=== PATIENT | female | born 1950 | race Caucasian/White ===

== ENCOUNTER 2019-09-22 06:00 | Outpatient (RCR) | payer MEDICARE, SELFPAY | END 2019-10-22 00:01 | LOC: SST 06:00 | PROVIDERS: Family Provider Family Medicine; Visit Provider Family Medicine | DX: R47.81 Slurred speech (principal) | CPT/HCPCS: 92507 ×4 ==

== ENCOUNTER 2019-10-23 06:00 | Outpatient (RCR) | payer MEDICARE, SELFPAY | END 2019-11-22 23:59 | disposition home or self-care (01) | LOC: SST 06:00 | PROVIDERS: Family Provider Family Medicine; Visit Provider Family Medicine | DX: R47.01 Aphasia (principal) | CPT/HCPCS: 92507 ==

== ENCOUNTER → 2019-10-30 09:52 | Outpatient (BNVA) | payer MEDICARE, SELFPAY | PROVIDERS: Family Provider Family Medicine; PCP Anesthesiology; Visit Provider Nurse Practitioner | DX: G89.29 Other chronic pain (principal); M47.816 Spondylosis without myelopathy or radiculopathy, lumbar region; M54.16 Radiculopathy, lumbar region; M48.061 Spinal stenosis, lumbar region without neurogenic claudication; M25.551 Pain in right hip; F17.210 Nicotine dependence, cigarettes, uncomplicated; Z79.891 Long term (current) use of opiate analgesic | CPT/HCPCS: 99214 ==

== ENCOUNTER 2019-11-23 06:00 | Outpatient (RCR) | payer MEDICARE, SELFPAY | END 2019-12-21 23:59 | disposition home or self-care (01) | LOC: SST 06:00 | PROVIDERS: Family Provider Family Medicine; PCP Anesthesiology; Referring Provider Family Medicine; Visit Provider Family Medicine | DX: R13.0 Aphagia (principal) | CPT/HCPCS: 92607; 92608 ==

== ENCOUNTER 2019-11-25 13:05 | Outpatient (RCR) | payer MEDICARE, SELFPAY | END 2019-12-21 23:59 | disposition home or self-care (01) | LOC: SST 13:05 | PROVIDERS: Family Provider Family Medicine; PCP Anesthesiology; Visit Provider Family Medicine | DX: R47.01 Aphasia (principal) | CPT/HCPCS: 92507; 92607; 92608 ==

== ENCOUNTER 2019-12-22 06:00 | Outpatient (RCR) | payer MEDICARE, SELFPAY | END 2020-01-21 23:59 | disposition home or self-care (01) | LOC: SST 06:00 | PROVIDERS: Family Provider Family Medicine; PCP Anesthesiology; Visit Provider Family Medicine | DX: R47.01 Aphasia (principal) | CPT/HCPCS: 92507 ==

== ENCOUNTER → 2019-12-26 12:33 | Outpatient (BNVA) | payer MEDICARE, SELFPAY | PROVIDERS: Family Provider Family Medicine; PCP Anesthesiology; Visit Provider Anesthesiology | DX: G89.29 Other chronic pain (principal); M47.816 Spondylosis without myelopathy or radiculopathy, lumbar region; M48.061 Spinal stenosis, lumbar region without neurogenic claudication; M54.16 Radiculopathy, lumbar region; M25.551 Pain in right hip; Z79.891 Long term (current) use of opiate analgesic | CPT/HCPCS: 99214 ==

== ENCOUNTER 2020-01-22 06:00 | Outpatient (RCR) | payer MEDICARE, SELFPAY | END 2020-02-20 23:59 | disposition home or self-care (01) | LOC: SST 06:00 | PROVIDERS: Family Provider Family Medicine; PCP Anesthesiology; Visit Provider Family Medicine | DX: R47.01 Aphasia (principal) | CPT/HCPCS: 92507 ==

== ENCOUNTER 2020-02-21 06:00 | Outpatient (RCR) | payer MEDICARE, SELFPAY | END 2020-03-22 23:59 | disposition home or self-care (01) | LOC: SST 06:00 | PROVIDERS: PCP Anesthesiology; Visit Provider Family Medicine | DX: R47.01 Aphasia (principal) | CPT/HCPCS: 92507 ==

== ENCOUNTER 2020-03-13 13:13 | Outpatient (CLI) | payer MEDICARE, SELFPAY ==
--- NOTE | 2020-03-13 13:24 | XRR_ITS ---
PROCEDURE INFORMATION: Exam: XR Lumbosacral Spine, 2 or 3 Views Exam date and time: 03/13/2020 1:37 PM Age: 69 years old Clinical indication: Low back pain TECHNIQUE: Imaging protocol: XR of the lumbosacral spine, 2 or 3 views. COMPARISON: CR Lumbar Spine Flex/Extens [id number] 02/16/2016 2:00 PM FINDINGS: Vertebrae: No acute fracture. Normal alignment. There is anterolisthesis of L4 relative to L5 which is likely degenerative in nature. The disc spaces appear well preserved. Soft tissues: Normal. XR/XR lumbar spine f/e only [id number] IMPRESSION: No acute findings.
--- NOTE | 2020-03-13 13:30 | CT_ITS ---
WS: [id number] CT LUMBAR SPINE TECHNIQUE: Noncontrast CT of the lumbar spine with coronal and sagittal reformatted images. CLINICAL INFORMATION: Low back pain COMPARISON: MRI October 21, 2019 DLP: 993.[address] scans at [facility] use at least one of these dose optimization techniques: automat ed exposure control; mA and/or kV adjustment per patient size (includes targeted exams where dose is matched to clinical indication); or iterative reconstruction. FINDINGS: Mild lumbar curve. No acute compression. Grade 1 anterolisthesis L4 on L5 measuring 6 mm. No acute co mpression fractures. L1-L2: Disc osteophyte complex with endplate ridging. Narrowing of the left subarticular recess. Mild left and no significant right foraminal narrowing. Mild facet arthropathy. L2-L3: Disc osteophyte complex with endplate ridging. Narrowing of the left subarticular recess. Mild left and no significant right foraminal narrowing. Moderate facet arthropathy. L3-L4: Small central disc protrusion with moderate central canal stenosis. Impingement subarticular r ecess bilaterally. Moderate facet arthropathy. Mild right greater than left foraminal narrowing. L4-L5: Grade 1 anterolisthesis L4 on L5. Disc bulging in combination with facet arthropathy and ligam entum flavum hypertrophy results in severe central canal stenosis. This is unchanged since the prior MRI. Moderate to advanced facet arthropathy. Mild right and no significant left foraminal narrowing. L5-S1: Mild annular bulging. Mild central canal stenosis. Moderate facet arthropathy. Foramen are pat ent. Bilateral sacral insufficiency fractures with sclerosis. Recommend correlation for sacral pain. This was present on the prior MRI. CT/CT lumbar spine wo con* [id number] IMPRESSION: 1. Mild lumbar curve. No acute compression. 2. Severe central canal stenosis L4-5 unchanged since the prior MRI. Grade 1 a nterolisthesis L4 on L5 unchanged. 3. Bilateral sacral insufficiency fractures with sclerosis. These are present on the prior MRI. 4. Mild to moderate central canal stenosis L3-4 with a small central disc prot rusion. 5. Advanced facet arthropathy L3-L5. 6. Multilevel mild to moderate bony foraminal narrowing worse at left L2-3, ri ght L3-4, and right L4-5.
== END 2020-03-13 13:14 | disposition home or self-care (01) ==
LOC: RAD 13:19
PROVIDERS: Visit Provider Licensed Practical Nurse
DX: M54.5 Low back pain (principal); M48.061 Spinal stenosis, lumbar region without neurogenic claudication; M47.896 Other spondylosis, lumbar region
CPT/HCPCS: 72120; 72131

== ENCOUNTER 2020-05-05 13:11 | Outpatient (RCR) | payer MEDICARE, SELFPAY | END 2020-05-22 23:59 | disposition home or self-care (01) | LOC: SPT 13:11 | PROVIDERS: PCP Family Medicine; Referring Provider Specialist; Visit Provider Specialist | DX: M54.16 Radiculopathy, lumbar region (principal) | CPT/HCPCS: 97110; 97161 ==

== ENCOUNTER → 2020-05-14 12:49 | Outpatient (BNVA) | payer MEDICARE, SELFPAY | PROVIDERS: PCP Family Medicine; Visit Provider Anesthesiology | DX: M47.816 Spondylosis without myelopathy or radiculopathy, lumbar region (principal); M48.061 Spinal stenosis, lumbar region without neurogenic claudication; M43.16 Spondylolisthesis, lumbar region; M51.17 Intervertebral disc disorders with radiculopathy, lumbosacral region; F17.210 Nicotine dependence, cigarettes, uncomplicated; Z79.891 Long term (current) use of opiate analgesic | CPT/HCPCS: 99214 ==

== ENCOUNTER 2020-05-15 13:54 | Outpatient (CLI) | payer MEDICARE, SELFPAY ==
[2020-05-15 15:00] LABS: Anion Gap 12.3 (5-19); Blood Urea Nitrogen 16 mg/dL (8-23); Calcium 9.2 mg/dL (8.5-10.5); Carbon Dioxide 24 mmol/L (22-29); Chloride 104 mmol/L (98-107); Glucose 82 mg/dL (65-115); Osmolality Calculated 277 mOsm/kg (285-295); Potassium 4.3 mmol/L (3.5-5.1); Sodium 136 mmol/L (136-145)
== END 2020-05-15 13:55 | disposition home or self-care (01) ==
LOC: LAB 14:01
PROVIDERS: PCP Family Medicine; Visit Provider Anesthesiology
DX: Z79.1 Long term (current) use of non-steroidal anti-inflammatories (NSAID) (principal)
CPT/HCPCS: 36415; 80048

== ENCOUNTER → 2020-07-15 12:28 | Outpatient (BNVA) | payer MEDICARE, SELFPAY | PROVIDERS: PCP Family Medicine; Visit Provider Nurse Practitioner | DX: M47.816 Spondylosis without myelopathy or radiculopathy, lumbar region (principal); M43.16 Spondylolisthesis, lumbar region; M51.17 Intervertebral disc disorders with radiculopathy, lumbosacral region; F17.210 Nicotine dependence, cigarettes, uncomplicated; Z79.891 Long term (current) use of opiate analgesic; Z71.6 Tobacco abuse counseling | CPT/HCPCS: 99214 ==

== ENCOUNTER 2020-07-22 06:00 | Outpatient (RCR) | payer MEDICARE, SELFPAY | END 2020-07-22 23:59 | disposition home or self-care (01) | LOC: SST 06:00 | PROVIDERS: PCP Family Medicine; Referring Provider Family Medicine; Visit Provider Family Medicine | DX: R47.01 Aphasia (principal) | CPT/HCPCS: 92507 ==

== ENCOUNTER 2020-07-23 06:00 | Outpatient (RCR) | payer MEDICARE, SELFPAY | END 2020-08-22 23:59 | disposition home or self-care (01) | LOC: SST 06:00 | PROVIDERS: PCP Family Medicine; Referring Provider Family Medicine; Visit Provider Family Medicine | DX: R47.01 Aphasia (principal) | CPT/HCPCS: 92507 ==

== ENCOUNTER → 2020-09-02 14:17 | Outpatient (BNVA) | payer MEDICARE, SELFPAY | PROVIDERS: PCP Family Medicine; Visit Provider Obstetrics & Gynecology | DX: N81.10 Cystocele, unspecified (principal); R10.2 Pelvic and perineal pain; G89.29 Other chronic pain | CPT/HCPCS: 76830 ==

== ENCOUNTER → 2020-09-08 13:34 | Outpatient (BNVA) | payer MEDICARE, SELFPAY | PROVIDERS: PCP Family Medicine; Visit Provider Anesthesiology | DX: M47.816 Spondylosis without myelopathy or radiculopathy, lumbar region (principal); M43.16 Spondylolisthesis, lumbar region; M48.061 Spinal stenosis, lumbar region without neurogenic claudication; M51.17 Intervertebral disc disorders with radiculopathy, lumbosacral region; F17.210 Nicotine dependence, cigarettes, uncomplicated; Z79.1 Long term (current) use of non-steroidal anti-inflammatories (NSAID); Z79.891 Long term (current) use of opiate analgesic | CPT/HCPCS: 36415; 80053; 99213; 99214 ==

== ENCOUNTER 2020-09-08 15:24 | Outpatient (CLI) | payer MEDICARE, SELFPAY ==
[2020-09-08 16:45] LABS: Alanine Aminotransferase 18 U/L (0-33); Alkaline Phosphatase 126 IU/L (35-105); Anion Gap 15.4 (5-19); Aspartate Amino Transferase 17 U/L (0-32); Blood Urea Nitrogen 21 mg/dL (8-23); Calcium 8.9 mg/dL (8.5-10.5); Carbon Dioxide 24 mmol/L (22-29); Chloride 106 mmol/L (98-107); Globulin 2.3 g/dL (1.3-4.6); Glucose 90 mg/dL (65-115); Osmolality Calculated 295 mOsm/kg (285-295); Potassium 4.4 mmol/L (3.5-5.1); Sodium 141 mmol/L (136-145); Total Bilirubin 0.2 mg/dL (0.15-1.2); Total Protein 6.3 g/dL (6.6-8.7)
== END 2020-09-08 15:25 | disposition home or self-care (01) ==
LOC: LAB 15:30
PROVIDERS: PCP Family Medicine; Visit Provider Anesthesiology
DX: Z79.1 Long term (current) use of non-steroidal anti-inflammatories (NSAID) (principal)
CPT/HCPCS: 36415; 80053

== ENCOUNTER → 2020-09-24 13:03 | Outpatient (BNVA) | payer MEDICARE, SELFPAY | PROVIDERS: PCP Family Medicine; Visit Provider Obstetrics & Gynecology | DX: Z20.828 Contact with and (suspected) exposure to other viral communicable diseases (principal) | CPT/HCPCS: 87635 ==

== ENCOUNTER 2020-09-30 09:21 | Observation (INO) | payer MEDICARE, SELFPAY ==
[2020-09-28 10:06] VITALS: BMI 20.1
--- NOTE | 2020-09-28 10:39 | ANES.PREANE2 ---
Pre-Anesthetic Assessment Pre-Anesthetic Assessment: Height/Weight: Height 1.57 m Weight 49.895 kg Preop Diagnosis: Cystocele stage 2 stress urinary incontinence Proposed Procedure: Operation Date: 09/30/20 12:35 Proposed Procedures p Anterior Repair Anterior Colporrhaphy [id number] N81.10(Not Applicable) - Darius Stoll MD s Midurethral single incision Sling(Not Applicable) - Darius Stoll MD Familial anesthetic complications: None Was Beta Adalgisa taken within 24 hours: N/A Last intake: difficulty waking up Social: Social History: Tobacco Exam: Pre-Anes Outpt Exam: alert, oriented x 3, clear to auscultation bilaterally and regular rate & rhythm Airway: Cervical ROM: WNL MP: 2 Dentition: Other (plates) CV/HEM: Comments: s/p ablation - for rapid heart beat Musc/skel: Musc/skel: Lower Back Pain and OA/DJD Neuropsych: Neuropsych: Neuropathy and TIA (2-3) Comments: Has trouble producing speech - ? 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 Long-term use of high-risk medication Low back pain Smoker Spinal stenosis of lumbar region with radiculopathy Spondylolisthesis, lumbar region Surgical History History of cardiac radiofrequency ablation 2012 S/P cholecystectomy 2011 S/P hysterectomy 2004 Family History Sister Dementia Father Myocardial infarct Heart disease Mother Cancer BRAIN TUMOR Brother Hypertension Cancer colon cancer Denies family history of Ovarian cancer Diabetes Clotting disorder Hyperlipidemia Breast cancer Anesthesia complication Bleeding disorder Uterine cancer Thyroid condition Stroke Social History (Updated 09/28/20 @ 08:03 by Lissy Villela RN) Smoking and tobacco status: current every day smoker cigarettes Packs smoked per day: 2 [ Other cigarette details: 1-2 packs per day ] Alcohol intake: never Substance/Drug Use: never Household members: spouse Marital status: History of recent travel: No Data Anesthesia Cardiac Studies: No Data to Display
[2020-09-28 10:45] LABS: Basophils # 0.1 10^3/uL (0.0-0.1); Basophils % 0.7 %; Eosinophils # 0.3 10^3/uL (0.0-0.8); Eosinophils % 3.7 %; Hematocrit 40.3 % (37.0-47.0); Lymphocytes # 1.5 10^3/uL (0.8-4.8); Mean Corpuscular HGB Conc 32.3 g/dL (30.0-36.0); Mean Corpuscular Hemoglobin 31.4 pg (28.0-34.0); Mean Corpuscular Volume 97.3 fL (81-99); Mean Platelet Volume 10.2 fL (7.4-10.4); Monocytes # 0.6 10^3/uL (0.2-0.9); Monocytes % 6.6 %; Neutrophils % 71.8 %; Nucleated Red Blood Cells % 0 %; Platelet Count 247 10^3/cmm (130-400); Red Blood Count 4.14 10^6/uL (4.1-5.3); Red Cell Distribution Width 14.1 % (12.1-15.1); White Blood Count 8.9 10^3/uL (4.0-10.0)
[2020-09-28 11:07] LABS: Alanine Aminotransferase 18 U/L (0-33); Albumin Level 3.9 g/dL (3.5-5.2); Alkaline Phosphatase 119 IU/L (35-105); Anion Gap 13.8 (5-19); Aspartate Amino Transferase 18 U/L (0-32); Blood Urea Nitrogen 21 mg/dL (8-23); Calcium 9.2 mg/dL (8.5-10.5); Carbon Dioxide 26 mmol/L (22-29); Chloride 107 mmol/L (98-107); Globulin 2.3 g/dL (1.3-4.6); Glucose 91 mg/dL (65-115); Osmolality Calculated 297 mOsm/kg (285-295); Potassium 4.8 mmol/L (3.5-5.1); Sodium 142 mmol/L (136-145); Total Bilirubin 0.2 mg/dL (0.15-1.2); Total Protein 6.2 g/dL (6.6-8.7)
[2020-09-28 11:50] LABS: Add Urine Microscopic? YES; Bilirubin Urine Neg (Negative); Blood Urine Neg (Negative); Glucose Urine UA Norm (Normal); Ketones Urine 1+ (Negative); Leukocyte Esterase Urine Trace (Negative); Nitrate Urine Positive (Negative); Protein Urine Neg (Negative); Specific Gravity, Urine 1.025 (1.005-1.030); Urine Appearance Hazy (CLEAR); Urine Color Yellow (Yellow); Urobilinogen Urine Norm (Negative); pH Urine 5 (5-7)
[2020-09-28 11:58] LABS: Add Urine Culture? Yes; Bacteria Urine 4+ /hpf; WBC Urine 80-100 /hpf (0-5)
[2020-09-30] VITALS (19 sets, daily range): BP systolic 102–141; BP diastolic 60–91; PULSE 66–98; RESP 15–20; TEMP 36.3–36.8; O2SAT 95–100
--- NOTE | 2020-09-30 07:20 | W.PM.OPSUD ---
Surgery/Procedure H&P Update DATE OF PROCEDURE: October 04, 2020 DATE H&P PERFORMED: 09/28/20 H&P UPDATE INFORMATION: I have reviewed H&P completed within last 30 days, I have examined patient prior to procedure and No changes to prior documentation PREOP DIAGNOSIS: Cystocele stage 2 stress urinary incontinence PLANNED PROCEDURE: Operation Date: 09/30/20 08:10 Proposed Procedures p Anterior Repair Anterior Colporrhaphy [id number] N81.10(Not Applicable) - Darius Stoll MD s Midurethral single incision Sling(Not Applicable) - Darius Stoll MD
--- NOTE | 2020-09-30 07:23 | ANES.PAUD2 ---
Pre-Anesthetic Update Pre-Anesthetic Assessment: Date of Surgery/Procedure: 09/30/20 Preop Diagnosis: Cystocele stage 2 stress urinary incontinence Proposed Procedure: Operation Date: 09/30/20 08:10 Proposed Procedures p Anterior Repair Anterior Colporrhaphy [id number] N81.10(Not Applicable) - Darius Stoll MD s Midurethral single incision Sling(Not Applicable) - Darius Stoll MD Any changes to Pre-Anesthetic Assessment?: No Last Intake: Intake Patient and states she had a small sip of coffee w/ cream at slightly before 0600. Patient and educated on risk of aspiration if patient actually drank more than just a sip of coffee. They re-affirmed it was only a sip before stopped patient from any further ingestion. Last Liquid Date 09/30/20 Last Liquid Time 06:00 Last Solid Date 09/29/20 Last Solid Time 23:30 Labs Last 48hrs: Laboratory Results - last 48 hr 09/28/20 09/28/20 09/28/20 10:20 10:30 10:30 WBC 8.9 RBC 4.14 Hgb 13.0 Hct 40.3 MCV 97.3 MCH 31.4 MCHC 32.3 RDW 14.1 Plt Count 247 MPV 10.2 Neut % (Auto) 71.8 Lymph % (Auto) 17.0 [place] % (Auto) 6.6 Eos % (Auto) 3.7 Baso % (Auto) 0.7 Neut # (Auto) 6.40 Lymph # (Auto) 1.5 [place] # (Auto) 0.6 Eos # (Auto) 0.3 Baso # (Auto) 0.1 Nucleated RBC % (a uto) 0 Nucleated RBCs # 0.0 Sodium 142 Potassium 4.8 Chloride 107 Carbon Dioxide 26 Anion Gap 13.8 BUN 21 Creatinine 1.1 H GFR Calculation Not Reportable Glucose 91 Calculated Osmolal ity 297 H Calcium 9.2 Total Bilirubin 0.2 AST 18 ALT 18 Alkaline Phosphata se 119 H Total Protein 6.2 L Albumin 3.9 Globulin 2.3 Urine Color Yellow Urine Appearance Hazy A Urine pH 5 Ur Specific Gravit y 1.025 Urine Protein Neg Urine Glucose (UA) Norm Urine Ketones 1+ H Urine Blood Neg Urine Nitrate Positive H Urine Bilirubin Neg Urine Urobilinogen Norm Ur Leukocyte Susan ase Trace H Urine RBC None Urine WBC 80-100 H Ur Squamous Epith Cells None Amorphous Sediment Not Reportable Urine Bacteria 4+ H Blood Type Rho(D) Type Antibody Screen 09/28/20 10:30 WBC RBC Hgb Hct MCV MCH MCHC RDW Plt Count MPV Neut % (Auto) Lymph % (Auto) Limestone % (Auto) Eos % (Auto) Baso % (Auto) Neut # (Auto) Lymph # (Auto) [place] # (Auto) Eos # (Auto) Baso # (Auto) Nucleated RBC % (a uto) Nucleated RBCs # Sodium Potassium Chloride Carbon Dioxide Anion Gap BUN Creatinine GFR Calculation Glucose Calculated Osmolal ity Calcium Total Bilirubin AST ALT Alkaline Phosphata se Total Protein Albumin Globulin Urine Color Urine Appearance Urine pH Ur Specific Gravit y Urine Protein Urine Glucose (UA) Urine Ketones Urine Blood Urine Nitrate Urine Bilirubin Urine Urobilinogen Ur Leukocyte Susan ase Urine RBC Urine WBC Ur Squamous Epith Cells Amorphous Sediment Urine Bacteria Blood Type A Positive Rho(D) Type Positive Antibody Screen Negative Vitals: Temperature 98.2 F 09/30/20 07:15 Temperature Source Temporal Artery S can 09/30/20 07:15 Pulse Rate 80 09/30/20 07:15 Respiratory Rate 16 09/30/20 07:15 Blood Pressure 102/60 09/30/20 07:15 Blood Pressure Vicki n 74 09/30/20 07:15 Pulse Oximetry 100 09/30/20 07:15 Oxygen Delivery Me thod 09/30/20 07:15 Exam: Pre-Anes Outpt Exam: alert, oriented x 3, clear to auscultation bilaterally and regular rate & rhythm Cardiac Studies: No Data to Display
[2020-09-30] MEDS: vancomycin 1,000 MG in sodium chloride 0.9% 250 ML 250 MG IV (07:29)
[2020-09-30] MEDS: sodium chloride 0.9% 1,000 ML 30 ML IV (07:29)
[2020-09-30] MEDS: scopolamine 1.5 Patch 1 PATCH TRANSDERMA (07:29)
[2020-09-30] MEDS: estrogens Conjugated Cream 30 gm 1 APPLIC VAGINAL (08:35)
--- NOTE | 2020-09-30 09:01 | P.OP_ITS ---
Operative Report Date of procedure: September 30, 2020 Pre-op Diagnosis: Cystocele stage 2 stress urinary incontinence Post-op diagnosis: same Post-op Findings: Cystocele stage II, urethral hypermobility Procedure Done: Anterior colporrhaphy augmented with allograft and single incision mid urethral sling Pathology: none sent Surgeon: Darius Stoll MD Anesthesia: General Estimated blood loss (mL): 50 IV fluids (mL): 800 Urine output (mL): 100 Complications: None Condition: stable Disposition: PACU Procedure: After obtaining informed consent, the patient was taken to the operating room and placed in the supine position, given general anesthesia, and prepped and draped in sterile fashion. The abdomen, vulva and vagina were prepped and draped in a sterile manner. A time out procedure was performed. The anterior vaginal mucosa beneath the midurethra was infiltrated with 0.5% Marcaine with epinephrine. A vertical midline incision was made beneath the midurethra, nearly 1.5 cm length. Careful submucosal dissection was performed bilaterally up to the interior portion of the inferior pubic ramus. The insertion of adductor longus tendon on the patient?s pubic ramus was identified as reference land blair. Palpated the notch along the internal edge of ischiopubic ramus where the adductor longus tendon and the inferior pubic ramus meet. The Coloplast Altis single incision sling (SIS) was selected. With thin porcine graft the mesh of the sling was lined anteriorly and posteriorly with the graft. Then the needle of the SIS inserted aiming at the location of this notch. One of the integrated self-fixating tips place onto the needle by sliding it over the end of the needle. The needle/sling assembly was inserted toward the location of identified reference notch making sure that the flat of the handle is perpendicular to the desired path. The needle was tracked along the posterior surface of the ischiopubic ramus until the midline blair on the mesh is approximately at the midline position under the urethra. The needle was removed and the same was repeated on the contralateral side until the appropriate sling tension under the urethra was achieved ensuring that the mesh lays flat. The needle was removed and vaginal incision was closed in a running interlocking fashion with 2-0 Vicryl. Then the vaginal mucosa was then injected in the midline with normal saline. The vaginal mucosa was scored in the midline with the Bovie approximately 1 cm medial to the urethral meatus to 1 cm distal to the vaginal cuff. This vaginal mucosa was then undermined and then incised in the midline with the Metzenbaum scissors. The lateral aspects of the vaginal mucosa were then grasped with the Allis clamps and the vaginal mucosa was then dissected off the underlying fascia with the Metzenbaum scissors. Again, there was noted to be quite a bit of oozing at the incision, which was controlled with cautery. After adequate dissection was performed, bilaterally. The Coloplast allograft was modified at time of application to fit spacea, 3 x 4 cm piece . Coloplast allograft placed in front of cystocele ready to be implanted with the Basement Membrane facing the vagina mucosa. Suture is placed at distal end of graft and placed towards vaginal cuff. Final suture is placed on proximal portion of the graft to complete the placement overlying the bladder. Then Interrupted vertical mattress sutures of 0 Vicryl were used to elevate the cystocele superiorly. The excessive vaginal mucosa was then trimmed with the Metzenbaum scissors and the vaginal mucosa was then reapproximated in the running interlocking fashion with 2-0 Vicryl. Then the Chowdary catheter was removed and cystoscope was inserted. The bladder was filled with sterile water. Complete evaluation of the bladder mucosa was performed noting no lacerations, dimpling, tears, bleeding of the mucosa or musc ular layers. Both ureteral orifices were identified. Prompt excretion of urine from both ureteral orifices was noted. Cystoscope was withdrawn. The Chowdary catheter was replaced. Excellent hemostasis was obtained. A vaginal pack is placed overnight as postoperative support for the vaginal tissues after graft placement and closure of vaginal incisions. Sponge, lap, needle, and instrument counts were correct times three. The patient was taken to the recovery room, awake and in stable condition.
--- NOTE | 2020-09-30 09:05 | SUR.PHASEI ---
0904- ORAL AIRWAY OUT, SIMPLE MASK AT 5LPM SAT 100%
--- NOTE | 2020-09-30 10:00 | PC.NURSE ---
Instructed pt not to get out of bed without help and to push the call light for help, pt the oriented to the call light pt nodded head in understanding.
[2020-09-30] MEDS: TRAMadol 50 mg Tablet PO (12:04)
[2020-09-30] MEDS: aspirin 81 mg Chew Tablet PO (12:04)
--- NOTE | 2020-09-30 13:25 | PC.NURSE ---
[place] someone say Can you help me? When I turned toward the patient's room, the patient was standing at the door holding her catheter. This field underwriter asked patient what she needed help with. Patient replied to hang this up while handing this field underwriter her catheter bag. Patient them ambulated back to her bed and asked for assistance with her blankets. Patient's catheter hung on the side of the bed. Patient ambulated across her room with no visible difficulties.
[2020-09-30] MEDS: dextrose 5%-lactated ringers 1,000 ML 125 ML (14:05)
[2020-09-30] MEDS: ibuprofen 800 mg tablet PO ×2 (14:05→21:21)
--- NOTE | 2020-09-30 14:30 | PC.NURSE ---
Called PACU regarding patient coming to the OB department without any belongings except for her dentures and glasses. Spoke with Eneida, who reported that the patient's took home her belongings.
--- NOTE | 2020-09-30 14:46 | PC.NURSE ---
Patient previously reported her pain a 10, in her lower stomach. When asked what her pain rating is now, she rated it a 9. Patient looks more comfortable than previously, and when asked if her pain was better than before, she answered yes.
[2020-09-30] MEDS: HYDROcodone-acetaminophen 5-325 mg Tablet 2 TAB PO ×2 (15:42→21:21)
--- NOTE | 2020-09-30 18:11 | PC.NURSE ---
Patient gave this nurse her pack of cigarettes and pipe chipper. Locked up in the medication lock box.
--- NOTE | 2020-09-30 18:33 | ANE.PACU2 ---
Inpatient post-anesthesia follow up: Airway intact: Yes Vital signs: Temperature 97.9 F Pulse Rate 84 Respiratory Rate 16 Blood Pressure 130/67 Pulse Oximetry 98 Oxygen Delivery Me thod Room Air Oxygen Flow Rate 5 Fraction of Inspir ed Oxygen Hydration adequate: Yes Nausea and vomiting: No Pain level: 2 Mental status: Baseline
[2020-09-30] MEDS: dextrose 5%-lactated ringers 1,000 ML 125 ML IV (22:11)
[2020-10-01] MEDS: HYDROcodone-acetaminophen 5-325 mg Tablet 2 TAB PO (03:57)
[2020-10-01 04:00] VITALS: BP 111/69; PULSE 62; RESP 18; TEMP 36.4; O2SAT 99
--- NOTE | 2020-10-01 05:10 | PC.NURSE ---
vaginal packing removed at 0510
[2020-10-01 05:26] LABS: Hematocrit 32.1 % (37.0-47.0); Hemoglobin 10.3 g/dL (11.5-15.3); Mean Corpuscular HGB Conc 32.1 g/dL (30.0-36.0); Mean Corpuscular Hemoglobin 31.3 pg (28.0-34.0); Mean Corpuscular Volume 97.6 fL (81-99); Mean Platelet Volume 10.2 fL (7.4-10.4); Platelet Count 195 10^3/cmm (130-400); Red Blood Count 3.29 10^6/uL (4.1-5.3); Red Cell Distribution Width 14.6 % (12.1-15.1); White Blood Count 14.5 10^3/uL (4.0-10.0)
[2020-10-01] MEDS: dextrose 5%-lactated ringers 1,000 ML 125 ML IV (05:43)
--- NOTE | 2020-10-01 08:30 | P.DS_ITS ---
Discharge Providers BOARDING KENNEL OR CATTERY OPERATOR Date of Admission: 09/30/20 09:21 Date of Discharge: 10/01/20 Attending Provider at Admission: Darius Stoll MD Attending Provider at Discharge: Darius Stoll MD Primary Care Provider: Elly Torres MD Diagnoses at Discharge Discharge Diagnosis (1) POP-Q stage 2 cystocele: Status: Acute (2) Urinary, incontinence, stress female: Status: Acute Reason for Visit Reason for Visit: anterior colporrhapy Hospital Course Hospital Course 70-year-old female with cystocele and stress urinary incontinence. Admitted for planned anterior colporrhaphy augmented with allograft and single incision mid urethral sling. The procedures were performed without complications. Overnight observation was uneventful. She is afebrile hemodynamically stable. Ambulating without difficulty. Denied pain. Post voiding residual within normal limits. Physical Exam Narrative: EXAM NARRATIVE: GA: Alert and oriented ?3. HEENT: WNL. Heart: Regular rate and rhythm. Lungs: Clear to auscultation bilaterally. Abdomen: Bowel sounds present, nontender. WINE MAKER: No bleeding. Extremities: No edema, no cyanosis, no calves pain. Urinary Catheter Management^: Chowdary: Cath Placed During This Visit: yes, but has since been removed by the nurse Reason for Continuing Indwelling Catheter: Decision to DC Catheter Urinary Catheter Date of Insertion: 09/30/20 Urinary Catheter Time of Insertion: 08:02 Date Urinary Catheter Removed: 10/01/20 Time Urinary Catheter Discontinued: 05:10 Discharge Data Data Completed and Pending: Labs from last 24 hours 10/01/20 05:03 WBC 14.5 H RBC 3.29 L Hgb 10.3 L Hct 32.1 L MCV 97.6 MCH 31.3 MCHC 32.1 RDW 14.6 Plt Count 195 MPV 10.2 Vitals: Last Vital Signs Temp 97.6 F 10/01/20 04:00 Pulse 62 10/01/20 04:00 Resp 18 10/01/20 04:00 BP 111/69 10/01/20 04:00 Pulse Ox 99 10/01/20 04:00 Discharge Plan Discharge Patient Disposition: Home Condition: Stable Prescriptions: Continued aspirin 81 mg tablet,chewable 81 mg PO DAILY RF: 0 red yeast rice 600 mg capsule 1,200 mg PO DAILY RF: 0 coenzyme [id number] E 100-100 mg-unit capsule 1 cap PO DAILY RF: 0 hydrocodone-acetaminophen 5-325 mg tablet 1 tab PO BID PRN (Reason: pain) 30 Days Qty: 60 RF: 0 tramadol 50 mg tablet 50 mg PO QID PRN (Reason: pain) 30 Days Qty: 120 RF: 1 rosuvastatin 20 mg tablet 20 mg PO DAILY RF: 0 PreserVision AREDS-2 [id number] ca-agqe-rf-mg capsule 2 tab PO DAILY RF: 0 glucosamine-chondroitin [Osteo Bi-Flex] 250-200 mg tablet 1 tab PO DAILY RF: 0 cholecalciferol (vitamin D3) 25 mcg (1,000 unit) tablet 25 mcg PO DAILY RF: 0 meloxicam 7.5 mg tablet 7.5 mg PO DAILY RF: 0 Discharge Orders: Discharge Order (Routine); Ordered 10/01/20 Ordered By: Darius Stoll Referrals: Darius Stoll MD [Physician] - 2 weeks Discharge Diet: As Directed Discharge Activity: Increase activity as tolerated Patient Instructions: Anterior Vaginal Repair (DC) Activity Restrictions/Additional Instructions: 1. Please call [facility] on next working day to make your post-operative appointment in 2 weeks. 2. Please stay home until you come back to the clinic on first post-operative check up. 3. Please follow instructions on your medications CAREFULLY. 4. If you have abdominal incision, do not cover it unless dressing is necessary because of drainage. OK to shower, but avoid bath. Leave steri-strips until they fall off. If they are still on one week after surgery, you may remove them. 5. If you had vaginal surgery, your doctor may instruct you to take SITZ bath. 6. Yellow, blood tinged odorous vaginal discharge is usually normal after hysterectomy or vaginal surgeries. 7. No sexual intercourse, tampons, or douches until you are completely for 6 weeks or released from the post-operative care. 8. Avoid constipation by eating right and maybe using some Metamucil or Milk of Magnesia. 9. All prescription refills are given during the working hours. Please do no wait till it runs out. Call the clinic at [phone] before your medication runs out. The clinic will get in touch with your doctor to prescribe medications if necessary. 10. Please remain within 40 mile radius from our hospital because emergencies do happen now and then during the post-operative period. 11. If you have stairs at home, take one step at a time slowly and minimize the number of trips. It helps to stay in one floor for the next few days. No lifting except what you can lift by one hand until you are released from the post-operative care. 12. Driving is discouraged until you are well healed. It may be 3-4 weeks before you feel strong enough to drive. You should be able to turn and look through the rear window without pain and you should be able to push the brake pedal very hard without pain before you drive. No fast rules, but SAFETY should be your primary concern. DO NOT drive if you are on sedating medications such as narcotics. 13. Call the clinic (during working hours) to make urgent appointment or go to the Emergency room, if any of the following occurs: i. Vaginal bleeding becomes heavy, more than a period. ii. Incision becomes red and sore, or drains pus. iii. Your temperature is over 100.4 or you have chill. iv. IV site becomes red and swollen (a little ``knot?? is usually OK) v. Persistent nausea and vomiting vi. Persistent constipation or diarrhea vii. Rash or allergic reaction to medications. Discharge Attestations BOARDING KENNEL OR CATTERY OPERATOR Time Spent in Discharge Care*: greater than 30 min Coding Level of Care Code Acute Demo Event Specialist for Chg Fwd Diagnoses POP-Q stage 2 cystocele N81.10 Urinary, incontinence, stress female N39.3
[2020-10-01] MEDS: ibuprofen 800 mg tablet PO (08:48)
[2020-10-01] MEDS: docusate sodium 100 mg Capsule PO (08:48)
[2020-10-01 10:00] VITALS: BP 116/74; PULSE 62; RESP 18; TEMP 36.6; O2SAT 98
[2020-10-01 10:47] VITALS: BP 116/74; PULSE 62; RESP 18; TEMP 36.6; O2SAT 98
--- NOTE | 2020-10-02 14:24 | PC.RESP ---
Smoking Cessation information sent to patient.
== END 2020-10-01 10:15 | disposition home or self-care (01) ==
LOC: OBGYN 09:21
PROVIDERS: Admitting Provider Obstetrics & Gynecology; PCP Family Medicine; Visit Provider Obstetrics & Gynecology
PROC: 0JQC0ZZ Repair Pelvic Region Subcutaneous Tissue and Fascia, Open Approach (ICD-10-PCS; CPT 57240; principal; 2020-09-30 08:10)
PROC: (CPT 57288; 2020-09-30 08:10)
PROC: 0TJB8ZZ Inspection of Bladder, Via Natural or Artificial Opening Endoscopic (ICD-10-PCS; CPT 52000; 2020-09-30 08:10)
DX: N81.10 Cystocele, unspecified (principal); N39.3 Stress incontinence (female) (male); N36.41 Hypermobility of urethra; Z79.82 Long term (current) use of aspirin; F17.210 Nicotine dependence, cigarettes, uncomplicated
CPT/HCPCS: 57240; 57267; 57288; 12345; 36415; 51798; 80053; 81001; 85025; 85027; 86850; 86900; 87077; 87086; 87186; 96361; 96365; C1713; C1762; G0378; J3010; J3370; J7030; J7050

== ENCOUNTER → 2020-11-06 13:29 | Outpatient (BNVA) | payer MEDICARE, SELFPAY | PROVIDERS: PCP Family Medicine; Visit Provider Anesthesiology | DX: M47.816 Spondylosis without myelopathy or radiculopathy, lumbar region (principal); M48.061 Spinal stenosis, lumbar region without neurogenic claudication; M51.17 Intervertebral disc disorders with radiculopathy, lumbosacral region; M43.16 Spondylolisthesis, lumbar region; F17.210 Nicotine dependence, cigarettes, uncomplicated; Z79.1 Long term (current) use of non-steroidal anti-inflammatories (NSAID); Z79.899 Other long term (current) drug therapy; Z79.891 Long term (current) use of opiate analgesic | CPT/HCPCS: 99213; 99214 ==

== ENCOUNTER → 2021-01-01 13:24 | Outpatient (BNVA) | payer MEDICARE, SELFPAY | PROVIDERS: PCP Family Medicine; Visit Provider Anesthesiology | DX: M47.816 Spondylosis without myelopathy or radiculopathy, lumbar region (principal); M48.061 Spinal stenosis, lumbar region without neurogenic claudication; M51.17 Intervertebral disc disorders with radiculopathy, lumbosacral region; M43.16 Spondylolisthesis, lumbar region; F17.210 Nicotine dependence, cigarettes, uncomplicated; Z79.1 Long term (current) use of non-steroidal anti-inflammatories (NSAID); Z79.891 Long term (current) use of opiate analgesic | CPT/HCPCS: 99213 ==

== ENCOUNTER → 2021-03-05 12:53 | Outpatient (BNVA) | payer MEDICARE, SELFPAY | PROVIDERS: PCP Family Medicine; Visit Provider Anesthesiology | DX: M47.816 Spondylosis without myelopathy or radiculopathy, lumbar region (principal); M48.061 Spinal stenosis, lumbar region without neurogenic claudication; M51.17 Intervertebral disc disorders with radiculopathy, lumbosacral region; M43.16 Spondylolisthesis, lumbar region; F17.210 Nicotine dependence, cigarettes, uncomplicated; Z79.891 Long term (current) use of opiate analgesic; Z79.899 Other long term (current) drug therapy | CPT/HCPCS: 99213 ==

== ENCOUNTER 2021-04-19 14:58 | Outpatient (CLI) | payer MEDICARE, SELFPAY ==
--- NOTE | 2021-04-19 15:05 | CT_ITS ---
WS: [id number] CT HEAD NONCONTRAST HISTORY: R47.9 - Unspecified speech disturbances TECHNIQUE: Contiguous axial imaging performed through the brain in 2.5 mm imaging. Bone and soft tiss ue windows. All CT scans at [facility] use at least one of these dose optimization techniq ues: automated exposure control; mA and/or kV adjustment per patient size (includes targeted exams wh ere dose is matched to clinical indication); or iterative reconstruction. DLP: 992.04 mGycm COMPARISON: 03/30/2018 No acute intracranial hemorrhage, midline shift or mass effect. Mild atrophy and very mild chronic microvascular ischemic type changes. No large territory infarct. Ventricles: Normal size with no hydrocephalus. Paranasal sinuses: As visualized are clear. Mastoid air cells: Well pneumatized. Calvarium and scalp: Skull is intact with no soft tissue edema or swelling. CT/CT head wo con* [id number] IMPRESSION: 1. Mild atrophy and minimal chronic microvascular ischemic type changes. 2. No ventriculomegaly.
== END 2021-04-19 14:59 | disposition home or self-care (01) ==
PROVIDERS: PCP Nurse Practitioner Family; Visit Provider Nurse Practitioner Family
DX: R47.9 Unspecified speech disturbances (principal); G31.9 Degenerative disease of nervous system, unspecified; I67.82 Cerebral ischemia; R41.3 Other amnesia; E55.9 Vitamin D deficiency, unspecified; R53.83 Other fatigue
CPT/HCPCS: 70450; 80053; 80061; 82306; 82607; 84439; 84443; 84481; 85025

== ENCOUNTER → 2021-04-29 10:29 | Outpatient (BNVA) | payer MEDICARE, SELFPAY | PROVIDERS: PCP Nurse Practitioner Family; Visit Provider Anesthesiology | DX: M47.816 Spondylosis without myelopathy or radiculopathy, lumbar region (principal); M48.061 Spinal stenosis, lumbar region without neurogenic claudication; M51.17 Intervertebral disc disorders with radiculopathy, lumbosacral region; M43.16 Spondylolisthesis, lumbar region; Z79.891 Long term (current) use of opiate analgesic | CPT/HCPCS: 99213 ==

== ENCOUNTER → 2021-07-14 10:39 | Outpatient (BNVA) | payer MEDICARE, SELFPAY | PROVIDERS: PCP Nurse Practitioner Family; Visit Provider Nurse Practitioner | DX: G89.29 Other chronic pain (principal); M47.816 Spondylosis without myelopathy or radiculopathy, lumbar region; M43.16 Spondylolisthesis, lumbar region; M51.17 Intervertebral disc disorders with radiculopathy, lumbosacral region; M48.061 Spinal stenosis, lumbar region without neurogenic claudication; M25.551 Pain in right hip; F17.210 Nicotine dependence, cigarettes, uncomplicated; Z79.1 Long term (current) use of non-steroidal anti-inflammatories (NSAID); Z79.891 Long term (current) use of opiate analgesic; Z71.6 Tobacco abuse counseling | CPT/HCPCS: 99214 ==

== ENCOUNTER → 2021-08-04 14:46 | Outpatient (BNVA) | payer MEDICARE, SELFPAY | PROVIDERS: PCP Nurse Practitioner Family; Visit Provider Specialist | DX: G31.01 Pick's disease (principal); F02.80 Dementia in other diseases classified elsewhere, unspecified severity, without behavioral disturbance, psychotic disturbance, mood disturbance, and anxiety; R25.9 Unspecified abnormal involuntary movements | CPT/HCPCS: 99205 ==

== ENCOUNTER → 2021-09-23 10:52 | Outpatient (BNVA) | payer MEDICARE, SELFPAY | PROVIDERS: PCP Nurse Practitioner Family; Visit Provider Anesthesiology | DX: G89.29 Other chronic pain (principal); M48.061 Spinal stenosis, lumbar region without neurogenic claudication; M43.16 Spondylolisthesis, lumbar region; M47.816 Spondylosis without myelopathy or radiculopathy, lumbar region; M51.17 Intervertebral disc disorders with radiculopathy, lumbosacral region; M25.551 Pain in right hip; F17.200 Nicotine dependence, unspecified, uncomplicated; Z79.891 Long term (current) use of opiate analgesic; Z79.899 Other long term (current) drug therapy; F17.290 Nicotine dependence, other tobacco product, uncomplicated; Z71.6 Tobacco abuse counseling | CPT/HCPCS: 99214 ==

== ENCOUNTER → 2021-10-01 09:29 | Outpatient (BNVA) | payer MEDICARE, SELFPAY | PROVIDERS: PCP Nurse Practitioner Family; Visit Provider Nurse Practitioner Family | DX: R53.83 Other fatigue (principal); Z13.220 Encounter for screening for lipoid disorders; Z13.9 Encounter for screening, unspecified; Z01.89 Encounter for other specified special examinations | CPT/HCPCS: 80053; 80061; 84443 ==

== ENCOUNTER 2021-10-08 14:10 | Inpatient (IN) | payer MEDICARE, SELFPAY ==
--- NOTE | 2021-10-08 14:25 | ECG_ITS ---
[facility] Test Date: 2021-10-08 Pat Name: Jannet Ashford Department: Room: Gender: Female Underwriting Assistant: : 1950 Requested By: Alphonso Murphy Order Number: [id number] Evangelist MD: Moriah Watts M.D. Measurements Intervals [place] Rate: 86 P: 46 OR: 126 QRS: 61 QRSD: 92 T: 40 QT: 364 QTc: 436 Interpretive Statements SINUS RHYTHM Compared to ECG 03/30/2018 17:38:59 No significant changes Electronically Signed On 10-09-2021 7:32:35 PHYS ASST by Moriah Watts M.D. [email or web address]
--- NOTE | 2021-10-08 14:25 | XR_ITS ---
WS: [id number] XR femur RT min 2V* [id number] REASON FOR EXAM: pain FINDINGS: Subcapital fracture of the right hip. Remainder of the femur is unremarkable. Moderate changes of osteoarthritis in the right knee joint. XR/XR femur RT min 2V* [id number] IMPRESSION: Subcapital right hip fracture.
--- NOTE | 2021-10-08 14:25 | XR_ITS ---
WS: [id number] XR chest 1V portable [id number] REASON FOR EXAM: dyspnea/cough FINDINGS: Moderate tortuosity and ectasia of the thoracic aorta. Calcified granulomatous disease in both hemithoraces. No active pulmonary parenchymal or pleural disease. Moderate degenerative change in the mid and lower thoracic spine. XR/XR chest 1V portable [id number] IMPRESSION: No acute chest abnormality.
[2021-10-08 14:26] VITALS: BP 104/68; PULSE 84; RESP 16; TEMP 36.8; O2SAT 96
[2021-10-08 14:30] VITALS: BP 110/61; PULSE 88; RESP 17; O2SAT 96
--- NOTE | 2021-10-08 14:54 | ED_ITS ---
HPI - Extremity Problem General: Chief complaint: Extremity Injury, Lower Stated complaint: BROKEN R FEMUR Time Seen by Provider: 10/08/21 14:15 History of Present Illness: HPI Narrative: 71-year-old female presents to the emergency room from [facility]. She has been limping since yesterday. She has a history of dementia. reports that she fell 2 days ago and was limping got progressively worse than this morning evidently fell out of bed. Her bed is set lower because her dimension she follows up frequently and is also carpeted around the bed. She moves her right leg spontaneously but she at times will complain of pain when her palpates the leg. Nursing staff relates that she has been ambulating on the leg. reports that there was an x-ray done at the [facility] today. 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 Long-term use of high-risk medication Low back pain Smoker has now changed to e-cig Spinal stenosis of lumbar region with radiculopathy Spondylolisthesis, lumbar region Surgical History History of cardiac radiofrequency ablation 2011 S/P cholecystectomy 2011 S/P hysterectomy 2003 Family History Sister Dementia Father Myocardial infarct Heart disease Mother Cancer BRAIN TUMOR Brother Hypertension Cancer colon cancer Denies family history of Ovarian cancer Diabetes Clotting disorder Hyperlipidemia Breast cancer Anesthesia complication Bleeding disorder Uterine cancer Thyroid condition Stroke Social History Smoking and tobacco status: current every day smoker e-cigarettes E-Cigarette Details: e-cigarette, vaporizer device and with nicotine Alcohol intake: never History of recent travel: No Physical Exam Const: GENERAL APPEARANCE: cooperative and comfortable HENMT: COMMON NORMALS: normocephalic, atraumatic and hearing grossly normal bilaterally HEAD & SCALP: normocephalic and atraumatic Neck/C-Spine: COMMON NORMALS: no JVD Resp: COMMON NORMALS: normal respiratory effort, No retractions, No use of accessory muscles and clear to auscultation bilaterally AUSCULTATION: clear to auscultation bilaterally Cardio: COMMON NORMALS: no JVD, regular rate, regular rhythm and No murmurs present (Cardio) RATE: regular rate RHYTHM: regular rhythm GI: COMMON NORMALS: Soft to palpation and No hepatosplenomegaly present AUSCULTATION: Yes normoactive bowel sounds PALPATION: Yes Soft to palpation, No Tenderness to palpation present (GI), No Guarding due to palpation present (GI) and Yes No hepatosplenomegaly present Extremity: COMMON NORMALS: capillary refill normal, no clubbing, cyanosis or edema, no calf tenderness and no pedal edema OTHER: Shortening and external rotation of the right hand leg consistent with fracture. Interestingly patient will flex at the hip spontaneously with minimal to no pain her palpated the right hip for me during exam of his own volition and cause significant discomfort. Neurovascularly otherwise appears to be intact distally. Skin: COMMON NORMALS: no rashes or lesions noted GENERAL SKIN EXAM: no rashes or lesions noted Course Vital Signs: Vital signs: Vital Signs Temperature 97.5 F L 10/11/21 16:51 Pulse Rate 84 10/11/21 16:51 Respiratory Rate 16 10/11/21 16:51 Blood Pressure 122/71 10/11/21 16:51 Pulse Oximetry 99 10/11/21 16:51 MDM - Extremity (Nontraumatic) MDM Narrative: Medical decision making narrative: Left subcapital hip fracture discussed Dr. Kinney. Will admit to the hospitalist Dr. Kinney to consult orders written.. Lab Data: Labs: Lab Results 10/08/21 10/08/21 10/08/21 15:15 15:15 15:15 WBC 9.7 10^3/uL 10^3/ uL (4.0-10.0) RBC 3.44 10^6/uL L 10 ^6/uL (4.1-5.3) Hgb 11.0 g/dL L g/dL (11.5-15.3) Hct 33.4 % L % (37.0-47.0) MCV 97.1 fl fl (81-99) MCH 32.0 pg pg (28.0-34.0) MCHC 32.9 g/dL g/dL (30.0-36.0) RDW 15.1 % % (12.1-15.1) Plt Count 224 10^3/cmm 10^3 /cmm (130-400) MPV 10.1 fL fL (7.4-10.4) Neut % (Auto) 63.3 % % Lymph % (Auto) 17.6 % % [place] % (Auto) 11.2 % % Eos % (Auto) 7.0 % % Baso % (Auto) 0.6 % % Neut # (Auto) 6.16 10^3/uL 10^3 /uL (1.8-7.7) Lymph # (Auto) 1.7 10^3/uL 10^3/ uL (0.8-4.8) [place] # (Auto) 1.1 10^3/uL H 10^ 3/uL (0.2-0.9) Eos # (Auto) 0.7 10^3/uL 10^3/ uL (0.0-0.8) Baso # (Auto) 0.1 10^3/uL 10^3/ uL (0.0-0.1) Nucleated RBC % (a uto) 0 % % Nucleated RBCs # 0.0 /100WBC /100W BC Sodium 141 mmol/L mmol/L (136-145) Potassium 4.2 mmol/L mmol/L (3.5-5.1) Chloride 106 mmol/L mmol/L (98-107) Carbon Dioxide 19 mmol/L L mmol/ L (22-29) Anion Gap 20.2 H (5-19) BUN 35 mg/dL H mg/dL (8-23) Creatinine 1.1 mg/dL H mg/dL (0.5-0.9) GFR Calculation Not Reportable Glucose 107 mg/dL mg/dL (65-115) Calculated Osmolal ity 300 mOsm/kg H mOs m/kg (285-295) Calcium 8.3 mg/dL L mg/dL (8.5-10.5) Total Bilirubin 0.3 mg/dL mg/dL (0.15-1.2) AST 25 U/L U/L (0-32) ALT 22 U/L U/L (0-33) Alkaline Phosphata se 55 IU/L IU/L (35-105) Creatine Kinase Total Protein 5.5 g/dL L g/dL (6.6-8.7) Albumin 3.9 g/dL g/dL (3.5-5.2) Globulin 1.6 g/dL g/dL (1.3-4.6) [place] < 0.1 mmol/L L mm ol/L (0.6-1.2) 10/08/21 15:15 WBC RBC Hgb Hct MCV MCH MCHC RDW Plt Count MPV Neut % (Auto) Lymph % (Auto) [place] % (Auto) Eos % (Auto) Baso % (Auto) Neut # (Auto) Lymph # (Auto) [place] # (Auto) Eos # (Auto) Baso # (Auto) Nucleated RBC % (a uto) Nucleated RBCs # Sodium Potassium Chloride Carbon Dioxide Anion Gap BUN Creatinine GFR Calculation Glucose Calculated Osmolal ity Calcium Total Bilirubin AST ALT Alkaline Phosphata se Creatine Kinase 215 U/L H U/L (26-192) Total Protein Albumin Globulin [place] Discharge Plan Discharge Patient Disposition: Admitted As Inpatient Admit Provider: Fransico Ruiz Clinical Impression: Subcapital fracture of right hip, Dementia Condition: Stable Discharge Diet: Regular Discharge Activity: Limit activity as instructed Coding Level of Care Code 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
[2021-10-08 15:21] LABS: Basophils # 0.1 10^3/uL (0.0-0.1); Basophils % 0.6 %; Eosinophils # 0.7 10^3/uL (0.0-0.8); Hematocrit 33.4 % (37.0-47.0); Lymphocytes # 1.7 10^3/uL (0.8-4.8); Lymphocytes % 17.6 %; Mean Corpuscular HGB Conc 32.9 g/dL (30.0-36.0); Mean Corpuscular Volume 97.1 fl (81-99); Mean Platelet Volume 10.1 fL (7.4-10.4); Monocytes # 1.1 10^3/uL (0.2-0.9); Monocytes % 11.2 %; Neutrophils # 6.16 10^3/uL (1.8-7.7); Neutrophils % 63.3 %; Nucleated Red Blood Cells % 0 %; Platelet Count 224 10^3/cmm (130-400); Red Blood Count 3.44 10^6/uL (4.1-5.3); Red Cell Distribution Width 15.1 % (12.1-15.1); White Blood Count 9.7 10^3/uL (4.0-10.0)
[2021-10-08 15:53] LABS: Alanine Aminotransferase 22 U/L (0-33); Albumin Level 3.9 g/dL (3.5-5.2); Alkaline Phosphatase 55 IU/L (35-105); Blood Urea Nitrogen 35 mg/dL (8-23); Calcium 8.3 mg/dL (8.5-10.5); Carbon Dioxide 19 mmol/L (22-29); Chloride 106 mmol/L (98-107); Globulin 1.6 g/dL (1.3-4.6); Glucose 107 mg/dL (65-115); Osmolality Calculated 300 mOsm/kg (285-295); Sodium 141 mmol/L (136-145); Total Bilirubin 0.3 mg/dL (0.15-1.2); Total Protein 5.5 g/dL (6.6-8.7)
[2021-10-08 15:58] LABS: Anion Gap 20.2 (5-19); Aspartate Amino Transferase 25 U/L (0-32); Lithium < 0.1 mmol/L (0.6-1.2); Potassium 4.2 mmol/L (3.5-5.1)
--- NOTE | 2021-10-08 15:59 | P.HP_ITS ---
Providers/Chief Complaint Primary Care Provider: KAILYN Calzada Chief Complaint: BROKEN R FEMUR History of Present Illness Jannet Ashford is a 71 year old female dementia, PSP syndrome, primary progressive aphasia spinal stenosis, history of atrial fibrillation status post ablation not on anticoagulation, who presents to [facility] due to difficulty ambulating, right hip pain. Patient's tells me that she has been having difficulty ambulating, has been complaining of right hip pain, possible thinks that she might have had a fall 2012 15, but is not sure, as she gets up in the middle night frequently. She presented to her primary care physician's office, x-ray displayed a fracture. She was sent to [facility] for evaluation, and [facility] she was found to have subcapital right hip fracture, Dr. Kinney was consulted, hospitalist team was called for admission. Currently patient is alert to person, not to place, not to time, she follows commands, but frequently repeats my questions, he cannot get an answer from her. Most of the history was obtained by at bedside. He denies a history of UTIs. No history of chest pain, no cardiovascular history. No history of CAD, no history of DVT or PEs. No history of smoking. No history of lung disease. Denies a history of prior falls. Review of Systems General: Reports: ROS unobtainable due to medical condition Medications/Allergies Home Medications Medication Instructions Recorded Confirmed Last Taken Type aspirin 81 mg chewable tablet 81 mg PO DAILY 10/30/19 10/08/21 10/08/21 History cholecalciferol (vitamin D3) 25 25 mcg PO DAILY 01/16/20 10/08/21 10/08/21 History mcg (1,000 unit) tablet glucosamine-chondroitin 250 mg-200 1 tab PO DAILY tab 08/25/20 10/08/21 10/08/21 History mg tablet red yeast rice 600 mg capsule 1,200 mg PO DAILY cap 08/25/20 10/08/21 10/08/21 History rosuvastatin 20 mg tablet 20 mg PO DAILY 08/25/20 10/08/21 10/08/21 History vit C 250 mg-vit E 90 mg-zinc 40 2 tab PO BID cap 08/25/20 10/08/21 10/08/21 History mg-copper 1 di-nxafch-bfymdb capsule coenzyme F03-jztelsy E 100 mg-100 1 cap PO DAILY cap 09/28/20 10/08/21 10/08/21 History unit capsule lithium carbonate 150 mg capsule 150 mg PO DAILY cap 07/14/21 10/08/21 10/08/21 History hydrocodone 5 mg-acetaminophen 325 1 tab PO TID PRN 30 Days #90 tab 09/23/21 10/08/21 Unknown Rx mg tablet hydrocodone 5 mg-acetaminophen 325 1 tab PO TID PRN 30 Days #90 tab 09/23/21 10/08/21 10/08/21 Rx mg tablet meloxicam 7.5 mg tablet 7.5 mg PO DAILY 30 Days #30 tab 09/27/21 10/08/21 10/08/21 Rx galantamine 24 mg 24 hr 24 mg PO QAM #30 cap 09/29/21 10/08/21 10/08/21 Rx capsule,extended release Allergies Allergy/AdvReac Type Severity Reaction Status Date / Time Penicillins Allergy Severe ALGY-Anaphy Verified 10/08/21 14:30 laxis gabapentin AdvReac SPEECH Verified 10/08/21 14:30 DIFFICULTY Sulfa (Sulfonamide AdvReac WAS TOLD Verified 10/08/21 14:30 Antibiotics) BY HER MOTHER THAT SHE IS ALLERGIC PFSH Acute PFSH: Medical History Aftercare following surgery of the genitourinary system Chronic right hip pain Encounter for long-term (current) use of NSAIDs Encounter for long-term opiate analgesic use Facet syndrome, 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 Long-term use of high-risk medication Low back pain Smoker has now changed to e-cig Spinal stenosis of lumbar region with radiculopathy Spondylolisthesis, lumbar region Surgical History History of cardiac radiofrequency ablation 2011 S/P cholecystectomy 2010 S/P hysterectomy 2003 Family History Sister Dementia Father Myocardial infarct Heart disease Mother Cancer BRAIN TUMOR Brother Hypertension Cancer colon cancer Denies family history of Ovarian cancer Diabetes Clotting disorder Hyperlipidemia Breast cancer Anesthesia complication Bleeding disorder Uterine cancer Thyroid condition Stroke Social History Smoking and tobacco status: current every day smoker e-cigarettes E-Cigarette Details: e-cigarette, vaporizer device and with nicotine Alcohol intake: never History of recent travel: No Vitals/I&O/Wt Last Vital Signs Temp 98.3 F 10/08/21 14:26 Pulse 88 10/08/21 14:30 Resp 17 10/08/21 14:30 BP 110/61 10/08/21 14:30 Pulse Ox 96 10/08/21 14:30 Weight last 48 hrs Weight 46.266 kg Physical Exam Const: COMMON NORMALS: no acute distress GENERAL APPEARANCE: cooperative and comfortable HENMT: COMMON NORMALS: normocephalic HEAD & SCALP: normocephalic Eye: COMMON NORMALS: Equal, round and reactive pupils present and EOMs intact bilaterally GENERAL EYE: appearance normal, both eyes and all related structures PUPIL: Yes Equal, round and reactive pupils present Neck/C-Spine: COMMON NORMALS: full ROM and no lymphadenopathy THYROID: Thyroid normal Lymph: LYMPHATIC: no lymphadenopathy noted Resp: COMMON NORMALS: normal respiratory effort, No retractions, No use of accessory muscles and clear to auscultation bilaterally AUSCULTATION: clear to auscultation bilaterally Cardio: COMMON NORMALS: regular rate, regular rhythm, S1 normal heart sound present, S2 normal heart sound present, No gallops present (Cardio) and No clicks present (Cardio) RATE: regular rate RHYTHM: regular rhythm HEART SOUNDS: S1 normal heart sound present, S2 normal heart sound present and Murmur heart sound present GI: COMMON NORMALS: Normal to inspection, nondistended, normoactive bowel sounds present, Soft to palpation and non-tender Extremity: COMMON NORMALS: no pedal edema OTHER: Right lower extremity, externally rotated, slightly shortened Neuro: COMMON NORMALS: moves all extremities and no focal motor deficits OTHER: Difficult to follow neurologic testing, does have spontaneous movement of upper and lower extremities, is able to squeeze my fingers, wiggle her toes Data : 10/08/21 15:15 10/08/21 15:15 A&P Assessment and plan (1) Closed right hip fracture: -Pain control morphine -Zofran for nausea -Monitor mentation -N.p.o. midnight, -Dr. 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
[2021-10-08 16:05] LABS: Creatine Phosphokinase 215 U/L (26-192)
[2021-10-08 16:53] LABS: Troponin(5th) Baseline 11 ng/L (0-10)
[2021-10-08] MEDS: fentaNYL 50 mcg/mL INJ 2mL 25 MCG IVP (17:35)
--- NOTE | 2021-10-08 17:56 | ECG_ITS ---
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 [id number]
[2021-10-08 18:06] LABS: Thyroid Stimulating Hormone 0.69 uIU/mL (0.27-4.20)
[2021-10-08 18:34] LABS: Troponin 5 2HR 13.56 ng/L (0-10); Troponin 5 2HR Delta 2.56 ABS# (0-10)
[2021-10-08] MEDS: heparin 5,000 unit/mL INJ 1 mL 5000 UNIT SUBCUT (19:03)
[2021-10-08] MEDS: famotidine 20 mg Tablet PO (19:04)
[2021-10-08] MEDS: docusate sodium 100 mg Capsule PO (19:04)
[2021-10-08] MEDS: D5-NS 0.45% + KCL 20 mEq 20 MEQ/1,000 ML BAG 100 MEQ IV (19:05)
[2021-10-08 19:14] VITALS: BP 116/66; PULSE 83; RESP 18; O2SAT 94
--- NOTE | 2021-10-08 19:15 | PC.NURSE ---
Pt in a hospital bed, Unable to give a urine sample
[2021-10-08 20:00] VITALS: BP 114/63; BP 135/77; PULSE 80; PULSE 88; RESP 18; TEMP 36.9; TEMP 37.3; O2SAT 95
[2021-10-08 20:29] VITALS: BP 114/63; PULSE 80; RESP 18; TEMP 36.9; O2SAT 95
[2021-10-08 20:59] VITALS: BMI 19.9
[2021-10-08 21:50] VITALS: RESP 18
[2021-10-08] MEDS: morphine 4 mg/mL SDV 1 mL 2 MG IVP (21:50)
--- NOTE | 2021-10-08 21:56 | ECG_ITS ---
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 [id number]
[2021-10-08 23:35] LABS: Troponin 5 6HR 12.62 ng/L (0-10); Troponin 5 6HR Delta 1.62 ng/L (0-12)
[2021-10-09] VITALS (18 sets, daily range): BP systolic 120–154; BP diastolic 72–87; PULSE 65–103; RESP 15–22; TEMP 36.7–37.8; O2SAT 94–100
[2021-10-09] MEDS: D5-NS 0.45% + KCL 20 mEq 20 MEQ/1,000 ML BAG 100 MEQ IV (04:47)
[2021-10-09] MEDS: heparin 5,000 unit/mL INJ 1 mL 5000 UNIT SUBCUT (05:06)
[2021-10-09 05:40] LABS: Basophils % 0.4 %; Eosinophils # 0.9 10^3/uL (0.0-0.8); Eosinophils % 9.3 %; Hematocrit 33.5 % (37.0-47.0); Hemoglobin 10.7 g/dL (11.5-15.3); Lymphocytes # 1.9 10^3/uL (0.8-4.8); Mean Corpuscular HGB Conc 31.9 g/dL (30.0-36.0); Mean Corpuscular Hemoglobin 31.5 pg (28.0-34.0); Mean Corpuscular Volume 98.5 fl (81-99); Monocytes # 0.9 10^3/uL (0.2-0.9); Monocytes % 9.6 %; Neutrophils # 5.73 10^3/uL (1.8-7.7); Neutrophils % 60.4 %; Nucleated Red Blood Cells % 0 %; Platelet Count 210 10^3/cmm (130-400); White Blood Count 9.5 10^3/uL (4.0-10.0)
[2021-10-09 06:01] LABS: Albumin Level 3.2 g/dL (3.5-5.2); Alkaline Phosphatase 45 IU/L (35-105); Blood Urea Nitrogen 21 mg/dL (8-23); Calcium 7.7 mg/dL (8.5-10.5); Carbon Dioxide 18 mmol/L (22-29); Chloride 107 mmol/L (98-107); Creatinine Clr Calc Pharmacy 51.3025; Globulin 2.1 g/dL (1.3-4.6); Glucose 106 mg/dL (65-115); Osmolality Calculated 285 mOsm/kg (285-295); Sodium 136 mmol/L (136-145); Total Bilirubin 0.3 mg/dL (0.15-1.2); Total Protein 5.3 g/dL (6.6-8.7)
[2021-10-09 06:06] LABS: Magnesium 1.9 mg/dL (1.7-2.3); Phosphorus 2.5 mg/dL (2.5-4.5)
[2021-10-09 06:19] LABS: Alanine Aminotransferase 19 U/L (0-33); Anion Gap 15.7 (5-19); Aspartate Amino Transferase 25 U/L (0-32); Potassium 4.7 mmol/L (3.5-5.1)
[2021-10-09] MEDS: morphine 4 mg/mL SDV 1 mL 2 MG IVP (06:34)
--- NOTE | 2021-10-09 07:32 | P.CONIM_ITS ---
Documented by User: GAYE Shaw 10/09/21 07:48 Providers/Reason For Consult Consulting Physician/Specialty*: Orthopedics Reason for Consult*: Right hip pain Attending Physician: Fransico Ruiz MD Primary Care Provider: KAILYN Calzada History of Present Illness History of Present Illness Jannet Ashford is a 71 year old female who was complained of right hip pain based on her family's health history. She suffers from dementia no family is present today most of the information is gleaned from the chart. Concern of a fall few days ago based on the 's response. He also indicates that she is up frequently in the middle of the night. She presented to [facility] with complaints of right hip pain. X-rays of the right femur confirmed a right hip fracture. On exam she has a positive logroll. Pain seems to be worse on the right and localized to the right hip region. An extensive review of the patient's past medical history, surgical history, allergies, medications, family history, social history, and review of systems was completed Review of Systems General: Reports: ROS unobtainable due to medical condition and ROS unobtainable due to mental status Eyes: Denies: photophobia Meds/Allergies Home Medications and Allergies Home Medications Medication Instructions Recorded Confirmed Last Taken Type aspirin 81 mg chewable tablet 81 mg PO DAILY 10/30/19 10/08/21 10/08/21 History cholecalciferol (vitamin D3) 25 25 mcg PO DAILY 01/16/20 10/08/21 10/08/21 History mcg (1,000 unit) tablet glucosamine-chondroitin 250 mg-200 1 tab PO DAILY tab 08/25/20 10/08/21 10/08/21 History mg tablet red yeast rice 600 mg capsule 1,200 mg PO DAILY cap 08/25/20 10/08/21 10/08/21 History rosuvastatin 20 mg tablet 20 mg PO DAILY 08/25/20 10/08/21 10/08/21 History vit C 250 mg-vit E 90 mg-zinc 40 2 tab PO BID cap 08/25/20 10/08/21 10/08/21 History mg-copper 1 wl-dohzwm-gcqehl capsule coenzyme G35-aevkfcr E 100 mg-100 1 cap PO DAILY cap 09/28/20 10/08/21 10/08/21 History unit capsule lithium carbonate 150 mg capsule 150 mg PO DAILY cap 07/14/21 10/08/21 10/08/21 History hydrocodone 5 mg-acetaminophen 325 1 tab PO TID PRN 30 Days #90 tab 09/23/21 10/08/21 Unknown Rx mg tablet hydrocodone 5 mg-acetaminophen 325 1 tab PO TID PRN 30 Days #90 tab 09/23/21 10/08/21 10/08/21 Rx mg tablet meloxicam 7.5 mg tablet 7.5 mg PO DAILY 30 Days #30 tab 09/27/21 10/08/21 10/08/21 Rx galantamine 24 mg 24 hr 24 mg PO QAM #30 cap 09/29/21 10/08/21 10/08/21 Rx capsule,extended release Allergies Allergy/AdvReac Type Severity Reaction Status Date / Time Penicillins Allergy Severe ALGY-Anaphy Verified 10/08/21 14:30 laxis gabapentin AdvReac SPEECH Verified 10/08/21 14:30 DIFFICULTY Sulfa (Sulfonamide AdvReac WAS TOLD Verified 10/08/21 14:30 Antibiotics) BY HER MOTHER THAT SHE IS ALLERGIC Current Medications Current Medications Generic Name Dose Route Start Last Admin Trade Name Freq PRN Reason Stop Dose Admin Docusate Sodium 100 mg 10/08/21 18:00 10/08/21 19:04 Docusate Sodium 100 Mg Capsule PO 100 mg BID MILADYS Administration Famotidine 20 mg 10/08/21 18:00 10/08/21 19:04 Famotidine 20 Mg Tablet PO 20 mg BID MILADYS Administration Heparin Sodium (Porcine) 5,000 unit 10/08/21 18:00 10/09/21 05:06 Heparin 5,000 Unit/Ml Inj 1 Ml SUBCUT 5,000 unit Q12H MILADYS Administration Potassium Chloride/Dextrose/Sod Cl 20 meq in 1,000 mls @ 100 mls/hr 10/08/21 17:08 10/09/21 04:47 D5-Ns 0.45% + Kcl 20 Meq IV 100 mls/hr .Q10H MILADYS Administration Morphine Sulfate 2 mg 10/08/21 17:08 10/09/21 06:34 Morphine 4 Mg/Ml Sdv 1 Ml IVP 2 mg Q4H PRN Administration SEVERE PAIN Non-Formulary Medication 24 mg 10/09/21 06:00 10/09/21 05:06 Galantamine PO Not Given QAM MILADYS Non-Formulary Medication 2 tab 10/08/21 18:00 10/08/21 21:12 Vit C,O-Wa-Aonkr-Lutein-Zeaxan [Preservision Areds-2] PO Not Given BID MILADYS PFSH Acute 2 PFSH: Medical History Aftercare following surgery of the genitourinary system Chronic right hip pain Encounter for long-term (current) use of NSAIDs Encounter for long-term opiate analgesic use Facet syndrome, 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 Long-term use of high-risk medication Low back pain Smoker has now changed to e-cig Spinal stenosis of lumbar region with radiculopathy Spondylolisthesis, lumbar region Surgical History History of cardiac radiofrequency ablation 2011 S/P cholecystectomy 2010 S/P hysterectomy 2003 Family History Sister Dementia Father Myocardial infarct Heart disease Mother Cancer BRAIN TUMOR Brother Hypertension Cancer colon cancer Denies family history of Ovarian cancer Diabetes Clotting disorder Hyperlipidemia Breast cancer Anesthesia complication Bleeding disorder Uterine cancer Thyroid condition Stroke Social History Smoking and tobacco status: current every day smoker e-cigarettes E-Cigarette Details: e-cigarette, vaporizer device and with nicotine Alcohol intake: never History of recent travel: No Dietary Habits: Current diet type/program: regular Caffeine: Yes Caffeine intake frequency: coffee Exercise: What type of physical activity do you participate in?: none Home Safety: Firearms in home: Yes Firearms unloaded and locked?: No NHANES Social Connection/Isolation: Are you now , , , , never or living with a partner?: In a typical week, how many times do you talk on the telephone with family, friends, or neighbors?: Twice per Week How often do you get together with friends or relatives?: Never Social isolation score (0-1 are the most socially isolated patients): 1 Vitals/I&O/Wt Last Vital Signs Temp 98.8 F 10/09/21 04:00 Pulse 72 10/09/21 04:00 Resp 18 10/09/21 04:00 BP 138/72 10/09/21 04:00 Pulse Ox 94 10/09/21 04:00 10/08/21 10/09/21 10/09/21 22:59 06:59 14:59 Intake Total 970 / 970 Balance 970 / 970 Weight last 48 hrs Weight 112 lb 11.2 oz Weight 102 lb Physical Exam Narrative: EXAM NARRATIVE: Patient is alert. Confused due to dementia. Nurses present during the exam. She has palpable pain over the right hip although she is moving the extremity. Dorsalis pedis posterior tib pulses are 1+ bilaterally. She has positive logroll on the right compared to the left. Her skin is clear warm feet are normal good cap refill calves are supple no medial thigh tenderness. She has no apparent pain in her lumbar thoracic or cervical spine. She appears to move both upper extremities without any problems. There is no apparent palpable pain over the shoulders elbows or wrist. Hands are warm good cap refill. HENMT: COMMON NORMALS: normocephalic and atraumatic HEAD & SCALP: normocephalic and atraumatic Resp: COMMON NORMALS: normal respiratory effort Cardio: COMMON NORMALS: regular rate and regular rhythm RATE: regular rate RHYTHM: regular rhythm GI: COMMON NORMALS: Soft to palpation PALPATION: Yes Soft to palpation : COMMON NORMALS: Yes no CVA tenderness BLADDER/KIDNEY EXAM: Yes no CVA tenderness Back/Pelvis: COMMON NORMALS: no CVA tenderness Psych: COMMON NORMALS: mental status grossly normal A&P Assessment and plan (1) Closed right hip fracture: Status: Acute (2) Displaced fracture of right femoral neck: Will await medical clearance proceed with a right hip hemiarthroplasty. Keep her n.p.o. Clindamycin for surgical prophylaxis. Dr. Kinney to contacted the and consented to proceed with fixation of her right hip. 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 Detailed Diagnoses Closed right hip fracture S72.001A Displaced fracture of right femoral neck S72.001A Dementia F03.90 Documented by User: Lorenzo Kinney DO 10/09/21 08:08 Review of Systems General: Reports: ROS unobtainable due to medical condition and ROS unobta inable due to mental status Eyes: Denies: photophobia Meds/Allergies Home Medications and Allergies Home Medications Medication Instructions Recorded Confirmed Last Taken Type aspirin 81 mg chewable tablet 81 mg PO DAILY 10/30/19 10/08/21 10/08/21 History cholecalciferol (vitamin D3) 25 25 mcg PO DAILY 01/16/20 10/08/21 10/08/21 History mcg (1,000 unit) tablet glucosamine-chondroitin 250 mg-200 1 tab PO DAILY tab 08/25/20 10/08/21 History mg tablet red yeast rice 600 mg capsule 1,200 mg PO DAILY cap 08/25/20 10/08/21 10/08/21 History rosuvastatin 20 mg tablet 20 mg PO DAILY 08/25/20 10/08/21 10/08/21 History vit C 250 mg-vit E 90 mg-zinc 40 2 tab PO BID cap 08/25/20 10/08/21 10/08/21 History mg-copper 1 qb-kxjcjo-twktqt capsule coenzyme I02-laxacvj E 100 mg-100 1 cap PO DAILY cap 09/28/20 10/08/21 10/08/21 History unit capsule lithium carbonate 150 mg capsule 150 mg PO DAILY cap 07/14/21 10/08/21 10/08/21 History hydrocodone 5 mg-acetaminophen 325 1 tab PO TID PRN 30 Days #90 tab 09/23/21 10/08/21 Unknown Rx mg tablet hydrocodone 5 mg-acetaminophen 325 1 tab PO TID PRN 30 Days #90 tab 09/23/21 10/08/21 10/08/21 Rx mg tablet meloxicam 7.5 mg tablet 7.5 mg PO DAILY 30 Days #30 tab 09/27/21 10/08/21 10/08/21 Rx galantamine 24 mg 24 hr 24 mg PO QAM #30 cap 09/29/21 10/08/21 10/08/21 Rx capsule,extended release Allergies Allergy/AdvReac Type Severity Reaction Status Date / Time Penicillins Allergy Severe ALGY-Anaphy Verified 10/08/21 14:30 laxis gabapentin AdvReac SPEECH Verified 10/08/21 14:30 DIFFICULTY Sulfa (Sulfonamide AdvReac WAS TOLD Verified 10/08/21 14:30 Antibiotics) BY HER MOTHER THAT SHE IS ALLERGIC PFSH Acute 2 PFSH: Medical History Aftercare following surgery of the genitourinary system Chronic right hip pain Encounter for long-term (current) use of NSAIDs Encounter for long-term opiate analgesic use Facet syndrome, 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 Long-term use of high-risk medication Low back pain Smoker has now changed to e-cig Spinal stenosis of lumbar region with radiculopathy Spondylolisthesis, lumbar region Surgical History History of cardiac radiofrequency ablation 2011 S/P cholecystectomy 2011 S/P hysterectomy 2004 Family History Sister Dementia Father Myocardial infarct Heart disease Mother Cancer BRAIN TUMOR Brother Hypertension Cancer colon cancer Denies family history of Ovarian cancer Diabetes Clotting disorder Hyperlipidemia Breast cancer Anesthesia complication Bleeding disorder Uterine cancer Thyroid condition Stroke Social History Smoking and tobacco status: current every day smoker e-cigarettes E-Cigarette Details: e-cigarette, vaporizer device and with nicotine Alcohol intake: never History of recent travel: No Dietary Habits: Current diet type/program: regular Caffeine: Yes Caffeine intake frequency: coffee Exercise: What type of physical activity do you participate in?: none Home Safety: Firearms in home: Yes Firearms unloaded and locked?: No NHANES Social Connection/Isolation: Are you now , , , , never or living with a partner?: In a typical week, how many times do you talk on the telephone with family, friends, or neighbors?: Twice per Week How often do you get together with friends or relatives?: Never Social isolation score (0-1 are the most socially isolated patients): 1 A&P Assessment and plan (1) Displaced fracture of right femoral neck: pt seen and evaluated agree with above plan to do Right hip hemiarthroplasty Status: Acute Consult Attestations Medical Necessity Statement: per primary team Coding Level of Care Code 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
[2021-10-09] MEDS: sodium chloride 0.9% 1,000 ML 30 ML (07:40)
--- NOTE | 2021-10-09 08:12 | PC.OT ---
FOLLOWING MEDICAL HISTORY AND CHART REVIEW, IT IS UNDERSTOOD PATIENT MAY HAVE SURGERY FOR HIP FX SOON. HOLD OT EVALUATION UNTIL POST SURGERY.
--- NOTE | 2021-10-09 08:15 | P.ANESASSM_ITS ---
Pre-Anesthetic Assessment Pre-Anesthetic Assessment: Height/Weight: Height 1.6 m Weight 51.12 kg Temp Pulse Resp BP Pulse Ox 99.6 F 75 18 139/79 96 10/09/21 07:47 10/09/21 07:47 10/09/21 07:47 10/09/21 07:47 10/09/21 07:47 Preop Diagnosis: Cystocele stage 2 stress urinary incontinence Proposed Procedure: Operation Date: 10/09/21 08:00 Proposed Procedures p Hemiarthroplasty Hip(Right) - Lorenzo Kinney, DO Was Beta Adalgisa taken within 24 hours: N/A Was Clonidine taken within 24 hours: N/A Social: Social History: Tobacco and No alcohol Exam: Pre-Anes Outpt Exam: alert, oriented x 3 and regular rate & rhythm Airway: Submandibular: WNL Cervical ROM: WNL MP: 2 Additional comments: Missing several Pulmonary: Pulmonary: COPD CV/HEM: CV/HEM: Afib Metabolic: Metabolic: Hyperlipidemia Musc/skel: Musc/skel: Lower Back Pain Neuropsych: Neuropsych: Dementia Comments: Aphasia Anesthetic Plan: ASA status: 3 Anesthesia: General Risk of > 500 ml blood loss (7ml/kg in children): No Meds/Allergies Current Medications: Current Medications Generic Name Dose Route Start Last Admin Trade Name Freq PRN Reason Stop Dose Admin Docusate Sodium 100 mg 10/08/21 18:00 10/08/21 19:04 Docusate Sodium 100 Mg Capsule PO 100 mg BID MILADYS Administration Famotidine 20 mg 10/08/21 18:00 10/08/21 19:04 Famotidine 20 Mg Tablet PO 20 mg BID MILADYS Administration Heparin Sodium (Po rcine) 5,000 unit 10/08/21 18:00 10/09/21 05:06 Heparin 5,000 Un it/Ml Inj 1 Ml SUBCUT 5,000 unit Q12H MILADYS Administration Potassium Chloride /Dextrose/Sod Cl 20 meq in 1,000 m ls @ 100 mls/hr 10/08/21 17:08 10/09/21 04:47 D5-Ns 0.45% + Migue l 20 Meq IV 100 mls/hr .Q10H MILADYS Administration Morphine Sulfate 2 mg 10/08/21 17:08 10/09/21 06:34 Morphine 4 Mg/Ml Sdv 1 Ml IVP 2 mg Q4H PRN Administration SEVERE PAIN Non-Formulary Medi cation 24 mg 10/09/21 06:00 10/09/21 05:06 Galantamine PO Not Given QAM MILADYS Non-Formulary Medi cation 2 tab 10/08/21 18:00 10/08/21 21:12 Vit C,E-Zn-Coppr -Lutein-Zeaxan [Pr eservision Areds-2 ] PO Not Given BID MILADYS PFSH Anesthesia PFSH: Medical History Aftercare following surgery of the genitourinary system Chronic right hip pain Encounter for long-term (current) use of NSAIDs Encounter for long-term opiate analgesic use Facet syndrome, 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 Long-term use of high-risk medication Low back pain Smoker has now changed to e-cig Spinal stenosis of lumbar region with radiculopathy Spondylolisthesis, lumbar region Surgical History History of cardiac radiofrequency ablation 2011 S/P cholecystectomy 2010 S/P hysterectomy 2004 Family History Sister Dementia Father Myocardial infarct Heart disease Mother Cancer BRAIN TUMOR Brother Hypertension Cancer colon cancer Denies family history of Ovarian cancer Diabetes Clotting disorder Hyperlipidemia Breast cancer Anesthesia complication Bleeding disorder Uterine cancer Thyroid condition Stroke Social History Smoking and tobacco status: current every day smoker e-cigarettes E-Cigarette Details: e-cigarette, vaporizer device and with nicotine Alcohol intake: never History of recent travel: No Data Anesthesia CBC & Chem 7: 10/09/21 05:20 10/09/21 05:20 Other Labs: Laboratory Results - last 48 hr 10/08/21 10/08/21 10/08/21 15:15 15:15 15:15 WBC 9.7 RBC 3.44 L Hgb 11.0 L Hct 33.4 L MCV 97.1 MCH 32.0 MCHC 32.9 RDW 15.1 Plt Count 224 MPV 10.1 Neut % (Auto) 63.3 Lymph % (Auto) 17.6 [place] % (Auto) 11.2 Eos % (Auto) 7.0 Baso % (Auto) 0.6 Neut # (Auto) 6.16 Lymph # (Auto) 1.7 [place] # (Auto) 1.1 H Eos # (Auto) 0.7 Baso # (Auto) 0.1 Nucleated RBC % (auto) 0 Nucleated RBCs # 0.0 Sodium 141 Potassium 4.2 Chloride 106 Carbon Dioxide 19 L Anion Gap 20.2 H BUN 35 H Creatinine 1.1 H GFR Calculation Not Reportable Glucose 107 Calculated Osmolality 300 H Calcium 8.3 L Phosphorus Magnesium Total Bilirubin 0.3 AST 25 ALT 22 Alkaline Phosphatase 55 Creatine Kinase Troponin T Baseline Troponin T 120 Minute Delta Troponin T Troponin T Hi Sens 6Hr Troponin T Hi Sens 6Hr Delta Total Protein 5.5 L Albumin 3.9 Globulin 1.6 TSH [place] < 0.1 L 10/08/21 10/08/21 10/08/21 15:15 16:18 16:18 WBC RBC Hgb Hct MCV MCH MCHC RDW Plt Count MPV Neut % (Auto) Lymph % (Auto) [place] % (Auto) Eos % (Auto) Baso % (Auto) Neut # (Auto) Lymph # (Auto) [place] # (Auto) Eos # (Auto) Baso # (Auto) Nucleated RBC % (auto) Nucleated RBCs # Sodium Potassium Chloride Carbon Dioxide Anion Gap BUN Creatinine GFR Calculation Glucose Calculated Osmolality Calcium Phosphorus Magnesium Total Bilirubin AST ALT Alkaline Phosphatase Creatine Kinase 215 H Troponin T Baseline 11 H Troponin T 120 Minute Delta Troponin T Troponin T Hi Sens 6Hr Troponin T Hi Sens 6Hr Delta Total Protein Albumin Globulin TSH 0.69 [place] 10/08/21 10/08/21 10/09/21 18:03 22:38 05:20 WBC 9.5 RBC 3.40 L Hgb 10.7 L Hct 33.5 L MCV 98.5 MCH 31.5 MCHC 31.9 RDW 15.0 Plt Count 210 MPV 11.0 H Neut % (Auto) 60.4 Lymph % (Auto) 20.0 [place] % (Auto) 9.6 Eos % (Auto) 9.3 Baso % (Auto) 0.4 Neut # (Auto) 5.73 Lymph # (Auto) 1.9 [place] # (Auto) 0.9 Eos # (Auto) 0.9 H Baso # (Auto) 0.0 Nucleated RBC % (auto) 0 Nucleated RBCs # 0.0 Sodium Potassium Chloride Carbon Dioxide Anion Gap BUN Creatinine GFR Calculation Glucose Calculated Osmolality Calcium Phosphorus Magnesium Total Bilirubin AST ALT Alkaline Phosphatase Creatine Kinase Troponin T Baseline Troponin T 120 Minute 13.56 H Delta Troponin T 2.56 Troponin T Hi Sens 6Hr 12.62 H Troponin T Hi Sens 6Hr Delta 1.62 Total Protein Albumin Globulin TSH [place] 10/09/21 10/09/21 05:20 05:20 WBC RBC Hgb Hct MCV MCH MCHC RDW Plt Count MPV Neut % (Auto) Lymph % (Auto) [place] % (Auto) Eos % (Auto) Baso % (Auto) Neut # (Auto) Lymph # (Auto) [place] # (Auto) Eos # (Auto) Baso # (Auto) Nucleated RBC % (auto) Nucleated RBCs # Sodium 136 Potassium 4.7 Chloride 107 Carbon Dioxide 18 L Anion Gap 15.7 BUN 21 Creatinine 0.8 GFR Calculation Not Reportable Glucose 106 Calculated Osmolality 285 Calcium 7.7 L Phosphorus 2.5 Magnesium 1.9 Total Bilirubin 0.3 AST 25 ALT 19 Alkaline Phosphatase 45 Creatine Kinase Troponin T Baseline Troponin T 120 Minute Delta Troponin T Troponin T Hi Sens 6Hr Troponin T Hi Sens 6Hr Delta Total Protein 5.3 L Albumin 3.2 L Globulin 2.1 TSH [place] Cardiac Studies: No Data to Display
--- NOTE | 2021-10-09 08:38 | XRR_ITS ---
PROCEDURE INFORMATION: Exam: XR Right Hip Exam date and time: 10/09/2021 8:38 AM Age: 71 years old Clinical indication: Device placement; Prior surgery; Surgery date: Post-operative (0-2 days); Surgery type: RT hip post op TECHNIQUE: Imaging protocol: XR Right hip. Views: 1 view hip with pelvis when performed. COMPARISON: CR XR lumbar spine f/e only [id number] 03/13/2020 1:30 PM FINDINGS: Bones/joints: Patient has undergone recent insertion of a total right hip prosthesis. Some gas is present in the soft tissues from the recent surgery. No fracture seen. Soft tissues: See Bones/joints finding. XR/XR hip RT 1V wo/w pel [id number] IMPRESSION: Satisfactory appearance of the total right hip prosthesis.
--- NOTE | 2021-10-09 08:45 | PM.OP ---
Operative Report Date of procedure: October 09, 2021 Pre-op Diagnosis: right femoral neck fracture Post-op diagnosis: same Procedure Done: Right hip hemiarthroplasty Surgeon: Lorenzo Kinney Visual Display Associate: Alberto Sanders Visual Display Associate: The surgical garment assembly supervisor, JAGRUTI Shaw was needed for his expertise in helping reduce the hip and retract. He was important and necessary throughout the procedure to complete in a safe and timely manner. He assisted with patient positioning prepping and draping tissue retraction suctioning of the operative field protection of the dural sac and tissue closure Anesthesia: General Estimated blood loss (mL): 25 Condition: stable Disposition: PACU Procedure: Patient was brought to the operative suite after undergoing anesthesia was placed into the lateral decubitus position with the right side up. All areas impingement well-padded. Patient was prepped and draped in normal sterile fashion. Skin incision made over the right hip. The IT band was split in a modified Corona approach was used. The abductors and capsule were taken down anteriorly femoral neck was identified and cut approximately a fingerbreadth above the lesser trochanter. The femoral head was removed and measured to be 45 mm. The leg was then brought down into the sterile bag and preparation of the femoral canal was begun. This was done by using the ordering box operator. Followed by the canal finder. Followed by the lateralizer. And then broaches were used up to 6. These were Zane broaches and a Zane stem was used. A #6 stem was inserted felt to be stable. Negative for neck length and a 45 mm head were used. The hip was then reduced and felt to be stable in all ranges of motion. The wounds were irrigated and the capsule and abductors were attached with FiberWire back to the femur the IT band was closed with 0 Vicryl and the skin was closed in layered fashion with Vicryl and merced. Sterile dressings were applied and patient was transferred to the PACU in stable condition.
--- NOTE | 2021-10-09 09:04 | ANE.PACU2 ---
Inpatient post-anesthesia follow up: Airway intact: Yes Vital signs: Temperature 99.6 F Pulse Rate 75 Respiratory Rate 18 Blood Pressure 139/79 Pulse Oximetry 96 Oxygen Delivery Me thod Room Air Oxygen Flow Rate Fraction of Inspir ed Oxygen Hydration adequate: Yes Nausea and vomiting: No Pain level: 2 Additional Comments: Sedated
[2021-10-09] MEDS: lithium carbonate 150 mg Capsule PO (10:32)
[2021-10-09] MEDS: atorvastatin 40 mg Tablet 80 MG PO (10:34)
[2021-10-09] MEDS: docusate sodium 100 mg Capsule PO ×2 (10:34→17:33)
[2021-10-09] MEDS: cholecalciferol (vitamin D3) 1,000 unit Tablet 1000 UNIT PO (10:34)
[2021-10-09] MEDS: famotidine 20 mg Tablet PO ×2 (10:34→17:33)
[2021-10-09] MEDS: aspirin 81 mg Chew Tablet PO (10:34)
--- NOTE | 2021-10-09 14:11 | P.PN_ITS ---
Subjective Subjective: Interval history: Patient was seen postoperatively, she is alert to person, not to place, not to time, she follows commands, is at bedside, is adamant that she will walk out of the hospital, he thinks that maybe she will need for home health care, for now declines usp, is on room air, normotensive, afebrile Vitals/I&O/Wt Last Vital Signs Temp 99.4 F 10/09/21 09:30 Pulse 77 10/09/21 09:30 Resp 18 10/09/21 09:30 BP 147/78 10/09/21 09:30 Pulse Ox 94 10/09/21 09:30 10/08/21 10/09/21 10/09/21 22:59 06:59 14:59 Intake Total 970 / 970 2740 / 2740 Output Total 420 / 420 Balance 970 / 970 2320 / 2320 Weight last 48 hrs Weight 51.12 kg Weight 46.266 kg Physical Exam Const: COMMON NORMALS: no acute distress ORIENTATION/CONSCIOUSNESS: Yes awake and Yes oriented to person; not oriented to place and not oriented to time Resp: COMMON NORMALS: normal respiratory effort, No retractions, No use of accessory muscles and clear to auscultation bilaterally AUSCULTATION: clear to auscultation bilaterally Cardio: COMMON NORMALS: regular rate, regular rhythm, S1 normal heart sound present and S2 normal heart sound present RATE: regular rate RHYTHM: regular rhythm HEART SOUNDS: S1 normal heart sound present and S2 normal heart sound present GI: COMMON NORMALS: Normal to inspection, nondistended, normoactive bowel sounds present, Soft to palpation and non-tender PALPATION: Yes Soft to palpation Extremity: COMMON NORMALS: no pedal edema Neuro: SENSORIUM/ORIENTATION: Yes oriented to person, No oriented to place and No oriented to time Urinary Catheter Management^: Chowdary: Cath Placed During This Visit: yes Urinary Catheter Date of Insertion: 10/09/21 Urinary Catheter Time of Insertion: 07:59 Data : 10/09/21 05:20 10/09/21 05:20 A&P Assessment and plan (1) Closed right hip fracture: -Status post right hip hemiarthroplasty -Pain control morphine -Zofran for nausea -Monitor mentation -Transition diet as tolerated -Chowdary catheter in place -Dr. Kinney on consult -Pepcid for GI prophylaxis -Lovenox for DVT prophylaxis -UA pending Elevated troponin, 6-hour 12.62, down to 1.62, no complaints of chest pain, continue to monitor Status: Acute (2) Primary progressive nonfluent aphasia: Status: Acute (3) Dementia: Status: Acute (4) Parkinsonian features: Status: Acute Attestations Medical Necessity Statement*: Patient requires hospitalization for hip fracture Coding Level of Care Code Acute Retail [facility] Diagn[facility] Closed right hip fracture S72.001A Primary progressive nonfluent aphasia G31.01; F02.80 Dementia F03.90 Parkinsonian features R25.9
--- NOTE | 2021-10-09 17:08 | USCV_ITS ---
Megan Ashfordluis Age: 71 Gender: F : 1950 Exam Date: 10/09/2021 12:35 Ordering Phys: Fransico Ruiz MD Technologist: MAHNAZ [place] [facility] [place]: Murmur BP: 138 / 72 HR: 80 Rhythm: Sinus Technical Quality: Fair MEASUREMENTS (Male / Female) Normal Values 2D ECHO LV Diastolic Diameter PLAX 2.6 cm 4.2 - 5.9 / 3.9 - 5.3 cm LV Systolic Diameter PLAX 1.6 cm IVS Diastolic Thickness 1.7 cm 0.6 - 1.0 / 0.6 - 0.9 cm IVS Systolic Thickness 2.1 cm LVPW Diastolic Thickness 0.7 cm 0.6 - 1.0 / 0.6 - 0.9 cm LVPW Systolic Thickness 0.9 cm RV Chamber Size 3.4 cm LVOT Diameter 2.1 cm LV Ejection Fraction 2D Teich 70.2 % LV Ejection Fraction MOD 2C 60.2 % LV Ejection Fraction 2C AL 61.7 % LA Diameter 2.8 cm LA Width 2.0 cm LA Height 4.0 cm RA Width 2.1 cm RA Height 3.8 cm Aorta at Sinotubular Diameter 2.8 cm M-MODE Aortic Annulus Diameter 3.3 cm LA Ao Ratio MM 1.0 MV E Point Septal Separation 0.5 cm DOPPLER AV Peak Velocity 140.0 cm/s LVOT Peak Velocity 116.0 cm/s AV Area Cont Eq vti 3.2 cm squared AV Area Cont Eq pk 2.8 cm squared MV Area PHT 2.8 cm squared Mitral E to A Ratio 0.6 MV E' Velocity 43.5 cm/s Mitral E to MV E' Ratio 7.4 Mitral E to LV E' Lateral Ratio 6.1 Mitral E to LV E' Septal Ratio 9.6 TR Peak Velocity 264.3 cm/s TR Peak Gradient 27.9 mmHg TV Peak E Velocity 46.0 cm/s Right Atrial Pressure 3.0 mmHg Pulmonary Artery Systolic Pressu 30.9 mmHg FINDINGS Left Ventricle Normal left ventricular cavity size. Normal left ventricular systolic function. No regional wall motion abnormalities. Left ventricular ejection fraction is estimated at 60 %. Grade I/IV diastolic dysfunction (abnormal relaxation filling pattern), normal to mildly elevated filling pressures. Right Ventricle The right ventricle is normal in size and function. Right Atrium The right atrium is normal in size. Left Atrium The left atrium is normal in size. Mitral Valve Structurally normal mitral valve without significant stenosis or prolapse. There is no mitral regurgitation. Aortic Valve Structurally normal aortic valve without significant sclerosis or stenosis. There is no aortic regurgitation. Tricuspid Valve Structurally normal tricuspid valve without significant stenosis or regurgitation. Pulmonary artery systolic pressure is normal. Pulmonic Valve Structurally normal pulmonic valve without significant stenosis. There is no pulmonic regurgitation. Pericardium Normal pericardium without effusion. Aorta Normal ascending aorta dimension. CONCLUSIONS 1-Normal left ventricular cavity size. Normal left ventricular systolic function. No regional wall motion abnormalities. Left ventricular ejection fraction is estimated at 60 %. Grade I/IV diastolic dysfunction (abnormal relaxation filling pattern), normal to mildly elevated filling pressures. 2-There is no pericardial effusion. 3-No significant valve abnormalities. 4-Pulmonary artery systolic pressure is within normal limits. 5-Right atrial pressure is around 5 mm of mercury. 6-No significant change since the prior echocardiogram study of 02/03/2014. Diane Goodman MD (Electronically Signed) Final Date: 09 October 2021 15:40 S
[2021-10-09 18:22] LABS: Add Urine Culture? Yes; Add Urine Microscopic? YES; Bacteria Urine 3+ /hpf; Bilirubin Urine Neg (Negative); Blood Urine 3+ (Negative); Glucose Urine UA Norm (Normal); Ketones Urine Negative (Negative); Leukocyte Esterase Urine 2+ (Negative); Nitrate Urine Negative (Negative); Protein Urine Neg (Negative); RBC Urine 15-25 /hpf (0-2); Squamous Epithelial Cell Urine 0-4 /hpf (0-5); Urine Appearance Clear (CLEAR); Urine Color Yellow (Yellow); Urobilinogen Urine Norm (Negative); WBC Urine 40-55 /hpf (0-5); pH Urine 5 (5-7)
[2021-10-09] MEDS: enoxaparin 40 mg/0.4 mL Syringe SUBCUT (21:06)
[2021-10-09] MEDS: acetaminophen 325 mg Tablet 650 MG PO (21:06)
[2021-10-10] VITALS (7 sets, daily range): BP systolic 96–133; BP diastolic 56–76; PULSE 89–99; RESP 16–23; TEMP 36.5–37.4; O2SAT 91–97
[2021-10-10] MEDS: morphine 4 mg/mL SDV 1 mL 2 MG IVP ×2 (00:20→21:36)
[2021-10-10 03:05] LABS: Basophils % 0.3 %; Eosinophils % 0.2 %; Hematocrit 30.7 % (37.0-47.0); Hemoglobin 10.1 g/dL (11.5-15.3); Mean Corpuscular HGB Conc 32.9 g/dL (30.0-36.0); Mean Corpuscular Hemoglobin 31.7 pg (28.0-34.0); Mean Corpuscular Volume 96.2 fl (81-99); Mean Platelet Volume 10.8 fL (7.4-10.4); Monocytes # 1.5 10^3/uL (0.2-0.9); Monocytes % 11.5 %; Neutrophils # 10.16 10^3/uL (1.8-7.7); Neutrophils % 79.7 %; Nucleated Red Blood Cells % 0 %; Platelet Count 208 10^3/cmm (130-400); Red Blood Count 3.19 10^6/uL (4.1-5.3); Red Cell Distribution Width 14.6 % (12.1-15.1); White Blood Count 12.7 10^3/uL (4.0-10.0)
--- NOTE | 2021-10-10 03:16 | PC.NURSE ---
patient been restless, climbing out of bed, alarm in place, tylenol given at 2106, patient rested for a while, patient's responses to questions by repeating questions, patient then continue to attempt to get out of bed, pulled SCD of, pulled stat lock off, removed dressing to right hip, morphine given at 0020, fluids given each time. patient rested until 0205, patient again attempted to get out of bed and succeeded, assisted back to bed, patient cooperative with verbal instructions. alarm remains activated.
[2021-10-10 03:34] LABS: Magnesium 1.9 mg/dL (1.7-2.3)
[2021-10-10 03:36] LABS: Anion Gap 15.6 (5-19); Blood Urea Nitrogen 18 mg/dL (8-23); Calcium 7.8 mg/dL (8.5-10.5); Carbon Dioxide 21 mmol/L (22-29); Chloride 106 mmol/L (98-107); Glucose 130 mg/dL (65-115); Osmolality Calculated 290 mOsm/kg (285-295); Potassium 4.6 mmol/L (3.5-5.1); Sodium 138 mmol/L (136-145)
[2021-10-10] MEDS: famotidine 20 mg Tablet PO ×2 (09:18→17:46)
[2021-10-10] MEDS: docusate sodium 100 mg Capsule PO ×2 (09:18→17:46)
[2021-10-10] MEDS: aspirin 81 mg Chew Tablet PO (09:18)
[2021-10-10] MEDS: cholecalciferol (vitamin D3) 1,000 unit Tablet 1000 UNIT PO (09:18)
[2021-10-10] MEDS: atorvastatin 40 mg Tablet 80 MG PO (09:18)
[2021-10-10] MEDS: lithium carbonate 150 mg Capsule PO (09:26)
--- NOTE | 2021-10-10 10:01 | P.PN_ITS ---
Subjective Subjective: Interval history: POD 1 Pt sitting a Bedside having AM meal with Physical Therapist present. No c/o and Appears comfortable Vitals/I&O/Wt Last Vital Signs Temp 98.9 F 10/10/21 00:00 Pulse 93 10/10/21 00:00 Resp 18 10/10/21 00:20 BP 130/74 10/10/21 00:00 Pulse Ox 96 10/10/21 00:00 10/09/21 10/10/21 10/10/21 22:59 06:59 14:59 Intake Total 360 / 3340 340 / 3680 Output Total 1700 / 2120 400 / 2520 Balance -1340 / 1220 -60 / 1160 Weight last 48 hrs Weight 112 lb 11.2 oz Weight 102 lb Physical Exam Narrative: EXAM NARRATIVE: Incision with slight bloody drainage. Wiggles digits with good sensation to light touch, NVI calves supple Urinary Catheter Management^: Chowdary: Cath Placed During This Visit: yes Reason for Continuing Indwelling Catheter: Acute Urinary Retention or Obstruction Urinary Catheter Date of Insertion: 10/09/21 Urinary Catheter Time of Insertion: 07:59 Data : 10/10/21 01:45 10/10/21 01:45 A&P Assessment and plan (1) S/P hip hemiarthroplasty: Director Patient Accounting consult for placement. SMI for Pulmonary Toilet. Continue Physical Therapy with [facility]. Status: Acute Attestations Medical Necessity Statement*: defer to medical team Coding Level of Care Code Acute Impact Retail Service Merchandiser for Chg Fwd Diagnoses S/P hip hemiarthroplasty Z96.649
[2021-10-10] MEDS: ciprofloxacin 500 mg Tablet 250 MG PO ×2 (11:33→21:42)
--- NOTE | 2021-10-10 14:59 | PM.PN ---
Subjective Subjective: Interval history: Patient was seen this morning, alert to person, not place, not time, she repeats with her medicine to her, this is her baseline, has no complaints of pain Vitals/I&O/Wt Last Vital Signs Temp 98.9 F 10/10/21 00:00 Pulse 93 10/10/21 00:00 Resp 18 10/10/21 00:20 BP 130/74 10/10/21 00:00 Pulse Ox 96 10/10/21 00:00 10/09/21 10/10/21 10/10/21 22:59 06:59 14:59 Intake Total 360 / 3340 340 / 3680 Output Total 1700 / 2120 400 / 2520 Balance -1340 / 1220 -60 / 1160 Weight last 48 hrs Weight 51.12 kg Physical Exam Const: COMMON NORMALS: no acute distress ORIENTATION/CONSCIOUSNESS: Yes awake and Yes oriented to person; not oriented to place and not oriented to time Resp: COMMON NORMALS: normal respiratory effort, No retractions, No use of accessory muscles and clear to auscultation bilaterally AUSCULTATION: clear to auscultation bilaterally Cardio: COMMON NORMALS: regular rate, regular rhythm, S1 normal heart sound present and S2 normal heart sound present RATE: regular rate RHYTHM: regular rhythm HEART SOUNDS: S1 normal heart sound present and S2 normal heart sound present GI: COMMON NORMALS: Normal to inspection, nondistended, normoactive bowel sounds present, Soft to palpation and non-tender PALPATION: Yes Soft to palpation Extremity: COMMON NORMALS: no pedal edema Neuro: SENSORIUM/ORIENTATION: Yes oriented to person, No oriented to place and No oriented to time Psych: COMMON NORMALS: mental status grossly normal Urinary Catheter Management^: Chowdary: Cath Placed During This Visit: yes Reason for Continuing Indwelling Catheter: Acute Urinary Retention or Obstruction Urinary Catheter Date of Insertion: 10/09/21 Urinary Catheter Time of Insertion: 07:59 Data : 10/10/21 01:45 10/10/21 01:45 Micro: Microbiology 10/08/21 01:44 Urine Culture - Preliminary Urine,Voided A&P Assessment and plan (1) Closed right hip fracture: -Status post right hip hemiarthroplasty -Pain control morphine -Zofran for nausea -Monitor mentation -Transition diet as tolerated -Chowdary catheter removed -Dr. Kinney on consult -Pepcid for GI prophylaxis -Lovenox for DVT prophylaxis -UA with possible evidence of UTI continue Rocephin,, urine culture -Awaiting possible assisted placement Elevated troponin, 6-hour 12.62, down to 1.62, no complaints of chest pain, continue to monitor Status: Acute (2) Primary progressive nonfluent aphasia: Status: Acute (3) Dementia: Status: Acute (4) Parkinsonian features: Status: Acute Attestations Medical Necessity Statement*: Patient requires hospitalization for right hip fracture, status post surgical mention Coding Level of Care Code Acute Drink Mixer for [facility] Fwd Diagnoses Closed right hip fracture S72.001A Primary progressive nonfluent aphasia G31.01; F02.80 Dementia F03.90 Parkinsonian features R25.9
[2021-10-10] MEDS: TRAMadol 50 mg Tablet PO (15:47)
[2021-10-10] MEDS: acetaminophen 325 mg Tablet 650 MG PO (20:21)
[2021-10-10] MEDS: enoxaparin 40 mg/0.4 mL Syringe SUBCUT (20:22)
[2021-10-11] VITALS: BP 96/61; PULSE 94; RESP 16; TEMP 36.6; O2SAT 99
[2021-10-11 03:15] LABS: Basophils # 0.1 10^3/uL (0.0-0.1); Basophils % 0.4 %; Eosinophils # 0.5 10^3/uL (0.0-0.8); Eosinophils % 4.4 %; Hematocrit 27.7 % (37.0-47.0); Hemoglobin 9.1 g/dL (11.5-15.3); Lymphocytes # 2.2 10^3/uL (0.8-4.8); Lymphocytes % 17.4 %; Mean Corpuscular HGB Conc 32.9 g/dL (30.0-36.0); Mean Corpuscular Hemoglobin 31.4 pg (28.0-34.0); Mean Corpuscular Volume 95.5 fl (81-99); Mean Platelet Volume 10.6 fL (7.4-10.4); Monocytes # 1.4 10^3/uL (0.2-0.9); Monocytes % 11.3 %; Nucleated Red Blood Cells % 0 %; Platelet Count 211 10^3/cmm (130-400); Red Cell Distribution Width 14.6 % (12.1-15.1); White Blood Count 12.4 10^3/uL (4.0-10.0)
[2021-10-11 03:36] LABS: Magnesium 1.9 mg/dL (1.7-2.3); Phosphorus 3.2 mg/dL (2.5-4.5)
[2021-10-11 03:37] LABS: Anion Gap 16.4 (5-19); Blood Urea Nitrogen 29 mg/dL (8-23); Calcium 7.2 mg/dL (8.5-10.5); Carbon Dioxide 19 mmol/L (22-29); Chloride 105 mmol/L (98-107); Glucose 94 mg/dL (65-115); Osmolality Calculated 288 mOsm/kg (285-295); Potassium 4.4 mmol/L (3.5-5.1); Sodium 136 mmol/L (136-145)
[2021-10-11 08:00] VITALS: BP 110/65; PULSE 92; RESP 16; TEMP 36.9; O2SAT 96
[2021-10-11] MEDS: atorvastatin 40 mg Tablet 80 MG PO (08:37)
[2021-10-11] MEDS: aspirin 81 mg Chew Tablet PO (08:37)
[2021-10-11] MEDS: famotidine 20 mg Tablet PO (08:38)
[2021-10-11] MEDS: docusate sodium 100 mg Capsule PO (08:38)
[2021-10-11] MEDS: cholecalciferol (vitamin D3) 1,000 unit Tablet 1000 UNIT PO (08:38)
[2021-10-11] MEDS: ciprofloxacin 500 mg Tablet 250 MG PO (09:17)
[2021-10-11] MEDS: lithium carbonate 150 mg Capsule PO (09:17)
--- NOTE | 2021-10-11 10:34 | P.PN_ITS ---
Subjective Subjective: Interval history: POD 2 Pt resting comfortably. Vitals/I&O/Wt Last Vital Signs Temp 98.4 F 10/11/21 08:00 Pulse 92 10/11/21 08:00 Resp 16 10/11/21 08:00 BP 110/65 10/11/21 08:00 Pulse Ox 96 10/11/21 08:00 10/10/21 10/11/21 10/11/21 22:59 06:59 14:59 Intake Total 480 / 480 480 / 960 360 / 360 Output Total 450 / 450 560 / 1010 700 / 700 Balance 30 / 30 -80 / -50 -340 / -340 Physical Exam Narrative: EXAM NARRATIVE: Alert, Cooperative, wiggles all digits, feet warm with good cap refill, DP/PT 1 + Ca;ves supple Urinary Catheter Management^: Chowdary: Cath Placed During This Visit: yes Reason for Continuing Indwelling Catheter: Required Immobilization for Trauma or Surgery or Anesthesia Urinary Catheter Date of Insertion: 10/09/21 Urinary Catheter Time of Insertion: 07:59 Data : 10/11/21 02:10 10/11/21 02:10 Micro: Microbiology 10/09/21 18:08 Urine Culture - Final Urine Catheterized 10/08/21 01:44 Urine Culture - Final Urine,Voided A&P Assessment and plan (1) S/P hip hemiarthroplasty: [facility]LE, Ok from Ortho standpoint to DC when medically stable. RTC in 2wks for wound check Status: Acute Attestations Medical Necessity Statement*: defer to medical team Coding Level of Care Code Acute Speedometer Mechanic for Chg Fwd Diagnoses S/P hip hemiarthroplasty Z96.649
--- NOTE | 2021-10-11 10:49 | P.DS_ITS ---
Discharge Providers Date of Admission: 10/08/21 15:32 Date of Discharge: October 11, 2021 Attending Provider at Admission: Fransico Ruiz MD Attending Provider at Discharge: Steve Hansen MD Primary Care Provider: KAILYN Calzada Diagnoses at Discharge Discharge Diagnosis (1) S/P hip hemiarthroplasty: Status: Acute Reason for Visit Reason for Visit: BROKEN R FEMUR Hospital Course Hospital Course 71 year old female dementia, PSP syndrome, primary progressive aphasia spinal stenosis, history of atrial fibrillation status post ablation not on anticoagulation, who presents to [facility] due to difficulty ambulating, right hip pain.She presented to her primary care physician's office, x-ray displayed a fracture.She was admitted for the management of subcapital right hip fracture,Status post right hip hemiarthroplasty. SHe was also managed for possible UTI she was kept on Abxs, urine culture on discharge showed no growth. Patient responded well to above medical and surgical management and was discharged in stable condition to home. Physical Exam Const: COMMON NORMALS: patient oriented x3 HENMT: COMMON NORMALS: normocephalic and atraumatic HEAD & SCALP: normocephalic and atraumatic Resp: COMMON NORMALS: clear to auscultation bilaterally AUSCULTATION: clear to auscultation bilaterally Cardio: COMMON NORMALS: regular rate, regular rhythm, S1 normal heart sound present, S2 normal heart sound present, No gallops present (Cardio), No murmurs present (Cardio), No rub (Cardio) and Peripheral pulses 2+ throughout RATE: regular rate RHYTHM: regular rhythm HEART SOUNDS: S1 normal heart sound present and S2 normal heart sound present PERIPHERAL PULSES: Peripheral pulses 2+ throughout GI: COMMON NORMALS: Normal to inspection, nondistended, normoactive bowel sounds present, Soft to palpation, non-tender, No hepatosplenomegaly present and no masses AUSCULTATION: Yes normoactive bowel sounds PALPATION: Yes Soft to palpation and Yes No hepatosplenomegaly present RECTAL EXAM: deferred Extremity: COMMON NORMALS: no clubbing, cyanosis or edema and no pedal edema Neuro: COMMON NORMALS: patient oriented x3 Urinary Catheter Management^: Chowdary: Cath Placed During This Visit: yes Reason for Continuing Indwelling Catheter: Required Immobilization for Trauma or Surgery or Anesthesia Urinary Catheter Date of Insertion: 10/09/21 Urinary Catheter Time of Insertion: 07:59 Discharge Data Data Completed and Pending: Completed Studies During Hospitalization Category Date Time Status XR chest 1V joanne ble [id number] Stat Exams 10/08/21 14:25 Completed XR femur RT min 2 V* [id number] Stat Exams 10/08/21 14:25 Completed XR hip RT 1V wo/w pel [id number] Routine Exams 10/09/21 08:38 Completed CV. echo complete * [id number] Routine Ultrasound 10/09/21 17:08 Completed Pending at discharge Category Date Time Status Basic Metabolic P keely AM LABS Lab 10/12/21 04:00 Ordered Complete Blood Co unt w/Auto AM LABS Lab 10/12/21 04:00 Ordered Labs from last 24 hours 10/11/21 10/11/21 10/11/21 02:10 02:10 02:10 WBC 12.4 H RBC 2.90 L Hgb 9.1 L Hct 27.7 L MCV 95.5 MCH 31.4 MCHC 32.9 RDW 14.6 Plt Count 211 MPV 10.6 H Neut % (Auto) 66.0 Lymph % (Auto) 17.4 [place] % (Auto) 11.3 Eos % (Auto) 4.4 Baso % (Auto) 0.4 Neut # (Auto) 8.20 H Lymph # (Auto) 2.2 [place] # (Auto) 1.4 H Eos # (Auto) 0.5 Baso # (Auto) 0.1 Nucleated RBC % (a uto) 0 Nucleated RBCs # 0.0 Sodium 136 Potassium 4.4 Chloride 105 Carbon Dioxide 19 L Anion Gap 16.4 BUN 29 H Creatinine 1.2 H GFR Calculation Not Reportable Glucose 94 Calculated Osmolal ity 288 Calcium 7.2 L Phosphorus 3.2 Magnesium 1.9 Vitals: Last Vital Signs Temp 98.4 F 10/11/21 08:00 Pulse 92 10/11/21 08:00 Resp 16 10/11/21 08:00 BP 110/65 10/11/21 08:00 Pulse Ox 96 10/11/21 08:00 Discharge Plan Discharge Patient Disposition: Home Condition: Stable Prescriptions: Continued aspirin 81 mg tablet,chewable 81 mg PO DAILY RF: 0 red yeast rice 600 mg capsule 1,200 mg PO DAILY RF: 0 coenzyme B70-rjsdera E 100-100 mg-unit capsule 1 cap PO DAILY RF: 0 rosuvastatin 20 mg tablet 20 mg PO DAILY RF: 0 PreserVision AREDS-2 [id number] sk-qycc-nq-mg capsule 2 tab PO BID RF: 0 glucosamine-chondroitin [Osteo Bi-Flex] 250-200 mg tablet 1 tab PO DAILY RF: 0 lithium carbonate 150 mg capsule 150 mg PO DAILY RF: 0 hydrocodone-acetaminophen 5-325 mg tablet 1 tab PO TID PRN (Reason: pain) 30 Days Qty: 90 RF: 0 hydrocodone-acetaminophen 5-325 mg tablet 1 tab PO TID PRN (Reason: pain) 30 Days Qty: 90 RF: 0 meloxicam 7.5 mg tablet 7.5 mg PO DAILY 30 Days Qty: 30 RF: 1 cholecalciferol (vitamin D3) 25 mcg (1,000 unit) tablet 25 mcg PO DAILY RF: 0 galantamine 24 mg capsule,ext rel. pellets 24 hr 24 mg PO QAM Qty: 30 RF: 2 Discharge Orders: Discharge Order (Routine); Ordered 10/11/21 Ordered By: Steve Hansen Other Ambulatory Orders: DME: [employer] (Order) Location: None Selected Ordered By: Fransico Ruiz Referrals: Lorenzo Kinney DO [Physician] - 2 weeks (Follow up appointment scheduled for October 28 at 2:45pm) Discharge Diet: Regular Discharge Activity: Limit activity as instructed Patient Instructions: Surgical Site Infections (ED), Joint Replacement Surgery (DC), Total Hip Replacement (DC), Opioid Safety Activity Restrictions/Additional Instructions: You are being discharged from the hospital today during which time you have been under the care of Dr Kinney. You had a right femoral neck fracture. You were adeel ated for this injury with right hip hemiarthroplasty. You may resume you normal diet (including any special diets as directed by your primary doctor) as well as your home medications. You should follow up with you primary doctor if you have any questions regarding medication you took prior to your stay in the hospital. You may take your pain medication as prescribed. After the first few days, take your pain medication as needed. Do not drive or drink alcohol while taking your pain medication. Your injury may increase your risk of developing a blood clot,or DVT, in your arm or leg. This could potentially dislodge and travel to your lungs and become a life threatening condition called apulmonary embolus,or PE. You have been prescribed Lovenox or continue your aspirin to be taken to prevent this. Frequent movement of the legs will also help prevent this from occurring. If you develop any new or worsening cough, chestpain, bloody sputum or shortness of breath, call 911 or go to the EmergencyRoom. Always keep your surgical incision/dressing clean and dry. If you experience increasing pain at your incision site, redness, swelling, increasing discharge, foul odors, or fevers (greater than 100.4), night sweats or chills you should call the office at the above number. If you feel this is an emergency you should be evaluated in the Emergency Department of a nearby hospital. Orthopedic Patient Instructions Summary: Weight Bearing: As tolerated Activity: As tolerated hip precautions. Diet: Regular. Wound Care: Keep dressing clean and dry. Anticoagulation: Lovenox or continue your aspirin Pain Medication: Take only as needed. Ice, rest and elevation will be of great benefit. Please plan to follow-up [facility] Dr Kinney in 2 weeks. You will need to call the clinic [phone] to schedule this visit. Thank you far allowing me to participate in your care. Do not hesitate to call the office with any questions or concerns. Discharge Attestations Time Spent in Discharge Care*: less than 30 min Specific Discharge Activities: educating patient, educating and/or supporting family/caregiver, discussing with pcp/other providers, discussing with therapeutic case manager/social workers/dc planners, documenting/other paperwork and evaluating patient/reviewing data Status at Discharge: Cognitive status at discharge: cognitively intact , Behavioral status at discharge: cooperative , Functional status at discharge: other assisted ambulation Overall status at discharge: patient is progressing back to baseline Quality Metrics Clinical Quality Measures During this hospital stay, did patient experience: None Coding Level of Care Code Acute Chg FW DC note Diagnoses S/P hip hemiarthroplasty Z96.649
[2021-10-11 12:00] VITALS: BP 94/63; PULSE 93; RESP 14; TEMP 36.8; O2SAT 97
--- NOTE | 2021-10-11 14:29 | PC.NURSE ---
rcvd order to remove nevarez catheter from Dr Hansen
--- NOTE | 2021-10-11 15:20 | PC.OT ---
OT TREATMENT HELD DUE TO SCHEDULED PATIENT DISCHARGE
[2021-10-11 15:55] VITALS: BP 122/71; PULSE 84; RESP 16; TEMP 36.4; O2SAT 99
--- NOTE | 2021-10-11 16:49 | PC.NURSE ---
discharge instructions given to patient and patient verbalized understanding of instructions. patient taken to private vehicle via wheelchair by telegraphic typewriter operator chief.
[2021-10-11 16:51] VITALS: BP 122/71; PULSE 84; RESP 16; TEMP 36.4; O2SAT 99
== END 2021-10-11 16:52 | disposition home health service (06) | DRG 522 ==
LOC: ER 14:15 → MEDSURG 19:17
PROVIDERS: Orthopaedic Surgery; Admitting Provider Family Medicine; Emergency Provider Family Medicine; PCP Nurse Practitioner Family; Visit Provider Internal Medicine
PROC: 0SRR0JZ Replacement of Right Hip Joint, Femoral Surface with Synthetic Substitute, Open Approach (ICD-10-PCS; CPT 27125; principal; 2021-10-09 08:00)
DX: S72.011A Unspecified intracapsular fracture of right femur, initial encounter for closed fracture (principal); N39.0 Urinary tract infection, site not specified; W06.XXXA Fall from bed, initial encounter; G20 Parkinson's disease; F02.80 Dementia in other diseases classified elsewhere, unspecified severity, without behavioral disturbance, psychotic disturbance, mood disturbance, and anxiety; G31.01 Pick's disease; Z79.891 Long term (current) use of opiate analgesic; M47.896 Other spondylosis, lumbar region; M54.17 Radiculopathy, lumbosacral region; F17.290 Nicotine dependence, other tobacco product, uncomplicated; M43.16 Spondylolisthesis, lumbar region; M54.16 Radiculopathy, lumbar region; R01.1 Cardiac murmur, unspecified; Z79.82 Long term (current) use of aspirin
CPT/HCPCS: 36415; 51702; 71045; 73501; 73552; 80048; 80053; 80178; 81001; 82550; 83735; 84100; 84443; 84484; 85025; 87086; 93005; 93306; 96372; 96374; 97110; 97116; 97162; 97166; 97530; 97535; 99285; C1776; J1644; J1650; J2270; J2405; J2704; J3010; J7030

== ENCOUNTER → 2021-10-25 15:09 | Outpatient (BNVA) | payer MEDICARE, SELFPAY | PROVIDERS: PCP Nurse Practitioner Family; Visit Provider Specialist | DX: F03.90 Unspecified dementia, unspecified severity, without behavioral disturbance, psychotic disturbance, mood disturbance, and anxiety (principal); G23.1 Progressive supranuclear ophthalmoplegia [Steele-Richardson-Olszewski] | CPT/HCPCS: 99214; 99215 ==

== ENCOUNTER 2021-10-25 16:54 | Outpatient (CLI) | payer MEDICARE, SELFPAY ==
--- NOTE | 2021-10-25 17:11 | XRR_ITS ---
PROCEDURE INFORMATION: Exam: XR Bilateral Hips Exam date and time: 10/25/2021 5:11 PM Age: 71 years old Clinical indication: Condition or disease; Other: Fracture; Prior surgery; Surgery date: <1 month; Surgery type: RT. Hip FX surgery 2 weeks ago; Additional info: S72.011a - unspecified intracapsular fracture of right fe. . . , Changed order to match bilat 2 v hip as there are 4 views total and pelvis TECHNIQUE: Imaging protocol: XR bilateral hips. Views: 2 views of hips with pelvis when performed. Total images: 5 COMPARISON: CR XR hip RT 1V wo/w pel [id number] 10/09/2021 10:34 AM FINDINGS: Tubes, catheters and devices: The prosthesis appears near anatomic in positioning. No parallel lucencies adjacent to the prosthesis are seen to suggest loosening. No acute fractures, subluxation, nor dislocation. Bones/joints: Right hip arthroplasty is present. Diffuse osteopenia noted. No acute fracture nor subluxation. No osseous erosion nor periosteal reaction. Soft tissues: Skin merced subcutaneous emphysema are present from recent surgery. XR/XR hip BI m 5V wo/w pel* [id number] IMPRESSION: 1. Status post recent right hip arthroplasty without complication. 2. No acute osseous pathology.
== END 2021-10-25 16:55 | disposition home or self-care (01) ==
LOC: RAD 16:57
PROVIDERS: PCP Nurse Practitioner Family; Visit Provider Specialist
DX: S72.011A Unspecified intracapsular fracture of right femur, initial encounter for closed fracture (principal); X58.XXXA Exposure to other specified factors, initial encounter; Z96.641 Presence of right artificial hip joint
CPT/HCPCS: 73522; 73523

== ENCOUNTER → 2021-10-28 11:43 | Outpatient (BNVA) | payer MEDICARE, SELFPAY ==
--- NOTE | 2021-10-28 13:01 | PM.HP ---
Providers/Chief Complaint Admitting Physician: Dr Kinney Primary Care Provider: KAILYN Calzada Chief Complaint: AMB.POSOP History of Present Illness Jannet Ashford is a 71 year old female is 2-1/2 weeks out from a right hip hemiarthroplasty. She presented to the office outpatient today for postoperative follow-up and was found to have fluctuance in her right hip incision with drainage. is present and reports her becoming progressively more confused since earlier this week. Difficulty walking. He reports incontinence of urine patient reports pain with urination. Review of Systems General: Reports: 10 or more systems reviewed and unremarkable except in HPI and below : Reports: difficulty voiding, urinary urgency and urinary incontinence Medications/Allergies Home Medications Medication Instructions Recorded Confirmed Last Taken Type aspirin 81 mg chewable tablet 81 mg PO DAILY 10/30/19 10/28/21 10/08/21 History cholecalciferol (vitamin D3) 25 25 mcg PO DAILY 01/16/20 10/28/21 10/08/21 History mcg (1,000 unit) tablet glucosamine-chondroitin 250 mg-200 1 tab PO DAILY tab 08/25/20 10/28/21 10/08/21 History mg tablet red yeast rice 600 mg capsule 1,200 mg PO DAILY cap 08/25/20 10/28/21 10/08/21 History rosuvastatin 20 mg tablet 20 mg PO DAILY 08/25/20 10/28/21 10/08/21 History vit C 250 mg-vit E 90 mg-zinc 40 2 tab PO BID cap 08/25/20 10/28/21 10/08/21 History mg-copper 1 ex-doqmiu-ekhsat capsule coenzyme Z00-yyhrkqj E 100 mg-100 1 cap PO DAILY cap 09/28/20 10/28/21 10/08/21 History unit capsule lithium carbonate 150 mg capsule 150 mg PO DAILY cap 07/14/21 10/28/21 10/08/21 History hydrocodone 5 mg-acetaminophen 325 1 tab PO TID PRN 30 Days #90 tab 09/23/21 10/28/21 Unknown Rx mg tablet hydrocodone 5 mg-acetaminophen 325 1 tab PO TID PRN 30 Days #90 tab 09/23/21 10/28/21 10/08/21 Rx mg tablet meloxicam 7.5 mg tablet 7.5 mg PO DAILY 30 Days #30 tab 09/27/21 10/28/21 10/08/21 Rx galantamine 24 mg 24 hr 24 mg PO QAM #30 cap 10/25/21 10/28/21 Unknown Rx capsule,extended release Allergies Allergy/AdvReac Type Severity Reaction Status Date / Time Penicillins Allergy Severe ALGY-Anaphy Verified 10/28/21 11:47 laxis gabapentin AdvReac SPEECH Verified 10/28/21 11:47 DIFFICULTY Sulfa (Sulfonamide AdvReac WAS TOLD Verified 10/28/21 11:47 Antibiotics) BY HER MOTHER THAT SHE IS ALLERGIC PFSH Acute PFSH: Medical History Aftercare following surgery of the genitourinary system Chronic right hip pain Closed right hip fracture Dementia Displaced fracture of right femoral neck Encounter for long-term (current) use of NSAIDs Encounter for long-term opiate analgesic use Facet syndrome, 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 Long-term use of high-risk medication Low back pain Parkinsonian features Primary progressive nonfluent aphasia Smoker has now changed to e-cig Spinal stenosis of lumbar region with radiculopathy Spondylolisthesis, lumbar region Surgical History History of cardiac radiofrequency ablation 2011 S/P cholecystectomy 2010 S/P hip hemiarthroplasty S/P hysterectomy 2004 Family History Sister Dementia Father Myocardial infarct Heart disease Mother Cancer BRAIN TUMOR Brother Hypertension Cancer colon cancer Denies family history of Ovarian cancer Diabetes Clotting disorder Hyperlipidemia Breast cancer Anesthesia complication Bleeding disorder Uterine cancer Thyroid condition Stroke Social History Alcohol intake: never History of recent travel: No Physical Exam Narrative: EXAM NARRATIVE: Right hip incision is red with fluctuance and has been draining. She is moving all digits she is ambulating with a walker. She is confused and difficulty understanding. Her extremities are warm to the touch with good cap refill all digits. HENMT: COMMON NORMALS: normocephalic Resp: COMMON NORMALS: normal respiratory effort Cardio: COMMON NORMALS: regular rate and regular rhythm Psych: COMMON NORMALS: cooperative A&P Assessment and plan (1) Wound infection after surgery: We will consult hospitalist for medical management and presurgical clearance. Proceed with irrigation debridement right hip incision on 10/29/2021. We will keep her n.p.o. after midnight. Status: Acute (2) Status post hip hemiarthroplasty: Status: Acute Attestations Medical Necessity Statement*: surgery tomorrow Coding Level of Care Code Acute Divisional Human Resources Director for [facility] Diagnoses Wound infection after surgery T81.49XA Status post hip hemiarthroplasty Z96.649
--- NOTE | 2021-10-28 13:27 | PM.CONSULT ---
Providers/Reason For Consult Consulting Physician/Specialty*: Dr. Regine Cole/Internal Medicine Reason for Consult*: Medical management, pre-opclearance Requesting Physician: Dr. Lorenzo Kinney Attending Physician: Alberto Sanders PA-C Primary Care Provider: KAILYN Calzada History of Present Illness History of Present Illness Jannet Ashford is a 71 year old female with past medical history of dementia, chronic right hip pain, smoking, spinal stenosis, atrial fibrillation status post ablation not on anticoagulation presented to the hospital today after being sent from orthopedic surgeons office. She was seen in the clinic today for evaluation of her right hip hemiarthroplasty that was done on 10/09/2021. She is 2.5 weeks postop. Has been stated that she was doing well following surgery but then started having trouble getting out of chairs and walking with assistance even with her walker. Mental status has changed as well. She admits to having dysuria and incontinence. states that she has been wetting the bed. Denies any fevers at home. She was alert but confused with difficulty with speech. Hip incision with merced appeared erythematous and there was also serous drainage with signs of infection present. There was decreased motor strength throughout both lower extremities. She was recommended for admission to the hospital for irrigation debridement procedure and sent to the hospital. Plan is to proceed with irrigation debridement right hip incision on 11/02/2021. She will Be kept n.p.o. at midnight. Hospitalist was consulted to assist with medical management and for preop clearance. ED course: Blood pressure on arrival 107/72, respiratory rate 20, pulse rate 94, temperature 100 Fahrenheit, pulse ox 97%. Right hip x-ray was done which showed right hip arthroplasty. Review of Systems General: Reports: ROS unobtainable due to mental status Meds/Allergies Home Medications and Allergies Home Medications Medication Instructions Recorded Confirmed Last Taken Type aspirin 81 mg chewable tablet 81 mg PO DAILY 10/30/19 10/28/21 10/27/21 History cholecalciferol (vitamin D3) 25 25 mcg PO DAILY 01/16/20 10/28/21 10/27/21 History mcg (1,000 unit) tablet glucosamine-chondroitin 250 mg-200 1 tab PO DAILY tab 08/25/20 10/28/21 10/27/21 History mg tablet red yeast rice 600 mg capsule 1,200 mg PO DAILY cap 08/25/20 10/28/21 10/27/21 History rosuvastatin 20 mg tablet 20 mg PO DAILY 08/25/20 10/28/21 10/27/21 History vit C 250 mg-vit E 90 mg-zinc 40 2 tab PO BID cap 08/25/20 10/28/21 10/27/21 History mg-copper 1 te-thaslh-haxpuj capsule coenzyme [id number] E 100 mg-100 1 cap PO DAILY cap 09/28/20 10/28/21 10/27/21 History unit capsule lithium carbonate 150 mg capsule 150 mg PO DAILY cap 07/14/21 10/28/21 10/27/21 History hydrocodone 5 mg-acetaminophen 325 1 tab PO TID PRN 30 Days #90 tab 09/23/21 10/28/21 Unknown Rx mg tablet hydrocodone 5 mg-acetaminophen 325 1 tab PO TID PRN 30 Days #90 tab 09/23/21 10/28/21 10/08/21 Rx mg tablet meloxicam 7.5 mg tablet 7.5 mg PO DAILY 30 Days #30 tab 09/27/21 10/28/21 10/28/21 Rx galantamine 24 mg 24 hr 24 mg PO QAM #30 cap 10/25/21 10/28/21 10/28/21 Rx capsule,extended release Allergies Allergy/AdvReac Type Severity Reaction Status Date / Time Penicillins Allergy Severe ALGY-Anaphy Verified 10/28/21 11:47 laxis gabapentin AdvReac SPEECH Verified 10/28/21 11:47 DIFFICULTY Sulfa (Sulfonamide AdvReac WAS TOLD Verified 10/28/21 11:47 Antibiotics) BY HER MOTHER THAT SHE IS ALLERGIC PFSH Acute PFSH: Medical History Aftercare following surgery of the genitourinary system Chronic right hip pain Closed right hip fracture Dementia Displaced fracture of right femoral neck Encounter for long-term (current) use of NSAIDs Encounter for long-term opiate analgesic use Facet syndrome, 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 Long-term use of high-risk medication Low back pain Parkinsonian features Primary progressive nonfluent aphasia Smoker has now changed to e-cig Spinal stenosis of lumbar region with radiculopathy Spondylolisthesis, lumbar region Surgical History History of cardiac radiofrequency ablation 2011 S/P cholecystectomy 2010 S/P hip hemiarthroplasty S/P hysterectomy 2003 Family History Sister Dementia Father Myocardial infarct Heart disease Mother Cancer BRAIN TUMOR Brother Hypertension Cancer colon cancer Denies family history of Ovarian cancer Diabetes Clotting disorder Hyperlipidemia Breast cancer Anesthesia complication Bleeding disorder Uterine cancer Thyroid condition Stroke Social History Alcohol intake: never History of recent travel: No Physical Exam Narrative: EXAM NARRATIVE: General: No acute distress HEENT: Normocephalic, atraumatic, EOMI, Cardio: Regular rate rhythm, normal S1-S2, no murmurs Respiratory: Good bilateral air entry, no wheezes no rhonchi appreciated GI: Abdomen soft, nontender, nondistended, bowel sounds + Extremities: no edema, no cyanosis. Limited ROM of the right hip, Right hip incision site has mild erythema present, no fluctuance present. A&P Assessment and plan (1) Status post hip hemiarthroplasty: Status: Acute (2) Dementia: Status: Acute (3) Chronic right hip pain: Status: Chronic (4) Wound infection after surgery: Status: Acute Additional A&P Information #Chronic right hip pain status post right hip hemiarthroplasty with wound infection 2.5 weeks postop #Septic arthritis right hip? #History of atrial fibrillation status post ablation, not on anticoagulation #Dementia ? We will start patient on Vanco and cefepime for infection. Hx of anaphylaxis with penicillin. - Check blood cultures. Wound cultures to obtained intraoperatively. - Check CBC, BMP, MAG, CRP, Lactic Acid today ? CT scan right hip to be done today ? Keep patient n.p.o. overnight for incision debridement in a.m. with orthopedic surgery team ? We will check chest x-ray and EKG as preop evaluation. - Most recent echo done October 09, 2021 shows LVEF 60%, grade 1 diastolic dysfunction. No change compared to prior echo from 2013. -We will place patient on telemetry - Cardiac risk index: Class 2 Risk, 6.0% risk of 30 day , NH or cardiac arrest. ? Zofran for nausea ? Place Chowdary catheter ? 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
[2021-10-29 02:26] LABS: Basophils % 0.4 %; Eosinophils % 0.4 %; Hematocrit 27.7 % (37.0-47.0); Hemoglobin 8.5 g/dL (11.5-15.3); Lymphocytes # 0.5 10^3/uL (0.8-4.8); Lymphocytes % 9.5 %; Mean Corpuscular HGB Conc 30.7 g/dL (30.0-36.0); Mean Corpuscular Volume 101.1 fl (81-99); Mean Platelet Volume 10.2 fL (7.4-10.4); Monocytes # 0.5 10^3/uL (0.2-0.9); Monocytes % 8.8 %; Neutrophils # 4.48 10^3/uL (1.8-7.7); Neutrophils % 80.4 %; Nucleated Red Blood Cells % 0 %; Platelet Count 208 10^3/cmm (130-400); Red Blood Count 2.74 10^6/uL (4.1-5.3); White Blood Count 5.6 10^3/uL (4.0-10.0)
[2021-10-29 02:29] LABS: INR 1.19 (0.8-1.2)
[2021-10-29 02:38] LABS: Anion Gap 16.7 (5-19); Blood Urea Nitrogen 37 mg/dL (8-23); Calcium 6.7 mg/dL (8.5-10.5); Carbon Dioxide 19 mmol/L (22-29); Chloride 109 mmol/L (98-107); Glucose 104 mg/dL (65-115); Magnesium 2.1 mg/dL (1.7-2.3); Osmolality Calculated 301 mOsm/kg (285-295); Potassium 3.7 mmol/L (3.5-5.1); Sodium 141 mmol/L (136-145)
[2021-10-29 03:10] LABS: Slide Review Slide Review Perform
== END ==
PROVIDERS: Internal Medicine; PCP Nurse Practitioner Family; Visit Provider Physician Assistant
DX: S72.011A Unspecified intracapsular fracture of right femur, initial encounter for closed fracture (principal); Z96.649 Presence of unspecified artificial hip joint
CPT/HCPCS: 73502

== ENCOUNTER 2021-10-28 12:46 | Inpatient (IN) | payer MEDICARE, SELFPAY ==
[2021-10-28 12:54] VITALS: BP 107/72; PULSE 94; RESP 20; TEMP 37.8; O2SAT 97; BMI 18.4
--- NOTE | 2021-10-28 13:06 | PC.NURSE ---
Spoke to Dr Cole on the phone. She wanted to advise that she would be consulting hospitalist with Dr. Kinney admitting.
--- NOTE | 2021-10-28 14:47 | ED_ITS ---
HPI - General Adult General: Chief complaint: General Medical Stated complaint: Poss Infection Time Seen by Provider: 10/28/21 14:38 History of Present Illness: HPI narrative: 71-year-old female with a history of recent hip replacement 3 weeks ago presenting to emergency room with complaints of pain with range of hip and postsurgical site erythema x 4 days. Patient is a direct admit by Dr. Kinney. Onset:4 days ago Duration:4 days Location:home Severity:moderate Associated symptoms: Deny chest pain, dyspnea, nausea, rash, palpitations or vomiting Review of Systems Const: Denies: fever(s) or chills Eyes: Denies: change in vision ENMT: Denies: mouth pain Card: Denies: chest pain or palpitations Resp: Denies: dyspnea or non-productive cough GI: Denies: abdominal pain, nausea, vomiting or diarrhea : Denies: dysuria Musc: Reports: extremity pain and other (R hip pain with ROM, redness at the incision site) Skin/Breast: Denies: rash or new lesions Neuro: Denies: weakness in extremities Psych: Reports: other (Normal mood) Hemal/Lymph: Denies: easy bruising PFSH ED PFSH: Medical History Aftercare following surgery of the genitourinary system Chronic right hip pain Closed right hip fracture Dementia Displaced fracture of right femoral neck Encounter for long-term (current) use of NSAIDs Encounter for long-term opiate analgesic use Facet syndrome, 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 Long-term use of high-risk medication Low back pain Parkinsonian features Primary progressive nonfluent aphasia Smoker has now changed to e-cig Spinal stenosis of lumbar region with radiculopathy Spondylolisthesis, lumbar region Surgical History History of cardiac radiofrequency ablation 2012 S/P cholecystectomy 2010 S/P hip hemiarthroplasty S/P hysterectomy 2004 Family History Sister Dementia Father Myocardial infarct Heart disease Mother Cancer BRAIN TUMOR Brother Hypertension Cancer colon cancer Denies family history of Ovarian cancer Diabetes Clotting disorder Hyperlipidemia Breast cancer Anesthesia complication Bleeding disorder Uterine cancer Thyroid condition Stroke Social History Alcohol intake: never History of recent travel: No Physical Exam Const: COMMON NORMALS: alert HENMT: COMMON NORMALS: atraumatic HEAD & SCALP: atraumatic MOUTH: moist mucous membranes not abnormal Eye: COMMON NORMALS: EOMs intact bilaterally and conjunctivae normal CONJUN CTIVA: Yes conjunctivae normal Neck/C-Spine: COMMON NORMALS: full ROM and supple Resp: COMMON NORMALS: normal respiratory effort and clear to auscultation bilaterally AUSCULTATION: clear to auscultation bilaterally Cardio: COMMON NORMALS: regular rate RATE: regular rate GI: COMMON NORMALS: Soft to palpation and non-tender PALPATION: Yes Soft to palpation Extremity: COMMON NORMALS: full ROM NARRATIVE EXTREMITY EXAM: Limited ROM of the R hip, +R incision site dry/clean with mild erythema. No drainage from the incision wound, no fluctuance or wound dehiscence Neuro: SENSORIUM/ORIENTATION: Yes alert MOTOR EXAM: No Abnormal motor strength present and Other motor observations present (no focal motor deficits) Psych: COMMON NORMALS: speech normal SPEECH: Yes normal speech MOOD & AFFECT: Yes euthymic mood Course Vital Signs: Vital signs: Vital Signs Temperature 100.0 F H 10/28/21 12:54 Pulse Rate 94 10/28/21 12:54 Respiratory Rate 20 H 10/28/21 12:54 Blood Pressure 107/72 10/28/21 12:54 Pulse Oximetry 97 10/28/21 12:54 MDM - General Adult MDM Narrative: Medical decision making narrative: 71F w/ hx of recent R hip surgery will be admitted for possible hip infection. Disposition: Admission to Dr Kinney Discharge Plan Discharge Prescriptions: No Action aspirin 81 mg tablet,chewable 81 mg PO DAILY RF: 0 red yeast rice 600 mg capsule 1,200 mg PO DAILY RF: 0 coenzyme [id number] E 100-100 mg-unit capsule 1 cap PO DAILY RF: 0 rosuvastatin 20 mg tablet 20 mg PO DAILY RF: 0 PreserVision AREDS-2 [id number] qx-leyb-na-mg capsule 2 tab PO BID RF: 0 glucosamine-chondroitin [Osteo Bi-Flex] 250-200 mg tablet 1 tab PO DAILY RF: 0 lithium carbonate 150 mg capsule 150 mg PO DAILY RF: 0 hydrocodone-acetaminophen 5-325 mg tablet 1 tab PO TID PRN (Reason: pain) 30 Days Qty: 90 RF: 0 hydrocodone-acetaminophen 5-325 mg tablet 1 tab PO TID PRN (Reason: pain) 30 Days Qty: 90 RF: 0 galantamine 24 mg capsule,ext rel. pellets 24 hr 24 mg PO QAM Qty: 30 RF: 5 meloxicam 7.5 mg tablet 7.5 mg PO DAILY 30 Days Qty: 30 RF: 1 cholecalciferol (vitamin D3) 25 mcg (1,000 unit) tablet 25 mcg PO DAILY RF: 0 Coding Level of Care Code ED Certified Composites Technician for Chg Fwd Exam Comprehensive
[2021-10-28] MEDS: cefepime 2,000 MG in sodium chloride 0.9% (plus) 50 ML 100 MG IV (15:31)
[2021-10-28] MEDS: sodium chloride 0.9% 1,000 ML 75 ML IV ×2 (15:31→17:24)
[2021-10-28 15:37] VITALS: BP 128/64; PULSE 99; RESP 22; TEMP 38.2; O2SAT 96
[2021-10-28 15:55] LABS: Add Urine Microscopic? YES; Bilirubin Urine Neg (Negative); Blood Urine 2+ (Negative); Glucose Urine UA Norm (Normal); Ketones Urine Negative (Negative); Leukocyte Esterase Urine Negative (Negative); Nitrate Urine Negative (Negative); Protein Urine 1+ (Negative); Urine Appearance Clear (CLEAR); Urine Color Yellow (Yellow); Urobilinogen Urine Norm (Negative); pH Urine 5 (5-7)
[2021-10-28 15:56] LABS: Add Urine Culture? No; WBC Urine 0-4 /hpf (0-5)
[2021-10-28 16:02] LABS: Erythrocyte Sedimentation Rate 57 mm/hr (0-15)
[2021-10-28 16:14] LABS: Hematocrit 35.3 % (37.0-47.0); Hemoglobin 11.5 g/dL (11.5-15.3); Mean Corpuscular HGB Conc 32.6 g/dL (30.0-36.0); Mean Corpuscular Volume 95.1 fl (81-99); Mean Platelet Volume 10.1 fL (7.4-10.4); Platelet Count 307 10^3/cmm (130-400); Red Blood Count 3.71 10^6/uL (4.1-5.3); Red Cell Distribution Width 16.4 % (12.1-15.1); White Blood Count 7.9 10^3/uL (4.0-10.0)
[2021-10-28 16:19] LABS: Lactate (Lactic Acid level) 1.9 mmol/L (0.5-2.2)
[2021-10-28 16:20] LABS: Alanine Aminotransferase 33 U/L (0-33); Albumin Level 3.8 g/dL (3.5-5.2); Alkaline Phosphatase 128 IU/L (35-105); Aspartate Amino Transferase 42 U/L (0-32); Blood Urea Nitrogen 38 mg/dL (8-23); Calcium 9.1 mg/dL (8.5-10.5); Carbon Dioxide 19 mmol/L (22-29); Chloride 102 mmol/L (98-107); Globulin 3.7 g/dL (1.3-4.6); Glucose 118 mg/dL (65-115); Osmolality Calculated 298 mOsm/kg (285-295); Sodium 139 mmol/L (136-145); Total Bilirubin 0.4 mg/dL (0.15-1.2); Total Protein 7.5 g/dL (6.6-8.7)
[2021-10-28 16:21] LABS: Anion Gap 22.5 (5-19); Potassium 4.5 mmol/L (3.5-5.1)
--- NOTE | 2021-10-28 16:21 | ECG_ITS ---
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 Measurements Intervals [place] Rate: 95 P: 63 WV: 120 QRS: 80 QRSD: 89 T: 76 QT: 329 QTc: 415 Interpretive Statements SINUS RHYTHM Compared to ECG 10/08/2021 19:14:58 No significant changes Electronically Signed On 10-29-2021 17:55:11 MASH GRINDER by Valerio Molina M.D. [id number]
--- NOTE | 2021-10-28 16:21 | XR_ITS ---
WS: [id number] Portable AP upright chest, 10/28/2021 Clinical Data: pre-op eval Comparison: Portable chest, 10/08/2021. Findings: No nodules, masses or effusions are seen. The heart is normal. The pulmonary vascularity is not increased. No pneumonia or pneumothorax is seen. The aortic arch and descending thoracic aorta a re tortuous. Monitor leads are on the chest wall. There are clips in the right upper quadrant from a cholecystectomy. XR/XR chest 1V portable [id number] Impression: Negative chest.
--- NOTE | 2021-10-28 16:21 | CTR_ITS ---
PROCEDURE INFORMATION: Exam: CT Right Lower Extremity Without Contrast, Hip Exam date and time: 10/28/2021 4:21 PM Age: 71 years old Clinical indication: Other: Infection at RT hip surgical site; Prior surgery; Surgery date: <1 month; Additional info: Surgical wound infection, septic arthritis? TECHNIQUE: Imaging protocol: CT of the Right lower extremity without contrast was performed. Exam focused on the hip. Radiation optimization: All CT scans at this facility use at least one of these dose optimization techniques: automated exposure control; mA and/or kV adjustment per patient size (includes targeted exams where dose is matched to clinical indication); or iterative reconstruction. COMPARISON: CR XR hip RT 2-3V wo/w pel* [id number] 10/28/2021 11:52 AM RADIATION DOSE METRICS: Total DLP (mGy-cm): 1256.95 FINDINGS: Bones/joints: Postoperative changes of a right marybeth hip arthroplasty are noted in have a satisfactory appearance without evidence of hardware loosening, bony fracture or bony destruction of osteomyelitis. There are scattered air bubbles in the anterior hip joint adjacent to the neck of the femoral stem and anterior head of the femoral component best seen on series 2, image 29 and this image does appear to demonstrate some distension of the right hip joint/right hip joint effusion. There is also a probable tract dissecting medially ending adjacent to the greater trochanter and anterior femoral neck concerning for fluid dissecting medially as seen on series 2, image 30. Soft tissues: Superficial skin merced are present. There is gas in the subcutaneous fat, muscles and soft tissues lateral to the right hip which is abnormal especially since the surgery was about 3 weeks ago. There is a mildly peripherally enhancing fluid collection deep to the skin merced in the subcutaneous fat lateral to the hip measuring 4.5 cm anterior to posterior, 3.6 cm medial to lateral and 9.6 cm superior to inferior. Air bubbles are identified within this fluid collection. There is abundant edema of the subcutaneous fat adjacent to the right hip especially the gluteal muscles but no additional intramuscular fluid collection is identified. Intraperitoneal space: There is no free fluid in the abdomen or pelvis there is adenopathy in the right groin. Urinary bladder: A balloon bladder catheter is present. CT/CT hip RT wo con* [id number] IMPRESSION: 1. Postoperative right hip hemiarthroplasty about 1 month ago with large fluid collection in the subcutaneous fat deep to the superficial skin merced containing air bubbles and a tract dissecting medially into the anterior hip joint concerning for infection with abscess and communication with the hip joint. There does appear to be a small amount of gas in the hip joint with adjacent right hip joint effusion. 2. No bony destruction or osteomyelitis. No acute fracture.
[2021-10-28 16:33] LABS: C Reactive Protein 405.1 mg/L (0.0-4.9)
[2021-10-28 16:51] LABS: INR 1.11 (0.8-1.2)
[2021-10-28 16:52] LABS: Fibrinogen 885 mg/dL (174-498); Partial Thromboplastin Time 30.7 SECONDS (23.9-36.7)
[2021-10-28 16:54] LABS: Band Neutrophils Absolute 0.5 10^3/cmm (0.0-1.2); Eosinophils 0 %; Lymphocytes 1 %; Lymphocytes Absolute 0.2 10^3/cmm (1.2-3.4); Monocytes Absolute 0.3 10^3/cmm (0.1-0.6); Segmented Neutrophils 88 %; Total Cells Counted 100 (0-100)
[2021-10-28 16:55] LABS: Absolute Neutrophil 7.4 10^3/cmm (1.4-6.5); Platelet Estimate Normal (Normal)
[2021-10-28] MEDS: vancomycin 750 MG in sodium chloride 0.9% 250 ML 250 MG IV (17:24)
[2021-10-28] MEDS: pantoprazole 40 mg SDV IVP (17:24)
[2021-10-28] MEDS: heparin 5,000 unit/mL INJ 1 mL 5000 UNIT SUBCUT (17:25)
[2021-10-28] MEDS: acetaminophen 500 mg Tablet PO (17:27)
--- NOTE | 2021-10-28 17:30 | CTR_ITS ---
PROCEDURE INFORMATION: Exam: CT Head Without Contrast Exam date and time: 10/28/2021 5:30 PM Age: 71 years old Clinical indication: Altered mental status/memory loss; Additional info: AMS, dementia at baseline TECHNIQUE: Imaging protocol: Computed tomography of the head without contrast. Radiation optimization: All CT scans at this facility use at least one of these dose optimization techniques: automated exposure control; mA and/or kV adjustment per patient size (includes targeted exams where dose is matched to clinical indication); or iterative reconstruction. COMPARISON: CT head wo con* [id number] 04/19/2021 3:14 PM RADIATION DOSE METRICS: Total DLP (mGy-cm): 824.04 FINDINGS: Brain: There is volume loss and periventricular low density compatible with chronic small vessel disease changes. There is no acute hemorrhage, edema or mass effect. There are small bifrontal benign hygromas. Cerebral ventricles: No interval change. Mild ex vacuo type changes are stable. Paranasal sinuses: Visualized sinuses are unremarkable. No fluid levels. Mastoid air cells: Visualized mastoid air cells are well aerated. Bones/joints: Unremarkable. No acute fracture. Soft tissues: Unremarkable. CT/CT head wo con* [id number] IMPRESSION: No acute intracranial abnormality.
[2021-10-28 17:31] LABS: Platelet Count 307 10^3/cmm (130-400)
--- NOTE | 2021-10-28 17:33 | P.CONIM_ITS ---
Providers/Reason For Consult Consulting Physician/Specialty*: Dr. Regine Cole/Internal Medicine Reason for Consult*: Medical mgmt, pre-op clearance Requesting Physician: Dr. Gregoria Ventura Attending Physician: Alberto Sanders PA-C Primary Care Provider: KAILYN Calzada History of Present Illness History of Present Illness Jannet Ashford is a 71 year old female Jannet Ashford is a 71 year old female with past medical history of dementia, chronic right hip pain, smoking, spinal stenosis, atrial fibrillation status post ablation not on anticoagulation presented to the hospital today after being sent from orthopedic surgeons jacob irving. She was seen in the clinic today for evaluation of her right hip hemiarthroplasty that was done on 10/09/2021. She is 2.5 weeks postop. Has been stated that she was doing well following surgery but then started having trouble getting out of chairs and walking with assistance even with her walker. Mental status has changed as well. She admits to having dysuria and incontinence. states that she has been wetting the bed. Denies any fevers at home. She was alert but confused with difficulty with speech. Hip incision with merced appeared erythematous and there was also serous drainage with signs of infection present. There was decreased motor strength throughout both lower extremities. She was recommended for admission to the hospital for irrigation debridement procedure and sent to the hospital. Plan is to proceed with irrigation debridement right hip incision on 11/02/2021. She will Be kept n.p.o. at midnight. Hospitalist was consulted to assist with medical management and for preop clearance. was called on the phone to obtain history. He states patient is aphasic at baseline and she repeats phrases. He says she is supposed to get an MRI to rule out stroke by Dr. Bolanos and has two TIA's in the past. He states she does not have any trouble swallowing and has a good appetite and on a good regular diet. ED course: Blood pressure on arrival 107/72, respiratory rate 20, pulse rate 94, temperature 100 Fahrenheit, pulse ox 97%. Right hip x-ray was done which showed right hip arthroplasty. Review of Systems General: Reports: ROS unobtainable due to mental status Meds/Allergies Home Medications and Allergies Home Medications Medication Instructions Recorded Confirmed Last Taken Type aspirin 81 mg chewable tablet 81 mg PO DAILY 10/30/19 10/28/21 10/27/21 History cholecalciferol (vitamin D3) 25 25 mcg PO DAILY 01/16/20 10/28/21 10/27/21 History mcg (1,000 unit) tablet glucosamine-chondroitin 250 mg-200 1 tab PO DAILY tab 08/25/20 10/28/21 10/27/21 History mg tablet red yeast rice 600 mg capsule 1,200 mg PO DAILY cap 08/25/20 10/28/21 10/27/21 History rosuvastatin 20 mg tablet 20 mg PO DAILY 08/25/20 10/28/21 10/27/21 History vit C 250 mg-vit E 90 mg-zinc 40 2 tab PO BID cap 08/25/20 10/28/21 10/27/21 History mg-copper 1 [id number]-tzstyk-ggeqwr capsule coenzyme [id number] E 100 mg-100 1 cap PO DAILY cap 09/28/20 10/28/21 10/27/21 History unit capsule lithium carbonate 150 mg capsule 150 mg PO DAILY cap 07/14/21 10/28/21 10/27/21 History hydrocodone 5 mg-acetaminophen 325 1 tab PO TID PRN 30 Days #90 tab 09/23/21 10/28/21 Unknown Rx mg tablet hydrocodone 5 mg-acetaminophen 325 1 tab PO TID PRN 30 Days #90 tab 09/23/21 10/28/21 10/08/21 Rx mg tablet meloxicam 7.5 mg tablet 7.5 mg PO DAILY 30 Days #30 tab 09/27/21 10/28/21 10/28/21 Rx galantamine 24 mg 24 hr 24 mg PO QAM #30 cap 10/25/21 10/28/21 10/28/21 Rx capsule,extended release Allergies Allergy/AdvReac Type Severity Reaction Status Date / Time Penicillins Allergy Severe ALGY-Anaphy Verified 10/28/21 11:47 laxis gabapentin AdvReac SPEECH Verified 10/28/21 11:47 DIFFICULTY Sulfa (Sulfonamide AdvReac WAS TOLD Verified 10/28/21 11:47 Antibiotics) BY HER MOTHER THAT SHE IS ALLERGIC Current Medications Current Medications Generic Name Dose Route Start Last Admin Trade Name Freq PRN Reason Stop Dose Admin Acetaminophen 500 mg 10/28/21 14:41 10/28/21 17:27 Acetaminophen 500 Mg Tablet PO 500 mg Q4H PRN Administration fever Heparin Sodium (Porcine) 5,000 unit 10/28/21 16:45 10/28/21 17:25 Heparin 5,000 Unit/Ml Inj 1 Ml SUBCUT 5,000 unit Q12H MILADYS Administration Cefepime HCl 2,000 mg/ Sodium 50 mls @ 100 mls/hr 10/28/21 14:45 10/28/21 16:49 Chloride IV Infused Q12H MILADYS Infusion Protocol Vancomycin HCl 750 mg/ Sodium 250 mls @ 250 mls/hr 10/28/21 16:30 10/28/21 17:24 Chloride IV 250 mls/hr Q24H MILADYS Administration Sodium Chloride 1,000 mls @ 75 mls/hr 10/28/21 16:45 10/28/21 17:24 Sodium Chloride 0.9% IV 75 mls/hr .[id number] MILADYS Administration Pantoprazole Sodium 40 mg 10/28/21 16:45 10/28/21 17:24 Pantoprazole 40 Mg Sdv IVP 40 mg Q24H MILADYS Administration PFSH Acute PFSH: Medical History Aftercare following surgery of the genitourinary system Chronic right hip pain Closed right hip fracture Dementia Displaced fracture of right femoral neck Encounter for long-term (current) use of NSAIDs Encounter for long-term opiate analgesic use Facet syndrome, 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 Long-term use of high-risk medication Low back pain Parkinsonian features Primary progressive nonfluent aphasia Smoker has now changed to e-cig Spinal stenosis of lumbar region with radiculopathy Spondylolisthesis, lumbar region Surgical History History of cardiac radiofrequency ablation 2011 S/P cholecystectomy 2010 S/P hip hemiarthroplasty S/P hysterectomy 2003 Family History Sister Dementia Father Myocardial infarct Heart disease Mother Cancer BRAIN TUMOR Brother Hypertension Cancer colon cancer Denies family history of Ovarian cancer Diabetes Clotting disorder Hyperlipidemia Breast cancer Anesthesia complication Bleeding disorder Uterine cancer Thyroid condition Stroke Social History Alcohol intake: never History of recent travel: No Vitals/I&O/Wt Last Vital Signs Temp 100.7 F H 10/28/21 15:37 Pulse 99 10/28/21 15:37 Resp 22 H 10/28/21 15:37 BP 128/64 10/28/21 15:37 Pulse Ox 96 10/28/21 15:37 10/28/21 10/28/21 10/28/21 06:59 14:59 22:59 Intake Total 1050 / 1050 Balance 1050 / 1050 Weight last 48 hrs Weight 50.349 kg Physical Exam Narrative: EXAM NARRATIVE: General: No acute distress, Does repeat phrases and follows some commands HEENT: Normocephalic, atraumatic, EOMI, PERRLA Cardio: Regular rate rhythm, normal S1-S2, no murmurs Respiratory: Good bilateral air entry, no wheezes no rhonchi appreciated GI: Abdomen soft, nontender, nondistended, bowel sounds + Extremities: no edema, no cyanosis. Limited ROM of the right hip, Right hip incision site has mild erythema present, no fluctuance present. Neuro: Unable to fully assess all CN as pt follows commands intermittently. She follows your head but not your finger. She tends to repeat phrases that you speak. Was able to squeeze my fingers B/L but unable to lift LE. Can wiggle toes. Limited neuro exam. Urinary Catheter Management^: Chowdary: Cath Placed During This Visit: yes Urinary Catheter Date of Insertion: 10/28/21 Urinary Catheter Time of Insertion: 15:40 Data Micro: Micro: Microbiology 10/28/21 15:32 Blood Culture - Pr eliminary Blood SPE[facility] 10/28/21 15:35 Blood Culture - Pr eliminary Blood SPECIMEN [facility] A&P Assessment and plan (1) Wound infection after surgery: Status: Acute (2) Status post hip hemiarthroplasty: Status: Acute (3) Memory loss: Status: Acute (4) Dementia: Status: Acute (5) Aphasia: Status: Acute (6) TIA (transient ischemic attack): Status: Acute Additional A&P Information #Chronic right hip pain status post right hip hemiarthroplasty with wound infection 2.5 weeks postop #History of atrial fibrillation status post ablation, not on anticoagulation #Hx of dementia and aphasia and TIA ? We will start patient on Vanco and cefepime for infection. Hx of anaphylaxis with penicillin. - Check blood cultures. Wound cultures to obtained intraoperatively. - Check CBC, BMP, MAG, CRP, Lactic Acid today ? CT scan right hip to be done today ? Keep patient n.p.o. overnight for incision debridement in a.m. with orthopedic surgery team ? We will check chest x-ray and EKG as preop evaluation. - Most recent echo done October 09, 2021 shows LVEF 60%, grade 1 diastolic dysfunction. No change compared to prior echo from 2013. -We will place patient on telemetry - Will check HEAD CT and MRI BRAIN. - Cardiac risk index: Class 2 Risk, 6.0% risk of 30 day , IA or cardiac arrest. ? Zofran for nausea ? Place Chowdary catheter ? DVT prophylaxis Lovenox - Protonix for GI prophylaxis Regular diet. Consult Attestations Medical Necessity Statement: > 48 hour stay for infection control and IV antibiotics. Primary team to make final decision. 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
[2021-10-28 21:31] VITALS: BMI 18.4
[2021-10-28 21:50] VITALS: BP 95/56; PULSE 94; RESP 22; TEMP 37.4; O2SAT 100
[2021-10-28] MEDS: metroNIDAZOLE IV 500 MG/100 ML PREMIX 100 MG IV (21:55)
[2021-10-28] MEDS: acetaminophen 325 mg Tablet 650 MG PO (22:02)
[2021-10-29] VITALS (19 sets, daily range): BP systolic 74–109; BP diastolic 38–67; PULSE 0–93; RESP 15–25; TEMP 36.4–38.7; O2SAT 96–100
[2021-10-29] MEDS: sodium chloride 0.9% 500 ML 999 ML IV ×2 (00:23→01:10)
--- NOTE | 2021-10-29 01:13 | PC.NURSE ---
Patient BP 74/48 manually, HR 83, 02 97% on RA. This nurse contacted Hospitalist early childhood education worker. Dr Duarte ordered 500mL bolus and to call with updated vitals.
--- NOTE | 2021-10-29 01:14 | PC.NURSE ---
Patient BP at 0100 82/46 manually, HR 88, 96% on RA. Called updated vitals to Dr Duarte. Orders are to give another 500mL bolus and call back with updated vitals.
[2021-10-29] MEDS: cefepime 2,000 MG in sodium chloride 0.9% (plus) 50 ML 100 MG IV ×2 (01:55→14:12)
[2021-10-29 02:40] LABS: Alanine Aminotransferase 24 U/L (0-33); Albumin Level 2.7 g/dL (3.5-5.2); Alkaline Phosphatase 81 IU/L (35-105); Anion Gap 16.8 (5-19); Aspartate Amino Transferase 34 U/L (0-32); Blood Urea Nitrogen 36 mg/dL (8-23); Carbon Dioxide 20 mmol/L (22-29); Chloride 110 mmol/L (98-107); Globulin 2.3 g/dL (1.3-4.6); Glucose 104 mg/dL (65-115); Osmolality Calculated 305 mOsm/kg (285-295); Potassium 3.8 mmol/L (3.5-5.1); Sodium 143 mmol/L (136-145); Total Bilirubin 0.3 mg/dL (0.15-1.2)
[2021-10-29] MEDS: sodium chloride 0.9% 1,000 ML 100 ML IV ×2 (02:50→21:19)
[2021-10-29] MEDS: sodium chloride 0.9% 500 ML IV (02:51)
[2021-10-29] MEDS: heparin 5,000 unit/mL INJ 1 mL 5000 UNIT SUBCUT ×2 (04:38→17:18)
[2021-10-29] MEDS: metroNIDAZOLE IV 500 MG/100 ML PREMIX 100 MG IV ×2 (04:39→13:02)
--- NOTE | 2021-10-29 06:40 | W.PM.OPSUD ---
Surgery/Procedure H&P Update DATE OF PROCEDURE: October 29, 2021 DATE H&P PERFORMED: 10/28/20 H&P UPDATE INFORMATION: I have reviewed H&P completed within last 30 days, I have examined patient prior to procedure and No changes to prior documentation PREOP DIAGNOSIS: Right Hip Wound Infection PLANNED PROCEDURE: Operation Date: 10/29/21 07:00 Proposed Procedures p Incision and Drainage(Not Applicable) - Lorenzo Kinney DO
[2021-10-29] MEDS: sodium chloride 0.9% 1,000 ML 30 ML IV (06:52)
[2021-10-29] MEDS: acetaminophen 1,000 MG/100 ML PIGGYBACK 400 MG IV (06:53)
--- NOTE | 2021-10-29 06:57 | P.ANESASSM_ITS ---
Pre-Anesthetic Assessment Pre-Anesthetic Assessment: Height/Weight: Height 1.65 m Weight 50.349 kg Temp Pulse Resp BP Pulse Ox 101.7 F H 83 17 106/63 97 10/29/21 06:23 10/29/21 06:23 10/29/21 06:23 10/29/21 06:23 10/29/21 06:23 Preop Diagnosis: Right Hip Wound Infection Proposed Procedure: Operation Date: 10/29/21 07:00 Proposed Procedures p Incision and Drainage(Not Applicable) - Lorenzo Kinney, DO Was Beta Adalgisa taken within 24 hours: N/A Was Clonidine taken within 24 hours: N/A Social: Social History: No alcohol and No tobacco (h/o smoking) Exam: Pre-Anes Outpt Exam: alert, oriented x 3, clear to auscultation bilaterally and regular rate & rhythm Airway: Submandibular: WNL Cervical ROM: WNL MP: 2 Dentition: Chipped Musc/skel: Musc/skel: OA/DJD Neuropsych: Neuropsych: Dementia and TIA Comments: Aphasia Anesthetic Plan: ASA status: 3 Anesthesia: General Risk of > 500 ml blood loss (7ml/kg in children): No Meds/Allergies Current Medications: Current Medications Generic Name Dose Route Start Last Admin Trade Name Freq PRN Reason Stop Dose Admin Acetaminophen 500 mg 10/28/21 14:41 10/28/21 17:27 Acetaminophen 50 0 Mg Tablet PO 500 mg Q4H PRN Administration fever Acetaminophen 650 mg 10/28/21 16:35 10/28/21 22:02 Acetaminophen 32 5 Mg Tablet PO 650 mg Q6H PRN Administration Mild/Mod Pain Or Temp >/= 101 Heparin Sodium (Po rcine) 5,000 unit 10/28/21 16:45 10/29/21 04:38 Heparin 5,000 Un it/Ml Inj 1 Ml SUBCUT 5,000 unit Q12H MILADYS Administration Cefepime HCl 2,000 mg/ Sodium 50 mls @ 100 mls/ hr 10/28/21 14:45 10/29/21 02:45 Chloride IV Infused Q12H MILADYS Infusion Protocol Vancomycin HCl 750 mg/ Sodium 250 mls @ 250 mls /hr 10/28/21 16:30 10/28/21 19:01 Chloride IV Infused Q24H MILADYS Infusion Metronidazole 500 mg in 100 mls @ 100 mls/hr 10/28/21 21:31 10/29/21 05:55 Flagyl Iv IV Infused Q8H MILADYS Infusion Protocol Sodium Chloride 1,000 mls @ 100 m ls/hr 10/29/21 02:00 10/29/21 02:50 Sodium Chloride 0.9% IV 100 mls/hr .Q10H MILADYS Administration Sodium Chloride 1,000 mls @ 30 ml s/hr 10/29/21 06:30 10/29/21 06:52 Sodium Chloride 0.9% IV 10/30/21 06:29 30 mls/hr .Q24H MILADYS Administration Pantoprazole Sodiu m 40 mg 10/28/21 16:45 10/28/21 17:24 Pantoprazole 40 Mg Sdv IVP 40 mg Q24H MILADYS Administration PFSH Anesthesia PFSH: Medical History Aftercare following surgery of the genitourinary system Chronic right hip pain Closed right hip fracture Dementia Displaced fracture of right femoral neck Encounter for long-term (current) use of NSAIDs Encounter for long-term opiate analgesic use Facet syndrome, 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 Long-term use of high-risk medication Low back pain Parkinsonian features Primary progressive nonfluent aphasia Smoker has now changed to e-cig Spinal stenosis of lumbar region with radiculopathy Spondylolisthesis, lumbar region Surgical History History of cardiac radiofrequency ablation 2011 S/P cholecystectomy 2010 S/P hip hemiarthroplasty S/P hysterectomy 2003 Family History Sister Dementia Father Myocardial infarct Heart disease Mother Cancer BRAIN TUMOR Brother Hypertension Cancer colon cancer Denies family history of Ovarian cancer Diabetes Clotting disorder Hyperlipidemia Breast cancer Anesthesia complication Bleeding disorder Uterine cancer Thyroid condition Stroke Social History Alcohol intake: never History of recent travel: No Data Anesthesia CBC & Chem 7: 10/28/21 15:35 10/29/21 02:00 Other Labs: Laboratory Results - last 48 hr 10/28/21 10/28/21 10/28/21 15:31 15:35 15:35 WBC 7.9 RBC 3.71 L Hgb 11.5 Hct 35.3 L MCV 95.1 MCH 31.0 MCHC 32.6 RDW 16.4 H Plt Count 307 307 MPV 10.1 Lymph % (Auto) Not Reportable Cowley % (Auto) Not Reportable Lymph # (Auto) Not Reportable Cowley # (Auto) Not Reportable Total Counted 100 Atypical Lymphs % 1.0 Absolute Neutrophils 7.4 H Segmented Neutrophils 88 Abs Segm Neuts (Man) 7.0 Band Neutrophils 6.0 Abs Band Neuts (Man) 0.5 Absolute Lymphocytes 0.2 L Lymphocytes (Manual) 1 Monocytes (Manual) 4.0 Absolute Monocytes 0.3 Eosinophils (Manual) 0 Absolute Eosinophils 0.0 Basophils (Manual) 0.0 Absolute Basophils 0.0 Platelet Estimate Normal ESR PT 14.60 INR 1.11 APTT 30.7 Fibrinogen 885 H Sodium Potassium Chloride Carbon Dioxide Anion Gap BUN Creatinine GFR Calculation Glucose Calculated Osmolality Lactate Calcium Total Bilirubin AST ALT Alkaline Phosphatase C-Reactive Protein Total Protein Albumin Globulin Urine Color Yellow Urine Appearance Clear Urine pH 5 Ur Specific [place] 1.020 Urine Protein 1+ H Urine Glucose (UA) Norm Urine Ketones Negative Urine Blood 2+ H Urine Nitrate Negative Urine Bilirubin Neg Urine Urobilinogen Norm Ur Leukocyte Esterase Negative Urine RBC None Urine WBC 0-4 H Ur Squamous Epith Cells 5-10 H Amorphous Sediment Not Reportable Urine Bacteria None 10/28/21 10/28/21 10/28/21 15:35 15:35 15:35 WBC RBC Hgb Hct MCV MCH MCHC RDW Plt Count MPV Lymph % (Auto) Cowley % (Auto) Lymph # (Auto) Cowley # (Auto) Total Counted Atypical Lymphs % Absolute Neutrophils Segmented Neutrophils Abs Segm Neuts (Man) Band Neutrophils Abs Band Neuts (Man) Absolute Lymphocytes Lymphocytes (Manual) Monocytes (Manual) Absolute Monocytes Eosinophils (Manual) Absolute Eosinophils Basophils (Manual) Absolute Basophils Platelet Estimate ESR 57 H PT INR APTT Cancelled Fibrinogen Sodium 139 Potassium 4.5 Chloride 102 Carbon Dioxide 19 L Anion Gap 22.5 H BUN 38 H Creatinine 1.0 H GFR Calculation Not Reportable Glucose 118 H Calculated Osmolality 298 H Lactate Calcium 9.1 Total Bilirubin 0.4 AST 42 H ALT 33 Alkaline Phosphatase 128 H C-Reactive Protein 405.1 H Total Protein 7.5 Albumin 3.8 Globulin 3.7 Urine Color Urine Appearance Urine pH Ur Specific [place] Urine Protein Urine Glucose (UA) Urine Ketones Urine Blood Urine Nitrate Urine Bilirubin Urine Urobilinogen Ur Leukocyte Esterase Urine RBC Urine WBC Ur Squamous Epith Cells Amorphous Sediment Urine Bacteria 10/28/21 10/29/21 15:35 02:00 WBC RBC Hgb Hct MCV MCH MCHC RDW Plt Count MPV Lymph % (Auto) Cowley % (Auto) Lymph # (Auto) Cowley # (Auto) Total Counted Atypical Lymphs % Absolute Neutrophils Segmented Neutrophils Abs Segm Neuts (Man) Band Neutrophils Abs Band Neuts (Man) Absolute Lymphocytes Lymphocytes (Manual) Monocytes (Manual) Absolute Monocytes Eosinophils (Manual) Absolute Eosinophils Basophils (Manual) Absolute Basophils Platelet Estimate ESR PT INR APTT Fibrinogen Sodium 143 Potassium 3.8 Chloride 110 H Carbon Dioxide 20 L Anion Gap 16.8 BUN 36 H Creatinine 1.2 H GFR Calculation Not Reportable Glucose 104 Calculated Osmolality 305 H Lactate 1.9 Calcium 7.0 L Total Bilirubin 0.3 AST 34 H ALT 24 Alkaline Phosphatase 81 C-Reactive Protein Total Protein 5.0 L D Albumin 2.7 L Globulin 2.3 Urine Color Urine Appearance Urine pH Ur Specific [place] Urine Protein Urine Glucose (UA) Urine Ketones Urine Blood Urine Nitrate Urine Bilirubin Urine Urobilinogen Ur Leukocyte Esterase Urine RBC Urine WBC Ur Squamous Epith Cells Amorphous Sediment Urine Bacteria Micro: Microbiology 10/28/21 15:32 Blood Culture - Preliminary Blood SPECIMEN COLLECTED 10/28/21 15:35 Blood Culture - Preliminary Blood SPECIMEN COLLECTED Cardiac Studies: Echocardiogram 10/09/21
[2021-10-29] MEDS: clindamycin 900 MG/50 ML PREMIX 100 MG IV ×3 (06:58→22:14)
[2021-10-29] MEDS: vancomycin 1,000 MG SDV 1000 MG XX ×2 (07:35)
--- NOTE | 2021-10-29 08:13 | PC.NURSE ---
pt arrived at pacu lma in place, nevarez catheter, and hemovac in place silverloin 4x4 and tegaderm intact clean and dry for dressing, pt arroused to voice lma was removed pt airway is patent and clear no pain present report to be given and pt will be going to back to the floor
--- NOTE | 2021-10-29 09:42 | ANE.PACU2 ---
Inpatient post-anesthesia follow up: Airway intact: Yes Vital signs: Temperature 98.8 F Pulse Rate 77 Respiratory Rate 16 Blood Pressure 89/49 Pulse Oximetry 98 Oxygen Delivery Me thod Room Air Oxygen Flow Rate 7 Fraction of Inspir ed Oxygen Hydration adequate: Yes Nausea and vomiting: No Pain level: 2 Mental status: Baseline
--- NOTE | 2021-10-29 10:00 | MR_ITS ---
WS: [id number] MRI BRAIN WITHOUT CONTRAST HISTORY: Rule out stroke COMPARISON: 05/06/2019 TECHNIQUE: Diffusion imaging, multiplanar T1, T2 and FLAIR imaging obtained. Acute diffusion-weighted abnormalities are present in the RIGHT posterior lateral occipital lobe and additional small lacunar infarct which is acute in the LEFT temporal lobe adjacent to the insular rib bon. No hemorrhagic changes. There is additional moderate atrophy and mild chronic microvascular ischemic changes. Mild small vess el ischemic disease in the magdaleno. Ventricles and extra-axial spaces are normal. No inferior displacement of cerebellar tonsils. Dural venous sinuses and tolowa dee-ni' of [place] demonstrate no abnormality on this unenhanced studies. Paranasal sinuses: Clear. Mastoid air cells: Normal. Calvarium and scalp: Intact. MR/MR head wo con* [id number] IMPRESSION: 1. Acute infarct RIGHT posterior lateral occipital lobe with an additional acu te lacunar infarct in the LEFT temporal lobe. Consider embolic source of these infarcts. 2. Moderate atrophy with chronic ischemic changes.
--- NOTE | 2021-10-29 10:00 | ECG_ITS ---
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 Measurements Intervals [place] Rate: 73 P: 59 MN: 123 QRS: 62 QRSD: 91 T: 45 QT: 362 QTc: 400 Interpretive Statements SINUS RHYTHM WITH OCCASIONAL SUPRAVENTRICULAR PREMATURE COMPLEXES Compared to ECG 10/28/2021 21:38:50 No significant changes Electronically Signed On 10-29-2021 17:58:26 LAND CHECKER by Valerio Molina M.D. [email or web address] medical [email or web address] health st. anne [id number]
--- NOTE | 2021-10-29 10:32 | PC.NURSE ---
Dr. Cole notified of 3/3 positive blood cultures. No additional orders received at this time.
--- NOTE | 2021-10-29 10:38 | PC.OT ---
OT EVALUATION ORDERS RECEIVED. HOLD TODAY DUE TO I&D SCHEDULED FOR 0700 THIS MORNING. OT EVALUATION TO BE ATTEMPTED TOMORROW
--- NOTE | 2021-10-29 11:30 | PM.OP ---
Operative Report Date of procedure: October 29, 2021 Pre-op Diagnosis: Right Hip Wound Infection Post-op diagnosis: same Procedure Done: I+D of right hip wound Anesthesia: General Estimated blood loss (mL): 25 Condition: stable Disposition: PACU Procedure: Patient was brought to operative suite after undergoing anesthesia was placed in the lateral decubitus position with the right hip up. Previous incision was opened. The merced were removed. The wound had dehisced through the fascia the IT band. Once his open necrotic tissue was debrided with sharp dissection with a knife to bleeding tissue. And the wound was irrigated with 3 L of saline. I elected at this point to leave the implant in despite the infection because patient is not healthy and would likely not tolerate multiple debridements and cement spacer and then implant exchange. At this point the wound was irrigated out and then pink powder was placed a deep drain was placed and the wound was closed in a layered fashion with Stratus fix suture and skin was closed with nylon suture. Sterile dressings were applied patient was transferred to the PACU in stable addition.
[2021-10-29 12:30] LABS: Glucose Point of Care 91 mg/dL (70-110)
--- NOTE | 2021-10-29 13:22 | P.PN_ITS ---
Subjective Subjective: Interval history: Seen this morning. She will be going for MRI today. She went for right hip washout with Dr. Kinney. Hardware was not removed but irrigation was done quite extensively and cultures were obtained. Blood cultures are also positive for gram-positive cocci. She is currently on vancomycin and cefepime. Echo has been ordered to rule out endocarditis. Bria ent is unable to provide me with any history. She does have echolalia. Vitals/I&O/Wt Last Vital Signs Temp 97.6 F 10/29/21 12:22 Pulse 81 10/29/21 12:22 Resp 16 10/29/21 12:22 BP 101/63 10/29/21 12:22 Pulse Ox 100 10/29/21 12:22 10/28/21 10/29/21 10/29/21 22:59 06:59 14:59 Intake Total 1300 / 1300 2496.25 / 3796.25 800 / 800 Output Total 800 / 800 125 / 125 Balance 500 / 500 2496.25 / 2996.25 675 / 675 Weight last 48 hrs Weight 50.349 kg Weight 50.349 kg Physical Exam Narrative: EXAM NARRATIVE: General: No acute distress, Does repeat phrases and follows some commands HEENT: Normocephalic, atraumatic, EOMI, PERRLA. Cannot track with her eyes. Cardio: Regular rate rhythm, normal S1-S2, no murmurs Respiratory: Good bilateral air entry, no wheezes no rhonchi appreciated GI: Abdomen soft, nontender, nondistended, bowel sounds + Extremities: no edema, no cyanosis. Limited ROM of the right hip, Right hip incision site has drain in place. Neuro: Unable to fully assess all CN as pt follows commands intermittently. She follows your head but not your finger. She tends to repeat phrases that you speak. Was able to squeeze my fingers B/L but unable to lift LE. Can wiggle toes. Limited neuro exam. Urinary Catheter Management^: Nevarez: Cath Placed During This Visit: yes Reason for Continuing Indwelling Catheter: Required Immobilization for Trauma or Surgery or Anesthesia Urinary Catheter Date of Insertion: 10/28/21 Urinary Catheter Time of Insertion: 15:40 Data : 10/28/21 15:35 10/29/21 02:00 Micro: Microbiology 10/29/21 07:29 Gram Stain - Final Hip - #1 10/28/21 15:35 Blood Culture - Preliminary Blood Gram positive cocci 10/28/21 15:32 Blood Culture - Preliminary Blood Gram positive cocci A&P Assessment and plan (1) Wound infection after surgery: Status: Acute (2) Status post hip hemiarthroplasty: Status: Acute (3) Memory loss: Status: Acute (4) Dementia: Status: Acute (5) Aphasia: Status: Acute (6) TIA (transient ischemic attack): Status: Acute Additional A&P Information #Chronic right hip pain status post right hip hemiarthroplasty with wound infection 2.5 weeks postop #History of atrial fibrillation status post ablation, not on anticoagulation #Hx of dementia and aphasia and TIA ? We will start patient on Vanco and cefepime for infection. Hx of anaphylaxis with penicillin. -Blood cultures positive for gram-positive cocci. Wound cultures obtained intraoperatively. ? CT hip shows deep infection possibly all the way to hip joint with gas and air bubbles present. - Most recent echo done October 09, 2021 shows LVEF 60%, grade 1 diastolic dysfunction. No change compared to prior echo from 2013. -Head CT negative. MRI brain to be done today and is pending. - Will consult ID for further management with antibiotics. - Place on telemetry to rule out occult atrial fibrillation ?Zofran for nausea ?Continue nevarez catheter ?DVT prophylaxis Lovenox -Protonix for GI prophylaxis -Regular diet. Full Code Attestations Medical Necessity Statement*: > 5 day hospital stay for bacteremia, workup, management of wound infection Coding Level of Care Code Acute Capacity Management Specialist for [facility] Fwd Diagnoses Wound infection after surgery T81.49XA Status post hip hemiarthroplasty Z96.649 Memory loss R41.3 Dementia F03.90 Aphasia R47.01 TIA (transient ischemic attack) G45.9
--- NOTE | 2021-10-29 14:00 | PC.CHAP ---
Pastoral Care Encounter/Spiritual Assessment Type of Contact [] Declined faculty dean visit [] Patient/Family/Request visit [] Outpatient visit [] Follow-up visit [] Physician referral [] Code/Alert [xx] Routine visit [] Staff referral [] Actively dying [] Patient sleeping [] Family support [] [] Out of room [] Palliative care [] [] Receiving care in room [] Pre-surgical visit [] Trauma [] Long length of stay [] ICU visit [] Other: Relational/Emotional Strength [] Patient feels connected with others/family/visitors/staff [] Distress [] Loneliness/isolation [] Abandonment Spirituality of Patient [] Person of Zeina [] Attends Jainism of their Zeina [xx] Believes in Prayer [] Reads Bible or Shinto materials [] There are Spiritual issues to be addressed Lurer Interventions [xx] Prayer [xx] Active listening [xx] Non-anxious presence [] Spiritual/emotional support [] Crisis/trauma care [] Spiritual counseling [] Bereavement support [] Provided bereavement packet [] Provided Bible/devotional materials [] Provided toy/stuffed animal, coloring book to patient or family member [] Provided Communion [] Anointing/Manderson [] Salvation [xx] Completed spiritual assessment [] Other: Impact on Illness or Injury [] Angry [] Fearful [] Anxious [] Often cries [] Exhaustion [] Unable to work [] Unable to attend congregation [] Unable to walk/stand [] Unable to read [] Unable to drive [] Unable to eat/drink [] Unable to sleep [] Unable to be with family [] Patient intubated [] Other: Summary Patient repeated every word faculty dean said. She said nothing on her own. She also repeated simple prayer faculty dean gave and grinned when prayer was completed. Time spent with patient 3 minutes
[2021-10-29 14:07] LABS: Troponin T (5th) Once 63 ng/L (0-10)
--- NOTE | 2021-10-29 14:55 | USCV_ITS ---
Jannet Ashford Age: 71 Gender: F : 1950 Exam Date: 10/29/2021 15:23 Ordering Phys: Regine Cole MD Technologist: Cadence Flaherty Exam Location: [facility] – [place] Indication: SEPTIC BP: / HR: 82 Rhythm: Sinus Technical Quality: Adequate MEASUREMENTS (Male / Female) Normal Values 2D ECHO LV Diastolic Diameter PLAX 4.1 cm 4.2 - 5.9 / 3.9 - 5.3 cm LV Systolic Diameter PLAX 2.3 cm LV Chamber Size 4.0 cm IVS Diastolic Thickness 0.9 cm 0.6 - 1.0 / 0.6 - 0.9 cm IVS Systolic Thickness 1.3 cm LVPW Diastolic Thickness 0.9 cm 0.6 - 1.0 / 0.6 - 0.9 cm LVPW Systolic Thickness 1.1 cm RV Chamber Size 3.9 cm LVOT Diameter 2.0 cm LV Ejection Fraction 2D Teich 77.2 % LV Ejection Fraction MOD 2C 70.2 % LV Ejection Fraction 2C AL 73.6 % LA Diameter 2.9 cm LA Width 3.2 cm LA Height 3.5 cm RA Width 3.5 cm RA Height 4.4 cm Aorta at Sinotubular Diameter 3.2 cm M-MODE Aortic Annulus Diameter 3.2 cm LA Ao Ratio MM 1.1 DOPPLER AV Peak Velocity 134.0 cm/s LVOT Peak Velocity 84.0 cm/s AV Area Cont Eq vti 2.1 cm squared AV Area Cont Eq pk 2.0 cm squared MV Area PHT 4.6 cm squared Mitral E to A Ratio 1.0 MV E' Velocity 67.5 cm/s Mitral E to MV E' Ratio 10.5 Mitral E to LV E' Lateral Ratio 10.0 Mitral E to LV E' Septal Ratio 11.1 TR Peak Velocity 307.4 cm/s TR Peak Gradient 37.8 mmHg TR Mean Velocity 214.8 cm/s TR Mean Gradient 21.8 mmHg TR Velocity Time Integral 87.6 cm TV Peak E Velocity 60.0 cm/s Right Atrial Pressure 3.0 mmHg Pulmonary Artery Systolic Pressu 40.8 mmHg PV Peak Velocity 70.0 cm/s RV Acceleration Time 0.2 s RV Ejection Time 0.3 s RV AcT/ET 0.6 FINDINGS Left Ventricle Normal left ventricular size, systolic function and wall thickness, with no regional wall motion abnormalities. Left ventricular ejection fraction is estimated at 65-70 %. Normal diastolic function. Right Ventricle Normal right ventricular size and systolic function. Right ventricular systolic pressure 38 mmHg. Right Atrium Normal right atrial size. Left Atrium Moderately increased left atrial size. Mitral Valve Moderately thickened mitral valve. No mitral valve stenosis. No significant mitral valve regurgitation. Aortic Valve Aortic valve not well visualized. No aortic valve stenosis. No aortic valve regurgitation. Tricuspid Valve Structurally normal tricuspid valve. Moderate tricuspid valve regurgitation. Large mobile echogenic structure that seems to be attached to the tricuspid valve annulus noted in right atrium Pulmonic Valve Pulmonic valve not well visualized. Pericardium No pericardial effusion. Aorta Normal size inferior vena cava. Normal size aortic root. CONCLUSIONS 1. Normal left ventricular size, systolic function and wall thickness, with no regional wall motion abnormalities. Left ventricular ejection fraction is estimated at 65-70 %. Normal diastolic function. 2. Large mobile echogenic structure that seems to be attached to the tricuspid valve annulus noted in right atrium. This may represent endocarditis vs atrial mass/thrombus. 3.Pulmonary artery pressure estimated at 38 mmHg. 4. On comparison to previous study dated 10/09/2021, this was seen on prior study as well. AMEE is recommended for further evaluation. Moriah Watts MD (Electronically Signed) Final Date: 29 October 2021 16:53 S
--- NOTE | 2021-10-29 14:56 | PC.NURSE ---
Dr. Kinney notified that other nurse heard bed alarm going off and pt was up walking around in the room and had pulled out hemovac drain. No additional orders received.
[2021-10-29 15:47] LABS: Basophils # 0.1 10^3/uL (0.0-0.1); Basophils % 0.7 %; Eosinophils # 0.1 10^3/uL (0.0-0.8); Eosinophils % 1.2 %; Hematocrit 32.8 % (37.0-47.0); Hemoglobin 9.5 g/dL (11.5-15.3); Lymphocytes # 0.5 10^3/uL (0.8-4.8); Lymphocytes % 5.4 %; Mean Corpuscular Hemoglobin 31.7 pg (28.0-34.0); Mean Corpuscular Volume 109.3 fl (81-99); Mean Platelet Volume 11.2 fL (7.4-10.4); Monocytes # 0.8 10^3/uL (0.2-0.9); Monocytes % 9.3 %; Neutrophils % 82.9 %; Nucleated Red Blood Cells % 0 %; Platelet Count 139 10^3/cmm (130-400); Red Cell Distribution Width 17.3 % (12.1-15.1); White Blood Count 8.5 10^3/uL (4.0-10.0)
[2021-10-29 16:10] LABS: Blood Urea Nitrogen 41 mg/dL (8-23); Calcium 7.6 mg/dL (8.5-10.5); Carbon Dioxide 13 mmol/L (22-29); Chloride 111 mmol/L (98-107); Glucose 112 mg/dL (65-115); Magnesium 2.1 mg/dL (1.7-2.3); Osmolality Calculated 297 mOsm/kg (285-295); Sodium 138 mmol/L (136-145)
[2021-10-29 16:11] LABS: Anion Gap 18.2 (5-19); Potassium 4.2 mmol/L (3.5-5.1)
[2021-10-29 16:39] LABS: Slide Review Slide Review Perform
[2021-10-29] MEDS: vancomycin 750 MG in sodium chloride 0.9% 250 ML 250 MG IV (17:18)
[2021-10-29] MEDS: pantoprazole 40 mg SDV IVP (17:19)
[2021-10-29] MEDS: enoxaparin 40 mg/0.4 mL Syringe SUBCUT (21:19)
[2021-10-29] MEDS: atorvastatin 40 mg Tablet 80 MG PO (21:20)
[2021-10-30] VITALS (12 sets, daily range): BP systolic 97–142; BP diastolic 57–79; PULSE 0–120; RESP 8–38; TEMP 36.5–38.8; O2SAT 96–99
[2021-10-30] MEDS: acetaminophen 325 mg Tablet 650 MG PO ×2 (03:03→20:14)
[2021-10-30] MEDS: cefepime 2,000 MG in sodium chloride 0.9% (plus) 50 ML 100 MG IV ×2 (03:11→14:55)
--- NOTE | 2021-10-30 03:40 | PC.NURSE ---
Patient was very restless and attempting to get out of bed. FLACC 4. Patient given Tylenol for pain control. Patient now lying in bed resting well with eyes closed.
[2021-10-30] MEDS: heparin 5,000 unit/mL INJ 1 mL 5000 UNIT SUBCUT (05:06)
[2021-10-30] MEDS: sodium chloride 0.9% 1,000 ML 100 ML IV (05:07)
[2021-10-30 06:03] LABS: Basophils % 0.3 %; Eosinophils # 0.1 10^3/uL (0.0-0.8); Eosinophils % 1.4 %; Hematocrit 25.3 % (37.0-47.0); Hemoglobin 8.5 g/dL (11.5-15.3); Lymphocytes # 0.7 10^3/uL (0.8-4.8); Lymphocytes % 7.7 %; Mean Corpuscular HGB Conc 33.6 g/dL (30.0-36.0); Mean Corpuscular Hemoglobin 31.5 pg (28.0-34.0); Mean Corpuscular Volume 93.7 fl (81-99); Mean Platelet Volume 10.9 fL (7.4-10.4); Monocytes # 0.8 10^3/uL (0.2-0.9); Neutrophils # 7.73 10^3/uL (1.8-7.7); Neutrophils % 81.5 %; Nucleated Red Blood Cells % 0.2 %; Platelet Count 150 10^3/cmm (130-400); Red Cell Distribution Width 16.7 % (12.1-15.1); White Blood Count 9.5 10^3/uL (4.0-10.0)
[2021-10-30 06:25] LABS: Anion Gap 14.3 (5-19); Blood Urea Nitrogen 40 mg/dL (8-23); Calcium 6.9 mg/dL (8.5-10.5); Carbon Dioxide 16 mmol/L (22-29); Chloride 112 mmol/L (98-107); Glucose 107 mg/dL (65-115); Magnesium 1.8 mg/dL (1.7-2.3); Osmolality Calculated 298 mOsm/kg (285-295); Potassium 3.3 mmol/L (3.5-5.1); Sodium 139 mmol/L (136-145)
[2021-10-30] MEDS: clindamycin 900 MG/50 ML PREMIX 100 MG IV (06:42)
--- NOTE | 2021-10-30 07:05 | PC.NURSE ---
Patient refused to keep telemetry on. Replaced at this time.
[2021-10-30] MEDS: clopidogrel 75 mg Tablet PO (08:08)
[2021-10-30] MEDS: aspirin 81 mg EC Tablet PO (08:10)
[2021-10-30 09:34] LABS: Lactate (Lactic Acid level) 2.5 mmol/L (0.5-2.2)
[2021-10-30] MEDS: sodium chloride 0.9% 1,000 ML 999 ML IV (10:32)
[2021-10-30] MEDS: loperamide 2 mg Capsule PO (10:32)
[2021-10-30] MEDS: potassium chloride oral liq 20 mEq/15 mL UDC 40 MEQ PO (10:32)
--- NOTE | 2021-10-30 10:33 | P.PN_ITS ---
Subjective Subjective: Interval history: pt attempting to get out of bed when I arrived. Pain controlled Vitals/I&O/Wt Last Vital Signs Temp 98.0 F 10/30/21 08:00 Pulse 94 10/30/21 08:00 Resp 38 H 10/30/21 08:00 BP 97/57 10/30/21 08:00 Pulse Ox 99 10/30/21 08:00 10/29/21 10/30/21 10/30/21 22:59 06:59 14:59 Intake Total 1503.75 / 3278.75 2150 / 5428.75 290 / 290 Output Total 1650 / 1775 450 / 450 Balance 1503.75 / 3153.75 500 / 3653.75 -160 / -160 Weight last 48 hrs Weight 115 lb Weight 111 lb Weight 111 lb Physical Exam Narrative: EXAM NARRATIVE: wound with drainage minimal Urinary Catheter Management^: Chowdary: Cath Placed During This Visit: yes Reason for Continuing Indwelling Catheter: Required Immobilization for Trauma or Surgery or Anesthesia Urinary Catheter Date of Insertion: 10/28/21 Urinary Catheter Time of Insertion: 15:40 Data : 10/30/21 05:50 10/30/21 05:50 Micro: Microbiology 10/30/21 05:53 Blood Culture - Preliminary Blood SPECIMEN COLLECTED 10/30/21 05:50 Blood Culture - Preliminary Blood SPECIMEN COLLECTED 10/29/21 07:29 Gram Stain - Final Hip - #1 10/28/21 15:35 Blood Culture - Preliminary Blood Gram positive cocci 10/28/21 15:32 Blood Culture - Preliminary Blood Gram positive cocci A&P Assessment and plan (1) Wound infection after surgery: POD#1 hip I+D change dressing daily as needed Status: Acute Attestations Medical Necessity Statement*: per primary service Coding Level of Care Code Acute Administrative Fellow for [facility] Diagnoses Wound infection after surgery T81.49XA
[2021-10-30 11:39] LABS: Platelet Count 150 10^3/cmm (130-400)
[2021-10-30 11:50] LABS: Partial Thromboplastin Time 33.8 SECONDS (23.9-36.7)
[2021-10-30] MEDS: heparin drip 25,000 UNIT/500 ML PREMIX 14.61 UNIT IV (12:26)
[2021-10-30] MEDS: heparin 5,000 unit/mL INJ 1 mL IV ×2 (12:27→21:52)
[2021-10-30 12:48] LABS: ABG PCO2 24.2 mmHg (35-45); Alveolar-Arterial Oxygen Gradi 4.6 mmHg (5-10); Arterial Blood Gas Hematocrit 29.2 % (37-47); Base Excess ABG -8.3 mmol/L (-2.0-2.0); Blood Gas Allen Test Pos; Blood Gas Sample Site Radial, right; Blood Gas Sample Type Arterial; Carboxyhemoglobin 0.4 %THgb (0.4-20.1); HCO3 ABG 15.1 mmol/L (22-26); HGB O2 Sat 97.5 % (95-100); Ionized Calcium Level - ABG 1.1 mmol/L (1.1-1.4); Methemoglobin < 0.0 % (0.4-1.5); Oxygen Saturation ABG 97.4; PO2 ABG 82.6 mmHg (80.0-100.0); Total Hemoglobin 9.5 g/dL (12-16)
--- NOTE | 2021-10-30 12:54 | CTR_ITS ---
PROCEDURE INFORMATION: Exam: CTA Chest With Contrast Exam date and time: 10/30/2021 12:54 PM Age: 71 years old Clinical indication: Constipation; Shortness of breath; Prior surgery; Surgery type: Hip; Additional info: R/O ischemic bowel, pe, any other pathology, bacteremic, endocarditis, possible atrial mass/thrombus, TECHNIQUE: Imaging protocol: Computed tomographic angiography of the chest with contrast. 3D rendering (Not supervised by radiologist): MIP and/or 3D reconstructed images were created by the technologist. Radiation optimization: All CT scans at this facility use at least one of these dose optimization techniques: automated exposure control; mA and/or kV adjustment per patient size (includes targeted exams where dose is matched to clinical indication); or iterative reconstruction. Contrast material: OMNI 350; Contrast volume: 75 ml; Contrast route: INTRAVENOUS (IV); COMPARISON: CR XR chest 1V portable [id number] 10/28/2021 4:34 PM RADIATION DOSE METRICS: Total DLP (mGy-cm): 884.71 FINDINGS: Pulmonary arteries: Normal. No pulmonary emboli. Aorta: Unremarkable. No aortic aneurysm. No aortic dissection. Lungs: See Pleural spaces finding. Pleural spaces: Moderate bilateral pleural effusions with adjacent compressive atelectasis. Heart: Unremarkable. No cardiomegaly. No pericardial effusion. Mediastinal space: There is mucosal thickening of the distal esophagus. Lymph nodes: Unremarkable. No enlarged lymph nodes. Intraperitoneal space: Please see the CT scan of the abdomen for description of the upper abdomen. Bones/joints: Motion artifact makes evaluation for fracture suboptimal. Motion artifact is particularly prominent in the region of the sternum and ribs. Soft tissues: There is edema in the soft tissues. PROCEDURE INFORMATION: Exam: CT Abdomen And Pelvis With Contrast Exam date and time: 10/30/2021 12:54 PM Age: 71 years old Clinical indication: Constipation; Shortness of breath; Prior surgery; Surgery type: Hip; Additional info: R/O ischemic bowel, pe, any other pathology, bacteremic, endocarditis, possible atrial mass/thrombus, TECHNIQUE: Imaging protocol: Computed tomography of the abdomen and pelvis with contrast. Radiation optimization: All CT scans at this facility use at least one of these dose optimization techniques: automated exposure control; mA and/or kV adjustment per patient size (includes targeted exams where dose is matched to clinical indication); or iterative reconstruction. Contrast material: OMNI 350; Contrast volume: 75 ml; Contrast route: INTRAVENOUS (IV); COMPARISON: CR XR chest 1V portable [id number] 10/28/2021 4:34 PM RADIATION DOSE METRICS: Total DLP (mGy-cm): 884.71 FINDINGS: Lungs: Please see the CT scan of the thorax for description of the lung bases. Liver: Normal. No mass. Gallbladder and bile ducts: The gallbladder has been removed. Pancreas: Normal. No ductal dilation. Spleen: Small incidental splenule. Adrenal glands: Normal. No mass. Kidneys and ureters: Normal. No hydronephrosis. Stomach and bowel: Colonic constipation is present. Stomach is distended and filled with air/debris. There is diverticulosis of the colon without evidence of diverticulitis. Bowel is partially obscured by artifact. Appendix: No evidence of appendicitis. Intraperitoneal space: Unremarkable. No free air. No significant fluid collection. Vasculature: There is calcified plaque in the aorta and iliac arteries. Lymph nodes: Unremarkable. No enlarged lymph nodes. Urinary bladder: There is a Chowdary catheter in the bladder. Bladder wall is not optimally visualized and is partially obscured by artifact from the right total hip replacement. Reproductive: Unremarkable as visualized. Bones/joints: Patient status post right total hip replacement. Acetabular and femoral components appear intact and in satisfactory alignment. There are multiple foci of air and complex fluid in the adjacent soft tissues partially obscured by artifact from the metallic hardware. Visualized portion of a complex air/fluid collection lateral to the greater trochanter measures 4.3 x 3.0 cm in the transverse/AP dimensions. Soft tissues: There is edema in the soft tissues surrounding the abdomen and pelvis. Other findings: Motion artifact does moderately limit the sensitivity of this examination. CT/CT angio chest w abd pel w con IMPRESSION: 1. Bilateral pleural effusions with adjacent compressive atelectasis. 2. There is mucosal thickening of the distal esophagus. Differential includes nonspecific esophagitis. Follow-up to exclude neoplasm as clinically warranted. IMPRESSION: 1. There is complex fluid and air adjacent to the right total hip replacement consistent with abscess formation. 2. Soft tissue anasarca. 3. Colonic constipation is present.
[2021-10-30] MEDS: iohexol 350 mg/mL 100 mL Btl IV (13:31)
--- NOTE | 2021-10-30 13:35 | P.PN_ITS ---
Subjective Subjective: Interval history: Seen this morning. Patient's mental status is the same as yesterday. She is keeps repeating phrases and has been diagnosed with progressive supranuclear palsy as per neurology. There was also evidence of endocarditis versus atrial mass versus thrombus on echocardiogram and she has been started on a heparin drip for that. Is also been started on aspirin Plavix and atorvastatin for acute strokes and occipital and temporal lobe. Discussed with patient's and he is okay with going ahead with transesophageal echocardiogram for diagnostic purposes. He does understand patient is very sick. Patient did pull out her right hip drain yesterday. Vitals/I&O/Wt Last Vital Signs Temp 97.7 F 10/30/21 12:00 Pulse 74 10/30/21 12:00 Resp 20 H 10/30/21 12:00 BP 142/71 10/30/21 12:00 Pulse Ox 99 10/30/21 12:00 10/29/21 10/30/21 10/30/21 22:59 06:59 14:59 Intake Total 1503.75 / 3278.75 2150 / 5428.75 530 / 530 Output Total 1650 / 1775 450 / 450 Balance 1503.75 / 3153.75 500 / 3653.75 80 / 80 Weight last 48 hrs Weight 52.163 kg Weight 50.349 kg Physical Exam Narrative: EXAM NARRATIVE: General: No acute distress, Does repeat phrases and follows some commands HEENT: Normocephalic, atraumatic, EOMI, PERRLA. Cannot track with her eyes. Cardio: Regular rate rhythm, normal S1-S2, no murmurs Respiratory: Good bilateral air entry, no wheezes no rhonchi appreciated GI: Abdomen soft, nontender, nondistended, bowel sounds + does not grimace to palpation of abdomen. Extremities: no edema, no cyanosis. Limited ROM of the right hip, Right hip incision site looks clean. Dressing change as needed as per surgery. Neuro: Unable to fully assess all CN as pt follows commands intermittently. She follows your head but not your finger. She tends to repeat phrases that you speak. Urinary Catheter Management^: Nevarez: Cath Placed During This Visit: yes Reason for Continuing Indwelling Catheter: Required Immobilization for Trauma or Surgery or Anesthesia Urinary Catheter Date of Insertion: 10/28/21 Urinary Catheter Time of Insertion: 15:40 Data : 10/30/21 11:19 10/30/21 05:50 Micro: Microbiology 10/30/21 05:53 Blood Culture - Preliminary Blood SPECIMEN COLLECTED 10/30/21 05:50 Blood Culture - Preliminary Blood SPECIMEN COLLECTED 10/29/21 07:29 Gram Stain - Final Hip - #1 10/28/21 15:35 Blood Culture - Preliminary Blood Gram positive cocci 10/28/21 15:32 Blood Culture - Preliminary Blood Gram positive cocci A&P Assessment and plan (1) Wound infection after surgery: Status: Acute (2) Status post hip hemiarthroplasty: Status: Acute (3) Memory loss: Status: Acute (4) Dementia: Status: Acute (5) Aphasia: Status: Acute (6) TIA (transient ischemic attack): Status: Acute Additional A&P Information #Chronic right hip pain status post right hip hemiarthroplasty with wound infection 2.5 weeks postop, she is now status post washout of right hip, postop day 2. 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 Blood cultures positive for gram-positive cocci. Wound cultures obtained intraoperatively are still pending. ? We will repeat blood cultures every 48 hours until clearance ? CT hip shows deep infection possibly all the way to hip joint with gas and air bubbles present. - Most recent echo done October 09, 2021 shows LVEF 60%, grade 1 diastolic dysfunction. No change compared to prior echo from 2013. New echo obtained this admission does show a vegetation versus atrial thrombus versus mass. -Head CT negative. MRI brain showed acute CVA right occipital lobe and left temporal lobe ? Continue patient on heparin drip ? Consult cardiology for transesophageal echocardiogram which is tentatively planned for Monday. did state that he is okay with her having the test done. - Will consult ID for further management with antibiotics. -Continue to monitor on telemetry rule out occult atrial fibrillation ?Patient's blood pressure has remained stable overall but did have a few bouts of hypotension where she required bolus fluids. Today blood pressure is also borderline and she is getting another bolus of normal saline. Lactic acid was elevated at 2.5. She is on maintenance fluids 125 cc/h. She has not required pressors so far. In the event blood pressure does drop she will be moved to ICU for pressors and further management. -Patient did have 2 episodes of diarrhea since she was on docusate senna since admission. On admission there was report of constipation. I have stopped docusate senna. I have sent a sample for stool culture as well. Did give her 1 dose of Imodium. We will continue to monitor. She does have low bicarbonate which could be from the diarrhea but in light of embolic phenomenon of brain, bacteremia, overall patient's clinical picture I will do CT abdomen to ensure there is no ischemic bowel as patient is aphasic and unable to provide any history at all. ?Zofran for nausea ?Continue nevarez catheter ?DVT prophylaxis: On heparin drip -Protonix for GI prophylaxis -Regular diet. DO NOT INTUBATE but may do CPR, ACLS, defibrillation, resuscitation. ? updated today over the phone in detail today. Prognosis very poor Attestations Medical Necessity Statement*: Greater than 72 to 96-hour stay at this point due to multiple active medical issues. Coding Level of Care Code Acute Machines Technician for [facility] Diagnoses Wound infection after surgery T81.49XA Status post hip hemiarthroplasty Z96.649 Memory loss R41.3 Dementia F03.90 Aphasia R47.01 TIA (transient ischemic attack) G45.9
[2021-10-30 15:06] LABS: Basophils # 0.1 10^3/uL (0.0-0.1); Basophils % 0.5 %; Eosinophils # 0.3 10^3/uL (0.0-0.8); Eosinophils % 2.2 %; Hematocrit 29.7 % (37.0-47.0); Hemoglobin 9.5 g/dL (11.5-15.3); Lymphocytes # 0.5 10^3/uL (0.8-4.8); Lymphocytes % 4.1 %; Mean Corpuscular Volume 97.1 fl (81-99); Monocytes # 0.7 10^3/uL (0.2-0.9); Monocytes % 5.6 %; Nucleated Red Blood Cells % 0 %; Platelet Count 152 10^3/cmm (130-400); Red Blood Count 3.06 10^6/uL (4.1-5.3); Red Cell Distribution Width 17.2 % (12.1-15.1); White Blood Count 12.8 10^3/uL (4.0-10.0)
--- NOTE | 2021-10-30 15:11 | PM.CONSULT ---
Providers/Reason For Consult Consulting Physician/Specialty*: Dr. Watts, cardiology Reason for Consult*: Gram-positive cocci, suspicion for tricuspid valve endocarditis on transthoracic echocardiogram Attending Physician: Regine Cole MD Primary Care Provider: KAILYN Calzada History of Present Illness History of Present Illness Jannet Ashford is a 71 year old female with past medical history of atrial fibrillation status post ablation not on anticoagulation, dementia, PSP syndrome, spinal stenosis, primary progressive aphasia. She was admitted on 08 October after a fall and underwent x-ray at primary care physician's office that showed right hip subcapital fracture. She underwent right hip hemiarthroplasty on 09 October 2021 and was discharged on 11 October 2021. Post discharge she presented for a follow-up on 28 October 2021 and was noted to have right hip incision with fluctuance and drainage. She was admitted to the hospital for further evaluation. She underwent I&D of right hip wound on 29 October 2021.. Echocardiogram showed large mobile echogenic structure that seems to be attached to the tricuspid valve annulus noted in right atrium. This may represent endocarditis vs atrial mass/thrombus . Her blood culture from November 13 grew gram-positive cocci. Fever as high as 101.7 noted on 29 October at 6:23 AM. She has been afebrile since then. I have been asked to evaluate patient for transesophageal echocardiogram. Review of Systems General: Reports: ROS unobtainable due to mental status Meds/Allergies Home Medications and Allergies Home Medications Medication Instructions Recorded Confirmed Last Taken Type aspirin 81 mg chewable tablet 81 mg PO DAILY 10/30/19 10/28/21 10/27/21 History cholecalciferol (vitamin D3) 25 25 mcg PO DAILY 01/16/20 10/28/21 10/27/21 History mcg (1,000 unit) tablet glucosamine-chondroitin 250 mg-200 1 tab PO DAILY tab 08/25/20 10/28/21 10/27/21 History mg tablet red yeast rice 600 mg capsule 1,200 mg PO DAILY cap 08/25/20 10/28/21 10/27/21 History rosuvastatin 20 mg tablet 20 mg PO DAILY 08/25/20 10/28/21 10/27/21 History vit C 250 mg-vit E 90 mg-zinc 40 2 tab PO BID cap 08/25/20 10/28/21 10/27/21 History mg-copper 1 my-neayej-uacjna capsule coenzyme D92-xutbsry E 100 mg-100 1 cap PO DAILY cap 09/28/20 10/28/21 10/27/21 History unit capsule lithium carbonate 150 mg capsule 150 mg PO DAILY cap 07/14/21 10/28/21 10/27/21 History hydrocodone 5 mg-acetaminophen 325 1 tab PO TID PRN 30 Days #90 tab 09/23/21 10/28/21 Unknown Rx mg tablet hydrocodone 5 mg-acetaminophen 325 1 tab PO TID PRN 30 Days #90 tab 09/23/21 10/28/21 10/08/21 Rx mg tablet meloxicam 7.5 mg tablet 7.5 mg PO DAILY 30 Days #30 tab 09/27/21 10/28/21 10/28/21 Rx galantamine 24 mg 24 hr 24 mg PO QAM #30 cap 10/25/21 10/28/21 10/28/21 Rx capsule,extended release Allergies Allergy/AdvReac Type Severity Reaction Status Date / Time Penicillins Allergy Severe ALGY-Anaphy Verified 10/28/21 11:47 laxis gabapentin AdvReac SPEECH Verified 10/28/21 11:47 DIFFICULTY Sulfa (Sulfonamide AdvReac WAS TOLD Verified 10/28/21 11:47 Antibiotics) BY HER MOTHER THAT SHE IS ALLERGIC Current Medications Current Medications Generic Name Dose Route Start Last Admin Trade Name Freq PRN Reason Stop Dose Admin Acetaminophen 650 mg 10/28/21 16:35 10/30/21 03:03 Acetaminophen 325 Mg Tablet PO 650 mg Q6H PRN Administration Mild/Mod Pain Or Temp >/= 101 Aspirin 81 mg 10/30/21 09:00 10/30/21 08:10 Aspirin 81 Mg Ec Tablet PO 81 mg DAILY MILADYS Administration Atorvastatin Calcium 80 mg 10/29/21 21:00 10/29/21 21:20 Atorvastatin 40 Mg Tablet PO 80 mg BEDTIME MILADYS Administration Clopidogrel Bisulfate 75 mg 10/30/21 09:00 10/30/21 08:08 Clopidogrel 75 Mg Tablet PO 75 mg DAILY MILADYS Administration Heparin Sodium (Porcine) 0 unit 10/30/21 10:00 10/30/21 12:27 Heparin 5,000 Unit/Ml Inj 1 Ml IV 2,600 unit PRN PRN Administration Heparin weight-base protocol Protocol Cefepime HCl 2,000 mg/ Sodium 50 mls @ 100 mls/hr 10/28/21 14:45 10/30/21 14:55 Chloride IV 100 mls/hr Q12H MILADYS Administration Protocol Vancomycin HCl 750 mg/ Sodium 250 mls @ 250 mls/hr 10/28/21 16:30 10/29/21 22:15 Chloride IV Infused Q24H MILADYS Infusion Sodium Chloride 1,000 mls @ 100 mls/hr 10/29/21 02:00 10/30/21 05:07 Sodium Chloride 0.9% IV 100 mls/hr .Q10H MILADYS Administration Heparin Sodium/Sodium Chloride 25,000 unit in 500 mls @ 0 mls/hr 10/30/21 10:00 10/30/21 12:26 Heparin Drip IV 14 unit/kg/hr .Q0M MILADYS 14.61 mls/hr Administration Protocol Per Protocol Pantoprazole Sodium 40 mg 10/28/21 16:45 10/29/21 17:19 Pantoprazole 40 Mg Sdv IVP 40 mg Q24H MILADYS Administration Senna/Docusate Sodium 1 tab 10/29/21 09:00 10/30/21 08:10 Sennosides-Docusate Tablet PO Not Given DAILY MILADYS PFSH Acute PFSH: Medical History (Updated 10/31/21 @ 12:20 by Diane Nunez MD) Aftercare following surgery of the genitourinary system Chronic right hip pain Closed right hip fracture Dementia Displaced fracture of right femoral neck Encounter for long-term (current) use of NSAIDs Encounter for long-term opiate analgesic use Facet syndrome, lumbar Female cystocele Intervertebral disc disorder with radiculopathy of lumbosacral region Long-term use of high-risk medication Low back pain Parkinsonian features Primary progressive nonfluent aphasia Smoker has now changed to e-cig Spinal stenosis of lumbar region with radiculopathy Spondylolisthesis, lumbar region Surgical History (Updated 10/31/21 @ 12:20 by Diane Nunez MD) H/O submandibular gland removal H/O vaginal surgery 09/30/2020- anterior colporrhaphy augmented with allograft and single incision mid urethral sling, performed by Dr. Stoll at [facility] History of cardiac radiofrequency ablation 2011 S/P cholecystectomy 2010 S/P hip hemiarthroplasty S/P hysterectomy 2004 Family History Sister Dementia Father Myocardial infarct Heart disease Mother Cancer BRAIN TUMOR Brother Hypertension Cancer colon cancer Denies family history of Ovarian cancer Diabetes Clotting disorder Hyperlipidemia Breast cancer Anesthesia complication Bleeding disorder Uterine cancer Thyroid condition Stroke Social History Alcohol intake: never History of recent travel: No Vitals/I&O/Wt Last Vital Signs Temp 97.7 F 10/30/21 12:00 Pulse 74 10/30/21 12:00 Resp 20 H 10/30/21 12:00 BP 142/71 10/30/21 12:00 Pulse Ox 99 10/30/21 12:00 10/30/21 10/30/21 10/30/21 06:59 14:59 22:59 Intake Total 2150 / 5428.75 530 / 530 Output Total 1650 / 1775 950 / 950 Balance 500 / 3653.75 -420 / -420 Weight last 48 hrs Weight 115 lb Weight 111 lb Physical Exam Narrative: EXAM NARRATIVE: GENERAL: Averagely built and averagely nourished in no acute distress HEENT: No pallor or icterus. NECK: No JVD CARDIOVASCULAR SYSTEM: S1-S2 regular. Grade 3 systolic murmur in LLSB RESPIRATORY SYSTEM: Chest clear to auscultation. No wheezes rhonchi or rubs heard. ABDOMEN: Soft, nontender and nondistended. Normal bowel sounds present. EXTREMITIES: No cyanosis or edema. NUCLEAR DESIGN ENGINEER: Patient is alert Urinary Catheter Management^: Chowdary: Cath Placed During This Visit: yes Reason for Continuing Indwelling Catheter: Required Immobilization for Trauma or Surgery or Anesthesia Urinary Catheter Date of Insertion: 10/28/21 Urinary Catheter Time of Insertion: 15:40 Data Micro: Micro: Microbiology 10/30/21 05:53 Blood Culture - Pr eliminary Blood SPECIMEN [facility] 10/30/21 05:50 Blood Culture - Pr eliminary Blood SPECIMEN [facility] 10/29/21 07:29 Gram Stain - Final Hip - #1 10/28/21 15:35 Blood Culture - Pr eliminary Blood Gram positive c occi 10/28/21 15:32 Blood Culture - Pr eliminary Blood Gram positive c occi Other Data: Other data: EKG showing sinus rhythm with occasional premature supraventricular complexes. MRI right brain without contrast Acute infarct right posterior lateral occipital lobe with an additional acute lacunar infarct in left temporal lobe. Consider embolic source of these infarcts. Transthoracic echocardiogram 29 October 2021 CONCLUSIONS 1. Normal left ventricular size, systolic function and wall thickness, with no regional wall motion abnormalities. Left ventricular ejection fraction is estimated at 65-70 %. Normal diastolic function. 2. Large mobile echogenic structure that seems to be attached to the tricuspid valve annulus noted in right atrium. This may represent endocarditis vs atrial mass/thrombus. 3.Pulmonary artery pressure estimated at 38 mmHg. 4. On comparison to previous study dated 10/09/2021, this was seen on prior study as well. AMEE is recommended for further evaluation. Transthoracic echocardiogram 09 October 2021 CONCLUSIONS 1-Normal left ventricular cavity size. Normal left ventricular systolic function. No regional wall motion abnormalities. Left ventricular ejection fraction is estimated at 60 %. Grade I/IV diastolic dysfunction (abnormal relaxation filling pattern), normal to mildly elevated filling pressures. 2-There is no pericardial effusion. 3-No significant valve abnormalities. 4-Pulmonary artery systolic pressure is within normal limits. 5-Right atrial pressure is around 5 mm of mercury. 6-No significant change since the prior echocardiogram study of 02/03/2014. A&P Assessment and plan (1) Gram-positive cocci bacteremia: Transthoracic echocardiogram with large echogenic mobile mass attached to tricuspid valve annulus that may represent vegetation/thrombus. -I spoke to patient's Harsha and all his questions were answered. -Patient is DNI however patient's is agreeable with short-term intubation if needed for AMEE. -She has partial dentures no surgeries of esophagus or stomach. No prior reactions to anesthesia. -No history of sleep apnea Risks and benefits were discussed with the patients' . Possible complications were reviewed as well. Plan is to proceed with the procedure on Monday based on scheduling. Status: Acute (2) CVA (cerebral vascular accident): Status: Acute (3) Wound infection after surgery: Status: Acute (4) Status post hip hemiarthroplasty: Status: Acute Additional A&P Information History of A. fib s/p ablation not on anticoagulation History of progressive supranuclear palsy Aphasia/dementia Thank you for allowing me to participate in patient's care. Please feel free to call with questions or concerns. Consult Attestations Time Spent in Patient Care: 16 - 35 minutes (>than 50% of time spent in counselling and/or direct pt care on unit). Coding Level of Care Code Acute Masonry Installer for Chg Fwd Diagnoses Gram-positive cocci bacteremia R78.81 CVA (cerebral vascular accident) I63.9 Wound infection after surgery T81.49XA Status post hip hemiarthroplasty Z96.649
[2021-10-30 15:31] LABS: Alanine Aminotransferase 29 U/L (0-33); Albumin Level 2.5 g/dL (3.5-5.2); Alkaline Phosphatase 87 IU/L (35-105); Aspartate Amino Transferase 28 U/L (0-32); Blood Urea Nitrogen 41 mg/dL (8-23); Calcium 6.9 mg/dL (8.5-10.5); Carbon Dioxide 16 mmol/L (22-29); Chloride 113 mmol/L (98-107); Globulin 2.3 g/dL (1.3-4.6); Glucose 117 mg/dL (65-115); Lactic Sepsis W/Reflex 1.5 mmol/L (0.5-2.2); Osmolality Calculated 303 mOsm/kg (285-295); Sodium 141 mmol/L (136-145); Total Bilirubin 0.2 mg/dL (0.15-1.2); Total Protein 4.8 g/dL (6.6-8.7)
[2021-10-30] MEDS: vancomycin 750 MG in sodium chloride 0.9% 250 ML 250 MG IV (16:18)
[2021-10-30] MEDS: pantoprazole 40 mg SDV IVP (16:18)
[2021-10-30] MEDS: FUROsemide 10 mg/mL SDV 2mL 20 MG IVP (17:24)
--- NOTE | 2021-10-30 18:23 | PC.NURSE ---
Dr. Cole was notified that patient became tachypneic RR 40's, SPo2 94%.Orders received give 20mg lasix IVP and patient placed on Bipap. is at bedside with Dr. Nunez present in the room. Report to be passed off to oncoming shift.
--- NOTE | 2021-10-30 18:35 | PM.EVENT ---
Event Note Event Note: Patient was evaluated at the bedside around 6 PM when nurse notified us about worsening tachypnea respiratory rate was in 40s, she was put on BiPAP MARYAN was called in as well CT scan chest abdomen pelvis reviewed Labs reviewed Repeat H&H did not show drop in hemoglobin Worsening leukocytosis Chronic kidney disease Anemia Bilateral moderate pleural effusion Septic emboli in brain Albumin 2.5 Large mobile echogenic structure that seems to be attached to the tricuspid valve annulus noted in right atrium. This may represent endocarditis vs atrial mass/thrombus On comparison to previous study dated 10/09/2021, this was seen on prior study as well. AMEE is recommended for further evaluation. Cardiology was consulted for transesophageal echo. When I evaluated the patient at the bedside, her breathing rate was 40 breaths/min, at the bedside, she was on BiPAP settings 12/8, resp rate 12, she was breathing at 40 breaths/min Patient mostly answers in yes and now Extremely fatigued and lethargic Systolic murmur appreciated Clinically looks euvolemic Labored breathing use of respiratory sensory muscles, conversational dyspnea Abdominal muscle are being used as well Wide open eyes, she is able to track me at horizontal axis After reviewing chart and evaluating the patient at the bedside, discussed with the regarding intubation Current diagnosis, multiorgan failure, indication for intubation and transfer to ICU was discussed with the patient and in detail, discussed goals of care with the patient one more time in front of me told me that Mrs. Ashford never wanted to be on a ventilator, with multiorgan failure, septic emboli, recent fall, abscess, valvular vegetation her chances of coming off the ventilator are low, He was given opportunity to ask questions, all of his questions were answered in satisfactory fashion in simple layman term. He decided to change her CODE STATUS to DNR/DNI from limited resuscitation(CPR only). He does understand what entails DNR/DNI. He asked me if I could allow his son to come in after visiting hours, he is okay with keeping her on BiPAP and use morphine for tachypnea Charge nurse, MedSurg nurse, updated
[2021-10-30] MEDS: morphine 4 mg/mL SDV 1 mL 2 MG IVP (18:37)
[2021-10-30 21:20] LABS: Partial Thromboplastin Time 33.7 SECONDS (23.9-36.7)
--- NOTE | 2021-10-30 21:50 | PC.NURSE ---
HEPARIN DRIP/PTT Heparin drip incresed to 14ml/hr with bolus dose given per PTT result
[2021-10-31] VITALS (15 sets, daily range): BP systolic 113–124; BP diastolic 63–72; PULSE 88–124; RESP 22–36; TEMP 36.5–38.7; O2SAT 92–98
[2021-10-31] MEDS: cefepime 2,000 MG in sodium chloride 0.9% (plus) 50 ML 100 MG IV (02:52)
[2021-10-31] MEDS: morphine 4 mg/mL SDV 1 mL 2 MG IVP (03:04)
[2021-10-31 04:39] LABS: ABG PCO2 21.1 mmHg (35-45); Arterial Blood Gas Hematocrit 40.6 % (37-47); Base Excess ABG -4.4 mmol/L (-2.0-2.0); Blood Gas Allen Test Pos; Blood Gas Operator Identificat Anonymous; Blood Gas Sample Type Arterial; HCO3 ABG 16.6 mmol/L (22-26); PO2 ABG 84.7 mmHg (80.0-100.0)
[2021-10-31 04:40] LABS: Blood Gas Sample Site Radial, left; Oxygen Device BIPAP
[2021-10-31 05:47] LABS: Basophils # 0.1 10^3/uL (0.0-0.1); Basophils % 0.4 %; Eosinophils # 0.3 10^3/uL (0.0-0.8); Eosinophils % 2.7 %; Hematocrit 27.2 % (37.0-47.0); Hemoglobin 8.9 g/dL (11.5-15.3); Lymphocytes # 0.8 10^3/uL (0.8-4.8); Lymphocytes % 6.7 %; Mean Corpuscular HGB Conc 32.7 g/dL (30.0-36.0); Mean Corpuscular Hemoglobin 30.9 pg (28.0-34.0); Mean Corpuscular Volume 94.4 fl (81-99); Mean Platelet Volume 11.8 fL (7.4-10.4); Monocytes # 0.9 10^3/uL (0.2-0.9); Monocytes % 6.8 %; Neutrophils # 10.22 10^3/uL (1.8-7.7); Neutrophils % 82.1 %; Nucleated Red Blood Cells % 0 %; Platelet Count 127 10^3/cmm (130-400); Red Blood Count 2.88 10^6/uL (4.1-5.3); Red Cell Distribution Width 17.2 % (12.1-15.1); White Blood Count 12.5 10^3/uL (4.0-10.0)
--- NOTE | 2021-10-31 05:51 | PC.NURSE ---
SHIFT SUMMARY Has not slept at all tonight. Reaches into air as if is reaching for something. says she usually does not have visual hallucinations. Frequently tries to take BIPAP off and would not keep it on at all if was not at the bedside. Resp have ranged from 24-36 through night without resp distress noted. Has not appeared to be in pain. Was given the IV Morphine once per husbands request to see if it would help her rest but it did not. She drinks very well and everytime in room she is given drinks.Takes drinks eagerly. Had fever first part of the night and was given Tylenol. This am has been 99 Ax. Says words but unable to understand her. Will nod her head yes or no to some questions. says this is normal. Island dressing to right hip was changed X1 for purulent green/danielle drainage. Sutures intact. Has been repositioned tonight. Heparin drip in place and adjusting per protocol
[2021-10-31 06:05] LABS: Anion Gap 15.6 (5-19); Blood Urea Nitrogen 36 mg/dL (8-23); Calcium 7.1 mg/dL (8.5-10.5); Carbon Dioxide 15 mmol/L (22-29); Chloride 113 mmol/L (98-107); Glucose 108 mg/dL (65-115); Magnesium 1.8 mg/dL (1.7-2.3); Osmolality Calculated 299 mOsm/kg (285-295); Potassium 3.6 mmol/L (3.5-5.1); Sodium 140 mmol/L (136-145)
[2021-10-31 06:09] LABS: Partial Thromboplastin Time 54.9 SECONDS (23.9-36.7)
[2021-10-31] MEDS: heparin 5,000 unit/mL INJ 1 mL IV ×2 (07:06→21:07)
[2021-10-31] MEDS: aspirin 81 mg EC Tablet PO (07:57)
[2021-10-31] MEDS: clopidogrel 75 mg Tablet PO (07:57)
--- NOTE | 2021-10-31 09:12 | PC.NURSE ---
Dr. Cole notified of preliminary blood cultures MRSA of blood and abscess culture.
[2021-10-31] MEDS: acetaminophen 325 mg Tablet 650 MG PO (11:13)
--- NOTE | 2021-10-31 12:13 | PM.PN ---
Subjective Subjective: Interval history: No overnight events, patient tolerated BiPAP overnight, stated overnight with her This morning she was eating breakfast when entered the room, off BiPAP, saturating well on room air Still tachypneic in 30s However appears very comfortable. Blood pressure stating that he is taking longer to chew food in her mouth however no aspiration or choking on food noted Will be kept n.p.o. after midnight, agreed with transesophageal echo, he also wants to talk with Dr. Armstrong, I spoke with Dr. Armstrong who is planning for placement of spacer which will be ordered from [facility], this might be placed around Monday Vitals/I&O/Wt Last Vital Signs Temp 97.7 F 10/31/21 11:12 Pulse 88 10/31/21 11:12 Resp 36 H 10/31/21 11:12 BP 124/71 10/31/21 11:12 Pulse Ox 97 10/31/21 11:12 10/30/21 10/31/21 10/31/21 22:59 06:59 14:59 Intake Total 290 / 820 410 / 1230 872.72 / 872.72 Output Total 1350 / 2300 875 / 3175 Balance -1060 / -1480 -465 / -1945 872.72 / 872.72 Weight last 48 hrs Weight 52.163 kg Physical Exam Narrative: EXAM NARRATIVE: Patient was eating breakfast this morning, on room air Tachypnea in 30s Clinically euvolemic Bilateral breath sounds with crackles at the base and rhonchi Does not appear to be in distress, she is not using her respiratory accessory muscles while eating Only answering yes and no Horizontal gaze I have not noticed Focal deficits Chowdary cath draining dilute urine No edema of legs Urinary Catheter Management^: Chowdary: Cath Placed During This Visit: yes Reason for Continuing Indwelling Catheter: Required Immobilization for Trauma or Surgery or Anesthesia Urinary Catheter Date of Insertion: 10/28/21 Urinary Catheter Time of Insertion: 15:40 Data : 10/31/21 05:35 10/31/21 05:35 Micro: Microbiology 10/29/21 07:29 Gram Stain - Final Hip - #1 Abscess Culture - Preliminary Methicillin Resis Staph Aureus 10/28/21 15:35 Blood Culture - Preliminary Blood Methicillin Resis Staph Aureus 10/28/21 15:32 Blood Culture - Preliminary Blood Methicillin Resis Staph Aureus 10/30/21 05:53 Blood Culture - Preliminary Blood NEGATIVE TO DATE 10/30/21 05:50 Blood Culture - Preliminary Blood NEGATIVE TO DATE 10/31/21 05:35 Blood Culture - Preliminary Blood SPECIMEN COLLECTED 10/31/21 05:35 Blood Culture - Preliminary Blood SPECIMEN COLLECTED 10/29/21 07:29 Anaerobic Culture - Preliminary Hip - #2 A&P Assessment and plan (1) Gram-positive cocci bacteremia: Status: Acute (2) CVA (cerebral vascular accident): Status: Acute (3) Aphasia: Status: Acute (4) Wound infection after surgery: Status: Acute (5) Status post hip hemiarthroplasty: Status: Acute (6) Progressive supranuclear palsy: Status: Acute (7) Dementia: Status: Acute Additional A&P Information Blood culture consistent with staph aureus/MRSA Repeat cultures are negative Overnight she spiked fever, no acute worsening of leukocytosis Discontinue cefepime, continue vancomycin ID consulted Plan for transesophageal echo tomorrow morning N.p.o. after midnight Source control needed, Dr. Aly is planning to place spacer which will be ordered from [facility], likely will be scheduled for the intervention on Monday Patient to be continued heparin drip for possible cardiac mass versus vegetation MRI brain consistent with septic emboli Heparin is currently being used for possible cardiac mass Patient has underlying dementia, however no new focal deficit noted She has underlying supranuclear palsy Febrile with tachypnea Sepsis Without shock Source most likely is infected hardware with possible residual abscess She has bilateral pleural effusion, she did well with his use of BiPAP overnight this morning her tachypnea still present however slightly improved from yesterday, And using morphine for respiratory distress, on as needed basis CODE STATUS discussed with the , she is DNR/DNI but is okay with procedural intubation Diarrhea improved Had detailed discussion with the family yesterday about poor prognosis however wants to have everything done Regular diet Attestations Medical Necessity Statement*: AMEE tomorrow Time Spent in Patient Care: 16 - 35 minutes Coding Level of Care Code Acute Service Desk Agent for Chg Fwd Diagnoses Gram-positive cocci bacteremia R78.81 CVA (cerebral vascular accident) I63.9 Aphasia R47.01 Wound infection after surgery T81.49XA Status post hip hemiarthroplasty Z96.649 Progressive supranuclear palsy G23.1 Dementia F03.90
[2021-10-31] MEDS: FUROsemide 10 mg/mL SDV 2mL 20 MG IVP (12:30)
[2021-10-31] MEDS: potassium chloride oral liq 20 mEq/15 mL UDC 40 MEQ PO (12:30)
[2021-10-31 13:21] LABS: Partial Thromboplastin Time 55.2 SECONDS (23.9-36.7)
--- NOTE | 2021-10-31 15:23 | PC.SOCIAL ---
IMM UPDATED IMM initialed and dated and copy given to patient
[2021-10-31 16:39] LABS: Vancomycin Trough 7.5 ug/mL (10-15)
[2021-10-31] MEDS: vancomycin 1,000 MG in sodium chloride 0.9% 250 ML 250 MG IV (17:44)
[2021-10-31] MEDS: pantoprazole 40 mg SDV IVP (17:44)
--- NOTE | 2021-10-31 19:32 | PC.NURSE ---
i reported high reps 36 to nurse
--- NOTE | 2021-10-31 21:17 | PC.NURSE ---
HEPARIN DRIP Heparin drip was titrated up to 17ml/hr with bolus dose given by RN per protocol Next PTT is ordered for 0300
[2021-10-31] MEDS: heparin drip 25,000 UNIT/500 ML PREMIX 17 UNIT IV (23:59)
[2021-11-01] VITALS (18 sets, daily range): BP systolic 87–128; BP diastolic 46–70; PULSE 83–106; RESP 16–31; TEMP 36.7–37.9; O2SAT 94–100
[2021-11-01 03:22] LABS: Basophils # 0.1 10^3/uL (0.0-0.1); Basophils % 0.5 %; Eosinophils # 0.2 10^3/uL (0.0-0.8); Eosinophils % 1.1 %; Hematocrit 25.8 % (37.0-47.0); Hemoglobin 8.6 g/dL (11.5-15.3); Lymphocytes # 1.1 10^3/uL (0.8-4.8); Lymphocytes % 7.1 %; Mean Corpuscular HGB Conc 33.3 g/dL (30.0-36.0); Mean Corpuscular Hemoglobin 31.3 pg (28.0-34.0); Mean Corpuscular Volume 93.8 fl (81-99); Mean Platelet Volume 11.8 fL (7.4-10.4); Monocytes # 0.9 10^3/uL (0.2-0.9); Monocytes % 6.1 %; Neutrophils # 12.52 10^3/uL (1.8-7.7); Neutrophils % 83.5 %; Nucleated Red Blood Cells % 0 %; Platelet Count 103 10^3/cmm (130-400); Red Blood Count 2.75 10^6/uL (4.1-5.3); Red Cell Distribution Width 17.2 % (12.1-15.1)
[2021-11-01 03:44] LABS: Anion Gap 17.7 (5-19); Blood Urea Nitrogen 36 mg/dL (8-23); Calcium 7.8 mg/dL (8.5-10.5); Carbon Dioxide 17 mmol/L (22-29); Chloride 112 mmol/L (98-107); Glucose 125 mg/dL (65-115); Osmolality Calculated 306 mOsm/kg (285-295); Potassium 3.7 mmol/L (3.5-5.1); Sodium 143 mmol/L (136-145)
[2021-11-01 03:45] LABS: Partial Thromboplastin Time 92.9 SECONDS (23.9-36.7)
--- NOTE | 2021-11-01 04:06 | PC.NURSE ---
HEPARIN DRIP/PTT PTT 92.9. Heparin drip decreased back to 15ml/hr. Next PTT for 1000
--- NOTE | 2021-11-01 06:47 | PC.NURSE ---
SHIFT SUMMARY Has been much less restless tonight. Does move arms around but does not seem as active as last night. No distress noted. Resp do remain around 32/min. Wore BIPAP most of the night and only tried to take off mask few times tonight. Daughter has been at bedside tonight. Dressing to right hip is C&D. Chowdary with good urine output. Heparin drip infusing with titration per protocol. NPO after midnight for procedure today. Dr Duarte notified of +bld cultures this am. 4 of 4 were + for + cocci in clusters
--- NOTE | 2021-11-01 07:00 | USCV_ITS ---
Jannet Ashford Age: 71 Gender: F : 1950 Exam Date: 11/01/2021 12:10 Ordering Phys: Moriah Watst MD ([email or web address]) Technologist: ANTONIETA Exam Location: [facility] [place] Indication: MRSA sepsis, r/o endocarditis BP: 114 / 60 HR: 87 Rhythm: Sinus Technical Quality: Fair MEASUREMENTS (Male / Female) Normal Values Medications Patient given IV sedation by anesthesia service, for details please refer to the anesthesia report. Complications Intubation difficult. Attempts x3. Patient tolerated procedure well. No blood on probe post procedure. Proc. Components The patient was brought to the AMEE examination room in a fasting state after obtaining an informed consent. The AMEE probe was passed into the posterior pharynx , mid-esophagus, distal esophagus, and gastric fundus. FINDINGS Left Ventricle Normal left ventricular size, systolic function and wall thickness, with no regional wall motion abnormalities. Left ventricular ejection fraction is estimated at 60 %. Right Ventricle Normal right ventricular size and systolic function. Right Atrium Normal right atrial size. Prominent eustachian valve in the right atrium (normal variant). Left Atrium Normal left atrial size. LA Appendage Normal left atrial appendage. Normal flow velocities in the left atrial appendage. No thrombus visualized in the left atrial appendage. IA Septum Lipomatous atrial septum. No patent foramen ovale or atrial septal defect by color doppler or agitated saline study. Mitral Valve Structurally normal mitral valve. No mitral valve stenosis. Mild mitral valve regurgitation. Aortic Valve Structurally normal trileaflet aortic valve. No aortic valve stenosis. No aortic valve regurgitation. Tricuspid Valve Structurally normal tricuspid valve. No tricuspid valve stenosis. [id number] tricuspid valve regurgitation. Pulmonic Valve Structurally normal pulmonic valve. No pulmonary valve stenosis. Trace pulmonary valve regurgitation. Pericardium No pericardial effusion. Aorta Normal size aortic root and proximal ascending aorta. No aortic dilation, aneurysm or dissection. Grade 2 atheroma noted in proximal descending aorta. CONCLUSIONS 1. Normal left ventricular size, systolic function and wall thickness, with no regional wall motion abnormalities. Left ventricular ejection fraction is estimated at 60 %. 2. Prominent eustachian valve in the right atrium (normal variant). 3. [id number] tricuspid valve regurgitation. 4. No patent foramen ovale or atrial septal defect by color doppler or agitated saline study. 5. No evidence of endocarditis or left/right atrial or left atrial appendage thrombus. Moriah Watts MD (Electronically Signed) Final Date: 02 November 2021 17:04 S
--- NOTE | 2021-11-01 08:51 | P.PN_ITS ---
Subjective Subjective: Interval history: Patient family at bedside. Patient is resting comfortably in bed. Vitals/I&O/Wt Last Vital Signs Temp 98.0 F 11/01/21 07:56 Pulse 87 11/01/21 07:56 Resp 18 11/01/21 07:56 BP 126/70 11/01/21 07:56 Pulse Ox 96 11/01/21 07:56 10/31/21 11/01/21 11/01/21 22:59 06:59 14:59 Intake Total 477.28 / 1350.00 60 / 1410.00 2250 / 2250 Output Total 900 / 2500 1200 / 3700 Balance -422.72 / -1150.00 -1140 / -2290.00 2250 / 2250 Physical Exam Narrative: EXAM NARRATIVE: Wound is clean dry intact. Dressing is intact there is no drainage on the dressing. No erythema around the right hip. Urinary Catheter Management^: Chowdary: Cath Placed During This Visit: yes Reason for Continuing Indwelling Catheter: Required Immobilization for Trauma or Surgery or Anesthesia Urinary Catheter Date of Insertion: 10/28/21 Urinary Catheter Time of Insertion: 15:40 Data : 11/01/21 03:10 11/01/21 03:10 Micro: Microbiology 10/30/21 05:53 Blood Culture - Preliminary Blood 10/31/21 05:35 Blood Culture - Preliminary Blood 10/31/21 05:35 Blood Culture - Preliminary Blood 10/29/21 07:29 Anaerobic Culture - Preliminary Hip - #2 10/29/21 07:29 Gram Stain - Final Hip - #1 Abscess Culture - Preliminary Methicillin Resis Staph Aureus 10/28/21 15:35 Blood Culture - Preliminary Blood Methicillin Resis Staph Aureus 10/28/21 15:32 Blood Culture - Preliminary Blood Methicillin Resis Staph Aureus 10/30/21 05:50 Blood Culture - Preliminary Blood NEGATIVE TO DATE A&P Assessment and plan (1) Wound infection after surgery: Had a discussion with the patient's . The daughter was also in the room. At this point patient has hip hemiarthroplasty in place. She can weight- bear as tolerated. If I take the prosthesis out and put a cement spacer in she will not be able to ambulate. Clinically at this point the wound and hip look good. The CT scan that was taken postop day #1 likely is postoperative changes more so than an abscess. At this point based on patient's clinical findings I would recommend antibiotic suppression for the hip. We will monitor her clinical symptoms of the hip and can always do the cement spacer in the future however at this point I recommend keeping the hip in and doing antibiotic suppression. Patient also has subsequently scheduled to have a AMEE to evaluate her heart for possible vegetation on her heart. Status: Acute Attestations Medical Necessity Statement*: per primary service Coding Level of Care Code Acute Dry Roller for Hannah Knox Diagnoses Wound infection after surgery T81.49XA
[2021-11-01 11:15] LABS: Partial Thromboplastin Time 67.4 SECONDS (23.9-36.7)
--- NOTE | 2021-11-01 11:38 | P.ANESUD_ITS ---
Pre-Anesthetic Update Pre-Anesthetic Assessment: Date of Surgery/Procedure: 11/01/21 Preop Anabella gnosis: Right Hip Wound Infection Proposed Procedure: Operation Date: 10/29/21 07:00 Proposed Procedures p Incision and Drainage(Not Applicable) - Lorenzo Kinney, Operation Date: 11/01/21 12:00 Proposed Procedures p AMEE(Not Applicable) - Moriah Watts MD Changes from Pre-Anesthetic Assessment: patient under went recent ECHO which revealed a infective mass vs. thrombus in heart, Dr. Watts has requested that we continue the heparin gtt. Last Intake: Intake Last Liquid Date 10/31/21 Last Liquid Time 20:00 Last Solid Date 10/31/21 Last Solid Time 20:00 Labs Last 48hrs: Laboratory Results - last 48 hr 10/30/21 10/30/21 10/30/21 11:19 11:19 11:19 WBC RBC Hgb Hct MCV MCH MCHC RDW Plt Count 150 MPV Neut % (Auto) Lymph % (Auto) [place] % (Auto) Eos % (Auto) Baso % (Auto) Neut # (Auto) Lymph # (Auto) [place] # (Auto) Eos # (Auto) Baso # (Auto) Nucleated RBC % (a uto) Nucleated RBCs # APTT 33.8 Specimen Type Sample Site ABG pH ABG pCO2 ABG pO2 ABG HCO3 ABG O2 Saturation ABG Base Excess Florian Test A-a O2 Gradient Hematocrit Hgb O2 Saturation Carboxyhemoglobin Methemoglobin Total Hemoglobin Sodium Potassium Glucose Ionized Calcium O2 Delivery Device FiO2 Software Test Automation Engineer ID Chloride Carbon Dioxide Anion Gap BUN Creatinine GFR Calculation Calculated Osmolal ity Lactic Acid Calcium Magnesium Total Bilirubin AST ALT Alkaline Phosphata se Total Protein Albumin Globulin Vancomycin Trough Blood Type A Positive Rho(D) Type Positive Antibody Screen Negative 10/30/21 10/30/21 10/30/21 12:35 14:45 14:45 WBC 12.8 H RBC 3.06 L Hgb 9.5 L Hct 29.7 L MCV 97.1 MCH 31.0 MCHC 32.0 RDW 17.2 H Plt Count 152 MPV 11.0 H Neut % (Auto) 86.0 Lymph % (Auto) 4.1 [place] % (Auto) 5.6 Eos % (Auto) 2.2 Baso % (Auto) 0.5 Neut # (Auto) 11.00 H Lymph # (Auto) 0.5 L [place] # (Auto) 0.7 Eos # (Auto) 0.3 Baso # (Auto) 0.1 Nucleated RBC % (a uto) 0 Nucleated RBCs # 0.0 APTT Specimen Type Arterial Sample Site Radial, right ABG pH 7.40 ABG pCO2 24.2 L ABG pO2 82.6 ABG HCO3 15.1 L ABG O2 Saturation 97.4 ABG Base Excess -8.3 L Florian Test Pos A-a O2 Gradient 4.6 L Hematocrit 29.2 L Hgb O2 Saturation 97.5 Carboxyhemoglobin 0.4 Methemoglobin < 0.0 L Total Hemoglobin 9.5 L Sodium 141.0 141 Potassium 4.0 4.0 Glucose 109.0 117 H Ionized Calcium 1.1 O2 Delivery Device None FiO2 21.0 Software Test Automation Engineer ID Rieri Chloride 113 H Carbon Dioxide 16 L Anion Gap 16.0 BUN 41 H Creatinine 1.1 H GFR Calculation Not Reportable Calculated Osmolal ity 303 H Lactic Acid Calcium 6.9 L Magnesium Total Bilirubin 0.2 AST 28 ALT 29 Alkaline Phosphata se 87 Total Protein 4.8 L Albumin 2.5 L Globulin 2.3 Vancomycin Trough Blood Type Rho(D) Type Antibody Screen 10/30/21 10/30/21 10/31/21 14:45 20:57 04:28 WBC RBC Hgb Hct MCV MCH MCHC RDW Plt Count MPV Neut % (Auto) Lymph % (Auto) [place] % (Auto) Eos % (Auto) Baso % (Auto) Neut # (Auto) Lymph # (Auto) [place] # (Auto) Eos # (Auto) Baso # (Auto) Nucleated RBC % (a uto) Nucleated RBCs # APTT 33.7 Specimen Type Arterial Sample Site Radial, left ABG pH 7.50 H ABG pCO2 21.1 L ABG pO2 84.7 ABG HCO3 16.6 L ABG O2 Saturation ABG Base Excess -4.4 L Florian Test Pos A-a O2 Gradient Hematocrit 40.6 Hgb O2 Saturation Carboxyhemoglobin Methemoglobin Total Hemoglobin Sodium Potassium Glucose Ionized Calcium O2 Delivery Device Bipap FiO2 Software Test Automation Engineer ID Anonymous Chloride Carbon Dioxide Anion Gap BUN Creatinine GFR Calculation Calculated Osmolal ity Lactic Acid 1.5 Calcium Magnesium Total Bilirubin AST ALT Alkaline Phosphata se Total Protein Albumin Globulin Vancomycin Trough Blood Type Rho(D) Type Antibody Screen 10/31/21 10/31/21 10/31/21 05:35 05:35 05:35 WBC 12.5 H RBC 2.88 L Hgb 8.9 L Hct 27.2 L MCV 94.4 MCH 30.9 MCHC 32.7 RDW 17.2 H Plt Count 127 L MPV 11.8 H Neut % (Auto) 82.1 Lymph % (Auto) 6.7 [place] % (Auto) 6.8 Eos % (Auto) 2.7 Baso % (Auto) 0.4 Neut # (Auto) 10.22 H Lymph # (Auto) 0.8 [place] # (Auto) 0.9 Eos # (Auto) 0.3 Baso # (Auto) 0.1 Nucleated RBC % (a uto) 0 Nucleated RBCs # 0.0 APTT 54.9 H D Specimen Type Sample Site ABG pH ABG pCO2 ABG pO2 ABG HCO3 ABG O2 Saturation ABG Base Excess Florian Test A-a O2 Gradient Hematocrit Hgb O2 Saturation Carboxyhemoglobin Methemoglobin Total Hemoglobin Sodium 140 Potassium 3.6 Glucose 108 Ionized Calcium O2 Delivery Device FiO2 Software Test Automation Engineer ID Chloride 113 H Carbon Dioxide 15 L Anion Gap 15.6 BUN 36 H Creatinine 1.1 H GFR Calculation Not Reportable Calculated Osmolal ity 299 H Lactic Acid Calcium 7.1 L Magnesium 1.8 Total Bilirubin AST ALT Alkaline Phosphata se Total Protein Albumin Globulin Vancomycin Trough Blood Type Rho(D) Type Antibody Screen 10/31/21 10/31/21 10/31/21 13:00 15:48 20:09 WBC RBC Hgb Hct MCV MCH MCHC RDW Plt Count MPV Neut % (Auto) Lymph % (Auto) [place] % (Auto) Eos % (Auto) Baso % (Auto) Neut # (Auto) Lymph # (Auto) [place] # (Auto) Eos # (Auto) Baso # (Auto) Nucleated RBC % (a uto) Nucleated RBCs # APTT 55.2 H 42.0 H Specimen Type Sample Site ABG pH ABG pCO2 ABG pO2 ABG HCO3 ABG O2 Saturation ABG Base Excess Florian Test A-a O2 Gradient Hematocrit Hgb O2 Saturation Carboxyhemoglobin Methemoglobin Total Hemoglobin Sodium Potassium Glucose Ionized Calcium O2 Delivery Device FiO2 Software Test Automation Engineer ID Chloride Carbon Dioxide Anion Gap BUN Creatinine GFR Calculation Calculated Osmolal ity Lactic Acid Calcium Magnesium Total Bilirubin AST ALT Alkaline Phosphata se Total Protein Albumin Globulin Vancomycin Trough 7.5 L Blood Type Rho(D) Type Antibody Screen 11/01/21 11/01/21 11/01/21 03:10 03:10 03:10 WBC 15.0 H RBC 2.75 L Hgb 8.6 L Hct 25.8 L MCV 93.8 MCH 31.3 MCHC 33.3 RDW 17.2 H Plt Count 103 L MPV 11.8 H Neut % (Auto) 83.5 Lymph % (Auto) 7.1 [place] % (Auto) 6.1 Eos % (Auto) 1.1 Baso % (Auto) 0.5 Neut # (Auto) 12.52 H Lymph # (Auto) 1.1 [place] # (Auto) 0.9 Eos # (Auto) 0.2 Baso # (Auto) 0.1 Nucleated RBC % (a uto) 0 Nucleated RBCs # 0.0 APTT 92.9 H D Specimen Type Sample Site ABG pH ABG pCO2 ABG pO2 ABG HCO3 ABG O2 Saturation ABG Base Excess Florian Test A-a O2 Gradient Hematocrit Hgb O2 Saturation Carboxyhemoglobin Methemoglobin Total Hemoglobin Sodium 143 Potassium 3.7 Glucose 125 H Ionized Calcium O2 Delivery Device FiO2 Software Test Automation Engineer ID Chloride 112 H Carbon Dioxide 17 L Anion Gap 17.7 BUN 36 H Creatinine 1.0 H GFR Calculation Not Reportable Calculated Osmolal ity 306 H Lactic Acid Calcium 7.8 L Magnesium Total Bilirubin AST ALT Alkaline Phosphata se Total Protein Albumin Globulin Vancomycin Trough Blood Type Rho(D) Type Antibody Screen 11/01/21 10:26 WBC RBC Hgb Hct MCV MCH MCHC RDW Plt Count MPV Neut % (Auto) Lymph % (Auto) [place] % (Auto) Eos % (Auto) Baso % (Auto) Neut # (Auto) Lymph # (Auto) [place] # (Auto) Eos # (Auto) Baso # (Auto) Nucleated RBC % (a uto) Nucleated RBCs # APTT 67.4 H Specimen Type Sample Site ABG pH ABG pCO2 ABG pO2 ABG HCO3 ABG O2 Saturation ABG Base Excess Florian Test A-a O2 Gradient Hematocrit Hgb O2 Saturation Carboxyhemoglobin Methemoglobin Total Hemoglobin Sodium Potassium Glucose Ionized Calcium O2 Delivery Device FiO2 Software Test Automation Engineer ID Chloride Carbon Dioxide Anion Gap BUN Creatinine GFR Calculation Calculated Osmolal ity Lactic Acid Calcium Magnesium Total Bilirubin AST ALT Alkaline Phosphata se Total Protein Albumin Globulin Vancomycin Trough Blood Type Rho(D) Type Antibody Screen Vitals: Temperature 98.0 F 11/01/21 07:56 Temperature Source Oral 11/01/21 07:56 Pulse Rate 92 11/01/21 09:12 Pulse Rhythm 10/30/21 06:00 Pulse Strength 3+ Normal 10/30/21 06:00 Respiratory Rate 26 H 11/01/21 09:12 Respiratory Effort Non-Labored 10/31/21 19:43 Respiratory Depth Normal 10/31/21 19:43 Respiratory Patter n 10/31/21 19:43 Blood Pressure 126/70 11/01/21 07:56 Blood Pressure Vicki n 88 11/01/21 07:56 Blood Pressure Pos ition Semi Fowlers 11/01/21 07:56 Pulse Oximetry 96 11/01/21 09:12 Oxygen Delivery Me thod 11/01/21 09:12 Oxygen Flow Rate 7 10/29/21 08:14 Fraction of Inspir ed Oxygen 21 11/01/21 06:16 Sepsis Recent Feve r Within 48 Hours Yes 10/28/21 12:54 Sepsis New/Unexpla ined Change in Men hazel Status No 10/28/21 12:54 Cardiac Studies: Echocardiogram 10/29/21
[2021-11-01] MEDS: sodium chloride 0.9% 1,000 ML 30 ML IV (11:46)
--- NOTE | 2021-11-01 11:49 | P.PN_ITS ---
Subjective Subjective: Interval history: Plan for transesophageal echo today, This morning she was on room air, respiratory rate has improved significantly, Drowsy this morning Family at the bedside Still experiencing low-grade febrile episodes Vitals/I&O/Wt Last Vital Signs Temp 98.7 F 11/01/21 11:44 Pulse 84 11/01/21 11:44 Resp 20 H 11/01/21 11:44 BP 107/55 11/01/21 11:44 Pulse Ox 97 11/01/21 11:44 10/31/21 11/01/21 11/01/21 22:59 06:59 14:59 Intake Total 477.28 / 1350.00 60 / 1410.00 2250 / 2250 Output Total 900 / 2500 1200 / 3700 800 / 800 Balance -422.72 / -1150.00 -1140 / -2290.00 1450 / 1450 Physical Exam Narrative: EXAM NARRATIVE: Patient was patient was in semi-Gee position Saturating well on room air No tachypnea no signs of acute respite distress tried to talk with her if she repeated what ever he said I do not see any new focal deficit Looks dehydrated No audible stridor or wheezing Abdomen soft Urinary Catheter Management^: Chowdary: Cath Placed During This Visit: yes Reason for Continuing Indwelling Catheter: Required Immobilization for Trauma or Surgery or Anesthesia Urinary Catheter Date of Insertion: 10/28/21 Urinary Catheter Time of Insertion: 15:40 Data : 11/01/21 03:10 11/01/21 03:10 Micro: Microbiology 10/29/21 07:29 Gram Stain - Final Hip - #1 Abscess Culture - Final Methicillin Resis Staph Aureus 10/30/21 05:53 Blood Culture - Preliminary Blood 10/31/21 05:35 Blood Culture - Preliminary Blood 10/31/21 05:35 Blood Culture - Preliminary Blood 10/29/21 07:29 Anaerobic Culture - Preliminary Hip - #2 10/28/21 15:35 Blood Culture - Preliminary Blood Methicillin Resis Staph Aureus 10/28/21 15:32 Blood Culture - Preliminary Blood Methicillin Resis Staph Aureus 10/30/21 05:50 Blood Culture - Preliminary Blood NEGATIVE TO DATE A&P Assessment and plan (1) Gram-positive cocci bacteremia: Status: Acute (2) CVA (cerebral vascular accident): Status: Acute (3) Aphasia: Status: Acute (4) Progressive supranuclear palsy: Status: Acute (5) Dementia: Status: Acute Additional A&P Information Gram-positive bacteremia, staph aureus/MRSA Repeat blood cultures negative to date Low-grade fever noted overnight Worsening leukocytosis Transesophageal echo today Heparin drip was initiated for cardiac thrombus/mass concern, will discontinue if no such findings are detected on transesophageal echo today Currently patient is on vancomycin, she is still experiencing low-grade fever, will add cefepime again Patient has bilateral pleural effusion Her tachypnea has resolved she improved significantly with use of Lasix and BiPAP Today she is saturating well on room air Septic emboli: Hold aspirin and Plavix for now for the procedure Orthopedic Dr. Armstrong reevaluated the patient today, recommended IV antibiotics, no plan for surgical intervention, he can do cement spacer down the road but not during this visit DNR/DNI Guarded prognosis Resume diet after transesophageal echo I will give her 250 mL bolus for low blood pressure, she received Lasix over the weekend Attestations Medical Necessity Statement*: Guarded prognosis transesophageal echo today Time Spent in Patient Care: less than 15 minutes Coding Level of Care Code Acute Patient Access Coordinator for g Fwd Diagnoses Gram-positive cocci bacteremia R78.81 CVA (cerebral vascular accident) I63.9 Aphasia R47.01 Progressive supranuclear palsy G23.1 Dementia F03.90
--- NOTE | 2021-11-01 12:05 | P.PN_ITS ---
Subjective Subjective: Interval history: Patient was seen before and after AMEE today Medications: Reviewed: Yes Vitals/I&O/Wt Last Vital Signs Temp 98.7 F 11/01/21 11:44 Pulse 84 11/01/21 11:44 Resp 20 H 11/01/21 11:44 BP 107/55 11/01/21 11:44 Pulse Ox 97 11/01/21 11:44 10/31/21 11/01/21 11/01/21 22:59 06:59 14:59 Intake Total 477.28 / 1350.00 60 / 1410.00 2250 / 2250 Output Total 900 / 2500 1200 / 3700 800 / 800 Balance -422.72 / -1150.00 -1140 / -2290.00 1450 / 1450 Physical Exam Narrative: EXAM NARRATIVE: GENERAL: Averagely built and averagely nourished in no acute distress HEENT: No pallor or icterus. NECK: No JVD CARDIOVASCULAR SYSTEM: S1-S2 regular. Grade 3 systolic murmur in LLSB RESPIRATORY SYSTEM: Chest clear to auscultation. No wheezes rhonchi or rubs he lori. ABDOMEN: Soft, nontender and nondistended. Normal bowel sounds present. EXTREMITIES: No cyanosis or edema. STATISTICAL PROGRAMMER ANALYST: Patient is alert Urinary Catheter Management^: Chowdary: Cath Placed During This Visit: yes Reason for Continuing Indwelling Catheter: Required Immobilization for Trauma or Surgery or Anesthesia Urinary Catheter Date of Insertion: 10/28/21 Urinary Catheter Time of Insertion: 15:40 Data : 11/01/21 03:10 11/01/21 03:10 Micro: Microbiology 10/29/21 07:29 Gram Stain - Final Hip - #1 Abscess Culture - Final Methicillin Resis Staph Aureus 10/30/21 05:53 Blood Culture - Preliminary Blood 10/31/21 05:35 Blood Culture - Preliminary Blood 10/31/21 05:35 Blood Culture - Preliminary Blood 10/29/21 07:29 Anaerobic Culture - Preliminary Hip - #2 10/28/21 15:35 Blood Culture - Preliminary Blood Methicillin Resis Staph Aureus 10/28/21 15:32 Blood Culture - Preliminary Blood Methicillin Resis Staph Aureus A&P Assessment and plan (1) Gram-positive cocci bacteremia: Transthoracic echocardiogram with large echogenic mobile mass attached to tricuspid valve annulus that may represent vegetation/thrombus. -I spoke to patient's Harsha and all his questions were answered. -Patient is DNI however patient's is agreeable with short-term intubation if needed for AMEE. -She has partial dentures no surgeries of esophagus or stomach. No prior reactions to anesthesia. -No history of sleep apnea Risks and benefits were discussed with the patients' . Possible complications were reviewed as well. Plan is to proceed with the procedure today on scheduling. 11/01/21 Blood cx 12/23 from 10/28/21 grew MRSA. AMEE done today did not show any vegetation. Prominent thickened eustachian valve noted in right atrium. No ASD or PFO noted, Status: Acute (2) CVA (cerebral vascular accident): Acute infarct RIGHT posterior lateral occipital lobe with an additional acute lacunar infarct in the LEFT temporal lobe noted on cardiac MRI -given h/o a. fin s/p ablation 4-5 years ago with [id number]= 4/9; 1 for sex, 1 for age and 2 for CVA -recommend starting on OAC on discharge if feasible and patient agreeable. Status: Acute (3) Wound infection after surgery: Status: Acute (4) Status post hip hemiarthroplasty: Status: Acute Additional A&P Information History of A. fib s/p ablation not on anticoagulation History of progressive supranuclear palsy Aphasia/dementia Thank you for allowing me to participate in patient's care. Please feel free to call with questions or concerns. Attestations Medical Necessity Statement*: As per primary team Time Spent in Patient Care: Greater than 35 minutes Procedures Time out/Consent Time Out Performed: Yes Consent for Procedure: Consent obtained from patient, Risks & Benefits reviewed and Agrees to proceed with procedure Procedure Narrative Transesophageal echocardiogram: Indication: Right atrial mass; r/o endocarditis vs thrombus Normal left ventricular size and systolic function. Normal right ventricular size and systolic function. No ASD or PFO. Prominent Eustachian valve in right atrium. No evidence of vegetation. Moderate TR. Coding Level of Care Code Established Pt Acute Mapping Editor for Chg Fwd Patient Type Established History Detailed Exam Detailed Medical Decision Making Moderate Complexity Diagnoses Gram-positive cocci bacteremia R78.81 CVA (cerebral vascular accident) I63.9 Wound infection after surgery T81.49XA Status post hip hemiarthroplasty Z96.649 Time Spent (min) 40
--- NOTE | 2021-11-01 13:10 | PC.NURSE ---
Small amount of blood coming from patients left nostril when this RN received patient. Bleeding had stopped and started to dry before this RN transported patient to the floor. Dr. Watts notified of the finding. No new orders.
--- NOTE | 2021-11-01 14:09 | ANE.PACU2 ---
Inpatient post-anesthesia follow up: Airway intact: Yes Vital signs: Temperature 99.3 F Pulse Rate 84 Respiratory Rate 18 Blood Pressure 91/46 Pulse Oximetry 95 Oxygen Delivery Me thod Room Air Oxygen Flow Rate 10 Fraction of Inspir ed Oxygen 21 Hydration adequate: Yes Nausea and vomiting: No Pain level: 2 Mental status: Baseline
--- NOTE | 2021-11-01 16:00 | XR_ITS ---
WS: [id number] XR chest 1V portable [id number] REASON FOR EXAM: P effusion FINDINGS: Compared to previous examination of 10/28/2021, there is significant gaseous distention of the stomach with elevation of the left hemidiaphragm. There also appears to be air in the esophagus which was not seen on the previous examination. The chest is otherwise unchanged compared to the previous examination. XR/XR chest 1V portable [id number] IMPRESSION: Marked gaseous distention of the stomach with elevation left diaphragm and air in the esophagus, new findings compared to the previous study. Gross distention of the stomach with fluid and air was noted on the CT scan of 10/30/2021. Findings suggest gastric atony or possibly gastric outlet obstruction. Clinical correlation to be made.
[2021-11-01 17:09] LABS: Partial Thromboplastin Time 53.4 SECONDS (23.9-36.7)
[2021-11-01] MEDS: cefepime 2,000 MG in sodium chloride 0.9% (plus) 50 ML 100 MG IV (17:16)
[2021-11-01] MEDS: pantoprazole 40 mg SDV IVP (17:16)
[2021-11-01] MEDS: acetaminophen 325 mg Tablet 650 MG PO (17:27)
[2021-11-01] MEDS: vancomycin 1,000 MG in sodium chloride 0.9% 250 ML 250 MG IV (18:05)
[2021-11-01] MEDS: heparin 5,000 unit/mL INJ 1 mL IV (18:11)
[2021-11-01 19:54] LABS: SARS Covid-2 Antigen Negative (Negative)
[2021-11-01] MEDS: atorvastatin 40 mg Tablet 80 MG PO (20:25)
--- NOTE | 2021-11-01 21:14 | PM.CONSULT ---
Providers/Reason For Consult Consulting Physician/Specialty*: Valeri Mathews MD/Infectious Disease Reason for Consult*: prosthetic joint infection, MRSA bacteremia Attending Physician: Diane Nunez MD Primary Care Provider: KAILYN Calzada History of Present Illness History of Present Illness Jannet Ashford is a 71 year old female with longstanding history of spinal stenosis, back pain, progressive supranuclear palsy, atrial fibrillation status post ablation not on anticoagulation. She suffered a mechanical fall resulting in right femoral neck fracture for which she underwent right hip hemiarthroplasty on October 09, 2021. She was discharged home in stable condition on October 11, 2021. On a follow-up visit with orthopedics on October 28 she was noted to have drainage from her right hip incision which started approximately 1 week after her discharge. She had been having increasing trouble getting out of chair and ambulating. She was admitted for I&D of the right hip and underwent this procedure on October 29, 2021. Op findings note that the wound was dehisced. Necrotic tissue was debrided and wound was irrigated. Implant was retained in spite of concern for underlying infection due to patient's multiple comorbidities and for the fact that patient was unlikely to tolerate multiple debridements and nonambulatory cement spacer with implant exchange. A drain was placed and the wound was closed, however patient pulled out the drain on October 30. Blood culture from October 28 has resulted as positive for MRSA. Her hospital course has been notable for worsened mental status. MRI of the brain as in the interim revealed acute stroke in the right parieto-occipital junction and a second lesion in the left frontal temporal junction around the sylvian fissure. Overall concern for embolic phenomenon along with more chronic changes of progressive supranuclear palsy. A TTE showed large mobile echogenic structure that seems to be attached to the tricuspid valve annulus noted in right atrium. This may represent endocarditis vs atrial mass/thrombus . These changes were opined to be present on a prior TTE study performed on October 09, 2021 as well per cardiology. Follow up AMEE performed today negative for vegetation, but showed prominent thickened eustachian valve noted in right atrium. No ASD or PFO noted per prelim results. On September 29, she had an episode of acute tachypnea respiratory rate in the 40s requiring BiPAP support and lasix. WBC trend 7.9 -->12.8 --> 15 Current treatment: iv vancomycin 1/6- current, last trough 7.5 on 10/31 (dose 750mg iv q24h) , iv cefepime 10/28- current Temp trend: afebrile on admission, 10/30 T max 102F, 10/31 t max 101.6, 11/01 tmax 100.2F Blood cx persistent positive 10/28-10/31 Review of Systems General: Reports: ROS unobtainable due to medical condition and ROS unobtainable due to mental status Meds/Allergies Home Medications and Allergies Home Medications Medication Instructions Recorded Confirmed Last Taken Type aspirin 81 mg chewable tablet 81 mg PO DAILY 10/30/19 10/28/21 10/27/21 History cholecalciferol (vitamin D3) 25 25 mcg PO DAILY 01/16/20 10/28/21 10/27/21 History mcg (1,000 unit) tablet glucosamine-chondroitin 250 mg-200 1 tab PO DAILY tab 08/25/20 10/28/21 10/27/21 History mg tablet red yeast rice 600 mg capsule 1,200 mg PO DAILY cap 08/25/20 10/28/21 10/27/21 History rosuvastatin 20 mg tablet 20 mg PO DAILY 08/25/20 10/28/21 10/27/21 History vit C 250 mg-vit E 90 mg-zinc 40 2 tab PO BID cap 08/25/20 10/28/21 10/27/21 History mg-copper 1 [id number] capsule coenzyme [id number] 100 mg-100 1 cap PO DAILY cap 09/28/20 10/28/21 10/27/21 History unit capsule lithium carbonate 150 mg capsule 150 mg PO DAILY cap 07/14/21 10/28/21 10/27/21 History hydrocodone 5 mg-acetaminophen 325 1 tab PO TID PRN 30 Days #90 tab 09/23/21 10/28/21 Unknown Rx mg tablet hydrocodone 5 mg-acetaminophen 325 1 tab PO TID PRN 30 Days #90 tab 09/23/21 10/28/21 10/08/21 Rx mg tablet meloxicam 7.5 mg tablet 7.5 mg PO DAILY 30 Days #30 tab 09/27/21 10/28/21 10/28/21 Rx galantamine 24 mg 24 hr 24 mg PO QAM #30 cap 10/25/21 10/28/21 10/28/21 Rx capsule,extended release Allergies Allergy/AdvReac Type Severity Reaction Status Date / Time Penicillins Allergy Severe ALGY-Anaphy Verified 10/28/21 11:47 laxis gabapentin AdvReac SPEECH Verified 10/28/21 11:47 DIFFICULTY Sulfa (Sulfonamide AdvReac WAS TOLD Verified 10/28/21 11:47 Antibiotics) BY HER MOTHER THAT SHE IS ALLERGIC Current Medications Current Medications Generic Name Dose Route Start Last Admin Trade Name Freq PRN Reason Stop Dose Admin Acetaminophen 650 mg 10/28/21 16:35 11/01/21 17:27 Acetaminophen 325 Mg Tablet PO 650 mg Q6H PRN Administration Mild/Mod Pain Or Temp >/= 101 Aspirin 81 mg 10/30/21 09:00 10/31/21 07:57 Aspirin 81 Mg Ec Tablet PO 81 mg DAILY MILADYS Administration Atorvastatin Calcium 80 mg 10/29/21 21:00 11/01/21 20:25 Atorvastatin 40 Mg Tablet PO 80 mg BEDTIME MILADYS Administration Clopidogrel Bisulfate 75 mg 10/30/21 09:00 10/31/21 07:57 Clopidogrel 75 Mg Tablet PO 75 mg DAILY MILADYS Administration Heparin Sodium (Porcine) 0 unit 10/30/21 10:00 11/01/21 18:11 Heparin 5,000 Unit/Ml Inj 1 Ml IV 1,000 unit PRN PRN Administration Heparin weight-base protocol Protocol Heparin Sodium/Sodium Chloride 25,000 unit in 500 mls @ 0 mls/hr 10/30/21 10:00 11/01/21 16:48 Heparin Drip IV 15.34 unit/kg/hr .Q0M MILADYS 16 mls/hr Titration Protocol Per Protocol Vancomycin HCl 1,000 mg/ 250 mls @ 250 mls/hr 10/31/21 17:30 11/01/21 19:17 Sodium Chloride IV Infused Q24H MILADYS Infusion Sodium Chloride 1,000 mls @ 30 mls/hr 11/01/21 11:45 11/01/21 11:46 Sodium Chloride 0.9% IV 11/02/21 11:44 30 mls/hr .Q24H MILADYS Administration Cefepime HCl 2,000 mg/ Sodium 50 mls @ 100 mls/hr 11/01/21 14:00 11/01/21 18:15 Chloride IV Infused Q12H MILADYS Infusion Protocol Morphine Sulfate 2 mg 10/30/21 18:52 10/31/21 03:04 Morphine 4 Mg/Ml Sdv 1 Ml IVP 2 mg Q4H PRN Administration SEVERE PAIN Pantoprazole Sodium 40 mg 10/28/21 16:45 11/01/21 17:16 Pantoprazole 40 Mg Sdv IVP 40 mg Q24H MILADYS Administration Senna/Docusate Sodium 1 tab 10/29/21 09:00 10/30/21 08:10 Sennosides-Docusate Tablet PO Not Given DAILY MILADYS PFSH Acute PFSH: Medical History Aftercare following surgery of the genitourinary system Chronic right hip pain Closed right hip fracture Dementia Displaced fracture of right femoral neck Encounter for long-term (current) use of NSAIDs Encounter for long-term opiate analgesic use Facet syndrome, lumbar Female cystocele Intervertebral disc disorder with radiculopathy of lumbosacral region Long-term use of high-risk medication Low back pain Parkinsonian features Primary progressive nonfluent aphasia Smoker has now changed to e-cig Spinal stenosis of lumbar region with radiculopathy Spondylolisthesis, lumbar region Surgical History H/O submandibular gland removal H/O vaginal surgery 09/30/2020- anterior colporrhaphy augmented with allograft and single incision mid urethral sling, performed by Dr. Stoll at [facility] History of cardiac radiofrequency ablation 2011 S/P cholecystectomy 2010 S/P hip hemiarthroplasty S/P hysterectomy 2003 Family History Sister Dementia Father Myocardial infarct Heart disease Mother Cancer BRAIN TUMOR Brother Hypertension Cancer colon cancer Denies family history of Ovarian cancer Diabetes Clotting disorder Hyperlipidemia Breast cancer Anesthesia complication Bleeding disorder Uterine cancer Thyroid condition Stroke Social History Alcohol intake: never History of recent travel: No Vitals/I&O/Wt Last Vital Signs Temp 98.6 F 11/01/21 20:00 Pulse 96 11/01/21 20:00 Resp 18 11/01/21 20:00 BP 94/54 11/01/21 20:00 Pulse Ox 97 01/10/22 20:00 11/01/21 11/01/21 11/01/21 06:59 14:59 22:59 Intake Total 128.283 / 1226.717 5094 / 2250 732 / 2982 Output Total 1200 / 3700 800 / 800 450 / 1250 Balance -1071.717 / -2221.717 1450 / 1450 282 / 1732 Physical Exam Urinary Catheter Management^: Chowdary: Cath Placed During This Visit: yes Reason for Continuing Indwelling Catheter: Other Urinary Catheter Date of Insertion: 10/28/21 Urinary Catheter Time of Insertion: 15:40 Data Micro: Micro: Microbiology 10/29/21 07:29 Anaerobic Culture - Preliminary Hip - #2 10/28/21 15:35 Blood Culture - Fi nal (3/3+) Blood Methicillin Res is Staph Aureus M. I.C. RX --- ------ ------ * Ampicillin >8 R * Ciprofloxaci n >2 R * Clindamyci n >4 R * Erythrom ycin >4 R * Gentam icin <=4 S * Levo floxacin >4 R * Li nezolid 2 S * Oxacillin >2 R * Penicillin >8 R * Rifampin <=1 S * Tetracycline >8 R * Trimethopr im/Sulfamethoxazol e <=0.5/9.5 S Vancomyc in 2 S Daptom ycin <=0.5 S 10/28/21 15:32 Blood Culture - Fi nal Blood Methicillin Res is Staph Aureus 10/29/21 07:29 Gram Stain - Final Hip - #1 Abscess Culture - Final Methicillin Res is Staph Aureus 10/30/21 05:53 Blood Culture - 1/ 4 positive for GPC in clusters Blood 10/31/21 05:35 Blood Culture - 3/ 4 positive GPC in clusters Blood 10/31/21 05:35 Blood Culture - Pr eliminary positive GPC in clusters Blood Other Data: Attestation for Other Data: I personally reviewed and interpreted the following: Other data: Radiology Impressions Hip CT 10/28/21 16:21 IMPRESSION: 1. Postoperative right hip hemiarthroplasty about 1 month ago with large fluid collection in the subcutaneous fat deep to the superficial skin merced containing air bubbles and a tract dissecting medially into the anterior hip joint concerning for infection with abscess and communication with the hip joint. There does appear to be a small amount of gas in the hip joint with adjacent right hip joint effusion. 2. No bony destruction or osteomyelitis. No acute fracture. Head CT 10/28/21 17:30 IMPRESSION: No acute intracranial abnormality. Head MRI 10/29/21 10:00 IMPRESSION: 1. Acute infarct RIGHT posterior lateral occipital lobe with an additional acute lacunar infarct in the LEFT temporal lobe. Consider embolic source of these infarcts. 2. Moderate atrophy with chronic ischemic changes. Chest/Abdomen/Pelvis CT 10/30/21 12:54 IMPRESSION: 1. Bilateral pleural effusions with adjacent compressive atelectasis. 2. There is mucosal thickening of the distal esophagus. Differential includes nonspecific esophagitis. Follow-up to exclude neoplasm as clinically warranted. IMPRESSION: 1. There is complex fluid and air adjacent to the right total hip replacement consistent with abscess formation. 2. Soft tissue anasarca. 3. Colonic constipation is present. Chest X-Ray 11/01/21 16:00 IMPRESSION: Marked gaseous distention of the stomach with elevation left diaphragm and air in the esophagus, new findings compared to the previous study. Gross distention of the stomach with fluid and air was noted on the CT scan of 10/30/2021. Findings suggest gastric atony or possibly gastric outlet obstruction. Clinical correlation to be made. Date of Service: 10/09/21 Procedure(s): CV. echo complete* [id number] CONCLUSIONS 1-Normal left ventricular cavity size. Normal left ventricular systolic function. No regional wall motion abnormalities. Left ventricular ejection fraction is estimated at 60 %. Grade I/IV diastolic dysfunction (abnormal relaxation filling pattern), normal to mildly elevated filling pressures. 2-There is no pericardial effusion. 3-No significant valve abnormalities. 4-Pulmonary artery systolic pressure is within normal limits. 5-Right atrial pressure is around 5 mm of mercury. 6-No significant change since the prior echocardiogram study of 02/03/2014. Date of Service: 10/29/21 Procedure(s): CV. echo w/w bubble cont [id number] CONCLUSIONS 1. Normal left ventricular size, systolic function and wall thickness, with no regional wall motion abnormalities. Left ventricular ejection fraction is estimated at 65-70 %. Normal diastolic function. 2. Large mobile echogenic structure that seems to be attached to the tricuspid valve annulus noted in right atrium. This may represent endocarditis vs atrial mass/thrombus. 3.Pulmonary artery pressure estimated at 38 mmHg. 4. On comparison to previous study dated 10/09/2021, this was seen on prior study as well. AMEE is recommended for further evaluation. Laboratory Results WBC 15.0 10^3/uL (4.0 -10.0) H 11/01/21 03:10 RBC 2.75 10^6/uL (4.1 -5.3) L 11/01/21 03:10 Hgb 8.6 g/dL (11.5-15 .3) L 11/01/21 03:10 Hct 25.8 % (37.0-47.0 ) L 11/01/21 03:10 MCV 93.8 fl (81-99) 11/01/21 03:10 MCH 31.3 pg (28.0-34. 0) 11/01/21 03:10 MCHC 33.3 g/dL (30.0-3 6.0) 11/01/21 03:10 RDW 17.2 % (12.1-15.1 ) H 11/01/21 03:10 Plt Count 103 10^3/cmm (130 -400) L 11/01/21 03:10 MPV 11.8 fL (7.4-10.4 ) H 11/01/21 03:10 Neut % (Auto) 83.5 % 11/01/21 03:10 Lymph % (Auto) 7.1 % 11/01/21 03:10 Holmes % (Auto) 6.1 % 11/01/21 03:10 Eos % (Auto) 1.1 % 11/01/21 03:10 Baso % (Auto) 0.5 % 11/01/21 03:10 Neut # (Auto) 12.52 10^3/uL (1. 8-7.7) H 11/01/21 03:10 Lymph # (Auto) 1.1 10^3/uL (0.8- 4.8) 11/01/21 03:10 Holmes # (Auto) 0.9 10^3/uL (0.2- 0.9) 11/01/21 03:10 Eos # (Auto) 0.2 10^3/uL (0.0- 0.8) 11/01/21 03:10 Baso # (Auto) 0.1 10^3/uL (0.0- 0.1) 11/01/21 03:10 Nucleated RBC % (a uto) 0 % 11/01/21 03:10 Total Counted 100 (0-100) 10/28/21 15:35 Atypical Lymphs % 1.0 % (0-5) 10/28/21 15:35 Absolute Neutrophi ls 7.4 10^3/cmm (1.4 -6.5) H 10/28/21 15:35 Segmented Neutroph ils 88 % 10/28/21 15:35 Abs Segm Neuts (Ma n) 7.0 10/cmm (1.6-7 .1) 10/28/21 15:35 Band Neutrophils 6.0 % 10/28/21 15:35 Abs Band Neuts (Ma n) 0.5 10^3/cmm (0.0 -1.2) 10/28/21 15:35 Absolute Lymphocyt es 0.2 10^3/cmm (1.2 -3.4) L 10/28/21 15:35 Lymphocytes (Manua l) 1 % 10/28/21 15:35 Monocytes (Manual) 4.0 % 10/28/21 15:35 Absolute Monocytes 0.3 10^3/cmm (0.1 -0.6) 10/28/21 15:35 Eosinophils (Manua l) 0 % 10/28/21 15:35 Absolute Eosinophi ls 0.0 10^3/cmm (0.0 -0.7) 10/28/21 15:35 Basophils (Manual) 0.0 % 10/28/21 15:35 Absolute Basophils 0.0 10^3/cmm (0.0 -0.2) 10/28/21 15:35 Nucleated RBCs # 0.0 /100WBC 11/01/21 03:10 Platelet Estimate Normal (Normal) 10/28/21 15:35 ESR 57 mm/hr (0-15) H 10/28/21 15:35 PT 14.60 SECONDS (12 .1-14.9) 10/28/21 15:35 INR 1.11 (0.8-1.2) 10/28/21 15:35 APTT 53.4 SECONDS (23. 9-36.7) H 11/01/21 16:48 Fibrinogen 885 mg/dL (174-49 8) H 10/28/21 15:35 Specimen Type Arterial 10/31/21 04:28 Sample Site Radial, left 10/31/21 04:28 ABG pH 7.50 (7.35-7.45) H 10/31/21 04:28 ABG pCO2 21.1 mmHg (35-45) L 10/31/21 04:28 ABG pO2 84.7 mmHg (80.0-1 00.0) 10/31/21 04:28 ABG HCO3 16.6 mmol/L (22-2 6) L 10/31/21 04:28 ABG O2 Saturation 97.4 10/30/21 12:35 ABG Base Excess -4.4 mmol/L (-2.0 -2.0) L 10/31/21 04:28 Florian Test Pos 10/31/21 04:28 A-a O2 Gradient 4.6 mmHg (5-10) L 10/30/21 12:35 Hematocrit 40.6 % (37-47) 10/31/21 04:28 Hgb O2 Saturation 97.5 % (95-100) 10/30/21 12:35 Carboxyhemoglobin 0.4 %THgb (0.4-20 .1) 10/30/21 12:35 Methemoglobin < 0.0 % (0.4-1.5) L 10/30/21 12:35 Total Hemoglobin 9.5 g/dL (12-16) L 10/30/21 12:35 Sodium 141.0 mmol/L (131 -143) 10/30/21 12:35 Potassium 4.0 mmol/L (3.5-5 .0) 10/30/21 12:35 Glucose 109.0 mg/dL (70-1 15) 10/30/21 12:35 Ionized Calcium 1.1 mmol/L (1.1-1 .4) 10/30/21 12:35 O2 Delivery Device Bipap 10/31/21 04:28 FiO2 21.0 % 10/30/21 12:35 Clerical Grader ID Anonymous 10/31/21 04:28 Sodium 143 mmol/L (136-1 45) 11/01/21 03:10 Potassium 3.7 mmol/L (3.5-5 .1) 11/01/21 03:10 Chloride 112 mmol/L (98-10 7) H 11/01/21 03:10 Carbon Dioxide 17 mmol/L (22-29) L 11/01/21 03:10 Anion Gap 17.7 (5-19) 11/01/21 03:10 BUN 36 mg/dL (8-23) H 11/01/21 03:10 Creatinine 1.0 mg/dL (0.5-0. 9) H 11/01/21 03:10 GFR Calculation Not Reportable 11/01/21 03:10 Glucose 125 mg/dL (65-115 ) H 11/01/21 03:10 POC Glucose 91 mg/dL (70-110) 10/29/21 12:25 Calculated Osmolal ity 306 mOsm/kg (285- 295) H 11/01/21 03:10 Lactic Acid 1.5 mmol/L (0.5-2 .2) 10/30/21 14:45 Lactate 2.5 mmol/L (0.5-2 .2) H 10/30/21 08:50 Calcium 7.8 mg/dL (8.5-10 .5) L 11/01/21 03:10 Magnesium 1.8 mg/dL (1.7-2. 3) 10/31/21 05:35 Total Bilirubin 0.2 mg/dL (0.15-1 .2) 10/30/21 14:45 AST 28 U/L (0-32) 10/30/21 14:45 ALT 29 U/L (0-33) 10/30/21 14:45 Alkaline Phosphata se 87 IU/L (35-105) 10/30/21 14:45 Troponin T Gen 5 n g/L 63 ng/L (0-10) H 10/29/21 13:26 C-Reactive Protein 405.1 mg/L (0.0-4 .9) H 10/28/21 15:35 Total Protein 4.8 g/dL (6.6-8.7 ) L 10/30/21 14:45 Albumin 2.5 g/dL (3.5-5.2 ) L 10/30/21 14:45 Globulin 2.3 g/dL (1.3-4.6 ) 10/30/21 14:45 Urine Color Yellow (Yellow) 10/28/21 15:31 Urine Appearance Clear (CLEAR) 10/28/21 15:31 Urine pH 5 (5-7) 10/28/21 15:31 Ur Specific Gravit y 1.020 (1.005-1.0 30) 10/28/21 15:31 Urine Protein 1+ (Negative) H 10/28/21 15:31 Urine Glucose (UA) Norm (Normal) 10/28/21 15:31 Urine Ketones Negative (Negati ve) 10/28/21 15:31 Urine Blood 2+ (Negative) H 10/28/21 15:31 Urine Nitrate Negative (Negati ve) 10/28/21 15:31 Urine Bilirubin Neg (Negative) 10/28/21 15:31 Urine Urobilinogen Norm mg/dL (Negat asaf) 10/28/21 15:31 Ur Leukocyte Susan ase Negative (Negati ve) 10/28/21 15:31 Urine RBC None /hpf (0-2) 10/28/21 15:31 Urine WBC 0-4 /hpf (0-5) H 10/28/21 15:31 Ur Squamous Epith Cells 5-10 /hpf (0-5) H 10/28/21 15:31 Amorphous Sediment Not Reportable 10/28/21 15:31 Urine Bacteria None /hpf (NONE) 10/28/21 15:31 Vancomycin Trough 7.5 ug/mL (10-15) L 10/31/21 15:48 SARS-CoV-2 Ag (Rap id) Negative (Negati ve) 11/01/21 19:27 Blood Type A Positive 10/30/21 11:19 Rho(D) Type Positive 10/30/21 11:19 Antibody Screen Negative 10/30/21 11:19 A&P Assessment and plan (1) Prosthetic joint infection: Status: Acute Qualifiers: Encounter type: initial encounter Qualified Code(s): T84.50XA - Infection and inflammatory reaction due to unspecified internal joint prosthesis, initial encounter (2) MRSA (methicillin resistant Staphylococcus aureus) septicemia: Status: Acute (3) CVA (cerebral vascular accident): Status: Acute Qualifiers: CVA mechanism: embolism Precerebral and cerebral artery: other cerebral artery Qualified Code(s): I63.49 - 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 Additional A&P Information 71-year-old lady currently admitted here for prosthetic joint infection, septicemia, possible embolic CVA. Initially concern also for endocarditis on TTE when a mobile echogenic mass was noted attached to tricuspid valve, however on AMEE no vegetations or thrombus were noted per cardiology notes reviewed. Patient did undergo incision and drainage of the septic joint on October 29, 2021. The joint was retained as patient is otherwise a poor surgical candidate and may not be able to tolerate a staged two-step exchange. Her blood cultures continue to be positive as of October 31, 2021. Last vanc trough is at 7.5, per discussion with pharmacy current target was at 10-15. Recommend to increase vancomycin dosing with target trough of closer to 20. Check blood cultures daily to ascertain clearance. If patient continues to be persistently bacteremic in spite of attaining a therapeutic trough and/or develops signs of worsening sepsis, will likely need removal of all hardware, interval placement of a cement spacer followed by definitive replacement a few months down the line. Currently attempting the salvage option given patient's other comorbidities which put her at a higher risk of perioperative mortality. If Able to obtain clearance of bacteremia and clinical improvement with IV vancomycin treatment, rifampin will be added additionally once closer to discharge followed by likely lifelong suppression. Will continue to follow along, further clinical decisions will be made depending on patient's progress. Coding Level of Care Code Acute Senior Operations Manager [facility] Diagnoses Prosthetic joint infection T84.50XA Encounter type: initial encounter MRSA (methicillin resistant Staphylococcus aureus) septicemia A41.02 CVA (cerebral vascular accident) I63.49 CVA mechanism: embolism Precerebral and cerebral artery: other cerebral artery
[2021-11-01 22:41] LABS: Adenovirus Not Detected (NOT DETECT); Chlamydia Pneumoniae Not Detected (NOT DETECT); Coronavirus 229E,HKU1,NL63,OC4 Not Detected (NOT DETECT); Human Metapneumovirus Not Detected (NOT DETECT); Human Rhinovirus/Enterovirus Not Detected (NOT DETECT); Influenza A Not Detected (NOT DETECT); Influenza A H1 Not Detected (NOT DETECT); Influenza A H1-2009 Not Detected (NOT DETECT); Influenza A H3 Not Detected (NOT DETECT); Influenza B Not Detected (NOT DETECT); Mycoplasma Pneumoniae Not Detected (NOT DETECT); Parainfluenza Virus Type 1 Not Detected (NOT DETECT); Parainfluenza Virus Type 2 Not Detected (NOT DETECT); Parainfluenza Virus Type 3 Not Detected (NOT DETECT); Parainfluenza Virus Type 4 Not Detected (NOT DETECT); Respiratory Syncytial Virus A Not Detected (NOT DETECT); Respiratory Syncytial Virus B Not Detected (NOT DETECT); SARS-COV-2 Not Detected (NOT DETECT)
[2021-11-01 22:49] LABS: Partial Thromboplastin Time 57.4 SECONDS (23.9-36.7)
[2021-11-02] VITALS (7 sets, daily range): BP systolic 101–117; BP diastolic 58–70; PULSE 80–89; RESP 16–32; TEMP 36.4–37.2; O2SAT 93–97
[2021-11-02] MEDS: cefepime 2,000 MG in sodium chloride 0.9% (plus) 50 ML 100 MG IV ×2 (02:36→14:58)
[2021-11-02 04:55] LABS: Basophils # 0.1 10^3/uL (0.0-0.1); Basophils % 0.4 %; Eosinophils # 0.6 10^3/uL (0.0-0.8); Eosinophils % 2.8 %; Hematocrit 24.8 % (37.0-47.0); Hemoglobin 8.3 g/dL (11.5-15.3); Lymphocytes # 1.6 10^3/uL (0.8-4.8); Lymphocytes % 8.1 %; Mean Corpuscular HGB Conc 33.5 g/dL (30.0-36.0); Mean Corpuscular Hemoglobin 31.1 pg (28.0-34.0); Mean Corpuscular Volume 92.9 fl (81-99); Mean Platelet Volume 11.9 fL (7.4-10.4); Monocytes # 0.8 10^3/uL (0.2-0.9); Monocytes % 4.3 %; Neutrophils # 16.11 10^3/uL (1.8-7.7); Neutrophils % 82.2 %; Nucleated Red Blood Cells % 0 %; Platelet Count 122 10^3/cmm (130-400); Red Blood Count 2.67 10^6/uL (4.1-5.3); Red Cell Distribution Width 17.2 % (12.1-15.1); White Blood Count 19.6 10^3/uL (4.0-10.0)
[2021-11-02 05:10] LABS: Partial Thromboplastin Time 51.7 SECONDS (23.9-36.7)
[2021-11-02 05:20] LABS: Anion Gap 12.6 (5-19); Blood Urea Nitrogen 33 mg/dL (8-23); Calcium 6.9 mg/dL (8.5-10.5); Carbon Dioxide 20 mmol/L (22-29); Chloride 107 mmol/L (98-107); Glucose 117 mg/dL (65-115); Osmolality Calculated 290 mOsm/kg (285-295); Potassium 3.6 mmol/L (3.5-5.1); Sodium 136 mmol/L (136-145)
[2021-11-02] MEDS: heparin 5,000 unit/mL INJ 1 mL IV (05:40)
--- NOTE | 2021-11-02 08:06 | P.PN_ITS ---
Subjective Subjective: Interval history: POD 4 Patient resting comfortably with family present. Vitals/I&O/Wt Last Vital Signs Temp 98.2 F 11/02/21 07:23 Pulse 89 11/02/21 07:23 Resp 18 11/02/21 07:23 BP 109/63 11/02/21 07:23 Pulse Ox 94 11/02/21 07:23 11/01/21 11/02/21 11/02/21 22:59 06:59 14:59 Intake Total 782 / 3032 356.133 / 3388.133 Output Total 450 / 1250 600 / 1850 Balance 332 / 1782 -243.867 / 1538.133 Physical Exam Narrative: EXAM NARRATIVE: Alert. No obvious distress. Incision with mild bloody discharge and Silverlon dressing present. Legs are warm to the touch wiggles all digits. Calves are supple. Urinary Catheter Management^: Chowdary: Cath Placed During This Visit: yes Reason for Continuing Indwelling Catheter: Required Immobilization for Trauma or Surgery or Anesthesia Urinary Catheter Date of Insertion: 10/28/21 Urinary Catheter Time of Insertion: 15:40 Data : 11/02/21 04:37 11/02/21 04:37 Micro: Microbiology 11/02/21 04:37 Blood Culture - Preliminary Blood SPECIMEN COLLECTED 11/02/21 04:37 Blood Culture - Preliminary Blood SPECIMEN COLLECTED 10/29/21 07:29 Anaerobic Culture - Preliminary Hip - #2 10/28/21 15:35 Blood Culture - Final Blood Methicillin Resis Staph Aureus 10/28/21 15:32 Blood Culture - Final Blood Methicillin Resis Staph Aureus 10/29/21 07:29 Gram Stain - Final Hip - #1 Abscess Culture - Final Methicillin Resis Staph Aureus 10/30/21 05:53 Blood Culture - Preliminary Blood 10/31/21 05:35 Blood Culture - Preliminary Blood 10/31/21 05:35 Blood Culture - Preliminary Blood A&P Assessment and plan (1) Status post hip hemiarthroplasty: I have the nurses change her dressing today on her right hip. Have social work administrator see them for placement. Continue to mobilize with physical therapy and a walker. Status: Acute Attestations Medical Necessity Statement*: defer to medical team Coding Level of Care Code Acute Change Room Attendant for Hannah Knox Diagnoses Status post hip hemiarthroplasty Z96.649
[2021-11-02] MEDS: clopidogrel 75 mg Tablet PO (10:10)
[2021-11-02] MEDS: aspirin 81 mg EC Tablet PO (10:10)
--- NOTE | 2021-11-02 11:10 | PC.SOCIAL ---
IMM Upated Updated pt & spouse on IMM. No questions voiced. Provided pt a copy. Initialed, dated, & timed copy in chart.
[2021-11-02 12:21] LABS: Partial Thromboplastin Time 30.1 SECONDS (23.9-36.7)
--- NOTE | 2021-11-02 13:02 | P.PN_ITS ---
Subjective Subjective: Interval history: Patient was sitting comfortably in her bed She is on room air no acute respiratory distress COVID antigen PCR negative Appreciate ID recommendations, plan is to involve pharmacy to dose of vancomycin to keep Vanco trough level between 15-20 If she stays persistently bacteremic Dr. Armstrong will remove mechanical hardware, Dr. Mathews spoke with orthopedics today, I discussed this case with her before MDR Cultures repeated Vitals/I&O/Wt Last Vital Signs Temp 97.5 F L 11/02/21 12:00 Pulse 80 11/02/21 12:00 Resp 18 11/02/21 12:00 BP 107/58 11/02/21 12:00 Pulse Ox 96 11/02/21 12:00 11/01/21 11/02/21 11/02/21 22:59 06:59 14:59 Intake Total 782 / 3332 356.133 / 3688.133 393.584 / 393.584 Output Total 450 / 1250 600 / 1850 550 / 550 Balance 332 / 2082 -243.867 / 1838.133 -156.416 / -156.416 Physical Exam Narrative: EXAM NARRATIVE: Patient sitting comfortably in her bed saturating well on room air Comfortable No new focal deficit No acute respiratory distress She finishes her meals as per the she loves to drink water and she has been drinking caffeinated drinks, Soft abdomen No audible stridor or wheezing S1, S2 Neuro exam is limited Urinary Catheter Management^: Chowdary: Cath Placed During This Visit: yes Reason for Continuing Indwelling Catheter: Required Immobilization for Trauma or Surgery or Anesthesia Urinary Catheter Date of Insertion: 10/28/21 Urinary Catheter Time of Insertion: 15:40 Data : 11/02/21 04:37 11/02/21 04:37 Micro: Microbiology 10/30/21 05:50 Blood Culture - Preliminary Blood 10/30/21 05:53 Blood Culture - Preliminary Blood 11/02/21 04:37 Blood Culture - Preliminary Blood SPECIMEN COLLECTED 11/02/21 04:37 Blood Culture - Preliminary Blood SPECIMEN COLLECTED 10/29/21 07:29 Anaerobic Culture - Preliminary Hip - #2 10/28/21 15:35 Blood Culture - Final Blood Methicillin Resis Staph Aureus 10/28/21 15:32 Blood Culture - Final Blood Methicillin Resis Staph Aureus 10/29/21 07:29 Gram Stain - Final Hip - #1 Abscess Culture - Final Methicillin Resis Staph Aureus 10/31/21 05:35 Blood Culture - Preliminary Blood 10/31/21 05:35 Blood Culture - Preliminary Blood A&P Assessment and plan (1) MRSA (methicillin resistant Staphylococcus aureus) septicemia: Status: Acute (2) Prosthetic joint infection: Status: Acute Qualifiers: Encounter type: initial encounter Qualified Code(s): T84.50XA - Infection and inflammatory reaction due to unspecified internal joint prosthesis, initial encounter (3) CVA (cerebral vascular accident): Status: Acute Qualifiers: CVA mechanism: embolism Precerebral and cerebral artery: other cerebral artery Qualified Code(s): I63.49 - 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 (4) Aphasia: Status: Acute (5) Wound infection after surgery: Status: Acute (6) Status post hip hemiarthroplasty: Status: Acute (7) Progressive supranuclear palsy: Status: Acute Additional A&P Information Plan is to dose vancomycin, involve pharmacy to keep Vanco trough level between 15-20, continue cefepime for now, cultures repeated today for persistent bacteremia, if with adequate trough levels she stays bacteremic then orthopedics will consider removal of mechanical hardware, appreciate ID recommendations, for further details please read ID consult note Transesophageal echo did not show any mass or vegetation, my suspicion for thrombus with embolization is high for now I will anticoagulate her with Lovenox therapeutic regimen and discontinue heparin GTT DNR/DNI Cardiac diet COVID antigen negative Supranuclear palsy with underlying dementia Will need long-term hospitalization and possibly half-way placement at the end Attestations Medical Necessity Statement*: Persistent bacteremia Time Spent in Patient Care: less than 15 minutes Coding Level of Care Code Acute Barrel Bung Remover And Dumper for [facility] Fwd Diagnoses MRSA (methicillin resistant Staphylococcus aureus) septicemia A41.02 Prosthetic joint infection T84.50XA Encounter type: initial encounter CVA (cerebral vascular accident) I63.49 CVA mechanism: embolism Precerebral and cerebral artery: other cerebral artery Aphasia R47.01 Wound infection after surgery T81.49XA Status post hip hemiarthroplasty Z96.649 Progressive supranuclear palsy G23.1
[2021-11-02] MEDS: enoxaparin 60 mg/0.6 mL Syringe 50 MG SUBCUT (14:58)
[2021-11-02] MEDS: vancomycin 1,000 MG in sodium chloride 0.9% 250 ML 250 MG IV (17:51)
--- NOTE | 2021-11-02 19:24 | PC.NURSE ---
i reported high reps 32 to nurse
[2021-11-02 20:24] LABS: Vancomycin Trough 8.8 ug/mL (10-15)
[2021-11-02] MEDS: atorvastatin 40 mg Tablet 80 MG PO (20:53)
[2021-11-02] MEDS: acetaminophen 325 mg Tablet 650 MG PO (22:52)
[2021-11-03] VITALS (10 sets, daily range): BP systolic 92–110; BP diastolic 44–68; PULSE 78–96; RESP 16–32; TEMP 36.6–38.4; O2SAT 93–98
--- NOTE | 2021-11-03 00:01 | PC.NURSE ---
i reported high reps 28 to nurse
[2021-11-03] MEDS: enoxaparin 60 mg/0.6 mL Syringe 50 MG SUBCUT ×2 (01:55→16:10)
[2021-11-03] MEDS: cefepime 2,000 MG in sodium chloride 0.9% (plus) 50 ML 100 MG IV ×2 (01:56→16:10)
[2021-11-03 03:11] LABS: Basophils # 0.1 10^3/uL (0.0-0.1); Basophils % 0.3 %; Eosinophils # 0.8 10^3/uL (0.0-0.8); Eosinophils % 3.9 %; Hematocrit 25.2 % (37.0-47.0); Hemoglobin 8.4 g/dL (11.5-15.3); Lymphocytes # 1.7 10^3/uL (0.8-4.8); Lymphocytes % 8.3 %; Mean Corpuscular HGB Conc 33.3 g/dL (30.0-36.0); Mean Platelet Volume 12.3 fL (7.4-10.4); Monocytes # 1.3 10^3/uL (0.2-0.9); Monocytes % 6.3 %; Neutrophils # 15.87 10^3/uL (1.8-7.7); Neutrophils % 78.2 %; Nucleated Red Blood Cells % 0 %; Platelet Count 150 10^3/cmm (130-400); Red Blood Count 2.71 10^6/uL (4.1-5.3); White Blood Count 20.3 10^3/uL (4.0-10.0)
--- NOTE | 2021-11-03 03:31 | PC.PHAR ---
Pharmacokinetic dosing service Date: 11/03/21 Time: 329 Patient: Floor: Weight: 52.163 Kilograms Vancomycin single level analysis: Current dose being given: mg Current dosing interval: hrs Current infusion time (hrs): 1 Single level Trough Data: Trough level obtained: 8.8 mcg/ml Timing of trough - # of hrs before next dose: 1 Hrs Desired peak: 40 mcg/ml Desired trough: 15 mcg/ml Diagnosis: Relevant medical/social history: Cultures and sensitivities: Other labs: Estimated PK Parameters: New rate constant ([place]): 0.053 hr-1 Half-life: 13.08 Hours Vd from levels: 46.95 Liters (0.7 L/kg) CLvanco= 2.488 L/hr Estimated New Dose and Interval Recommended dose: 1242.2 mg Recommended interval: 19.5 Hrs Patient response: Patient is responding to treatment [yes/no] wbc decreasing, S/SX reduced [yes/no] Renal function is stable/unstable Recommendations: Give Vancomycin 1000 mg q 18 hrs. Infuse over 1 hrs Expected Cpeak: 33.7 mcg/mL Expected Ctrough: 13.7 mcg/mL AUC 0-24 /SEGUN Data: SEGUN 0.5 mcg/mL: AUC/SEGUN: 1071.8 SEGUN 1.0 mcg/mL: AUC/SEGUN: 535.9 Recommended labs and intervals: Measure Bun and Scr 3 times/week. Renal dosing of other antibiotics (review renal dosing of other medications and list guidelines here): Thank you for the consult, will continue to follow. Signature: Azalia Martin [facility]
[2021-11-03 03:46] LABS: Anion Gap 13.9 (5-19); Blood Urea Nitrogen 27 mg/dL (8-23); Calcium 7.7 mg/dL (8.5-10.5); Carbon Dioxide 18 mmol/L (22-29); Chloride 107 mmol/L (98-107); Glucose 132 mg/dL (65-115); Osmolality Calculated 287 mOsm/kg (285-295); Potassium 3.9 mmol/L (3.5-5.1); Sodium 135 mmol/L (136-145)
--- NOTE | 2021-11-03 08:20 | P.PN_ITS ---
Subjective Subjective: Interval history: Pt resting comfortably with family present Vitals/I&O/Wt Last Vital Signs Temp 98.6 F 11/03/21 04:00 Pulse 92 11/03/21 04:00 Resp 16 11/03/21 04:00 BP 105/63 11/03/21 04:00 Pulse Ox 95 11/03/21 04:00 11/02/21 11/03/21 11/03/21 22:59 06:59 14:59 Intake Total 780 / 1533.584 50 / 1583.584 Output Total 800 / 1350 1200 / 2550 Balance -20 / 183.584 -1150 / -966.416 Physical Exam Narrative: EXAM NARRATIVE: Patient is alert and orient x3 has good general appearance normal normal affect. Hip incision is healing nicely. no signs of infection. Good motor strength throughout both lower extremities. Skin is clear warm, feet are warm with good cap refill in all digits. Normal sensation to light touch. Calves are supple, no medial thigh tenderness, negative Homans' sign. No palpable edema peripherally. Urinary Catheter Management^: Chowdary: Cath Placed During This Visit: yes Reason for Continuing Indwelling Catheter: Required Immobilization for Trauma or Surgery or Anesthesia Urinary Catheter Date of Insertion: 10/28/21 Urinary Catheter Time of Insertion: 15:40 Data : 11/03/21 02:50 11/03/21 02:50 Micro: Microbiology 11/02/21 04:37 Blood Culture - Preliminary Blood NEGATIVE TO DATE 11/02/21 04:37 Blood Culture - Preliminary Blood NEGATIVE TO DATE 10/29/21 07:29 Anaerobic Culture - Preliminary Hip - #2 10/30/21 05:53 Blood Culture - Preliminary Blood Staphylococcus aureus 10/31/21 05:35 Blood Culture - Preliminary Blood 10/31/21 05:35 Blood Culture - Preliminary Blood Staphylococcus aureus 10/30/21 05:50 Blood Culture - Preliminary Blood Staphylococcus aureus A&P Assessment and plan (1) Status post hip hemiarthroplasty: Continue dressing changes prn. Continue antibiotic therapy per infectious disease recommendations. No plans for surgical removal of the hemiarthroplasty at this time. Status: Acute Attestations Medical Necessity Statement*: defer to medicine team Coding Level of Care Code Acute Office Automation Technician for Hnanah Knox Diagnoses Status post hip hemiarthroplasty Z96.649
[2021-11-03 09:45] LABS: Creatine Phosphokinase 30 U/L (26-192)
--- NOTE | 2021-11-03 11:31 | P.PN_ITS ---
Subjective Subjective: Interval history: Persistent bacteremia White count 20,000 Afebrile overnight This morning she was on room air eating breakfast, family at the bedside Dr. Mathews recommended to change antibiotic to daptomycin versus ceftaroline because of difficult to achieve adequate trough level with vancomycin however it will not cover pneumonia, will monitor if there is worsening of her respiratory status Woods trough level 8.8 Vitals/I&O/Wt Last Vital Signs Temp 98.4 F 11/03/21 08:00 Pulse 78 11/03/21 09:05 Resp 16 11/03/21 09:05 BP 110/67 11/03/21 08:00 Pulse Ox 97 11/03/21 09:05 11/02/21 11/03/21 11/03/21 22:59 06:59 14:59 Intake Total 780 / 1533.584 50 / 1583.584 Output Total 800 / 1350 1200 / 2550 Balance -20 / 183.584 -1150 / -966.416 Physical Exam Narrative: EXAM NARRATIVE: Patient was resting comfortably in the bed Seems comfortable This morning family at the bedside patient is eating breakfast Bilateral breath sounds without adventitious rhonchi or crackles No use of respiratory rawhide bone roller muscles No pursed lip breathing Euvolemic Abdomen soft S1, S2 Urinary Catheter Management^: Chowdary: Cath Placed During This Visit: yes Reason for Continuing Indwelling Catheter: Required Immobilization for Trauma or Surgery or Anesthesia Urinary Catheter Date of Insertion: 10/28/21 Urinary Catheter Time of Insertion: 15:40 Data : 11/03/21 02:50 11/03/21 02:50 Micro: Microbiology 11/02/21 04:37 Blood Culture - Preliminary Blood NEGATIVE TO DATE 11/02/21 04:37 Blood Culture - Preliminary Blood NEGATIVE TO DATE 10/29/21 07:29 Anaerobic Culture - Preliminary Hip - #2 10/30/21 05:53 Blood Culture - Preliminary Blood Staphylococcus aureus 10/31/21 05:35 Blood Culture - Preliminary Blood 10/31/21 05:35 Blood Culture - Preliminary Blood Staphylococcus aureus 10/30/21 05:50 Blood Culture - Preliminary Blood Staphylococcus aureus A&P Assessment and plan (1) MRSA (methicillin resistant Staphylococcus aureus) septicemia: Status: Acute (2) Prosthetic joint infection: Status: Acute Qualifiers: Encounter type: initial encounter Qualified Code(s): T84.50XA - Infection and inflammatory reaction due to unspecified internal joint prosthesis, initial encounter (3) Gram-positive cocci bacteremia: Status: Acute (4) CVA (cerebral vascular accident): Status: Acute Qualifiers: CVA mechanism: embolism Precerebral and cerebral artery: other cerebral artery Qualified Code(s): I63.49 - 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 (5) TIA (transient ischemic attack): Status: Acute (6) Aphasia: Status: Acute (7) Wound infection after surgery: Status: Acute (8) Status post hip hemiarthroplasty: Status: Acute (9) Progressive supranuclear palsy: Status: Acute (10) Dementia: Status: Acute (11) Memory loss: Status: Acute Additional A&P Information Dr. Lopez today recommended changing vancomycin to either ceftaroline or daptomycin for persistent bacteremia, she has worsening of leukocytosis however respiratory status has not worsened, she is afebrile Eating her breakfast, no acute respiratory distress, COVID PCR negative Saturating well on room air Adequate urine output In case her respiratory status worsens she will need either cefazolin or vancomycin as daptomycin would not cover pneumonia Her blood pressure has improved clinically looks euvolemic Follow-up with orthopedics for further recommendations No new focal deficit noted On regular diet No signs of aspiration pneumonia Septic emboli emboli, possible atrial thrombus currently she is on therapeutic dose of anticoagulating agent no signs of endocarditis with echo DNR/DNI Attestations Medical Necessity Statement*: Need IV antibiotics for persistent bacteremia Time Spent in Patient Care: less than 15 minutes Coding Level of Care Code Acute Plant Utility Person for [facility] Fwd Diagnoses MRSA (methicillin resistant Staphylococcus aureus) septicemia A41.02 Prosthetic joint infection T84.50XA Encounter type: initial encounter Gram-positive cocci bacteremia R78.81 CVA (cerebral vascular accident) I63.49 CVA mechanism: embolism Precerebral and cerebral artery: other cerebral artery TIA (transient ischemic attack) G45.9 Aphasia R47.01 Wound infection after surgery T81.49XA Status post hip hemiarthroplasty Z96.649 Progressive supranuclear palsy G23.1 Dementia F03.90 Memory loss R41.3
--- NOTE | 2021-11-03 14:01 | PC.NURSE ---
Asked Dr Nunez about possible PT order.
[2021-11-03] MEDS: acetaminophen 325 mg Tablet 650 MG PO (16:19)
--- NOTE | 2021-11-03 19:56 | PC.NURSE ---
i reported to nurse high reps 32
[2021-11-03] MEDS: atorvastatin 40 mg Tablet 80 MG PO (20:09)
--- NOTE | 2021-11-03 23:10 | PM.PN ---
Subjective Subjective: Interval history: Infectious disease progress note. Leukocytosis increasing today to 20.3. Renal function stable. Spiking fever again at 101.2 Fahrenheit Blood culture positive from 11/02 for GPC's in clusters, presumably staph aureus Vancomycin trough at 8.8 Blood pressure 92 105 systolic Medications: Reviewed: Yes Vitals/I&O/Wt Last Vital Signs Temp 98.3 F 11/03/21 19:56 Pulse 93 11/03/21 19:56 Resp 18 11/03/21 20:00 BP 94/44 11/03/21 19:56 Pulse Ox 97 11/03/21 19:56 11/03/21 11/03/21 11/04/21 14:59 22:59 06:59 Intake Total 540 / 540 410 / 950 Output Total 1400 / 1400 Balance 540 / 540 -990 / -450 Physical Exam Narrative: EXAM NARRATIVE: GEN: Elderly chronically ill-appearing lady lying in bed in no apparent acute distress at this time. Follows simple commands to move arms etc., however does not participate in conversation CVS: S1S2 N RS: reduced air entry at B/L lung bases SUPERVISOR IN CIRCUIT TESTING: no focal neuro deficits Urinary Catheter Management^: Chowdary: Cath Placed During This Visit: yes Reason for Continuing Indwelling Catheter: Other Urinary Catheter Date of Insertion: 10/28/21 Urinary Catheter Time of Insertion: 15:40 Data : 11/03/21 02:50 11/03/21 02:50 Micro: Microbiology 10/29/21 07:29 Anaerobic Culture - Preliminary Hip - #2 10/31/21 05:35 Blood Culture - Preliminary Blood Methicillin Resis Staph Aureus 10/31/21 05:35 Blood Culture - Preliminary Blood Methicillin Resis Staph Aureus 10/30/21 05:50 Blood Culture - Preliminary Blood Methicillin Resis Staph Aureus 10/30/21 05:53 Blood Culture - Preliminary Blood Methicillin Resis Staph Aureus 11/02/21 04:37 Blood Culture - Preliminary GPC + clusters Blood 11/02/21 04:37 Blood Culture - Preliminary GPC + clusters Blood A&P Assessment and plan (1) Prosthetic joint infection: Status: Acute Qualifiers: Encounter type: initial encounter Qualified Code(s): T84.50XA - Infection and inflammatory reaction due to unspecified internal joint prosthesis, initial encounter (2) MRSA (methicillin resistant Staphylococcus aureus) septicemia: Status: Acute (3) CVA (cerebral vascular accident): Status: Acute Qualifiers: CVA mechanism: embolism Precerebral and cerebral artery: other cerebral artery Qualified Code(s): I63.49 - 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 Additional A&P Information 71-year-old lady currently admitted here for 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 Blood cx positive now between 10/28-11/02 with MRSA. Vancomycin trough 7.5(10/31) >>8.8 (11/02). Goal trough 20. Leukocytosis increasing to 20 today, continues to be febrile with HR 101. Currently SBP range 92-105mmhg. s/p I&D of septic hip joint on Oct 29, 2021. Given her multiple comorbidities and high risk of periop mortality with 2 step exchange, joint salvage options being attempted after discussion with orthopedics. CT CAP 10/30 with B/L pleural effusions, gastric distension, no abdominal mass. Complex fluid and air next to right hip as also seen on pre op CT pelvis on Oct 28. Findings on CT on 10/30 immediately post op after I&D on 10/29. Episode of respiratory distress overnight on 10/30 needing BIPAP support, currently improved . Cefepime additionally added due to clinical concern for pneumonia. Initially concern also for endocarditis on TTE when a mobile echogenic mass was noted attached to tricuspid valve, however on AMEE no vegetations were noted. Prominent eustachian valve in the right atrium thought to be normal variant per cardiology). Due to high clinical suspicion of cardiac thrombus, patient continues to be on therapeutic anticoagulation with Lovenox. MRI brain with Acute infarct RIGHT posterior lateral occipital lobe with an additional acute lacunar infarct in the LEFT temporal lobe, possibly embolic in nature, cannot exclude septic embolization. At this time, patient continues to be bacteremic with MRSA since 10/28/20 with worsening leukocytosis, fever, likely embolic complications as noted above. Source control likely only partially met given presence of retained hardware, however joint salvage being attempted given high risk of taya op mortality. Additionally in spite of being on vancomycin since admission, she has not yet achieved therapeutic vancomycin levels to optimize medical treatment. In order to clear bacteremia quickly to avoid further clinical detrioration, recommend stopping vancomycin for now and switch to salvage treatment with combination of Ceftaroline and Daptomycin over the bext week with deescalation to monotherapy with either vancomycin or daptomycin once bacteremia clears. (Multicenter Cohort of Patients With Methicillin-Resistant Staphylococcus aureus Bacteremia Receiving Daptomycin Plus Ceftaroline Compared With Other MRSA Treatments, Open Forum Infectious Diseases, Volume 7, Issue , October 2019; Antimicrobial salvage therapy for persistent staphylococcal bacteremia using daptomycin plus ceftaroline; May 01, 2014?DOI:https://doi.org/10.1016/j.clinthera.2014..061; Combination ceftaroline and daptomycin salvage therapy for complicated methicillin-resistant Staphylococcus aureus bacteraemia compared with standard of care International Journal of Antimicrobial Agents Volume 57, Issue 4, January 2021) Stop vancomycin and switch to Daptomycin 8-10mg/kg q24h today. check baseline CPK level. This comes with risk of not having adequate coverage for pneumonia. Addition of ceftaroline will additionally help provide adequate lung coverage. Will reach out to pharmacy to arrange Ceftaroline 600mg iv q8h, which is currently N/A on formulary. check sputum cx and gram stain. If patient continues to be persistently bacteremic in spite of optimizing medical therapy and/or develops signs of worsening sepsis/septic shock, high risk surgery may need to be attempted-discussed with at bedside. Wishes to proceed with salvage options. Will continue to follow Attestations Medical Necessity Statement*: persistent MRSA bacteremia, prosthetic joint infection, need for iv abx and close clinical monitoring Coding Level of Care Code Acute Head Piece Assembler for Hannah Knox Diagnoses Prosthetic joint infection T84.50XA Encounter type: initial encounter MRSA (methicillin resistant Staphylococcus aureus) septicemia A41.02 CVA (cerebral vascular accident) I63.49 CVA mechanism: embolism Precerebral and cerebral artery: other cerebral artery
--- NOTE | 2021-11-03 23:43 | PC.NURSE ---
i reported high reps 28 to nurse
[2021-11-04] MEDS: cefepime 2,000 MG in sodium chloride 0.9% (plus) 50 ML 100 MG IV (01:33)
[2021-11-04] MEDS: enoxaparin 60 mg/0.6 mL Syringe 50 MG SUBCUT (01:33)
[2021-11-04 06:00] VITALS: PULSE 103
[2021-11-04 06:20] LABS: Basophils # 0.1 10^3/uL (0.0-0.1); Basophils % 0.5 %; Eosinophils # 0.4 10^3/uL (0.0-0.8); Eosinophils % 1.7 %; Hematocrit 27.7 % (37.0-47.0); Hemoglobin 8.9 g/dL (11.5-15.3); Lymphocytes # 1.8 10^3/uL (0.8-4.8); Lymphocytes % 8.3 %; Mean Corpuscular HGB Conc 32.1 g/dL (30.0-36.0); Mean Corpuscular Volume 96.5 fl (81-99); Mean Platelet Volume 11.6 fL (7.4-10.4); Monocytes # 1.5 10^3/uL (0.2-0.9); Monocytes % 6.8 %; Neutrophils # 17.17 10^3/uL (1.8-7.7); Neutrophils % 78.4 %; Nucleated Red Blood Cells % 0 %; Platelet Count 227 10^3/cmm (130-400); Red Blood Count 2.87 10^6/uL (4.1-5.3); Red Cell Distribution Width 17.5 % (12.1-15.1); White Blood Count 21.9 10^3/uL (4.0-10.0)
[2021-11-04 06:47] LABS: Anion Gap 13.2 (5-19); Blood Urea Nitrogen 29 mg/dL (8-23); Calcium 7.3 mg/dL (8.5-10.5); Carbon Dioxide 22 mmol/L (22-29); Chloride 104 mmol/L (98-107); Glucose 101 mg/dL (65-115); Osmolality Calculated 286 mOsm/kg (285-295); Potassium 4.2 mmol/L (3.5-5.1); Sodium 135 mmol/L (136-145)
[2021-11-04 06:52] LABS: Procalcitonin 0.78 ng/mL (0-0.5)
[2021-11-04 07:42] VITALS: BP 105/62; PULSE 92; RESP 30; TEMP 37.6; O2SAT 93
--- NOTE | 2021-11-04 08:09 | P.PN_ITS ---
Subjective Subjective: Interval history: pt resting comfortably in bed Vitals/I&O/Wt Last Vital Signs Temp 99.6 F 11/04/21 07:42 Pulse 92 11/04/21 07:42 Resp 30 H 11/04/21 07:42 BP 105/62 11/04/21 07:42 Pulse Ox 93 11/04/21 07:42 11/03/21 11/04/21 11/04/21 22:59 06:59 14:59 Intake Total 410 / 950 45 / 995 Output Total 1400 / 1400 Balance -990 / -450 45 / -405 Physical Exam Narrative: EXAM NARRATIVE: wound CDI Urinary Catheter Management^: Chowdary: Cath Placed During This Visit: yes Reason for Continuing Indwelling Catheter: Required Immobilization for Trauma or Surgery or Anesthesia Urinary Catheter Date of Insertion: 10/28/21 Urinary Catheter Time of Insertion: 15:40 Data : 11/04/21 05:09 11/04/21 05:11 Micro: Microbiology 11/04/21 05:09 Blood Culture - Preliminary Blood SPECIMEN COLLECTED 11/04/21 05:11 Blood Culture - Preliminary Blood SPECIMEN COLLECTED 10/29/21 07:29 Anaerobic Culture - Preliminary Hip - #2 10/31/21 05:35 Blood Culture - Preliminary Blood Methicillin Resis Staph Aureus 10/31/21 05:35 Blood Culture - Preliminary Blood Methicillin Resis Staph Aureus 10/30/21 05:50 Blood Culture - Preliminary Blood Methicillin Resis Staph Aureus 10/30/21 05:53 Blood Culture - Preliminary Blood Methicillin Resis Staph Aureus 11/02/21 04:37 Blood Culture - Preliminary Blood 11/02/21 04:37 Blood Culture - Preliminary Blood A&P Assessment and plan (1) Wound infection after surgery: s/p I+D of hip Up with therapy change dressing daily Status: Acute Attestations Medical Necessity Statement*: per primary service Coding Level of Care Code Acute Venetian Blind Tape Cutter for randell Fwrosemary Diagnoses Wound infection after surgery T81.49XA
--- NOTE | 2021-11-04 09:00 | PM.PN ---
Subjective Subjective: Interval history: Infectious disease progress note leukocytosis up to 21.9 today T max 99.6F this morning Patient appears more lethargic this am than on previous occassions, sitting in shahla. Tachypneic on exam , saturating 93% on room air Medications: Reviewed: Yes Vitals/I&O/Wt Last Vital Signs Temp 99.6 F 11/04/21 07:42 Pulse 92 11/04/21 07:42 Resp 30 H 11/04/21 07:42 BP 105/62 11/04/21 07:42 Pulse Ox 93 11/04/21 07:42 11/03/21 11/04/21 11/04/21 22:59 06:59 14:59 Intake Total 410 / 950 45 / 995 240 / 240 Output Total 1400 / 1400 Balance -990 / -450 45 / -405 240 / 240 Physical Exam Narrative: EXAM NARRATIVE: GEN: sitting in chair at bedside, tachypneic, appears more somnolent than previosu exams CVS: S1S2 N RS: dimished air entery B/L lung bases, no added sounds Abd: Soft, nt/nd , bs+ Urinary Catheter Management^: Chowdary: Cath Placed During This Visit: yes Reason for Continuing Indwelling Catheter: Required Immobilization for Trauma or Surgery or Anesthesia Urinary Catheter Date of Insertion: 10/28/21 Urinary Catheter Time of Insertion: 15:40 Data : 11/04/21 05:09 11/04/21 05:11 Micro: Microbiology 11/03/21 18:17 MRSA Culture - Final Nose 11/02/21 04:37 Blood Culture - Preliminary Blood Methicillin Resis Staph Aureus 11/02/21 04:37 Blood Culture - Preliminary Blood Methicillin Resis Staph Aureus 10/31/21 05:35 Blood Culture - Final Blood Methicillin Resis Staph Aureus 10/31/21 05:35 Blood Culture - Final Blood Methicillin Resis Staph Aureus 10/30/21 05:50 Blood Culture - Final Blood Methicillin Resis Staph Aureus 10/30/21 05:53 Blood Culture - Final Blood Methicillin Resis Staph Aureus 11/04/21 05:09 Blood Culture - Preliminary Blood SPECIMEN COLLECTED 11/04/21 05:11 Blood Culture - Preliminary Blood SPECIMEN COLLECTED 10/29/21 07:29 Anaerobic Culture - Preliminary Hip - #2 A&P Assessment and plan (1) Prosthetic joint infection: Status: Acute Qualifiers: Encounter type: initial encounter Qualified Code(s): T84.50XA - Infection and inflammatory reaction due to unspecified internal joint prosthesis, initial encounter (2) MRSA (methicillin resistant Staphylococcus aureus) septicemia: Status: Acute (3) CVA (cerebral vascular accident): Status: Acute Qualifiers: CVA mechanism: embolism Precerebral and cerebral artery: other cerebral artery Qualified Code(s): I63.49 - 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 Additional A&P Information 71-year-old lady currently admitted here for 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 Blood cx positive between 10/28-11/02 with MRSA. Clinical details as per last progress note from 11/03/20 worsening leukocytosis today, continues to be febrile, more lethargic this morning, tachypneic will obtain CXRP. Sputum cx and gram stain N/A as pt unable to expectorate. Continue Daptomycin 500mg iv q24h ADD ceftaroline 400mg iv q8h ( cr cl 41) for persistent MRSA bacteremia with clinical worsening. Discussed at length with at bedside that source control will still need to be optimized in addition to antibiotic therapy given that patient has had no significant clinical improvement. will follow Attestations Medical Necessity Statement*: Persistent MRSA bacteremia, need for iv abx, ongoing assessment for further surgeries, awaiting clinical improvement Coding Level of Care Code Acute Rate And Cost Analyst for [facility] Knox Diagnoses Prosthetic joint infection T84.50XA Encounter type: initial encounter MRSA (methicillin resistant Staphylococcus aureus) septicemia A41.02 CVA (cerebral vascular accident) I63.49 CVA mechanism: embolism Precerebral and cerebral artery: other cerebral artery
--- NOTE | 2021-11-04 10:30 | XR_ITS ---
WS: [id number] XR chest 1V portable [id number] REASON FOR EXAM: follow up pleural effusion FINDINGS: Compared to the previous examination of 11/01/2011 decreased gaseous distention of the stomach compare d to the previous examination of 11/01/2021. Small/moderate bilateral pleural effusions unchanged from 11/01/2021. Resolving bilateral basilar reticular lung opacities. XR/XR chest 1V portable [id number] IMPRESSION: Improving abnormal chest as above with persistent pleural effusions.
--- NOTE | 2021-11-04 10:47 | P.PN_ITS ---
Subjective Subjective: Interval history: MRSA nares positive Febrile, leukocytosis worsening I have called orthopedics, Dr. Armstrong told me that patient is scheduled for the surgery tomorrow Dr. Mathews started ceftaroline today, cefepime discontinued Patient is on room air Hold Lovenox aspirin and Plavix Vitals/I&O/Wt Last Vital Signs Temp 99.6 F 11/04/21 07:42 Pulse 92 11/04/21 07:42 Resp 30 H 11/04/21 07:42 BP 105/62 11/04/21 07:42 Pulse Ox 93 11/04/21 07:42 11/03/21 11/04/21 11/04/21 22:59 06:59 14:59 Intake Total 410 / 950 45 / 995 240 / 240 Output Total 1400 / 1400 Balance -990 / -450 45 / -405 240 / 240 Physical Exam Narrative: EXAM NARRATIVE: Patient is eating breakfast at the bedside Saturating well on room air Bilateral breast without adventitious rhonchi or crackles Abdomen soft Euvolemic No new focal deficits Patient looks comfortable no acute respiratory accessory muscle usage Urinary Catheter Management^: Chowdary: Cath Placed During This Visit: yes Reason for Continuing Indwelling Catheter: Required Immobilization for Trauma or Surgery or Anesthesia Urinary Catheter Date of Insertion: 10/28/21 Urinary Catheter Time of Insertion: 15:40 Data : 11/04/21 05:09 11/04/21 05:11 Micro: Microbiology 11/03/21 18:17 MRSA Culture - Final Nose 11/02/21 04:37 Blood Culture - Preliminary Blood Methicillin Resis Staph Aureus 11/02/21 04:37 Blood Culture - Preliminary Blood Methicillin Resis Staph Aureus 10/31/21 05:35 Blood Culture - Final Blood Methicillin Resis Staph Aureus 10/31/21 05:35 Blood Culture - Final Blood Methicillin Resis Staph Aureus 10/30/21 05:50 Blood Culture - Final Blood Methicillin Resis Staph Aureus 10/30/21 05:53 Blood Culture - Final Blood Methicillin Resis Staph Aureus 11/04/21 05:09 Blood Culture - Preliminary Blood SPECIMEN COLLECTED 11/04/21 05:11 Blood Culture - Preliminary Blood SPECIMEN COLLECTED 10/29/21 07:29 Anaerobic Culture - Preliminary Hip - #2 A&P Assessment and plan (1) MRSA (methicillin resistant Staphylococcus aureus) septicemia: Status: Acute (2) Prosthetic joint infection: Status: Acute Qualifiers: Encounter type: initial encounter Qualified Code(s): T84.50XA - Infection and inflammatory reaction due to unspecified internal joint prosthesis, initial encounter (3) Gram-positive cocci bacteremia: Status: Acute (4) CVA (cerebral vascular accident): Status: Acute Qualifiers: CVA mechanism: embolism Precerebral and cerebral artery: other cerebral artery Qualified Code(s): I63.49 - 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 overnight Hold aspirin, Plavix, Lovenox Carries high risk of mortality and morbidity Transesophageal echo did not show vegetation or mass, concern for septic emboli, Eliquis on hold Progressive supranuclear palsy with underlying dementia She is comfortable, able to eat on her own no signs of aspiration DNR/DNI N.p.o. after midnight Attestations Medical Necessity Statement*: Surgical intervention tomorrow Time Spent in Patient Care: 16 - 35 minutes Coding Level of Care Code Acute Home Performance Consultant for [facility] Fwd Diagnoses MRSA (methicillin resistant Staphylococcus aureus) septicemia A41.02 Prosthetic joint infection T84.50XA Encounter type: initial encounter Gram-positive cocci bacteremia R78.81 CVA (cerebral vascular accident) I63.49 CVA mechanism: embolism Precerebral and cerebral artery: other cerebral artery Aphasia R47.01 Wound infection after surgery T81.49XA Status post hip hemiarthroplasty Z96.649 Progressive supranuclear palsy G23.1 Dementia F03.90 Pleural effusion J90
[2021-11-04 12:00] VITALS: BP 119/68; PULSE 99; RESP 33; TEMP 37; O2SAT 97
--- NOTE | 2021-11-04 12:57 | P.PN_ITS ---
Subjective Subjective: Interval history: Patient up in the chair with family present. Vitals/I&O/Wt Last Vital Signs Temp 99.6 F 11/04/21 07:42 Pulse 92 11/04/21 07:42 Resp 30 H 11/04/21 07:42 BP 105/62 11/04/21 07:42 Pulse Ox 93 11/04/21 07:42 11/03/21 11/04/21 11/04/21 22:59 06:59 14:59 Intake Total 410 / 950 45 / 995 340 / 340 Output Total 1400 / 1400 Balance -990 / -450 45 / -405 340 / 340 Physical Exam Narrative: EXAM NARRATIVE: Right hip incision clean and dry with Silverlon dressing present. Toes are warm with good cap refill calves are supple no medial thigh tenderness. Urinary Catheter Management^: Chowdary: Cath Placed During This Visit: yes Reason for Continuing Indwelling Catheter: Required Immobilization for Trauma or Surgery or Anesthesia Urinary Catheter Date of Insertion: 10/28/21 Urinary Catheter Time of Insertion: 15:40 Data : 11/04/21 05:09 11/04/21 05:11 Micro: Microbiology 11/02/21 04:37 Blood Culture - Preliminary Blood Methicillin Resis Staph Aureus 11/02/21 04:37 Blood Culture - Preliminary Blood Methicillin Resis Staph Aureus 11/03/21 18:17 MRSA Culture - Final Nose 10/31/21 05:35 Blood Culture - Final Blood Methicillin Resis Staph Aureus 10/31/21 05:35 Blood Culture - Final Blood Methicillin Resis Staph Aureus 10/30/21 05:50 Blood Culture - Final Blood Methicillin Resis Staph Aureus 10/30/21 05:53 Blood Culture - Final Blood Methicillin Resis Staph Aureus 11/04/21 05:09 Blood Culture - Preliminary Blood SPECIMEN COLLECTED 11/04/21 05:11 Blood Culture - Preliminary Blood SPECIMEN COLLECTED 10/29/21 07:29 Anaerobic Culture - Preliminary Hip - #2 A&P Assessment and plan (1) Status post hip hemiarthroplasty: Spent a great deal of time communicating with the patient and her family regarding her condition. Discussed with the family and the patient proceeding with removal of the right hip component placing antibiotic impregnated cement with a new component to allow her to begin mobilizing. Discussed the risks and benefits of the procedure with the family which include but not limited to bleeding, further worsening her lung condition with general anesthetic, reaction to anesthetic, and the risks of recurrent infection. They understand these risks and wished to proceed. We will keep her n.p.o. after midnight and proceed with operative intervention on 11/05/2021. Status: Acute Attestations Medical Necessity Statement*: Revision Right hip Surgery tomorrow Coding Level of Care Code Acute Police Guard for [facility] Knox Diagnoses Status post hip hemiarthroplasty Z96.649
[2021-11-04 16:00] VITALS: BP 117/70; PULSE 90; RESP 18; TEMP 36.8; O2SAT 98
--- NOTE | 2021-11-04 19:11 | PC.NURSE ---
Report to Brooklyn NICHOLS at this time.
[2021-11-04 20:00] VITALS: BP 112/67; PULSE 96; RESP 16; TEMP 37.1; O2SAT 97
[2021-11-04] MEDS: atorvastatin 40 mg Tablet 80 MG PO (20:44)
[2021-11-04 22:00] VITALS: PULSE 101
[2021-11-05] VITALS (21 sets, daily range): BP systolic 98–147; BP diastolic 42–94; PULSE 82–101; RESP 14–21; TEMP 36.2–37.3; O2SAT 92–97
[2021-11-05 05:24] LABS: Basophils # 0.1 10^3/uL (0.0-0.1); Basophils % 0.3 %; Eosinophils # 0.3 10^3/uL (0.0-0.8); Eosinophils % 1.8 %; Hematocrit 24.1 % (37.0-47.0); Lymphocytes # 1.9 10^3/uL (0.8-4.8); Lymphocytes % 10.1 %; Mean Corpuscular HGB Conc 33.2 g/dL (30.0-36.0); Mean Corpuscular Hemoglobin 30.9 pg (28.0-34.0); Mean Corpuscular Volume 93.1 fl (81-99); Mean Platelet Volume 10.9 fL (7.4-10.4); Monocytes # 1.3 10^3/uL (0.2-0.9); Monocytes % 6.9 %; Neutrophils # 14.44 10^3/uL (1.8-7.7); Neutrophils % 76.8 %; Nucleated Red Blood Cells % 0 %; Platelet Count 313 10^3/cmm (130-400); Red Blood Count 2.59 10^6/uL (4.1-5.3); Red Cell Distribution Width 17.1 % (12.1-15.1); White Blood Count 18.8 10^3/uL (4.0-10.0)
[2021-11-05 05:49] LABS: Anion Gap 16.6 (5-19); Blood Urea Nitrogen 26 mg/dL (8-23); Calcium 7.4 mg/dL (8.5-10.5); Carbon Dioxide 20 mmol/L (22-29); Chloride 103 mmol/L (98-107); Glucose 91 mg/dL (65-115); Osmolality Calculated 284 mOsm/kg (285-295); Potassium 4.6 mmol/L (3.5-5.1); Sodium 135 mmol/L (136-145)
[2021-11-05] MEDS: sodium chloride 0.9% 1,000 ML 30 ML IV (06:30)
--- NOTE | 2021-11-05 06:57 | W.PM.OPSUD ---
Surgery/Procedure H&P Update DATE OF PROCEDURE: November 05, 2021 DATE H&P PERFORMED: 10/29/20 H&P UPDATE INFORMATION: I have reviewed H&P completed within last 30 days, I have examined patient prior to procedure and No changes to prior documentation PREOP DIAGNOSIS: Right Hip Wound Infection PLANNED PROCEDURE: Operation Date: 10/29/21 07:00 Proposed Procedures p Incision and Drainage(Not Applicable) - Lorenzo Kinney DO Operation Date: 11/01/21 12:00 Proposed Procedures p AMEE(Not Applicable) - Moriah Watts MD Operation Date: 11/05/21 07:00 Proposed Procedures p right hip prosthesis (bipolar) removal with placement of cement spacer(Right) - Lorenzo Kinney DO
--- NOTE | 2021-11-05 07:03 | P.ANESUD_ITS ---
Pre-Anesthetic Update Pre-Anesthetic Assessment: Date of Surgery/Procedure: 11/05/21 Preop Anabella gnosis: Right Hip Wound Infection Proposed Procedure: Operation Date: 10/29/21 07:00 Proposed Procedures p Incision and Drainage(Not Applicable) - Lorenzo Kinney DO Operation Date: 11/01/21 12:00 Proposed Procedures p AMEE(Not Applicable) - Moriah Watts MD Operation Date: 11/05/21 07:00 Proposed Procedures p right hip prosthesis (bipolar) removal with placement of cement spacer(Right) - Lorenzo Kinney, DO Any changes to Pre-Anesthetic Assessment?: Yes Changes from Pre-Anesthetic Assessment: No infective endocarditis Last Intake: Intake Last Liquid Date 10/31/21 Last Liquid Time 20:00 Last Solid Date 10/31/21 Last Solid Time 20:00 Labs Last 48hrs: Short CBC 11/04/21 11/05/21 Range/Units 05:09 04:12 WBC 21.9 H 18.8 H (4.0-10.0) 10^3/ uL Hgb 8.9 L 8.0 L (11.5-15.3) g/dL Hct 27.7 L 24.1 L (37.0-47.0) % MCV 96.5 93.1 (81-99) fl Plt Count 227 D 313 D (130-400) 10^3/c mm Neut % (Auto) 78.4 76.8 % Neut # (Auto) 17.17 H 14.44 H (1.8-7.7) 10^3/u L BMP 11/04/21 11/05/21 05:11 04:12 Sodium 135 L 135 L Potassium 4.2 4.6 Chloride 104 103 Carbon Dioxide 22 20 L BUN 29 H 26 H Creatinine 0.8 0.8 Glucose 101 91 Calcium 7.3 L 7.4 L Cardiac Enzymes 11/03/21 Range/Units 02:50 Creatine Kinase 30 (26-192) U/L Vitals: Temperature 98.4 F 11/05/21 06:14 Temperature Source Axillary 11/05/21 04:00 Pulse Rate 87 11/05/21 06:14 Pulse Rhythm 11/04/21 20:00 Pulse Strength 2+ Slightly Dimin ished 11/04/21 20:00 Respiratory Rate 17 11/05/21 06:14 Respiratory Effort Non-Labored 11/04/21 20:00 Respiratory Depth Normal 11/04/21 20:00 Respiratory Patter n 11/04/21 20:00 Blood Pressure 147/94 11/05/21 06:14 Blood Pressure Vicki n 111 11/05/21 06:14 Blood Pressure Pos ition Semi Fowlers 11/04/21 16:00 Pulse Oximetry 95 11/05/21 06:14 Oxygen Delivery Me thod 11/05/21 06:14 Oxygen Flow Rate 10 11/01/21 12:56 Fraction of Inspir ed Oxygen 21 11/01/21 06:16 Sepsis Recent Feve r Within 48 Hours Yes 10/28/21 12:54 Sepsis New/Unexpla ined Change in Men hazel Status No 10/28/21 12:54 Exam: Pre-Anes Outpt Exam: alert, clear to auscultation bilaterally and regular rate & rhythm Cardiac Studies: Echocardiogram 10/29/21 Transesophageal Echocardiogram 11/01/21
[2021-11-05] MEDS: clindamycin 900 MG/50 ML PREMIX 100 MG IV (07:11)
[2021-11-05] MEDS: vancomycin 1,000 MG SDV 2000 MG XX (08:02)
--- NOTE | 2021-11-05 08:47 | P.OP_ITS ---
Operative Report Date of procedure: November 05, 2021 Pre-op Diagnosis: Right Hip Wound Infection Post-op diagnosis: same Procedure Done: 1. Removal of deep hardware from hip 2. Irrigation debridement down to bone of right hip (wound is 45 x 20 cm) 3. placement of anibiotic cement spacer Surgeon: Lorenzo Kinney Flange Turner: Alberto Sanders Flange Turner: The kindergarten assistant, Alberto Sanders, PAC was needed for his expertise with hip surgery. He was important and necessary throughout the procedure to complete in a safe and timely manner. He assisted with patient positioning prepping and draping tissue retraction suctioning of the operative field protection of the dural sac and tissue closure Anesthesia: General Estimated blood loss (mL): 10 Condition: stable Disposition: PACU Procedure: 1. Removal of deep hardware from hip 2. Irrigation debridement down to bone of right hip (wound is 45 x 20 cm) 3. placement of anibiotic cement spacer Patient is brought to the operative suite after undergoing anesthesia was placed in the lateral decubitus position with the right side up. All areas impingement were well-padded. Patient was prepped and draped normal sterile fashion. Skin was made using previous incisions incision was approximately 45 cm long. Incision was opened IT band was opened previous sutures that were in removed. The hip was dislocated. And then the prosthesis was removed. A cement brush was used to brush the canal with irrigation. [place]geur was used to debride tissues. The tissue was debrided to bleeding tissue and the bone was abraded to bleeding bone with a rongeur. Sharp dissection was used to debride necrotic tissue and the skin edges. The cultures were taken with swabs as well as a tissue sample. These were all sent for culture. Wound was irrigated with 3 L of saline. Once wound was felt to be adequately debrided attention was brought to placing a cement spacer a size 1 Zane prosthesis was then coated with cement and a size 41 head was coated with cement as well hip was inserted after the cement hardened and then the hip was reduced and then the IT band was closed with oh strata fix skin was closed with 2 oh strata fix and nylon suture. Woods powder was placed and deep drain was placed. Sterile dressings were applied and patient was transferred to the PACU in stable condition
--- NOTE | 2021-11-05 09:00 | PC.NURSE ---
Received report from PACU nurse, this nurse to patient room to set up for arrival, family in room, updated on status, discussed plan of care, verbalized understanding.
--- NOTE | 2021-11-05 09:15 | PC.NURSE ---
Patient returned to room from PACU, post op vital signs activated, within normal limits, school bus monitor resumed, SCD applied to left leg, dressing to right hip clean dry and intact, ABD pillow present.
--- NOTE | 2021-11-05 09:25 | PM.PN ---
Subjective Subjective: Interval history: Status post removal of deep hardware from the hip with irrigation and debridement down to the bone of right hip wound 45 x 20 cm status post placement of cement spacer No overnight events, afebrile Leukocytosis trending down Anemia hemoglobin 8.0 Vitals/I&O/Wt Last Vital Signs Temp 97.1 F L 11/05/21 09:00 Pulse 90 11/05/21 09:00 Resp 20 H 11/05/21 09:00 BP 134/76 11/05/21 09:00 Pulse Ox 94 11/05/21 09:00 11/04/21 11/05/21 11/05/21 22:59 06:59 14:59 Intake Total 613.5 / 1187.0 113.5 / 1300.5 1350 / 1350 Output Total 2850 / 3850 250 / 250 Balance 613.5 / 187.0 -2736.5 / -2549.5 1100 / 1100 Physical Exam Narrative: EXAM NARRATIVE: Patient is drowsy saturating 90% on room air, at the bedside Both lower extremities feel warm She has a drain in her right hip draining about 50 cc of blood Breathing does not seem to be labored Soft abdomen No audible stridor or wheezing Urinary Catheter Management^: Chowdary: Cath Placed During This Visit: yes Reason for Continuing Indwelling Catheter: Required Immobilization for Trauma or Surgery or Anesthesia Urinary Catheter Date of Insertion: 10/28/21 Urinary Catheter Time of Insertion: 15:40 Data : 11/05/21 04:12 11/05/21 04:12 Micro: Microbiology 11/04/21 05:09 Blood Culture - Preliminary Blood NEGATIVE TO DATE 11/04/21 05:11 Blood Culture - Preliminary Blood NEGATIVE TO DATE 10/29/21 07:29 Anaerobic Culture - Preliminary Hip - #2 11/02/21 04:37 Blood Culture - Preliminary Blood Methicillin Resis Staph Aureus 11/02/21 04:37 Blood Culture - Preliminary Blood Methicillin Resis Staph Aureus 11/03/21 18:17 MRSA Culture - Final Nose 10/31/21 05:35 Blood Culture - Final Blood Methicillin Resis Staph Aureus 10/31/21 05:35 Blood Culture - Final Blood Methicillin Resis Staph Aureus 10/30/21 05:50 Blood Culture - Final Blood Methicillin Resis Staph Aureus 10/30/21 05:53 Blood Culture - Final Blood Methicillin Resis Staph Aureus A&P Assessment and plan (1) Pleural effusion: Status: Acute (2) MRSA (methicillin resistant Staphylococcus aureus) septicemia: Status: Acute (3) Prosthetic joint infection: Status: Acute Qualifiers: Encounter type: initial encounter Qualified Code(s): T84.50XA - Infection and inflammatory reaction due to unspecified internal joint prosthesis, initial encounter (4) S/P hardware removal: Status: Acute (5) Gram-positive cocci bacteremia: Status: Acute (6) Aphasia: Status: Acute (7) Wound infection after surgery: Status: Acute (8) Progressive supranuclear palsy: Status: Acute (9) Dementia: Status: Acute (10) Memory loss: Status: Acute Additional A&P Information Persistent bacteremia Afebrile last 48 hours Leukocytosis trending down Currently on ceftaroline and daptomycin 11/04 blood cultures obtained before hardware removal I will repeat blood cultures tomorrow morning, once bacteremia clears we will get PICC line placement and then she will go to a [place] [facility] [place] With placement of spacer I was told by orthopedics that she will be bedbound for the next 3 months Hypocalcemia: Calcium repleted Supranuclear palsy no new neurological deficits Continue regular diet after the procedure DVT prophylaxis to be initiated 24-hour the procedure Low hemoglobin noted 8.0, no active bleeding DNR/DNI COVID PCR negative Attestations Medical Necessity Statement*: Continue medical management, will need [place] [facility] [place] placement and PICC line placement once bacteremia clears Time Spent in Patient Care: less than 15 minutes Coding Level of Care Code Acute Contact Printer Dry Film for [facility] Fwd Diagnoses Pleural effusion J90 MRSA (methicillin resistant Staphylococcus aureus) septicemia A41.02 Prosthetic joint infection T84.50XA Encounter type: initial encounter S/P hardware removal Z98.890 Gram-positive cocci bacteremia R78.81 Aphasia R47.01 Wound infection after surgery T81.49XA Progressive supranuclear palsy G23.1 Dementia F03.90 Memory loss R41.3
[2021-11-05] MEDS: DAPTOmycin 500 MG in sodium chloride 0.9% (100 ml) 100 ML 100 MG IV (10:01)
[2021-11-05] MEDS: HYDROcodone-acetaminophen 5-325 mg Tablet PO ×3 (10:02→20:39)
--- NOTE | 2021-11-05 10:52 | PC.NURSE ---
Family reports patient having loose BM and multiple a day so refused colace at this time.
[2021-11-05] MEDS: enoxaparin 60 mg/0.6 mL Syringe 50 MG SUBCUT (12:03)
--- NOTE | 2021-11-05 13:15 | ANE.PACU2 ---
Inpatient post-anesthesia follow up: Airway intact: Yes Vital signs: Temperature 97.5 F Pulse Rate 96 Respiratory Rate 20 Blood Pressure 106/54 Pulse Oximetry 96 Oxygen Delivery Me thod Room Air Oxygen Flow Rate 10 Fraction of Inspir ed Oxygen 21 Hydration adequate: Yes Nausea and vomiting: No Pain level: 2 Mental status: Baseline
[2021-11-06] VITALS (15 sets, daily range): BP systolic 104–148; BP diastolic 54–96; PULSE 86–102; RESP 15–20; TEMP 36.6–37.4; O2SAT 95–99
[2021-11-06] MEDS: enoxaparin 60 mg/0.6 mL Syringe 50 MG SUBCUT (00:45)
[2021-11-06 04:15] LABS: Basophils # 0.1 10^3/uL (0.0-0.1); Basophils % 0.3 %; Eosinophils # 0.2 10^3/uL (0.0-0.8); Eosinophils % 1.1 %; Hematocrit 23.2 % (37.0-47.0); Hemoglobin 7.6 g/dL (11.5-15.3); Lymphocytes # 1.8 10^3/uL (0.8-4.8); Lymphocytes % 9.7 %; Mean Corpuscular HGB Conc 32.8 g/dL (30.0-36.0); Mean Corpuscular Hemoglobin 31.8 pg (28.0-34.0); Mean Corpuscular Volume 97.1 fl (81-99); Mean Platelet Volume 11.2 fL (7.4-10.4); Monocytes # 1.3 10^3/uL (0.2-0.9); Monocytes % 6.9 %; Neutrophils # 14.62 10^3/uL (1.8-7.7); Neutrophils % 78.6 %; Nucleated Red Blood Cells % 0 %; Platelet Count 374 10^3/cmm (130-400); Red Blood Count 2.39 10^6/uL (4.1-5.3); Red Cell Distribution Width 17.4 % (12.1-15.1); White Blood Count 18.6 10^3/uL (4.0-10.0)
[2021-11-06 04:32] LABS: Anion Gap 16.4 (5-19); Blood Urea Nitrogen 29 mg/dL (8-23); Calcium 7.4 mg/dL (8.5-10.5); Carbon Dioxide 21 mmol/L (22-29); Chloride 103 mmol/L (98-107); Glucose 104 mg/dL (65-115); Osmolality Calculated 286 mOsm/kg (285-295); Potassium 5.4 mmol/L (3.5-5.1); Sodium 135 mmol/L (136-145)
[2021-11-06] MEDS: sodium polystyrene sulfonate 15 gm/60 mL Btl PO (08:56)
[2021-11-06] MEDS: HYDROcodone-acetaminophen 5-325 mg Tablet PO ×2 (10:00→19:17)
--- NOTE | 2021-11-06 10:11 | PC.SOCIAL ---
IMM updated Updated pt & spouse on IMM. No questions voiced. Provided them a copy. Initialed, dated, & timed copy in chart.
--- NOTE | 2021-11-06 10:28 | P.PN_ITS ---
Subjective Subjective: Interval history: resting in bed Vitals/I&O/Wt Last Vital Signs Temp 98.3 F 11/06/21 07:53 Pulse 94 11/06/21 09:45 Resp 16 11/06/21 09:45 BP 127/71 11/06/21 07:53 Pulse Ox 95 11/06/21 09:45 11/05/21 11/06/21 11/06/21 22:59 06:59 14:59 Intake Total 840 / 2580 290 / 2870 Output Total 1005 / 1255 1250 / 2505 Balance -165 / 1325 -960 / 365 Physical Exam Narrative: EXAM NARRATIVE: resitng in bed Urinary Catheter Management^: Chowdary: Cath Placed During This Visit: yes Reason for Continuing Indwelling Catheter: Required Immobilization for Trauma or Surgery or Anesthesia Urinary Catheter Date of Insertion: 10/28/21 Urinary Catheter Time of Insertion: 15:40 Data : 11/06/21 03:22 11/06/21 03:22 Micro: Microbiology 11/02/21 04:37 Blood Culture - Final Blood Methicillin Resis Staph Aureus 11/02/21 04:37 Blood Culture - Final Blood Methicillin Resis Staph Aureus 11/05/21 08:14 Gram Stain - Final Hip - #2 Abscess Culture - Preliminary 11/05/21 08:14 Gram Stain - Final Hip - #3 Wound Culture - Preliminary 11/04/21 05:11 Blood Culture - Preliminary Blood Gram positive cocci 11/04/21 05:09 Blood Culture - Preliminary Blood Gram positive cocci 10/29/21 07:29 Anaerobic Culture - Final Hip - #2 A&P Assessment and plan (1) Encounter for postoperative care: POD#1 removal of hip prosthesis D/C drain when less than 50 cc per shift Partial weight bear RLE change dressing as needed OK to put SCD on rle OK to D/C hip abduction pillow Status: Acute Attestations Medical Necessity Statement*: per primary ervice Coding Level of Care Code Acute Statistical Financial Analyst for [facility] F[facility]rose[facility] Diagnoses Encounter for postoperative care Z48.89
[2021-11-06] MEDS: DAPTOmycin 500 MG in sodium chloride 0.9% (100 ml) 100 ML 100 MG IV (11:32)
--- NOTE | 2021-11-06 11:53 | PM.PN ---
Subjective Subjective: Interval history: Drop in hemoglobin noted, blood pressure normal Patient was watching a movie when entered the room however seems slightly lethargic as compared to yesterday Saturating well on room air at the bedside We will give her p.o. Kayexalate for potassium 5.4 Hemoglobin 7.6 Hemovac draining 100 cc of blood Repeat blood cultures today As per the she had a bowel movement today Vitals/I&O/Wt Last Vital Signs Temp 99.0 F 11/06/21 11:29 Pulse 91 11/06/21 11:29 Resp 18 11/06/21 11:29 BP 113/69 11/06/21 11:29 Pulse Ox 97 11/06/21 11:29 11/05/21 11/06/21 11/06/21 22:59 06:59 14:59 Intake Total 840 / 2580 290 / 2870 Output Total 1005 / 1255 1250 / 2505 Balance -165 / 1325 -960 / 365 Physical Exam Narrative: EXAM NARRATIVE: Patient laying supine Drowsy Saturating well on room air There was a laptop she was watching a movie with her Saturating well on room air No acute respite distress Pupils symmetrical No new focal deficit Looks euvolemic Hemovac draining 100 cc of blood EOMI, PERRLA No new focal deficit Abdomen soft Urinary Catheter Management^: Chowdary: Cath Placed During This Visit: yes Reason for Continuing Indwelling Catheter: Required Immobilization for Trauma or Surgery or Anesthesia Urinary Catheter Date of Insertion: 10/28/21 Urinary Catheter Time of Insertion: 15:40 Data : 11/06/21 03:22 11/06/21 03:22 Micro: Microbiology 11/04/21 05:09 Blood Culture - Preliminary Blood Staphylococcus aureus 11/04/21 05:11 Blood Culture - Preliminary Blood Staphylococcus aureus 11/02/21 04:37 Blood Culture - Final Blood Methicillin Resis Staph Aureus 11/02/21 04:37 Blood Culture - Final Blood Methicillin Resis Staph Aureus 11/05/21 08:14 Gram Stain - Final Hip - #2 Abscess Culture - Preliminary 11/05/21 08:14 Gram Stain - Final Hip - #3 Wound Culture - Preliminary 10/29/21 07:29 Anaerobic Culture - Final Hip - #2 A&P Assessment and plan (1) Postoperative anemia: Status: Acute (2) S/P hardware removal: Status: Acute (3) Pleural effusion: Status: Acute (4) MRSA (methicillin resistant Staphylococcus aureus) septicemia: Status: Acute (5) Prosthetic joint infection: Status: Acute Qualifiers: Encounter type: initial encounter Qualified Code(s): T84.50XA - Infection and inflammatory reaction due to unspecified internal joint prosthesis, initial encounter (6) Gram-positive cocci bacteremia: Status: Acute (7) CVA (cerebral vascular accident): Status: Acute Qualifiers: CVA mechanism: embolism Precerebral and cerebral artery: other cerebral artery Qualified Code(s): I63.49 - 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 (8) Aphasia: Status: Acute (9) Wound infection after surgery: Status: Acute (10) Status post hip hemiarthroplasty: Status: Inactive (11) Progressive supranuclear palsy: Status: Acute (12) Dementia: Status: Acute Additional A&P Information Postoperative anemia noted, will give 1 unit PRBC Hold anticoagulating agent Status post hardware removal 11/05, placement of spacer Irrigation debridement down to bone of right hip wound 45 x 20 cm Placement of anibiotic cement spacer Need retirement placement once bacteremia clears Once blood cultures are negative for about 72 hours we will get PICC line placed, then retirement placement Repeat blood cultures on 11/06 Persistent bacteremia, MRSA No acute respite distress, saturating well on room air, has bilateral pleural effusion however no active pneumonia Continue ceftaroline and daptomycin for now for persistent bacteremia Septic emboli, atrial thrombus, she was on Eliquis which will be discontinued because of active anemia DNR/DNI DVT prophylaxis SCDs, will be Eliquis once hemoglobin is stable Regular diet Attestations Medical Necessity Statement*: Continue medical management Time Spent in Patient Care: less than 15 minutes Coding Level of Care Code 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
[2021-11-06] MEDS: sodium chloride 0.9% (100 ml) 100 ML 200 ML (19:45)
[2021-11-06 21:09] LABS: Hematocrit 24.6 % (37.0-47.0); Hemoglobin 8.2 g/dL (11.5-15.3)
[2021-11-07] VITALS (7 sets, daily range): BP systolic 94–124; BP diastolic 51–67; PULSE 85–100; RESP 17–20; TEMP 36.7–36.9; O2SAT 95–97
[2021-11-07] MEDS: HYDROcodone-acetaminophen 5-325 mg Tablet PO ×5 (00:32→23:34)
[2021-11-07 05:44] LABS: Basophils # 0.1 10^3/uL (0.0-0.1); Basophils % 0.3 %; Eosinophils # 0.3 10^3/uL (0.0-0.8); Eosinophils % 2.1 %; Hematocrit 25.3 % (37.0-47.0); Hemoglobin 8.2 g/dL (11.5-15.3); Lymphocytes # 1.9 10^3/uL (0.8-4.8); Lymphocytes % 12.9 %; Mean Corpuscular HGB Conc 32.4 g/dL (30.0-36.0); Mean Corpuscular Hemoglobin 29.9 pg (28.0-34.0); Mean Corpuscular Volume 92.3 fl (81-99); Mean Platelet Volume 10.2 fL (7.4-10.4); Monocytes # 1.3 10^3/uL (0.2-0.9); Neutrophils # 10.77 10^3/uL (1.8-7.7); Neutrophils % 72.8 %; Nucleated Red Blood Cells % 0 %; Platelet Count 418 10^3/cmm (130-400); Red Blood Count 2.74 10^6/uL (4.1-5.3); Red Cell Distribution Width 17.6 % (12.1-15.1); White Blood Count 14.8 10^3/uL (4.0-10.0)
[2021-11-07 06:07] LABS: Anion Gap 14.8 (5-19); Blood Urea Nitrogen 23 mg/dL (8-23); Calcium 7.5 mg/dL (8.5-10.5); Carbon Dioxide 21 mmol/L (22-29); Chloride 101 mmol/L (98-107); Glucose 93 mg/dL (65-115); Osmolality Calculated 277 mOsm/kg (285-295); Potassium 4.8 mmol/L (3.5-5.1); Sodium 132 mmol/L (136-145)
[2021-11-07] MEDS: DAPTOmycin 500 MG in sodium chloride 0.9% (100 ml) 100 ML 100 MG IV (10:52)
--- NOTE | 2021-11-07 11:03 | P.PN_ITS ---
Subjective Subjective: Interval history: Status post 1 unit PRBC Hemoglobin stable No overnight events Vitals/I&O/Wt Last Vital Signs Temp 98.0 F 11/07/21 08:00 Pulse 93 11/07/21 09:54 Resp 17 11/07/21 09:54 BP 98/57 11/07/21 08:00 Pulse Ox 95 11/07/21 09:54 11/06/21 11/07/21 11/07/21 22:59 06:59 14:59 Intake Total 570 / 720 50 / 770 720 / 720 Output Total 1560 / 1560 1450 / 3010 Balance -990 / -840 -1400 / -2240 720 / 720 Physical Exam Narrative: EXAM NARRATIVE: Daughter at the bedside Patient is resting comfortably in her chair watching television SCDs on No new focal deficit Hemovac has about 25 to 50 cc Patient is able to move her lower extremities S1, S2 Saturating well on room air No acute respiratory distress Urinary Catheter Management^: Chowdary: Cath Placed During This Visit: yes Reason for Continuing Indwelling Catheter: Required Immobilization for Trauma or Surgery or Anesthesia Urinary Catheter Date of Insertion: 10/28/21 Urinary Catheter Time of Insertion: 15:40 Data : 11/07/21 04:09 11/07/21 04:09 Micro: Microbiology 11/04/21 05:09 Blood Culture - Preliminary Blood Methicillin Resis Staph Aureus 11/04/21 05:11 Blood Culture - Preliminary Blood Methicillin Resis Staph Aureus 11/05/21 08:14 Gram Stain - Final Hip - #2 Abscess Culture - Preliminary Methicillin Resis Staph Aureus 11/05/21 08:14 Gram Stain - Final Hip - #3 Wound Culture - Preliminary Methicillin Resis Staph Aureus 11/06/21 14:15 Blood Culture - Preliminary Blood SPECIMEN COLLECTED 11/06/21 14:15 Blood Culture - Preliminary Blood SPECIMEN COLLECTED 11/02/21 04:37 Blood Culture - Final Blood Methicillin Resis Staph Aureus 11/02/21 04:37 Blood Culture - Final Blood Methicillin Resis Staph Aureus A&P Assessment and plan (1) Postoperative anemia: Status: Acute (2) S/P hardware removal: Status: Acute (3) Pleural effusion: Status: Acute (4) MRSA (methicillin resistant Staphylococcus aureus) septicemia: Status: Acute (5) Prosthetic joint infection: Status: Acute Qualifiers: Encounter type: initial encounter Qualified Code(s): T84.50XA - Infection and inflammatory reaction due to unspecified internal joint prosthesis, initial encounter (6) Gram-positive cocci bacteremia: Status: Acute (7) CVA (cerebral vascular accident): Status: Acute Qualifiers: CVA mechanism: embolism Precerebral and cerebral artery: other cerebral artery Qualified Code(s): I63.49 - 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 (8) Aphasia: Status: Acute (9) Wound infection after surgery: Status: Acute (10) Progressive supranuclear palsy: Status: Acute (11) Dementia: Status: Acute (12) Memory loss: Status: Acute Additional A&P Information Persistent bacteremia however wound culture from the OR showing MRSA, hip prosthesis most likely was the source of infection Daptomycin and ceftaroline Repeat blood cultures today as well If her cultures remain negative for next 72 hours we will get PICC line placement and discharge her to a intermediate If her next blood cultures remain positive we will scan her spine to look for any septic seeding Postoperative anemia Status post 1 unit PRBC, will hold aspirin Plavix and anticoagulating agent for at least 1 more day Her Hemovac most likely will be taken out tomorrow about 50 cc noted in the container Patient is eating okay, on regular diet No new focal deficit Family at the bedside She does have bowel regimen Attestations Medical Necessity Statement*: Will wait until Monday to decide regarding PICC line placement regarding PICC line placement Time Spent in Patient Care: less than 15 minutes Coding Level of Care Code Acute Medical Radiation 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
--- NOTE | 2021-11-07 17:09 | PM.PN ---
Subjective Subjective: Interval history: Infectious Disease progress note Chart reviewed s/p removal of prosthetic hip on 11/05 with placement of cement spacer, tolerated procedure leukocytosis trending down to 14 today tmax 99F over last 24 hrs no acute events per chart review blood cx negative thus far from 11/06 and 11/07 wound cx from OR with MRSA Medications: Reviewed: Yes Vitals/I&O/Wt Last Vital Signs Temp 98.1 F 11/07/21 16:00 Pulse 100 11/07/21 16:00 Resp 18 11/07/21 16:00 BP 100/54 11/07/21 16:00 Pulse Ox 97 11/07/21 16:00 11/07/21 11/07/21 11/07/21 06:59 14:59 22:59 Intake Total 50 / 770 1060 / 1060 50 / 1110 Output Total 1450 / 3010 Balance -1400 / -2240 1060 / 1060 50 / 1110 Physical Exam Narrative: EXAM NARRATIVE: not examined today Urinary Catheter Management^: Chowdary: Cath Placed During This Visit: yes Reason for Continuing Indwelling Catheter: Required Immobilization for Trauma or Surgery or Anesthesia Urinary Catheter Date of Insertion: 10/28/21 Urinary Catheter Time of Insertion: 15:40 Data : 11/07/21 04:09 11/07/21 04:09 Micro: Microbiology 11/06/21 14:15 Blood Culture - Preliminary Blood NEGATIVE TO DATE 11/06/21 14:15 Blood Culture - Preliminary Blood NEGATIVE TO DATE 11/07/21 11:26 Blood Culture - Preliminary Blood SPECIMEN COLLECTED 11/07/21 11:30 Blood Culture - Preliminary Blood SPECIMEN COLLECTED 11/04/21 05:09 Blood Culture - Preliminary Blood Methicillin Resis Staph Aureus 11/04/21 05:11 Blood Culture - Preliminary Blood Methicillin Resis Staph Aureus 11/05/21 08:14 Gram Stain - Final Hip - #2 Abscess Culture - Preliminary Methicillin Resis Staph Aureus 11/05/21 08:14 Gram Stain - Final Hip - #3 Wound Culture - Preliminary Methicillin Resis Staph Aureus A&P Assessment and plan (1) Prosthetic joint infection: Status: Acute Qualifiers: Encounter type: initial encounter Qualified Code(s): T84.50XA - Infection and inflammatory reaction due to unspecified internal joint prosthesis, initial encounter (2) MRSA (methicillin resistant Staphylococcus aureus) septicemia: Status: Acute (3) CVA (cerebral vascular accident): Status: Acute Qualifiers: CVA mechanism: embolism Precerebral and cerebral artery: other cerebral artery Qualified Code(s): I63.49 - 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 Additional A&P Information 71-year-old lady currently admitted here for 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 Source is PJI, now s/p removal of infected joint on 11/05. Blood cx positive between 10/28-11/04 with MRSA. S/p removal of hardware on 11/05 Blood cx negative thus far from 11/06 and 11/07 Improving leukocytosis today, tmax 99F over 48 hrs, fever curve improving Currently on Daptomycin 500mg iv q24h (since 11/03-) and Ceftaroline 600mg iv q12h (11/04- renally dosed for cr cl 41) for persistent bacteremia. Once blood culture clear for at least 72 hrs, will de escalate to monotherapy with vancomycin vs daptomycin. 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
[2021-11-08] VITALS (9 sets, daily range): BP systolic 95–136; BP diastolic 53–84; PULSE 68–97; RESP 14–18; TEMP 36.7–36.9; O2SAT 95–97
[2021-11-08 06:16] LABS: Basophils # 0.1 10^3/uL (0.0-0.1); Basophils % 0.4 %; Eosinophils # 0.3 10^3/uL (0.0-0.8); Hematocrit 25.1 % (37.0-47.0); Hemoglobin 8.1 g/dL (11.5-15.3); Lymphocytes # 1.8 10^3/uL (0.8-4.8); Lymphocytes % 11.8 %; Mean Corpuscular HGB Conc 32.3 g/dL (30.0-36.0); Mean Platelet Volume 10.1 fL (7.4-10.4); Monocytes # 1.2 10^3/uL (0.2-0.9); Monocytes % 8.1 %; Neutrophils # 11.18 10^3/uL (1.8-7.7); Neutrophils % 74.9 %; Nucleated Red Blood Cells % 0 %; Platelet Count 540 10^3/cmm (130-400); Red Cell Distribution Width 17.2 % (12.1-15.1); White Blood Count 14.9 10^3/uL (4.0-10.0)
[2021-11-08 06:25] LABS: Anion Gap 16.9 (5-19); Blood Urea Nitrogen 27 mg/dL (8-23); Calcium 7.7 mg/dL (8.5-10.5); Carbon Dioxide 22 mmol/L (22-29); Chloride 100 mmol/L (98-107); Glucose 95 mg/dL (65-115); Osmolality Calculated 283 mOsm/kg (285-295); Potassium 4.9 mmol/L (3.5-5.1); Sodium 134 mmol/L (136-145)
--- NOTE | 2021-11-08 10:56 | P.PN_ITS ---
Subjective Subjective: Interval history: Cultures negative to date from 11/06 Afebrile, leukocytosis improving Hemoglobin stable No overnight events Will get PICC line placed on 11/09 if cultures remain -72 hours Vitals/I&O/Wt Last Vital Signs Temp 98.1 F 11/08/21 07:35 Pulse 89 11/08/21 09:24 Resp 16 11/08/21 09:24 BP 95/53 11/08/21 07:35 Pulse Ox 97 11/08/21 09:24 11/07/21 11/08/21 11/08/21 22:59 06:59 14:59 Intake Total 50 / 1110 50 / 1160 600 / 600 Output Total 1100 / 1100 1450 / 1450 Balance -1050 / 10 50 / 60 -850 / -850 Physical Exam Narrative: EXAM NARRATIVE: Patient sitting in her bed watching television Euvolemic Dilute urine in urinary bag Abdomen soft No audible stridor or wheezing Saturating well on room air She does repeat what ever I say Horizontally able to track my movement with her eyes No new focal deficit Tolerating her diet Urinary Catheter Management^: Chowdary: Cath Placed During This Visit: yes Reason for Continuing Indwelling Catheter: Other Urinary Catheter Date of Insertion: 10/28/21 Urinary Catheter Time of Insertion: 15:40 Data : 11/08/21 05:10 11/08/21 05:10 Micro: Microbiology 11/05/21 08:14 Gram Stain - Final Hip - #2 Abscess Culture - Final Methicillin Resis Staph Aureus 11/05/21 08:14 Gram Stain - Final Hip - #3 Wound Culture - Final Methicillin Resis Staph Aureus 11/06/21 14:15 Blood Culture - Preliminary Blood NEGATIVE TO DATE 11/06/21 14:15 Blood Culture - Preliminary Blood NEGATIVE TO DATE 11/07/21 11:26 Blood Culture - Preliminary Blood SPECIMEN COLLECTED 11/07/21 11:30 Blood Culture - Preliminary Blood SPECIMEN COLLECTED 11/04/21 05:09 Blood Culture - Preliminary Blood Methicillin Resis Staph Aureus 11/04/21 05:11 Blood Culture - Preliminary Blood Methicillin Resis Staph Aureus A&P Assessment and plan (1) Postoperative anemia: Status: Acute (2) S/P hardware removal: Status: Acute (3) Pleural effusion: Status: Acute (4) MRSA (methicillin resistant Staphylococcus aureus) septicemia: Status: Acute (5) Prosthetic joint infection: Status: Acute Qualifiers: Encounter type: initial encounter Qualified Code(s): T84.50XA - Infection and inflammatory reaction due to unspecified internal joint prosthe sis, initial encounter (6) Gram-positive cocci bacteremia: Status: Acute (7) CVA (cerebral vascular accident): Status: Acute Qualifiers: CVA mechanism: embolism Precerebral and cerebral artery: other cerebral artery Qualified Code(s): I63.49 - 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 (8) Aphasia: Status: Acute (9) Wound infection after surgery: Status: Acute (10) Dementia: Status: Acute (11) Memory loss: Status: Acute Additional A&P Information Persistent bacteremia however cultures negative since 11/06 Afebrile Leukocytosis improving If cultures remain negative for next 24 hours that would complete 72 hours Will touch base with ID, will request PICC line placement tomorrow After PICC line placement she will be sent to a long-term She is tolerating her diet Septic embolic stroke I would hold off on Eliquis for now in anticipation of PICC line placement Wound has dressing without any active soaking Hemoglobin stable, status post 1 unit PRBC DNR/DNI Tolerating regular diet Attestations Medical Necessity Statement*: PICC line placement anticipated Time Spent in Patient Care: 16 - 35 minutes Coding Level of Care Code 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
[2021-11-08] MEDS: DAPTOmycin 500 MG in sodium chloride 0.9% (100 ml) 100 ML 100 MG IV (11:04)
[2021-11-08] MEDS: vancomycin 1,000 MG in sodium chloride 0.9% 250 ML 250 MG IV (20:45)
[2021-11-09] VITALS (9 sets, daily range): BP systolic 111–132; BP diastolic 55–69; PULSE 59–94; RESP 16–22; TEMP 36.7–37; O2SAT 94–98
[2021-11-09] MEDS: HYDROcodone-acetaminophen 5-325 mg Tablet PO ×2 (01:15→17:43)
[2021-11-09 06:04] LABS: Basophils # 0.1 10^3/uL (0.0-0.1); Basophils % 0.6 %; Eosinophils # 0.3 10^3/uL (0.0-0.8); Eosinophils % 1.9 %; Hematocrit 26.3 % (37.0-47.0); Hemoglobin 8.4 g/dL (11.5-15.3); Lymphocytes # 1.7 10^3/uL (0.8-4.8); Lymphocytes % 12.9 %; Mean Corpuscular HGB Conc 31.9 g/dL (30.0-36.0); Mean Corpuscular Hemoglobin 30.2 pg (28.0-34.0); Mean Corpuscular Volume 94.6 fl (81-99); Mean Platelet Volume 9.5 fL (7.4-10.4); Monocytes # 1.2 10^3/uL (0.2-0.9); Monocytes % 8.8 %; Neutrophils # 9.95 10^3/uL (1.8-7.7); Neutrophils % 73.9 %; Nucleated Red Blood Cells % 0 %; Platelet Count 663 10^3/cmm (130-400); Red Blood Count 2.78 10^6/uL (4.1-5.3); Red Cell Distribution Width 16.8 % (12.1-15.1); White Blood Count 13.5 10^3/uL (4.0-10.0)
[2021-11-09 06:15] LABS: Anion Gap 14.7 (5-19); Blood Urea Nitrogen 22 mg/dL (8-23); Carbon Dioxide 23 mmol/L (22-29); Chloride 99 mmol/L (98-107); Glucose 90 mg/dL (65-115); Osmolality Calculated 277 mOsm/kg (285-295); Potassium 4.7 mmol/L (3.5-5.1); Sodium 132 mmol/L (136-145)
--- NOTE | 2021-11-09 09:31 | PM.PN ---
Subjective Subjective: Interval history: Patient had 2 bowel movements yesterday, no overnight events, this morning physical therapist was in the room when I evaluated the patient, she was on room air, she is keeping her eyes closed and repeating questions when PT asked her if she is in pain, at the bedside, today we are planning for PICC line placement, Vitals/I&O/Wt Last Vital Signs Temp 98.0 F 11/09/21 04:00 Pulse 91 11/09/21 07:50 Resp 18 11/09/21 07:50 BP 121/69 11/09/21 07:50 Pulse Ox 96 11/09/21 07:50 11/08/21 11/09/21 11/09/21 22:59 06:59 14:59 Intake Total 380 / 1080 530 / 1610 Output Total 1040 / 2490 Balance 380 / -370 -510 / -880 Physical Exam Narrative: EXAM NARRATIVE: Patient laying supine PT in the room Saturating well on room air Abdomen soft S1, S2 No rhonchi or crackles Hyperreflexia of lower extremities Right leg is stiff Patient is keeping her eyes closed Looks euvolemic Urinary Catheter Management^: Chowdary: Cath Placed During This Visit: yes Reason for Continuing Indwelling Catheter: Accurate Measurement of Urinary Output in Critically Ill Patients Urinary Catheter Date of Insertion: 10/28/21 Urinary Catheter Time of Insertion: 15:40 Data : 11/09/21 05:05 11/09/21 05:05 Micro: Microbiology 11/04/21 05:09 Blood Culture - Final Blood Methicillin Resis Staph Aureus 11/04/21 05:11 Blood Culture - Final Blood Methicillin Resis Staph Aureus 11/07/21 11:26 Blood Culture - Preliminary Blood NEGATIVE TO DATE 11/07/21 11:30 Blood Culture - Preliminary Blood NEGATIVE TO DATE 11/05/21 08:14 Gram Stain - Final Hip - #2 Abscess Culture - Final Methicillin Resis Staph Aureus 11/05/21 08:14 Gram Stain - Final Hip - #3 Wound Culture - Final Methicillin Resis Staph Aureus A&P Assessment and plan (1) Postoperative anemia: Status: Acute (2) S/P hardware removal: Status: Acute (3) Pleural effusion: Status: Acute (4) MRSA (methicillin resistant Staphylococcus aureus) septicemia: Status: Acute (5) Prosthetic joint infection: Status: Acute Qualifiers: Encounter type: initial encounter Qualified Code(s): T84.50XA - Infection and inflammatory reaction due to unspecified internal joint prosthesis, initial encounter (6) Gram-positive cocci bacteremia: Status: Acute (7) Aphasia: Status: Acute (8) CVA (cerebral vascular accident): Status: Acute Qualifiers: CVA mechanism: embolism Precerebral and cerebral artery: other cerebral artery Qualified Code(s): I63.49 - 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 (9) Wound infection after surgery: Status: Acute (10) Progressive supranuclear palsy: Status: Acute (11) Dementia: Status: Acute (12) Memory loss: Status: Acute Additional A&P Information Postoperative anemia hemoglobin stable status post 1 unit PRBC MRSA bacteremia: Blood cultures negative for last 72 hours, will get PICC line today Dr. 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
[2021-11-09] MEDS: DAPTOmycin 500 MG in sodium chloride 0.9% (100 ml) 100 ML 100 MG IV (11:51)
--- NOTE | 2021-11-09 13:37 | P.PN_ITS ---
Subjective Subjective: Interval history: Patient resting comfortably. No family present. Vitals/I&O/Wt Last Vital Signs Temp 98.0 F 11/09/21 04:00 Pulse 92 11/09/21 12:02 Resp 17 11/09/21 12:02 BP 123/68 11/09/21 11:37 Pulse Ox 96 11/09/21 12:02 11/08/21 11/09/21 11/09/21 22:59 06:59 14:59 Intake Total 380 / 1080 530 / 1610 480 / 480 Output Total 1040 / 2490 1999 Balance 380 / -370 -510 / -880 -1520 / -1520 Physical Exam Narrative: EXAM NARRATIVE: Patient is alert difficult to understand with communication. Wiggling both lower extremities. Hip incision on the right is clean and dry with Silverlon dressing present. Good sensation light touch calves are supple. Urinary Catheter Management^: Chowdary: Cath Placed During This Visit: yes Reason for Continuing Indwelling Catheter: Accurate Measurement of Urinary Output in Critically Ill Patients Urinary Catheter Date of Insertion: 10/28/21 Urinary Catheter Time of Insertion: 15:40 Data : 11/09/21 05:05 11/09/21 05:05 Micro: Microbiology 11/04/21 05:09 Blood Culture - Final Blood Methicillin Resis Staph Aureus 11/04/21 05:11 Blood Culture - Final Blood Methicillin Resis Staph Aureus 11/07/21 11:26 Blood Culture - Preliminary Blood NEGATIVE TO DATE 11/07/21 11:30 Blood Culture - Preliminary Blood NEGATIVE TO DATE 11/05/21 08:14 Gram Stain - Final Hip - #2 Abscess Culture - Final Methicillin Resis Staph Aureus 11/05/21 08:14 Gram Stain - Final Hip - #3 Wound Culture - Final Methicillin Resis Staph Aureus A&P Assessment and plan (1) Postoperative anemia: Silverlon dressing change to the right hip. We will await for high school social studies teacher and placement. Sutures removed another 10 days 2 weeks following surg dominic. 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
[2021-11-09] MEDS: vancomycin 1,000 MG in sodium chloride 0.9% 250 ML 250 MG IV (15:38)
--- NOTE | 2021-11-09 18:37 | PM.PN ---
Subjective Subjective: Interval history: Infectious Disease progress note Blood culture remains clear since 11/06 Leukocytosis continues to trend down no acute interim events Patient planned for discharge to SNF when clinically appropriate Renal function stable Medications: Reviewed: Yes Vitals/I&O/Wt Last Vital Signs Temp 98.0 F 11/09/21 04:00 Pulse 59 L 11/09/21 15:59 Resp 22 H 11/09/21 15:59 BP 113/61 11/09/21 15:59 Pulse Ox 97 11/09/21 15:59 11/09/21 11/09/21 11/09/21 06:59 14:59 22:59 Intake Total 530 / 1610 720 / 720 150 / 870 Output Total 1040 / 2490 1999 Balance -510 / -880 -1280 / -1280 150 / -1130 Physical Exam Narrative: EXAM NARRATIVE: Chart reviewed. Care plan discussed with hospitalist Dr. Nunez and pharmacy. Urinary Catheter Management^: Chowdary: Cath Placed During This Visit: yes Reason for Continuing Indwelling Catheter: Accurate Measurement of Urinary Output in Critically Ill Patients Urinary Catheter Date of Insertion: 10/28/21 Urinary Catheter Time of Insertion: 15:40 Data : 11/09/21 05:05 11/09/21 05:05 A&P Assessment and plan (1) Prosthetic joint infection: Status: Acute Qualifiers: Encounter type: initial encounter Qualified Code(s): T84.50XA - Infection and inflammatory reaction due to unspecified internal joint prosthesis, initial encounter (2) MRSA (methicillin resistant Staphylococcus aureus) septicemia: Status: Acute (3) CVA (cerebral vascular accident): Status: Acute Qualifiers: CVA mechanism: embolism Precerebral and cerebral artery: other cerebral artery Qualified Code(s): I63.49 - 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 Additional A&P Information 71-year-old lady currently admitted here for 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 Source is PJI, now s/p removal of infected joint on 11/05. Blood cx positive between 10/28-11/04 with MRSA. S/p removal of all hardware on 11/05, currently with cement spacer in place Blood cx negative thus far from 11/06 and 11/07 Improving leukocytosis to 13 now , no further febrile episodes Clinically improving Currently on Daptomycin 500mg iv q24h (since 11/03-) and Ceftaroline 600mg iv q12h Since blood cx now negative for ~72 hrs and patient showing signs of clinical improvement, will plan to de escalate organism directed therapy. Discontinue Daptomycin today Start Vancomycin 1g iv q12h with goal trough of 15-20 Once Vancomycin trough achieved as above, will discontinue Ceftaroline. This is to assure that patient has adequate MRSA coverage while we are waiting to attain a trough of 15-20. Total duration of therapy to be AT LEAST 6 weeks from clearance of bacteremia and removal of prosthesis (11/06-12/18) PICC line to facilitate above will follow Attestations Medical Necessity Statement*: ongoing need for iv abx, awaiting PICC line, resume vancomycin and attain therapeutic level of 15-20 Coding Level of Care Code Acute Data Center Consultant for radnell Knox Diagnoses Prosthetic joint infection T84.50XA Encounter type: initial encounter MRSA (methicillin resistant Staphylococcus aureus) septicemia A41.02 CVA (cerebral vascular accident) I63.49 CVA mechanism: embolism Precerebral and cerebral artery: other cerebral artery
[2021-11-10] VITALS (8 sets, daily range): BP systolic 95–125; BP diastolic 54–70; PULSE 83–93; RESP 16–18; TEMP 36.6–37.3; O2SAT 95–97
[2021-11-10 03:05] LABS: Basophils # 0.1 10^3/uL (0.0-0.1); Basophils % 0.8 %; Eosinophils # 0.3 10^3/uL (0.0-0.8); Eosinophils % 2.9 %; Hematocrit 25.3 % (37.0-47.0); Hemoglobin 8.1 g/dL (11.5-15.3); Lymphocytes # 1.4 10^3/uL (0.8-4.8); Lymphocytes % 11.5 %; Mean Corpuscular Hemoglobin 29.9 pg (28.0-34.0); Mean Corpuscular Volume 93.4 fl (81-99); Mean Platelet Volume 9.4 fL (7.4-10.4); Monocytes # 1.3 10^3/uL (0.2-0.9); Monocytes % 10.5 %; Neutrophils # 8.68 10^3/uL (1.8-7.7); Neutrophils % 72.9 %; Nucleated Red Blood Cells % 0 %; Platelet Count 675 10^3/cmm (130-400); Red Blood Count 2.71 10^6/uL (4.1-5.3); Red Cell Distribution Width 16.6 % (12.1-15.1); White Blood Count 11.9 10^3/uL (4.0-10.0)
[2021-11-10 03:34] LABS: Anion Gap 16.5 (5-19); Blood Urea Nitrogen 29 mg/dL (8-23); Calcium 7.8 mg/dL (8.5-10.5); Carbon Dioxide 20 mmol/L (22-29); Chloride 101 mmol/L (98-107); Glucose 85 mg/dL (65-115); Osmolality Calculated 281 mOsm/kg (285-295); Potassium 4.5 mmol/L (3.5-5.1); Sodium 133 mmol/L (136-145)
[2021-11-10] MEDS: vancomycin 1,000 MG in sodium chloride 0.9% 250 ML 250 MG IV (03:44)
[2021-11-10] MEDS: enoxaparin 60 mg/0.6 mL Syringe 50 MG SUBCUT ×2 (06:11→17:57)
--- NOTE | 2021-11-10 08:49 | PM.PN ---
Subjective Subjective: Interval history: Pt resting with family present. No c/o. Vitals/I&O/Wt Last Vital Signs Temp 97.9 F 11/10/21 04:00 Pulse 92 11/10/21 08:48 Resp 16 11/10/21 08:48 BP 114/64 11/10/21 04:00 Pulse Ox 96 11/10/21 08:48 11/09/21 11/10/21 11/10/21 22:59 06:59 14:59 Intake Total 400 / 1120 300 / 1420 Output Total 1450 / 3450 Balance 400 / -880 -1150 / -2030 Physical Exam Narrative: EXAM NARRATIVE: Right hip wound is clean and dry with silvalone drsg present. Calves supple, wiggles toes and DF ankles. Weak with knee/Hip flexion. Urinary Catheter Management^: Chowdary: Cath Placed During This Visit: yes Reason for Continuing Indwelling Catheter: Required Immobilization for Trauma or Surgery or Anesthesia Urinary Catheter Date of Insertion: 10/28/21 Urinary Catheter Time of Insertion: 15:40 Data : 11/10/21 01:52 11/10/21 01:52 A&P Assessment and plan (1) Encounter for postoperative care: Physical Therapy to mobilize to chair today, SMI for Pulmonary Toilet, Status: Acute Attestations Medical Necessity Statement*: defer to medical team Coding Level of Care Code Acute Lead Generation Representative for Hannah Knox Diagnoses Encounter for postoperative care Z48.89
--- NOTE | 2021-11-10 09:02 | PM.PN ---
Subjective Subjective: Interval history: Leukocytosis trending down, afebrile No overnight events Awaiting PICC line placement Vancomycin to be continued, daptomycin discontinued, continue ceftaroline Vitals/I&O/Wt Last Vital Signs Temp 98.2 F 11/10/21 08:00 Pulse 92 11/10/21 08:48 Resp 16 11/10/21 08:48 BP 95/58 11/10/21 08:00 Pulse Ox 96 11/10/21 08:48 11/09/21 11/10/21 11/10/21 22:59 06:59 14:59 Intake Total 400 / 1120 300 / 1420 Output Total 1450 / 3450 Balance 400 / -880 -1150 / -2030 Physical Exam Narrative: EXAM NARRATIVE: Patient resting comfortably in her bed laying supine She was without any close Covered with blankets at the bedside Saturating well on room air Hyperreflexia of bilateral lower extremities Looks euvolemic Abdomen soft No acute respite distress No audible stridor or wheezing Urinary Catheter Management^: Chowdary: Cath Placed During This Visit: yes Reason for Continuing Indwelling Catheter: Required Immobilization for Trauma or Surgery or Anesthesia Urinary Catheter Date of Insertion: 10/28/21 Urinary Catheter Time of Insertion: 15:40 Data : 11/10/21 01:52 11/10/21 01:52 A&P Assessment and plan (1) Postoperative anemia: Status: Acute (2) S/P hardware removal: Status: Acute (3) Pleural effusion: Status: Acute (4) MRSA (methicillin resistant Staphylococcus aureus) septicemia: Status: Acute (5) Prosthetic joint infection: Status: Acute Qualifiers: Encounter type: initial encounter Qualified Code(s): T84.50XA - Infection and inflammatory reaction due to unspecified internal joint prosthesis, initial encounter (6) Gram-positive cocci bacteremia: Status: Acute (7) Aphasia: Status: Acute (8) Wound infection after surgery: Status: Acute (9) Progressive supranuclear palsy: Status: Acute (10) Dementia: Status: Acute (11) Memory loss: Status: Acute Additional A&P Information Awaiting PICC line placement today Continue vancomycin Will follow-up with vancomycin trough level Daptomycin discontinued Continue ceftaroline until Vanco trough level is between 15-20 Afebrile Leukocytosis improving Regular diet DNR/DNI Repeat blood cultures negative to date After PICC line placement will need Vanco trough level to be between 15-20 before we release her Appreciate ID follow-up note Attestations Medical Necessity Statement*: PICC line placement today Time Spent in Patient Care: less than 15 minutes Coding Level of Care Code Acute Real Estate Assistant for Chg Fwd Diagnoses Postoperative anemia D64.9 S/P hardware removal Z98.890 Pleural effusion J90 MRSA (methicillin resistant Staphylococcus aureus) septicemia A41.02 Prosthetic joint infection T84.50XA Encounter type: initial encounter Gram-positive cocci bacteremia R78.81 Aphasia R47.01 Wound infection after surgery T81.49XA Progressive supranuclear palsy G23.1 Dementia F03.90 Memory loss R41.3
[2021-11-10] MEDS: docusate sodium 100 mg Capsule PO ×2 (09:59→17:57)
[2021-11-10] MEDS: sennosides-docusate Tablet 1 TAB PO (09:59)
--- NOTE | 2021-11-10 10:20 | PC.SOCIAL ---
IMM Updated Updated pt & spouse on IMM. No questions voiced. Provided pt a copy. Initialed, dated, & timed copy in chart.
--- NOTE | 2021-11-10 14:22 | XR_ITS ---
WS: [id number] Exam: XR chest 1V portable [id number] Date/Time of Exam: 11/10/2021 2:25 PM Reason For Exam: PICC PLACEMENT Comparison 11/04/2021. Right-sided PICC line is in place ending at the cavoatrial junction in satisfactory position. The coleen gs are fully expanded. Persistent mild groundglass infiltrates in the upper and lower bilateral lung zones. Trace left pleural effusion. XR/XR chest 1V portable [id number] IMPRESSION: 1. Right-sided PICC line in satisfactory position ending at the cavoatrial junc tion. 2. Persistent mild groundglass infiltrates in both lungs. Trace left pleural ef fusion.
[2021-11-10 15:48] LABS: Vancomycin Trough 22.1 ug/mL (10-15)
[2021-11-11 03:24] VITALS: BP 112/64; PULSE 76; RESP 18; TEMP 36.7; O2SAT 94
[2021-11-11 05:58] LABS: Blood Urea Nitrogen 44 mg/dL (8-23); Carbon Dioxide 21 mmol/L (22-29); Chloride 103 mmol/L (98-107); Creatinine Clr Calc Pharmacy 27.2219; Glucose 92 mg/dL (65-115); Osmolality Calculated 295 mOsm/kg (285-295); Sodium 137 mmol/L (136-145)
[2021-11-11 06:00] VITALS: PULSE 83
[2021-11-11 06:07] LABS: Anion Gap 18.9 (5-19); Potassium 5.9 mmol/L (3.5-5.1)
[2021-11-11 08:00] VITALS: BP 112/63; PULSE 83; RESP 18; TEMP 36.4; O2SAT 96
--- NOTE | 2021-11-11 08:54 | PM.PN ---
Subjective Subjective: Interval history: Afebrile, patient's is stating that last night she was able to sleep well She is eating half of her meals, she enjoys coffee flavored protein shakes Vitals/I&O/Wt Last Vital Signs Temp 98.0 F 11/11/21 03:24 Pulse 83 11/11/21 06:00 Resp 18 11/11/21 03:24 BP 112/64 11/11/21 03:24 Pulse Ox 94 11/11/21 03:24 11/10/21 11/11/21 11/11/21 22:59 06:59 14:59 Intake Total 480 / 720 720 / 720 Output Total 1200 / 1200 Balance -1200 / -960 480 / -480 720 / 720 Physical Exam Narrative: EXAM NARRATIVE: Patient was resting comfortably in her bed Hyperreflexia of bilateral lower extremities Rigidity noted of legs Myoclonus and absent No new focal deficit S1, S2 Saturating well on room air No signs of acute respiratory distress at the bedside Urinary Catheter Management^: Chowdary: Cath Placed During This Visit: yes Reason for Continuing Indwelling Catheter: Acute Urinary Retention or Obstruction Urinary Catheter Date of Insertion: 10/28/21 Urinary Catheter Time of Insertion: 15:40 Data : 11/10/21 01:52 11/11/21 04:25 A&P Assessment and plan (1) Postoperative anemia: Status: Acute (2) S/P hardware removal: Status: Acute (3) Pleural effusion: Status: Acute (4) Prosthetic joint infection: Status: Acute Qualifiers: Encounter type: initial encounter Qualified Code(s): T84.50XA - Infection and inflammatory reaction due to unspecified internal joint prosthesis, initial encounter (5) Gram-positive cocci bacteremia: Status: Acute (6) CVA (cerebral vascular accident): Status: Acute Qualifiers: CVA mechanism: embolism Precerebral and cerebral artery: other cerebral artery Qualified Code(s): I63.49 - 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 (7) Aphasia: Status: Acute (8) Wound infection after surgery: Status: Acute (9) Progressive supranuclear palsy: Status: Acute (10) Dementia: Status: Acute Additional A&P Information Postoperative anemia: Hemoglobin stable Hemodynamically stable MRSA bacteremia resolved after removal of hardware vanc random trough level 17 Ceftaroline discontinued Continue vancomycin 6-week regimen Awaiting intermediate placement PICC line placed 11/10 Afebrile cultures negative to date Septic emboli, atrial thrombus discontinue Lovenox and use Eliquis DNR/DNI Regular diet DVT prophylaxis covered with Eliquis Attestations Medical Necessity Statement*: Awaiting placement Time Spent in Patient Care: less than 15 minutes Coding Level of Care Code Acute Pharmaceutical Development Technician for Fideg Fwd Diagnoses Postoperative anemia D64.9 S/P hardware removal Z98.890 Pleural effusion J90 Prosthetic joint infection T84.50XA Encounter type: initial encounter Gram-positive cocci bacteremia R78.81 CVA (cerebral vascular accident) I63.49 CVA mechanism: embolism Precerebral and cerebral artery: other cerebral artery Aphasia R47.01 Wound infection after surgery T81.49XA Progressive supranuclear palsy G23.1 Dementia F03.90
[2021-11-11 08:55] VITALS: PULSE 89; RESP 17; O2SAT 97
[2021-11-11] MEDS: sennosides-docusate Tablet 1 TAB PO (09:10)
[2021-11-11] MEDS: apixaban 5 mg Tablet PO (09:10)
[2021-11-11] MEDS: docusate sodium 100 mg Capsule PO (09:10)
[2021-11-11] MEDS: sodium chloride 0.9% 1,000 ML 75 ML IV ×2 (10:29→17:39)
[2021-11-11 12:00] VITALS: BP 113/71; PULSE 79; RESP 18; TEMP 37.1; O2SAT 97
[2021-11-11] MEDS: vancomycin 1,000 MG in sodium chloride 0.9% 250 ML 250 MG IV (12:21)
--- NOTE | 2021-11-11 12:31 | P.PN_ITS ---
Subjective Subjective: Interval history: Infectious Disease progress note Blood culture remains clear since 11/06 leukocytosis down to 11 no interim acute clinical events Now on iv vancomycin since 11/10, overnight trough at 22, dose held overnight, this am random level at 17, which is within range of 15-20 Medications: Reviewed: Yes Vitals/I&O/Wt Last Vital Signs Temp 97.5 F L 11/11/21 08:00 Pulse 89 11/11/21 08:55 Resp 17 11/11/21 08:55 BP 112/63 11/11/21 08:00 Pulse Ox 97 11/11/21 08:55 11/10/21 11/11/21 11/11/21 22:59 06:59 14:59 Intake Total 480 / 720 720 / 720 Output Total 1200 / 1200 1300 / 1300 Balance -1200 / -960 480 / -480 -580 / -580 Physical Exam Narrative: EXAM NARRATIVE: Chart reviewed. Care plan discussed with hospitalist Dr. Nunez and pharmacy. Urinary Catheter Management^: Chowdary: Cath Placed During This Visit: yes Reason for Continuing Indwelling Catheter: Acute Urinary Retention or Obstruction Urinary Catheter Date of Insertion: 10/28/21 Urinary Catheter Time of Insertion: 15:40 Data : 11/10/21 01:52 11/11/21 13:11 A&P Assessment and plan (1) Prosthetic joint infection: Status: Acute Qualifiers: Encounter type: initial encounter Qualified Code(s): T84.50XA - Infection and inflammatory reaction due to unspecified internal joint prosthesis, initial encounter (2) MRSA (methicillin resistant Staphylococcus aureus) septicemia: Status: Acute (3) CVA (cerebral vascular accident): Status: Acute Qualifiers: CVA mechanism: embolism Precerebral and cerebral artery: other cerebral artery Qualified Code(s): I63.49 - 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 Additional A&P Information 71-year-old lady admitted at [facility] for 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 Source is PJI, now s/p removal of infected prosthesis on 11/05. Blood cx positive between 10/28-11/04 with MRSA. S/p removal of all hardware on 11/05, currently with cement spacer in place Blood cx negative to date from 11/06 and 11/07 Clinically improving, leukocytosis and fever resolved Received Daptomycin 500mg iv q24h (since 11/03-11/10) and Ceftaroline 600mg iv q12h (11/04-11/10) for inability to reach vancomycin troughs and need for salvage therapy with persistent bacteremia---> now deescalated to vancomycin iv monotherapy with goal trough of 15-20. PICC placed on 11/10. Total duration of therapy to be AT LEAST 6 weeks from clearance of bacteremia and removal of prosthesis (11/06-12/18) Repeat vancomycin trough prior to 4th dose and then twice a week with creatinine check. Patient planned for discharge to SNF later today. F/up in ID clinic when nearing completion of abx course. Attestations Medical Necessity Statement*: per admitting Coding Level of Care Code Acute Horticultural Manager for Hannah Knox Diagnoses Prosthetic joint infection T84.50XA Encounter type: initial encounter MRSA (methicillin resistant Staphylococcus aureus) septicemia A41.02 CVA (cerebral vascular accident) I63.49 CVA mechanism: embolism Precerebral and cerebral artery: other cerebral artery
--- NOTE | 2021-11-11 12:46 | PM.DCS ---
Discharge Providers Date of Admission: 10/28/21 21:32 Date of Discharge: November 11, 2021 Attending Provider at Admission: Regine Cole MD Attending Provider at Discharge: Diane Nunez MD Primary Care Provider: KAILYN Calzada Diagnoses at Discharge Discharge Diagnosis (1) Prosthetic joint infection: Status: Acute Qualifiers: Encounter type: initial encounter Qualified Code(s): T84.50XA - Infection and inflammatory reaction due to unspecified internal joint prosthesis, initial encounter (2) MRSA (methicillin resistant Staphylococcus aureus) septicemia: Status: Acute (3) CVA (cerebral vascular accident): Status: Acute Qualifiers: CVA mechanism: embolism Precerebral and cerebral artery: other cerebral artery Qualified Code(s): I63.49 - 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 Reason for Visit Reason for Visit: Poss Infection Hospital Course Hospital Course Summary wrote by Dr Reid Power Nitin Ashford is a 71 year old female with longstanding history of spinal stenosis, back pain, progressive supranuclear palsy (PSP), atrial fibrillation status post ablation not on anticoagulation. She suffered a mechanical fall resulting in right femoral neck fracture for which she underwent right hip hemiarthroplasty on October 09, 2021. She was discharged home in stable condition on October 11, 2021. On a follow-up visit with orthopedics on October 28 she was noted to have drainage from her right hip incision which started approximately 1 week after her discharge. She had been having increasing trouble getting out of chair and ambulating. She was admitted for I&D of the right hip and underwent this procedure on October 29, 2021. Op findings note that the wound was dehisced. Necrotic tissue was debrided and wound was irrigated. Implant was retained in spite of concern for underlying infection due to patient's multiple comorbidities and for the fact that patient was unlikely to tolerate multiple debridements and nonambulatory cement spacer with implant exchange. A drain was placed and the wound was closed, however patient pulled out the drain on October 30. Blood culture from October 28 has resulted as positive for MRSA. Her hospital course has been notable for worsened mental status. MRI of the brain as in the interim revealed acute stroke in the right parieto-occipital junction and a second lesion in the left frontal temporal junction around the sylvian fissure. Overall concern for embolic phenomenon along with more chronic changes of progressive supranuclear palsy. A TTE showed large mobile echogenic structure that seems to be attached to the tricuspid valve annulus noted in right atrium. This may represent endocarditis vs atrial mass/thrombus . These changes were opined to be present on a prior TTE study performed on October 09, 2021 as well per cardiology. Follow up AMEE performed today negative for vegetation, but showed prominent thickened eustachian valve noted in right atrium. No ASD or PFO noted per prelim results. On September 29, she had an episode of acute tachypnea respiratory rate in the 40s requiring BiPAP support and lasix. Persistent bacteremia, & inadequate vancomycin trough levels, decision was made to change antibiotics to daptomycin and ceftaroline. Because of persistent bacteremia despite adequate antibiotics decision was made to remove hardware, on 11/05 Dr. Kinney did remove deep hardware from the hip, irrigation debridement down to the bone of right hip wound 45 x 20 cm, status post placement of cement spacer. Blood cultures taken after the surgery on 11/06, negative to date, patient remained afebrile, leukocytosis improved after removal of hardware. Vancomycin dosed 1 g every 18 hours at the time of discharge, 6-week regimen, last dose to be administered on December 18. Patient will see Dr. Mathews in her clinic. Vanc trough level to be drawn prior to fourth dose. BMP twice a week Patient is being discharged to [facility]. PICC LINE PLACED 11/10 She will get eliquis for atrial thrombus and multiple embolic stroke Physical Exam Narrative: EXAM NARRATIVE: Patient was resting comfortably in her bed Hyperreflexia of bilateral lower extremities Rigidity noted of legs Myoclonus absent No new focal deficit, pt stares and repeats the questions S1, S2 Saturating well on room air No signs of acute respiratory distress at the bedside Urinary Catheter Management^: Chowdary: Cath Placed During This Visit: yes Reason for Continuing Indwelling Catheter: Acute Urinary Retention or Obstruction Urinary Catheter Date of Insertion: 10/28/21 Urinary Catheter Time of Insertion: 15:40 Discharge Data Data Completed and Pending: Completed Studies During Hospitalization Category Date Time Status CT angio chest w abd pel w con Stat Cat Scan 10/30/21 12:[address] head wo con* 7 0450 Urgent Cat Scan 10/28/21 17:[address] hip RT wo con* [id number] Urgent Cat Scan 10/28/21 16:21 Completed XR chest 1V joanne ble [id number] Routine Exams 11/01/21 16:00 Completed XR chest 1V joanne ble [id number] Routine Exams 11/04/21 10:30 Completed XR chest 1V joanne ble 13440 Routine Exams 11/10/21 14:22 Completed XR chest 1V joanne ble [id number] Urgent Exams 10/28/21 16:21 Completed MR head wo con* 7 0551 Urgent MRI 10/29/21 10:00 Completed Pathology: Surgic al [PTH] Routine Pth 11/05/21 08:20 Completed CV. echo transeso phageal [id number] Rout ine Ultrasound 11/01/21 07:00 Completed CV. echo w/w bubb le cont [id number] Urge nt Ultrasound 10/29/21 14:55 Completed Pending at discharge Category Date Time Status Basic Metabolic P keely AM LABS Lab 11/12/21 04:00 Ordered Basic Metabolic P keely Stat Lab 11/11/21 12:29 Ordered Blood Culture Sta t Lab 11/06/21 14:15 Results Blood Culture Sta t Lab 11/07/21 11:26 Results COVID OZH [Jewell virus PCR] Routine Lab 11/11/21 12:24 Ordered COVID OZH [Jewell virus PCR] Stat Lab 11/11/21 11:53 Stop Req Enteric Bacterial Panel by PCR Rout ine Lab 10/30/21 12:58 Uncollected Sputum Culture an d Gram Stain Stat Lab 11/03/21 09:18 Uncollected Labs from last 24 hours 11/11/21 11/11/21 11/11/21 11:53 04:25 04:25 Sodium 137 Potassium 5.9 H Chloride 103 Carbon Dioxide 21 L Anion Gap 18.9 BUN 44 H Creatinine 1.6 H GFR Calculation Not Reportable Glucose 92 Calculated Osmolal ity 295 Calcium 8.0 L Vancomycin Trough Random Vancomycin 17.0 L Coronavirus 229E ( PCR) Pending SARS-CoV-2 (PCR) Pending 11/10/21 15:13 Sodium Potassium Chloride Carbon Dioxide Anion Gap BUN Creatinine GFR Calculation Glucose Calculated Osmolal ity Calcium Vancomycin Trough 22.1 H Random Vancomycin Coronavirus 229E ( PCR) SARS-CoV-2 (PCR) Vitals: Last Vital Signs Temp 97.5 F L 11/11/21 08:00 Pulse 89 11/11/21 08:55 Resp 17 11/11/21 08:55 BP 112/63 11/11/21 08:00 Pulse Ox 97 11/11/21 08:55 Discharge Plan Discharge Patient Disposition: Xfer SNF Condition: Stable Prescriptions: New docusate sodium 100 mg Capsule 100 mg PO BID 30 Days Qty: 60 RF: 0 Eliquis 5 mg Tablet 5 mg PO BID@0900,2100 Qty: 60 RF: 1 Stool Softener-Laxative 8.6-50 mg Tablet 1 tab PO DAILY Qty: 20 RF: 0 vancomycin 1,000 mg recon soln See Rx Instructions .ROUTE .COMPLEX Qty: 10 RF: 6 Continued rosuvastatin 20 mg tablet 20 mg PO DAILY RF: 0 PreserVision AREDS-2 [id number] gf-wqjo-ig-mg capsule 2 tab PO BID RF: 0 hydrocodone-acetaminophen 5-325 mg tablet 1 tab PO TID PRN (Reason: pain) 30 Days Qty: 90 RF: 0 galantamine 24 mg capsule,ext rel. pellets 24 hr 24 mg PO QAM Qty: 30 RF: 5 aspirin 81 mg tablet,chewable 81 mg PO DAILY Qty: 30 RF: 0 Discontinued red yeast rice 600 mg capsule 1,200 mg PO DAILY RF: 0 coenzyme B45-binkbdk E 100-100 mg-unit capsule 1 cap PO DAILY RF: 0 glucosamine-chondroitin [Osteo Bi-Flex] 250-200 mg tablet 1 tab PO DAILY RF: 0 lithium carbonate 150 mg capsule 150 mg PO DAILY RF: 0 hydrocodone-acetaminophen 5-325 mg tablet 1 tab PO TID PRN (Reason: pain) 30 Days Qty: 90 RF: 0 meloxicam 7.5 mg tablet 7.5 mg PO DAILY 30 Days Qty: 30 RF: 1 cholecalciferol (vitamin D3) 25 mcg (1,000 unit) tablet 25 mcg PO DAILY RF: 0 Discharge Orders: Discharge Order (Routine); Ordered 11/11/21 Ordered By: Diane Nunez Other Ambulatory Orders: Basic Metabolic Panel (Routine) Timeframe: 3 Days Facility: [facility] - Location: Lab - Main Lab Ordered By: Diane Nunez Vancomycin Trough (Routine) Timeframe: 2 Days Facility: [facility] - Location: Lab - Main Lab Ordered By: Diane Nunez Referrals: [facility] [Outside] Lorenzo Kinney DO [Physician] - 11/25/21 1:15 pm Catrina Villatoro FNP [Primary Care Provider] - Valeri Mathews MD [Hospitalist] - 11/23/21 Discharge Diet: Diabetic Discharge Activity: Increase activity as tolerated Activity Restrictions/Additional Instructions: You are being discharged from the hospital today during which time you have been under the care of Dr Kinney. You had a infected right hip hemiarthroplasty. You were treated for this injury with Irrigation and debridement and will be on surpressive antibiotics. You may resume you normal diet (including any special diets as directed by your primary doctor) as well as your home medications. You should follow up with you primary doctor if you have any questions regarding medication you took prior to your stay in the hospital. You may take your pain medication as prescribed. After the first few days, take your pain medication as needed. Do not drive or drink alcohol while taking your pain medication. Always keep your surgical incision/dressing clean and dry. If you experience increasing pain at your incision site, redness, swelling, increasing discharge, foul odors, or fevers (greater than 100.4), night sweats or chills you should call the office at the above number. If you feel this is an emergency you should be evaluated in the Emergency Department of a nearby hospital. Orthopedic Patient Instructions Summary: Weight Bearing: partial Activity: as tolerated. Diet: regular. Wound Care: Keep dressing clean and dry. Anticoagulation: per primary service Pain Medication: Take only as needed. Ice, rest and elevation will be of great benefit. Please plan to follow-up [facility] Dr Kinney in 2 weeks. You will need to call the clinic [phone] to schedule this visit. Thank you far allowing me to participate in your care. Do not hesitate to call the office with any questions or concerns. Thank 1 g every 18 hours, Vanco trough level 15-20 targeted, Vanco trough level should be drawn prior to fourth dose, last dose on dec 18 6-week regimen, culture-negative date on 11/06 Discharge Attestations Time Spent in Discharge Care*: less than 30 min Status at Discharge: Cognitive status at discharge: cognitively intact, Behavioral status at discharge: cooperative, Quality Metrics Clinical Quality Measures During this hospital stay, did patient experience: None Coding Level of Care Code Acute Chg FW DC note Diagnoses Prosthetic joint infection T84.50XA Encounter type: initial encounter MRSA (methicillin resistant Staphylococcus aureus) septicemia A41.02 CVA (cerebral vascular accident) I63.49 CVA mechanism: embolism Precerebral and cerebral artery: other cerebral artery
--- NOTE | 2021-11-11 13:09 | PC.NURSE ---
Patients spouse notified of patient discharge orders for [facility], verbalized understanding and denies further questions or concerns.
[2021-11-11 13:58] LABS: Adenovirus Not Detected (NOT DETECT); Chlamydia Pneumoniae Not Detected (NOT DETECT); Coronavirus 229E,HKU1,NL63,OC4 Not Detected (NOT DETECT); Human Metapneumovirus Not Detected (NOT DETECT); Human Rhinovirus/Enterovirus Not Detected (NOT DETECT); Influenza A Not Detected (NOT DETECT); Influenza A H1 Not Detected (NOT DETECT); Influenza A H1-2009 Not Detected (NOT DETECT); Influenza A H3 Not Detected (NOT DETECT); Influenza B Not Detected (NOT DETECT); Mycoplasma Pneumoniae Not Detected (NOT DETECT); Parainfluenza Virus Type 1 Not Detected (NOT DETECT); Parainfluenza Virus Type 2 Not Detected (NOT DETECT); Parainfluenza Virus Type 3 Not Detected (NOT DETECT); Parainfluenza Virus Type 4 Not Detected (NOT DETECT); Respiratory Syncytial Virus A Not Detected (NOT DETECT); Respiratory Syncytial Virus B Not Detected (NOT DETECT); SARS-COV-2 Not Detected (NOT DETECT)
[2021-11-11 14:02] LABS: Anion Gap 16.3 (5-19); Blood Urea Nitrogen 46 mg/dL (8-23); Calcium 7.7 mg/dL (8.5-10.5); Carbon Dioxide 22 mmol/L (22-29); Chloride 103 mmol/L (98-107); Glucose 88 mg/dL (65-115); Osmolality Calculated 293 mOsm/kg (285-295); Potassium 5.3 mmol/L (3.5-5.1); Sodium 136 mmol/L (136-145)
[2021-11-11 15:01] VITALS: BP 114/65; PULSE 90; RESP 18; TEMP 36.9; O2SAT 96
--- NOTE | 2021-11-11 17:39 | PC.NURSE ---
Per Dr. Nunez start IVF 1L bolus now and continue with ride to facility. notified [facility].
== END 2021-11-11 17:47 | disposition skilled nursing facility (03) | DRG 466 ==
LOC: ER 19:28 → MEDSURG 20:08
PROVIDERS: Hospitalist; Internal Medicine Cardiovascular Disease; Orthopaedic Surgery; Student in an Organized Health Care Education/Training Program; Admitting Provider Internal Medicine; Emergency Provider Emergency Medicine; PCP Nurse Practitioner Family; Visit Provider Internal Medicine
PROC: 0QB20ZZ Excision of Right Pelvic Bone, Open Approach (ICD-10-PCS; principal; 2021-10-29 07:00)
PROC: (CPT 93312; principal; 2021-11-01 12:00)
PROC: 0SP90JZ Removal of Synthetic Substitute from Right Hip Joint, Open Approach (ICD-10-PCS; CPT 20680; principal; 2021-11-05 07:00)
DX: T84.51XA Infection and inflammatory reaction due to internal right hip prosthesis, initial encounter (principal); A41.02 Sepsis due to Methicillin resistant Staphylococcus aureus; I63.431 Cerebral infarction due to embolism of right posterior cerebral artery; I76 Septic arterial embolism; R47.01 Aphasia; G23.1 Progressive supranuclear ophthalmoplegia [Steele-Richardson-Olszewski]; D62 Acute posthemorrhagic anemia; J90 Pleural effusion, not elsewhere classified; I38 Endocarditis, valve unspecified; Y79.2 Prosthetic and other implants, materials and accessory orthopedic devices associated with adverse incidents; G89.29 Other chronic pain; M51.17 Intervertebral disc disorders with radiculopathy, lumbosacral region; M47.896 Other spondylosis, lumbar region; M48.061 Spinal stenosis, lumbar region without neurogenic claudication; G20 Parkinson's disease; F02.80 Dementia in other diseases classified elsewhere, unspecified severity, without behavioral disturbance, psychotic disturbance, mood disturbance, and anxiety; F17.210 Nicotine dependence, cigarettes, uncomplicated; I48.91 Unspecified atrial fibrillation; Z86.73 Personal history of transient ischemic attack (TIA), and cerebral infarction without residual deficits; E83.51 Hypocalcemia; I07.1 Rheumatic tricuspid insufficiency; Z66 Do not resuscitate
CPT/HCPCS: 36415; 36416; 36430; 36569; 36600; 51702; 70450; 70551; 71045; 71275; 73502; 73523; 73700; 74177; 80048; 80051; 80053; 80202; 80307; 81001; 82330; 82550; 82803; 82805; 82962; 83605; 83735; 84145; 84484; 85007; 85014; 85018; 85025; 85049; 85384; 85610; 85651; 85730; 86140; 86850; 86900; 86920; 87040; 87070; 87075; 87077; 87186; 87205; 87426; 87635; 87641; 88300; 93005; 93312; 93320; 93325; 94660; 94664; 96365; 96366; 96367; 96372; 96375; 97110; 97163; 97530; 99214; 99215; 99285; C1713; C1776; C8929; C9113; J0692; J0712; J0878; J1644; J1650; J1940; J2270; J2370; J2405; J2704; J3010; J3370; J3490; J7030; J7040; J7050; P9016; P9041; Q9967; S0030

== ENCOUNTER → 2021-11-23 13:30 | Outpatient (BNVA) | payer MEDICARE, SELFPAY | PROVIDERS: PCP Nurse Practitioner Family; Visit Provider Orthopaedic Surgery | DX: Z47.1 Aftercare following joint replacement surgery (principal); Z96.641 Presence of right artificial hip joint | CPT/HCPCS: 73502 ==

== ENCOUNTER 2021-12-04 14:00 | Outpatient (CLI) | payer MEDICARE, SELFPAY ==
[2021-12-04 15:07] LABS: Vancomycin Trough 10.3 ug/mL (10-15)
== END 2021-12-04 14:01 | disposition home or self-care (01) ==
PROVIDERS: PCP Nurse Practitioner Family; Visit Provider Student in an Organized Health Care Education/Training Program
DX: T85.9XXA Unspecified complication of internal prosthetic device, implant and graft, initial encounter (principal)
CPT/HCPCS: 80202

== ENCOUNTER 2021-12-07 12:06 | Inpatient (IN) | payer MEDICARE, OTHER, SELFPAY ==
--- NOTE | 2021-12-07 12:11 | ED_ITS ---
HPI - Fever General: Chief Complaint: General Medical Stated Complaint: HYPOTENSIVE Time Seen by Provider: 12/07/21 12:08 Limitations: altered mental status and other (patient nonverbal from prior str rosette) History of Present Illness: Ms. Ashford is a 71-year-old lady with known significant past medical history of prior strokes leaving the patient nonverbal, septic hip currently on antibiotics who presents emergency department from clinic for concern over sepsis. She is currently on vancomycin and had a complicated previous hospital course. She was noted to be hypotensive and febrile in clinic and was transferred by EMS to this facility. Upon arrival she is only when in the room upon initial assessment and does not provide any history. Review of Systems General: Reports: ROS unobtainable due to medical condition PFSH ED 2 PFSH: Medical History (Updated 12/12/21 @ 00:01 by ) Anemia Chronic right hip pain CVA (cerebral vascular accident) 10/2021 - MRI revealed acute stroke in the right parieto-occipital junction and a second lesion in the left frontal temporal junction around the sylvian fissure Dementia Facet syndrome, lumbar Female cystocele History of transesophageal echocardiography (AMEE) 10/2021 - no vegitation Intervertebral disc disorder with radiculopathy of lumbosacral region Long-term use of high-risk medication Low back pain MRSA (methicillin resistant Staphylococcus aureus) septicemia (~10/2021) 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 Stoll at [facility] History of cardiac radiofrequency ablation 2011 S/P cholecystectomy 2010 S/P hardware removal (11/05/21) right hip with antibiotic cement spacer placement S/P hysterectomy 2004 Status post hip hemiarthroplasty (10/09/21) right hip with subsequent MRSA infection Family History (Updated 12/07/21 @ 17:14 by Chely Duarte MD) Sister Dementia Father Myocardial infarct Heart disease Mother Cancer Brain Tumor Brother Hypertension Cancer colon cancer Denies family history of Ovarian cancer Diabetes Clotting disorder Hyperlipidemia Breast cancer Anesthesia complication Bleeding disorder Uterine cancer Thyroid condition Stroke Social History (Updated 12/07/21 @ 17:15 by Chely Duarte MD) Smoking and tobacco status: former smoker Alcohol intake: never Marital status: Physical Exam Const: GENERAL APPEARANCE: lethargic, ill appearing and frail appearing ORIENTATION/CONSCIOUSNESS: Yes lethargic HENMT: COMMON NORMALS: normocephalic and atraumatic HEAD & SCALP: normocephalic and atraumatic OTHER: Dry mucous membranes Eye: COMMON NORMALS: conjunctivae normal CONJUNCTIVA: Yes conjunctivae normal SCLERA: sclerae normal Neck/C-Spine: COMMON NORMALS: supple GENERAL: Yes trachea midline Resp: COMMON NORMALS: normal respiratory effort and clear to auscultation bilaterally AUSCULTATION: clear to auscultation bilaterally Cardio: COMMON NORMALS: regular rhythm RATE: tachycardic RHYTHM: regular rhythm GI: COMMON NORMALS: Soft to palpation PALPATION: Yes Soft to palpation and No Tenderness to palpation present (GI) PERCUSSION: normal to percussion : OTHER: Catheter in place Extremity: GENERAL: Yes normal exam except as noted and No edema Neuro: SENSORIUM/ORIENTATION: Yes lethargic Course ED course: - Patient was seen and evaluated by me at bedside - Patient placed on cardiac monitors, IV access obtained - Initial evaluation notable for ill appearance, borderline tachycardic. - Antibiotics ordered after discussion with Dr. Mathews. Prehospital 1 L, additional liter bolus ordered meeting 30 cc/kg fluid criteria. - Labs notable for leukocytosis, normocytic anemia. Metabolic panel with likely evidence of dehydration which will be treated with fluids per sepsis criteria, creatinine is elevated well above baseline meeting CHERRIE criteria. Lactic acid elevated though improved on repeat after fluid resuscitation. - Imaging notable for no hemorrhage or mass-effect on CT head which was obtained given unclear baseline mental status and worsening mental status. No evidence of lobar consolidation on chest x-ray. Given transaminitis, ultrasound ordered and negative for acute pathology. - Upon serial reexamination after treatment the patient was similar to mildly - Based on patient history, evaluation, labs, and imaging as interpreted the most likely cause of the patient's condition is sepsis in the context of current antibiotic use - The results of ED evaluation were discussed with the patient's family including plan for admission due to requirement for level of care not available if discharged to prevent significant worsening/deterioration. - Hospitalist service contacted and agreed with infection - Patient was admitted without further deterioration or significant events. Note: Click bubbles or prepopulated montoya in note writing are used for assistance with data collection and billing and are inherently more limited than narrative and other text portions of this note. Please use narrative for additional clinical history and defer to narrative/free test for any case of contradictory information. If information appears in only free text or click bubble it should be considered present or absent as reported. Please contact note press writer for clarifications of clinical information or contradictory information. MDM is a brief summary, contradictory or erroneous seeming information should be clarified and full note should be reviewed. Vital Signs: Vital signs: Vital Signs Temperature 98.5 F 12/11/21 16:48 Pulse Rate 99 12/11/21 16:48 Respiratory Rate 18 12/11/21 16:48 Blood Pressure 92/52 12/11/21 16:48 Pulse Oximetry 99 12/11/21 16:48 MDM - Fever Medical Decision Making 71-year-old lady currently on outpatient antibiotics for septic prosthetic hip that is s/p explantation presenting with sepsis. Patient febrile and tachycardic as well as hypotensive when she presented to clinic just prior to being referred to emergency department. Leukocytosis, evidence of dehydration/critical illness elevated lactate present. Treated with greater than 30 cc/kg fluid bolus and broad-spectrum antibiotics. Admitted for further management. Medical Records I reviewed the patient's medical records. Lab Data I reviewed the patient's lab results. : 12/11/21 05:03 12/11/21 05:03 Radiology Impressions Chest X-Ray 12/07/21 12:12 IMPRESSION: 1. Mild interstitial thickening in both lungs. No new pulmonary infiltrates. 2. Chronic emphysematous changes. 3. Tortuous and slightly ectatic thoracic aorta unchanged. 4. Osteopenia. Head CT 12/07/21 12:55 IMPRESSION: 1. No evidence of intracranial hemorrhage or mass effect. 2. Mild small vessel changes. Mild parenchymal volume loss. 3. No acute intracranial findings. Abdomen Ultrasound 12/07/21 13:51 IMPRESSION: 1. Normal liver. No intrahepatic biliary dilatation. 2. Prior cholecystectomy. 3. Normal common bile duct measuring 6 mm. 4. No hydronephrosis in RIGHT kidney. 5. No ascites. Hip CT 12/10/21 11:35 IMPRESSION: 1. Postoperative revision RIGHT TESFAYE. RIGHT hip appears internally rotated like ly due to positioning. 2. Hardware appears well seated. No evidence of acute fracture dislocation. 3. Normal postoperative changes in the soft tissues. 4. No evidence of abscess or drainable fluid collection. Chest CT 12/10/21 12:20 IMPRESSION: 1. Small to moderate RIGHT and small left pleural effusion with compressive atelectasis in the lung bases. Pleural fluid has increased slightly compared to 10/30/21 on the RIGHT. 2. Prominent lymph nodes in the axilla bilaterally likely reactive. 3. Diffuse body wall anasarca. 4. Chronic compression fracture L1 vertebral body with retropulsion posterior superior cortex with moderate central canal stenosis. Laboratory Results WBC 16.9 10^3/uL (4.0-10.0) H 12/07/21 12:25 RBC 3.22 10^6/uL (4.1-5.3) L 12/07/21 12:25 Hgb 9.2 g/dL (11.5-15.3) L 12/07/21 12:25 Hct 29.4 % (37.0-47.0) L 12/07/21 12:25 MCV 91.3 fl (81-99) 12/07/21 12:25 MCH 28.6 pg (28.0-34.0) 12/07/21 12:25 MCHC 31.3 g/dL (30.0-36.0) 12/07/21 12:25 RDW 15.4 % (12.1-15.1) H 12/07/21 12:25 Plt Count 343 10^3/cmm (130-400) 12/07/21 12:25 MPV 10.3 fL (7.4-10.4) 12/07/21 12:25 Neut % (Auto) 62.3 % 12/07/21 12:25 Lymph % (Auto) 21.3 % 12/07/21 12:25 [place] % (Auto) 4.3 % 12/07/21 12:25 Eos % (Auto) 10.8 % 12/07/21 12:25 Baso % (Auto) 0.3 % 12/07/21 12:25 Neut # (Auto) 10.52 10^3/uL (1.8-7.7) H 12/07/21 12:25 Lymph # (Auto) 3.6 10^3/uL (0.8-4.8) 12/07/21 12:25 [place] # (Auto) 0.7 10^3/uL (0.2-0.9) 12/07/21 12:25 Eos # (Auto) 1.8 10^3/uL (0.0-0.8) H 12/07/21 12:25 Baso # (Auto) 0.1 10^3/uL (0.0-0.1) 12/07/21 12:25 Nucleated RBC % (auto) 0 % 12/07/21 12:25 Nucleated RBCs # 0.0 /100WBC 12/07/21 12:25 Sodium 128 mmol/L (136-145) L 12/07/21 12:25 Potassium 4.3 mmol/L (3.5-5.1) 12/07/21 12:25 Chloride 101 mmol/L (98-107) 12/07/21 12:25 Carbon Dioxide 16 mmol/L (22-29) L 12/07/21 12:25 Anion Gap 15.3 (5-19) 12/07/21 12:25 BUN 44 mg/dL (8-23) H 12/07/21 12:25 Creatinine 1.5 mg/dL (0.5-0.9) H 12/07/21 12:25 GFR Calculation Not Reportable 12/07/21 12:25 Glucose 109 mg/dL (65-115) 12/07/21 12:25 Calculated Osmolality 278 mOsm/kg (285-295) L 12/07/21 12:25 Lactic Acid 3.8 mmol/L (0.5-2.2) H 12/07/21 12:25 Lactic Acid (Sepsis) 1.8 mmol/L (0.5-2.2) 12/07/21 16:14 Calcium 7.7 mg/dL (8.5-10.5) L 12/07/21 12:25 Total Bilirubin 0.2 mg/dL (0.15-1.2) 12/07/21 12:25 AST 104 U/L (0-32) H 12/07/21 12:25 ALT 127 U/L (0-33) H 12/07/21 12:25 Alkaline Phosphatase 212 IU/L (35-105) H 12/07/21 12:25 Creatine Kinase 58 U/L (26-192) 12/07/21 16:14 Troponin T Baseline 51 ng/L (0-10) H 12/07/21 12:25 Troponin T 120 Minute 51.08 ng/L (0-10) H 12/07/21 16:14 Delta Troponin T 0.08 ABS# (0-10) 12/07/21 16:14 C-Reactive Protein 34.3 mg/L (0.0-4.9) H 12/07/21 12:25 NT-Pro-B Natriuret Pep 358 pg/mL (0-125) H 12/07/21 12:25 Total Protein 4.5 g/dL (6.6-8.7) L 12/07/21 12:25 Albumin 2.3 g/dL (3.5-5.2) L 12/07/21 12:25 Globulin 2.2 g/dL (1.3-4.6) 12/07/21 12:25 Lipase 24 U/L (13-60) 12/07/21 12:25 TSH 3.31 uIU/mL (0.27-4.20) 12/07/21 12:25 Random Cortisol 21.87 ug/dL (2.47-19.5) H 12/07/21 12:25 Urine Color Yellow (Yellow) 12/07/21 14:00 Urine Appearance Cloudy (CLEAR) 12/07/21 14:00 Urine pH 5 (5-7) 12/07/21 14:00 Ur Specific [place] 1.015 (1.005-1.030) 12/07/21 14:00 Urine Protein 1+ (Negative) H 12/07/21 14:00 Urine Glucose (UA) Norm (Normal) 12/07/21 14:00 Urine Ketones Negative (Negative) 12/07/21 14:00 Urine Blood 2+ (Negative) H 12/07/21 14:00 Urine Nitrate Negative (Negative) 12/07/21 14:00 Urine Bilirubin Neg (Negative) 12/07/21 14:00 Urine Urobilinogen Norm mg/dL (Negative) 12/07/21 14:00 Ur Leukocyte Esterase 2+ (Negative) H 12/07/21 14:00 Urine RBC 40-50 /hpf (0-2) H 12/07/21 14:00 Urine WBC 55-80 /hpf (0-5) H 12/07/21 14:00 Ur Squamous Epith Cells 5-10 /hpf (0-5) H 12/07/21 14:00 Amorphous Sediment Not Reportable 12/07/21 14:00 Urine Bacteria 1+ /hpf (NONE) H 12/07/21 14:00 Urine Mucus Trace /hpf 12/07/21 14:00 Urine Yeast 2+ /hpf H 12/07/21 14:00 SARS-CoV-2 Ag (Rapid) Negative (Negative) 12/07/21 16:08 EKG Data EKG 1: I personally reviewed and interpreted this EKG as follows: EKG interpretation date: 12/07/21 EKG interpretation time: 12:21 Interpretation: Twelve-lead EKG shows a regular rhythm at a rate of 96. CA interval 125, QRS duration 87, QTc 386. Normal axis. Interpretation: Sinus rhythm. EKG 2: I personally reviewed and interpreted this EKG as follows: EKG interpretation date: 12/07/21 EKG interpretation time: 14:05 Interpretation: Twelve-lead EKG shows a regular rhythm at a rate of 98. CA interval 141, QRS duration 75, QTc 333. Normal axis. Interpretation: Sinus rhythm. EKG 3: I personally reviewed and interpreted this EKG as follows: EKG interpretation date: 12/07/21 EKG interpretation time: 18:50 Interpretation: Twelve-lead EKG shows A regular rhythm at a rate of 100. CA interval 124, QRS duration 86, QTc 341 Normal axis. Interpretation: Sinus tachycardia. Critical Care Time Critical Care Time: Critical Care Time: Yes Total Critical Care Time: 40 Attestation: Due to a high probability of clinically significant, possibly life threatening deterioration, the patient required my highest level of attention and preparedness to intervene emergently and I personally spent this critical care time directly and personally managing the patient. This critical care time included obtaining a history; examining the patient; pulse oximetry; ordering and review of laboratory and imaging studies; arranging urgent treatment with development of a management plan; evaluation of patient's response to treatment; frequent reassessment; and, discussions with other providers as applicable. It was exclusive of separately billable procedures. Primary system involved is infectious/immune as well as cardiovascular Discharge Plan Discharge Patient Disposition: Admitted As Inpatient Admit Provider: Chely Duarte Clinical Impression: Severe sepsis Condition: Stable Discharge Diet: Usual diet Discharge Activity: Resume usual activity Coding Level of Care Code ED Psychological Operations Specialist for Chg Fwd Exam Comprehensive
[2021-12-07 12:12] VITALS: BP 87/62; PULSE 96; RESP 16; TEMP 37; BMI 18.8
--- NOTE | 2021-12-07 12:12 | XR_ITS ---
WS: [id number] CHEST XRAY TECHNIQUE: Portable chest. CLINICAL INFORMATION: hypotension, fever COMPARISON: 11/10/21 FINDINGS: Heart: Normal cardiac silhouette. Tortuous slightly ectatic thoracic aorta unchanged. Lungs: Chronic emphysematous changes. Mild interstitial thickening in both lungs. No new pulmonary in filtrates. Bones: Osteopenia. XR/XR chest 1V portable 15900 IMPRESSION: 1. Mild interstitial thickening in both lungs. No new pulmonary infiltrates. 2. Chronic emphysematous changes. 3. Tortuous and slightly ectatic thoracic aorta unchanged. 4. Osteopenia.
--- NOTE | 2021-12-07 12:13 | ECG_ITS ---
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 Measurements Intervals [place] Rate: 100 P: 60 ND: 124 QRS: 70 QRSD: 86 T: 49 QT: 284 QTc: 366 Interpretive Statements SINUS TACHYCARDIA NONSPECIFIC T-WAVE ABNORMALITY ABNORMAL RHYTHM ECG Compared to ECG 12/07/2021 14:03:09 T-wave abnormality now present Sinus rhythm no longer present Myocardial infarct finding no longer present Electronically Signed On 12-08-2021 9:17:08 DIVISION FIELD INSPECTOR by Moriah Watts M.D. [id number]
[2021-12-07 12:40] LABS: Basophils # 0.1 10^3/uL (0.0-0.1); Basophils % 0.3 %; Eosinophils # 1.8 10^3/uL (0.0-0.8); Eosinophils % 10.8 %; Hematocrit 29.4 % (37.0-47.0); Hemoglobin 9.2 g/dL (11.5-15.3); Lymphocytes # 3.6 10^3/uL (0.8-4.8); Lymphocytes % 21.3 %; Mean Corpuscular HGB Conc 31.3 g/dL (30.0-36.0); Mean Corpuscular Hemoglobin 28.6 pg (28.0-34.0); Mean Corpuscular Volume 91.3 fl (81-99); Mean Platelet Volume 10.3 fL (7.4-10.4); Monocytes # 0.7 10^3/uL (0.2-0.9); Monocytes % 4.3 %; Neutrophils # 10.52 10^3/uL (1.8-7.7); Neutrophils % 62.3 %; Nucleated Red Blood Cells % 0 %; Platelet Count 343 10^3/cmm (130-400); Red Blood Count 3.22 10^6/uL (4.1-5.3); Red Cell Distribution Width 15.4 % (12.1-15.1); White Blood Count 16.9 10^3/uL (4.0-10.0)
[2021-12-07] MEDS: sodium chloride 0.9% 1,000 ML 999 ML IV (12:52)
--- NOTE | 2021-12-07 12:55 | CT_ITS ---
WS: [id number] CT HEAD TECHNIQUE: Noncontrast CT of the head obtained from the skullbase to the vertex. CLINICAL INFORMATION: AMS COMPARISON: CT October 28, 2021 and MRI October 29, 2021 DLP: 1554.[address] scans at [facility] use at least one of these dose optimization techniques: automated e xposure control; mA and/or kV adjustment per patient size (includes targeted exams where dose is matc hed to clinical indication); or iterative reconstruction. FINDINGS: No evidence of intracranial hemorrhage or mass effect. Ventricular system and basal cisterns are chiu nt. Mild small vessel changes with mild parenchymal volume loss. Tiny chronic lacunar infarct RIGHT c erebellum. No extra-axial fluid collections. No evidence of mass or mass effect. Normal hutchins-white di fferentiation. Paranasal sinuses and mastoid air cells are well aerated. .Normal visualized soft tissues. CT/CT head wo con* [id number] IMPRESSION: 1. No evidence of intracranial hemorrhage or mass effect. 2. Mild small vessel changes. Mild parenchymal volume loss. 3. No acute intracranial findings.
[2021-12-07 12:58] LABS: Lactic Sepsis W/Reflex 3.8 mmol/L (0.5-2.2)
[2021-12-07] MEDS: cefepime 2,000 MG in sodium chloride 0.9% (plus) 50 ML 100 MG IV (13:03)
[2021-12-07 13:04] LABS: Troponin(5th) Baseline 51 ng/L (0-10)
[2021-12-07 13:05] LABS: Slide Review Slide Review Perform
[2021-12-07 13:11] LABS: Alanine Aminotransferase 127 U/L (0-33); Albumin Level 2.3 g/dL (3.5-5.2); Alkaline Phosphatase 212 IU/L (35-105); Anion Gap 15.3 (5-19); Aspartate Amino Transferase 104 U/L (0-32); Blood Urea Nitrogen 44 mg/dL (8-23); Calcium 7.7 mg/dL (8.5-10.5); Carbon Dioxide 16 mmol/L (22-29); Chloride 101 mmol/L (98-107); Globulin 2.2 g/dL (1.3-4.6); Glucose 109 mg/dL (65-115); NT Pro B Type Natriuretic Pept 358 pg/mL (0-125); Osmolality Calculated 278 mOsm/kg (285-295); Potassium 4.3 mmol/L (3.5-5.1); Sodium 128 mmol/L (136-145); Thyroid Stimulating Hormone 3.31 uIU/mL (0.27-4.20); Total Bilirubin 0.2 mg/dL (0.15-1.2); Total Protein 4.5 g/dL (6.6-8.7)
--- NOTE | 2021-12-07 13:18 | PC.PHAR ---
pt is from [facility] [phone]-elmer nurse from [facility] states the pt had her am meds today
[2021-12-07 13:37] LABS: Lipase 24 U/L (13-60)
--- NOTE | 2021-12-07 13:51 | US_ITS ---
WS: [id number] ULTRASOUND ABDOMEN LIMITED CLINICAL INFORMATION: RUQ, eval biliary, transaminitis, sepsis COMPARISON: None. FINDINGS: Liver Size: Normal. Craniocaudal length: 14.3 cm. Echogenicity: Normal. Surface nodularity: None. Mass (size and location): None. Bile ducts Intrahepatic ducts: Normal. Common bile duct diameter: 0.6 cm. Gallbladder Prior cholecystectomy Pancreas Normal as visualized. Right kidney: Normal. Hydronephrosis: None. Size: 10.3 cm x 4.7 cm x 4.1 cm. Abdominal aorta and IVC Visualized portions are normal. Ascites: None. US/US abdomen limited 58028 IMPRESSION: 1. Normal liver. No intrahepatic biliary dilatation. 2. Prior cholecystectomy. 3. Normal common bile duct measuring 6 mm. 4. No hydronephrosis in RIGHT kidney. 5. No ascites.
--- NOTE | 2021-12-07 14:13 | ECG_ITS ---
[facility] Test Date: 2021-12-07 Pat Name: Jannet Ashford Department: Room: Gender: Female Shot Blaster: : 1950 Requested By: Satnam Conroy Order Number: [id number] Evangelist MD: Moriah Watts M.D. Measurements Intervals [place] Rate: 98 P: 66 [place]: 141 QRS: 74 QRSD: 75 T: 59 QT: 277 QTc: 355 Interpretive Statements SINUS RHYTHM SEPTAL MYOCARDIAL INFARCTION , PROBABLY OLD [40+ ms Q WAVE IN V1/V2] Compared to ECG 12/07/2021 12:19:26 Myocardial infarct finding now present Electronically Signed On 12-08-2021 14:47:50 CARTON REPAIRER by Moriah Watts M.D. [id number]
[2021-12-07 14:24] LABS: Reflex Lactate Order REFLEX LACTIC ORDERD
[2021-12-07 16:19] LABS: Add Urine Microscopic? YES; Bilirubin Urine Neg (Negative); Blood Urine 2+ (Negative); Glucose Urine UA Norm (Normal); Ketones Urine Negative (Negative); Leukocyte Esterase Urine 2+ (Negative); Nitrate Urine Negative (Negative); Protein Urine 1+ (Negative); Specific Gravity, Urine 1.015 (1.005-1.030); Urine Appearance Cloudy (CLEAR); Urine Color Yellow (Yellow); Urobilinogen Urine Norm (Negative); pH Urine 5 (5-7)
[2021-12-07 16:44] LABS: Bacteria Urine 1+ /hpf; Mucus Urine TRACE /hpf; RBC Urine 40-50 /hpf (0-2); WBC Urine 55-80 /hpf (0-5)
[2021-12-07 16:45] LABS: Add Urine Culture? Yes; Other Sediment, Urine BUD YEAST W/HYPHAE
[2021-12-07 16:52] LABS: Troponin 5 2HR 51.08 ng/L (0-10)
[2021-12-07 16:57] LABS: Troponin 5 2HR Delta 0.08 ABS# (0-10)
[2021-12-07 17:03] LABS: Creatine Phosphokinase 58 U/L (26-192); Lactic Acid level (Lactate) 1.8 mmol/L (0.5-2.2)
--- NOTE | 2021-12-07 17:05 | P.HP_ITS ---
Providers/Chief Complaint Admitting Physician: Chely Duarte MD Primary Care Provider: KAILYN Calzada Chief Complaint: HYPOTENSIVE History of Present Illness Jannet Ashford is a 71 year old female who presented to the emergency room from infectious disease clinic with hypotension. Patient has a complicated recent history. Mid September she had a fall at home and was found a couple of days later did have a hip fracture. She underwent hemiarthroplasty on October [address] Kinney. In October she was admitted to the hospital with infected right hip on October 28 and underwent debridement down to the bone including the joint on October 29. She was treated empirically with antibiotics including initial vancomycin followed by transition to daptomycin and ceftaroline to facilitate clearing of bacteremia. Ultimately had hardware removed on November 05 with antibiotic cement spacer placement. Multiple cultures grew out MRSA. After prolonged course of treatment in the hospital blood cultures did clear and patient was discharged on November 11. She has been staying at [facility] since then and had been receiving IV vancomycin with a goal trough of 15-20. PICC line had been placed last admission however it was removed at some point as it was not functioning and antibiotics have been given via peripheral IV since. Most recent troughs reported from the facility have been around 12. Mrs. Ashford has followed up with Dr. Kinney and then today was seeing Dr. Mathews. There patient was noted to have blood pressure in the 60s systolic along with tachycardia and acutely ill appearance. She was sent to the emergency room for further evaluation and treatment. Here blood pressures were also noted to be 60s systolic. Patient received fluid bolus and initially seemed to respond but ultimately had recurrent drop in pressures requiring initiation of pressors. Lactic acid was 3.8 on arrival. But antigen was negative. I was not able to speak with patient's . He had recently left. He had reported to nursing staff that rash that is apparent has been present at the [facility]. I do not see it well documented and previous notes so I am assuming it is new since then. Patient herself is not able to provide specific history due to progressive aphasia. Patient has not been eating well. She has been nonweightbearing as instructed. History is primarily obtained from review of records, ED and SNF notes, and ED staff. Review of Systems General: Reports: ROS unobtainable due to medical condition Medications/Allergies Home Medications Medication Instructions Recorded Confirmed Last Taken Type rosuvastatin 20 mg tablet 20 mg PO DAILY@08/25/20 12/07/21 12/06/21 History vit C 250 mg-vit E 90 mg-zinc 40 2 tab PO BID@08,17 cap 08/25/20 12/07/21 12/07/21 History mg-copper 1 [id number] capsule (PreserVision AREDS-2) hydrocodone 5 mg-acetaminophen 325 1 tab PO TID PRN 30 Days #90 tab 09/23/21 12/07/21 Unknown Rx mg tablet apixaban 5 mg tablet (Eliquis) 5 mg PO BID@0900,2100 #60 tab 11/11/21 12/07/21 12/07/21 Rx acetaminophen 325 mg tablet 650 mg PO Q6H PRN 12/07/21 12/07/21 Unknown History (Tylenol) aluminum-mag hydroxide-simethicone 30 ml PO Q4H PRN 12/07/21 12/07/21 Unknown History 200 mg-200 mg-20 mg/5 mL oral susp aspirin 81 mg chewable tablet 81 mg PO DAILY@12/07/21 12/07/21 12/07/21 History bisacodyl 10 mg rectal suppository See Rx Instructions .ROUTE .COMPLEX 12/07/21 12/07/21 Unknown History (Dulcolax (bisacodyl)) docusate sodium 100 mg capsule 100 mg PO BID@,12/07/21 12/07/21 12/07/21 08:00 History galantamine 24 mg 24 hr 24 mg PO DAILY@12/07/21 12/07/21 Unknown History capsule,extended release guaifenesin 100 mg/5 mL oral liquid 200 mg PO Q6H PRN 12/07/21 12/07/21 Unknown History magnesium citrate See Rx Instructions .ROUTE .COMPLEX 12/07/21 12/07/21 Unknown History magnesium hydroxide 400 mg/5 mL 30 ml PO .IF NO BM IN 3 DAYS PRN 12/07/21 12/07/21 Unknown History oral suspension (Milk of Magnesia) sennosides 8.6 mg-docusate sodium 1 tab PO DAILY@08 12/07/21 12/07/21 12/07/21 History 50 mg tablet (Stool Softener-Laxative) sodium phosphates 19 gram-7 See Rx Instructions .ROUTE .COMPLEX 12/07/21 12/07/21 Unknown History gram/118 mL enema (Fleet Enema) vancomycin 750 mg/150 mL in water 750 mg IV Q24H 12/07/21 12/07/21 12/07/21 History for injection(PEG,NADA) IV piggyback Allergies Allergy/AdvReac Type Severity Reaction Status Date / Time Penicillins Allergy Severe ALGY-Anaphy Verified 12/07/21 12:53 laxis gabapentin AdvReac SPEECH Verified 12/07/21 12:53 DIFFICULTY Sulfa (Sulfonamide AdvReac WAS TOLD Verified 12/07/21 12:53 Antibiotics) BY HER MOTHER THAT SHE IS ALLERGIC PFSH Acute PFSH: Medical History (Updated 12/07/21 @ 19:33 by Chely Duarte MD) Chronic right hip pain CVA (cerebral vascular accident) 10/2021 - MRI revealed acute stroke in the right parieto-occipital junction and a second lesion in the left frontal temporal junction around the sylvian fissure Dementia Facet syndrome, lumbar Female cystocele History of transesophageal echocardiography (AMEE) 10/2021 - no vegitation Intervertebral disc disorder with radiculopathy of lumbosacral region Long-term use of high-risk medication Low back pain MRSA (methicillin resistant Staphylococcus aureus) septicemia (~10/2021) 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 Stoll at [facility] History of cardiac radiofrequency ablation 2011 S/P cholecystectomy 2010 S/P hardware removal (11/05/21) right hip with antibiotic cement spacer placement S/P hysterectomy 2004 Status post hip hemiarthroplasty (10/09/21) right hip with subsequent MRSA infection Family History (Updated 12/07/21 @ 17:14 by Chely Duarte MD) Sister Dementia Father Myocardial infarct Heart disease Mother Cancer Brain Tumor Brother Hypertension Cancer colon cancer Denies family history of Ovarian cancer Diabetes Clotting disorder Hyperlipidemia Breast cancer Anesthesia complication Bleeding disorder Uterine cancer Thyroid condition Stroke Social History (Updated 12/07/21 @ 17:15 by Chely Duarte MD) Smoking and tobacco status: former smoker Alcohol intake: never Substance/Drug Use: never Marital status: Vitals/I&O/Wt Last Vital Signs Temp 98.6 F 12/07/21 12:12 Pulse 96 12/07/21 12:12 Resp 16 12/07/21 12:12 BP 87/62 12/07/21 12:12 Weight last 48 hrs Weight 54.431 kg Physical Exam Narrative: Constitutional: Awake, responds to name and repeats back what is said, not able to provide much beyond nod of the head that seems consistent at times HEENT: Mild bitemporal wasting noted, conjunctive injected, extraocular movements grossly intact, oropharynx with dry mucous membranes, no discharge Neck: Supple Respiratory: Tachypneic but clear to auscultation bilaterally, no rales or rhonchi noted Cardiovascular: Regular rhythm, no murmurs noted, no rubs, 1+ radial pulses, faint dorsalis pedis pulses bilaterally, capillary refill is around 3 seconds Abdomen: Soft, nontender, decreased bowel sounds : Normal external genitalia, Chowdary in place Extremities: Patient is lying on her right side. Attempts to turn her over in bed presently not successful so I have not examined her prior incision site at the right hip directly myself. What I can see is erythematous consistent with skin findings below. Tips of fingers and toes are cyanotic but no mottling beyond this region on the lower extremities Skin: Dry, warm to touch, diffuse papular erythematous rash with papules varying from a few millimeters to a centimeter, some coalescence. Patient has an almost petechial-looking component to this on her left upper arm in the area where her blood pressure cuff was in place that is separate from what is seen elsewhere. Erythematous rash includes the face, scalp, neck, trunk, arms including intertriginous areas such as axilla and in the groin. Extends down the legs but lessens below the knees down to the feet. No vesicular lesions are noted again with the exception of not presently being able to see the right flank and hip. Patient has some chronic appearing calluses to the feet with 1 or 2 that have some underlying discoloration suspicious for ulceration but skin surrounding is not soft. These are present on admission. Patient has evidence of previous peripheral IV and PICC line noted. Neuro: Repeats words, restless, appears to be moving left side more so than right but not fully cooperative in current position to ascertain, all extremities do move Psych: Flat affect Urinary Catheter Management: Chowdary: Cath Placed During This Visit: yes Urinary Catheter Date of Insertion: 12/07/21 Urinary Catheter Time of Insertion: 13:17 Data : 12/07/21 12:25 12/07/21 12:25 Micro: Microbiology 12/07/21 12:51 Blood Culture - Preliminary Blood SPECIMEN COLLECTED 12/07/21 12:25 Blood Culture - Preliminary Blood SPECIMEN COLLECTED A&P Assessment and plan (1) Severe sepsis: As evidenced by fever, tachycardia, hypotension that did initially respond to fluids, acute kidney injury, leukocytosis, lactic acidosis, transaminitis, el evated troponin in the setting of expected infection Status: Acute (2) Diffuse papular rash: Involves intertriginous areas, unclear duration, diffusely erythematous and warm to touch, has appearance of a drug reaction or other allergic process, but could be related to infection Recent antibiotics and Eliquis are primary new medications that I have discerned from review of presently available information Absolute eosinophil count noted on differential Status: Acute (3) MRSA (methicillin resistant Staphylococcus aureus) septicemia: Versus other bacteremia, he had multiple cultures with MRSA within the last month Status: Acute (4) Prosthetic joint infection: Currently with antibiotic infused cement spacer Status: Acute Qualifiers: Encounter type: subsequent encounter Qualified Code(s): T84.50XD - Infection and inflammatory reaction due to unspecified internal joint prosthesis, subsequent encounter (5) CHERRIE (acute kidney injury): Secondary to ATN from hypotension plus minus medications Status: Acute (6) Primary progressive nonfluent aphasia: Status: Chronic (7) Progressive supranuclear palsy: Status: Chronic Plan Abnormal urinalysis suggestive of possible urinary tract infection although with epithelial cells noted Elevated troponin and BNP, recently felt secondary to type II process from degree of hypotension along with acute kidney injury Postoperative anemia, gradually improving since original hip surgery although we will have to see what the levels are after volume replacement Inpatient admission Continue IV fluids with additional LR bolus Pressor support as needed weaning as able Broad-spectrum antibiotics currently with daptomycin and cefepime as recommended by infectious disease but will have to watch renal function closely PICC line or central line Follow-up pending cultures, blood and urine Will give a dose of Solu-Medrol and Benadryl, monitoring response Need to see if we get more specific history on this rash Lactobacillus Hold home medications Looks like Eliquis is started at discharge last hospital stay for combination of what was felt to be embolic stroke and an atrial thrombus that was not seen on AMEE Subcu heparin currently for DVT prophylaxis Supportive care otherwise does not seem to fully understand current clinical scenario indicating to nursing staff that he is upset that she has not been able to get up and walk since she went to the [facility]. She is currently nonweightbearing secondary to spacer being in place. indicated to nursing staff in the ER that he did not want patient to go back to [facility] upon discharge but will need to clarify make sure he understands what she is currently able to do or try to do from a postoperative standpoint and such. We will need to update him and get more information when he is available either by phone or in person. Attestations Medical Necessity Statement*: Anticipated stay greater than 2 midnights in patient presenting with profound hypotension and other findings consistent with sepsis. She has required IV fluids and ultimately initiation of pressor support due to recurrent episodes of hypotension. She is receiving IV antibiotics and close monitoring along with other care as described. At high risk of rapid clinical decline up to and including the possibility of without inpatient care. Coding Level of Care Code Acute Lever Tender for [facility] Fwd Diagnoses Severe sepsis A41.9; R65.20 MRSA (methicillin resistant Staphylococcus aureus) septicemia A41.02 Prosthetic joint infection T84.50XD Encounter type: subsequent encounter Primary progressive nonfluent aphasia G31.01; F02.80 Progressive supranuclear palsy G23.1 CHERRIE (acute kidney injury) N17.9 Diffuse papular rash R21
[2021-12-07 17:08] LABS: SARS Covid-2 Antigen Negative (Negative)
--- NOTE | 2021-12-07 18:13 | ECG_ITS ---
[facility] Test Date: 2021-12-07 Pat Name: Jannet Ashford Department: Room: Gender: Female Managing Cognitive Engineer: : 1950 Requested By: Satnam Conroy Order Number: [id number] Evangelist MD: Moriah Watts M.D. Measurements Intervals [place] Rate: 96 P: 62 MT: 125 QRS: 75 QRSD: 87 T: 66 QT: 333 QTc: 421 Interpretive Statements SINUS RHYTHM Compared to ECG 10/29/2021 14:05:39 No significant changes Electronically Signed On 12-08-2021 14:49:11 INSPECTOR OF DREDGING by Moriah Watts M.D. [email or web address]
[2021-12-07] MEDS: heparin 5,000 unit/mL INJ 1 mL 5000 UNIT SUBCUT ×2 (18:45→20:06)
[2021-12-07] MEDS: lactated ringers 1,000 ML 999 ML IV (18:48)
[2021-12-07] MEDS: lactated ringers 1,000 ML 125 ML IV (18:49)
[2021-12-07 19:07] LABS: Troponin 5 6HR 54.85 ng/L (0-10)
[2021-12-07 19:10] LABS: Troponin 5 6HR Delta 3.85 ng/L (0-12)
[2021-12-07] MEDS: norepinephrine 8 MG in dextrose 5 % 500 ML 9.53 MG IV (19:20)
[2021-12-07 20:41] VITALS: BP 84/60; PULSE 74; RESP 18; O2SAT 95
[2021-12-07 20:53] LABS: C Reactive Protein 34.3 mg/L (0.0-4.9)
[2021-12-07 21:03] LABS: Cortisol Random 21.87 ug/dL (2.47-19.5)
[2021-12-07] MEDS: LORazepam 2 mg/mL INJ 1 mL 1 MG IVP (22:02)
--- NOTE | 2021-12-07 22:38 | PC.NURSE ---
pt pulled both IV out and attempting to pull Chowdary out, Dr. Conroy notified and pt given 1 mg Ativan IVP
--- NOTE | 2021-12-07 22:39 | PC.NURSE ---
2 more peripheral IV placed and medications restarted
[2021-12-07 22:42] VITALS: BP 95/71; PULSE 85; RESP 16; O2SAT 96
[2021-12-08] VITALS (100 sets, daily range): BP systolic 76–130; BP diastolic 37–77; PULSE 74–109; RESP 14–32; TEMP 36.7–37.1; O2SAT 93–100
--- NOTE | 2021-12-08 00:30 | PC.NURSE ---
Pt. admitted to floor. Pt. has redness/rash to entire body and is worst on right elbow. Outlined the outer edges with marker. No other needs identified at this time.
[2021-12-08] MEDS: lactated ringers 1,000 ML 125 ML IV (03:11)
[2021-12-08] MEDS: cefepime 2,000 MG in sodium chloride 0.9% (plus) 50 ML 100 MG IV ×2 (03:11→12:10)
[2021-12-08 07:04] LABS: Basophils # 0.1 10^3/uL (0.0-0.1); Basophils % 0.3 %; Eosinophils # 0.8 10^3/uL (0.0-0.8); Eosinophils % 4.7 %; Hematocrit 27.5 % (37.0-47.0); Hemoglobin 8.5 g/dL (11.5-15.3); Lymphocytes # 3.7 10^3/uL (0.8-4.8); Lymphocytes % 23.1 %; Mean Corpuscular HGB Conc 30.9 g/dL (30.0-36.0); Mean Corpuscular Hemoglobin 28.2 pg (28.0-34.0); Mean Corpuscular Volume 91.4 fl (81-99); Mean Platelet Volume 10.1 fL (7.4-10.4); Monocytes # 0.7 10^3/uL (0.2-0.9); Monocytes % 4.3 %; Neutrophils # 10.68 10^3/uL (1.8-7.7); Neutrophils % 66.8 %; Nucleated Red Blood Cells % 0 %; Platelet Count 368 10^3/cmm (130-400); Red Blood Count 3.01 10^6/uL (4.1-5.3); Red Cell Distribution Width 15.6 % (12.1-15.1)
[2021-12-08 07:15] LABS: Lactate (Lactic Acid level) 1.3 mmol/L (0.5-2.2)
[2021-12-08 07:16] LABS: Alanine Aminotransferase 163 U/L (0-33); Albumin Level 2.3 g/dL (3.5-5.2); Alkaline Phosphatase 193 IU/L (35-105); Anion Gap 14.3 (5-19); Aspartate Amino Transferase 125 U/L (0-32); Blood Urea Nitrogen 35 mg/dL (8-23); Carbon Dioxide 16 mmol/L (22-29); Chloride 109 mmol/L (98-107); Glucose 132 mg/dL (65-115); Magnesium 1.8 mg/dL (1.7-2.3); Osmolality Calculated 290 mOsm/kg (285-295); Phosphorus 4.6 mg/dL (2.5-4.5); Potassium 4.3 mmol/L (3.5-5.1); Sodium 135 mmol/L (136-145); Total Bilirubin 0.2 mg/dL (0.15-1.2); Total Protein 4.3 g/dL (6.6-8.7)
[2021-12-08] MEDS: heparin 5,000 unit/mL INJ 1 mL 5000 UNIT SUBCUT (07:24)
[2021-12-08 07:43] LABS: Slide Review Slide Review Perform
[2021-12-08] MEDS: lactobacillus 1 Tablet 2 TAB PO ×2 (08:38→17:15)
[2021-12-08] MEDS: diphenhydrAMINE 50 mg/mL SDV 1mL 25 MG IVP ×2 (09:21→17:21)
--- NOTE | 2021-12-08 15:30 | PM.PN ---
Subjective Subjective: Patient examined this morning in the ICU, was also updated, he arrived around noon at the bedside Nurse updated, Low-grade fever noted, creatinine 1.5, patient ate her breakfast by herself Noticed hyperemic morbilliform rash for which I gave her Benadryl She is DNR/DNI is not happy with the senior care and wants to take her home, requested Ariella director of casework services to come talk to the as well Vitals/I&O/Wt Last Vital Signs Temp 98.0 F 12/08/21 12:01 Pulse 83 12/08/21 14:01 Resp 26 H 12/08/21 14:01 BP 102/50 12/08/21 14:01 Pulse Ox 100 12/08/21 14:01 12/08/21 12/08/21 12/08/21 06:59 14:59 22:59 Intake Total 1050 / 3218.898 1581.156 / 1581.156 11.684 / 1592.840 Output Total 850 / 850 Balance 200 / 2368.898 1581.156 / 1581.156 11.684 / 1592.840 Weight last 48 hrs Weight 51.71 kg Weight 54.431 kg Physical Exam Narrative: Patient does look dehydrated I do not see significant change in her neurological status from previous exam however he is lethargic and fatigued Not making eye contact Moving her upper and lower extremities Abdomen is soft Bilateral breath sounds No audible stridor or wheezing She discussed removal on room air I did not appreciate crackles or rhonchi Abdomen is flat and soft Urinary Catheter Management: Chowdary: Cath Placed During This Visit: yes Reason for Continuing Indwelling Catheter: Accurate Measurement of Urinary Output in Critically Ill Patients Urinary Catheter Date of Insertion: 12/07/21 Urinary Catheter Time of Insertion: 13:17 Data : 12/08/21 06:50 12/08/21 06:50 Micro: Microbiology 12/07/21 12:51 Blood Culture - Preliminary Blood NEGATIVE TO DATE 12/07/21 12:25 Blood Culture - Preliminary Blood NEGATIVE TO DATE A&P Assessment and plan (1) Diffuse papular rash: Status: Acute (2) Progressive supranuclear palsy: Status: Chronic (3) Prosthetic joint infection: Status: Acute Qualifiers: Encounter type: subsequent encounter Qualified Code(s): T84.50XD - Infection and inflammatory reaction due to unspecified internal joint prosthesis, subsequent encounter (4) CHERRIE (acute kidney injury): Status: Acute (5) Severe sepsis: Status: Acute (6) Dementia: Status: Chronic (7) Primary progressive nonfluent aphasia: Status: Chronic Plan Septic shock Levophed has been weaned off, Related to UTI Patient is also dehydrated, is endorsing that she has not been able to eat much at the senior care CHERRIE related to dehydration and sepsis:-Improving with IV fluids 4 UTI she is currently on cefepime which would suffice microorganism of urinary tract Vancomycin associated rash: We will keep her on Benadryl, not use vancomycin Recent right hip prosthetic joint infection, MRSA bacteremia, she has 2 more weeks of IV antibiotics currently on daptomycin and cefepime as per ID recommendations Atrial thrombus concern for septic emboli, we will keep her on Eliquis instead of heparin stating that he would prefer to bring her home and give her 2 weeks of IV antibiotics and take care of her he does not want senior care as a first choice Patient is DNR/DNI Regular diet Attestations Medical Necessity Statement*: Can be transferred out of ICU tomorrow Time Spent in Patient Care: 30mins Coding Level of Care Code Acute Card Cutter Helper for g Fwd Diagnoses Diffuse papular rash R21 Progressive supranuclear palsy G23.1 Prosthetic joint infection T84.50XD Encounter type: subsequent encounter CHERRIE (acute kidney injury) N17.9 Severe sepsis A41.9; R65.20 Dementia F03.90 Primary progressive nonfluent aphasia G31.01; F02.80
--- NOTE | 2021-12-08 17:42 | PC.NURSE ---
Shift Note Frequent safety and comfort rounds continue. Orders and/or nursing care completed as indicated. Patient monitored for response to intervention and treatment(s). Education provided includes treatment plan, medications, and dc planning. verbalizes understanding and has made his wishes known to take home for care with home health. Case management and MD aware of wishes. Turned off Levophed earlier in day, required med to be restarted d/t low BP's. Pt unable to answer questions, repeats back what is said to her and follow only very simple commands. Rash appeared better earlier and then worsened again. Benadryl given d/t increased itching. Will continue to monitor.
[2021-12-08] MEDS: apixaban 5 mg Tablet PO (21:44)
[2021-12-09] VITALS (40 sets, daily range): BP systolic 93–139; BP diastolic 39–74; PULSE 90–107; RESP 16–38; TEMP 36.8–37.4; O2SAT 96–98
[2021-12-09] MEDS: cefepime 2,000 MG in sodium chloride 0.9% (plus) 50 ML 100 MG IV ×2 (00:34→12:58)
[2021-12-09] MEDS: diphenhydrAMINE 50 mg/mL SDV 1mL 25 MG IVP (00:34)
[2021-12-09 04:20] LABS: Hemoglobin 8.1 g/dL (11.5-15.3); Mean Corpuscular HGB Conc 31.2 g/dL (30.0-36.0); Mean Corpuscular Hemoglobin 27.8 pg (28.0-34.0); Mean Corpuscular Volume 89.3 fl (81-99); Mean Platelet Volume 10.6 fL (7.4-10.4); Platelet Count 358 10^3/cmm (130-400); Red Blood Count 2.91 10^6/uL (4.1-5.3); Red Cell Distribution Width 15.3 % (12.1-15.1); White Blood Count 16.1 10^3/uL (4.0-10.0)
[2021-12-09 05:03] LABS: Anion Gap 15.2 (5-19); Blood Urea Nitrogen 39 mg/dL (8-23); Calcium 7.9 mg/dL (8.5-10.5); Carbon Dioxide 17 mmol/L (22-29); Chloride 111 mmol/L (98-107); Glucose 118 mg/dL (65-115); Osmolality Calculated 298 mOsm/kg (285-295); Potassium 4.2 mmol/L (3.5-5.1); Sodium 139 mmol/L (136-145)
[2021-12-09 05:07] LABS: Slide Review Slide Review Perform
[2021-12-09 05:25] LABS: Absolute Neutrophil 8.7 10^3/cmm (1.4-6.5); Absolute Segmented Neutrophil 8.5 10/cmm (1.6-7.1); Band Neutrophils Absolute 0.2 10^3/cmm (0.0-1.2); Eosinophils 13 %; Lymphocytes 17 %; Lymphocytes Absolute 4.8 10^3/cmm (1.2-3.4); Monocytes Absolute 0.8 10^3/cmm (0.1-0.6); Platelet Estimate Normal (Normal); Segmented Neutrophils 53 %; Total Cells Counted 100 (0-100)
[2021-12-09 05:26] LABS: Pathology Refferal Yes
[2021-12-09] MEDS: lactobacillus 1 Tablet 2 TAB PO ×2 (08:17→17:22)
[2021-12-09] MEDS: apixaban 5 mg Tablet PO ×2 (08:17→21:30)
[2021-12-09] MEDS: sodium chloride 0.9% 1,000 ML 75 ML IV ×2 (08:34→21:31)
[2021-12-09] MEDS: albumin 12.5 GM/250 ML VIAL IV (08:56)
--- NOTE | 2021-12-09 09:36 | PC.CHAP ---
Pastoral Care Encounter/Spiritual Assessment Type of Contact [] Declined chair springer visit [] Patient/Family/Request visit [] Outpatient visit [] Follow-up visit [] Physician referral [] Code/Alert [x] Routine visit [] Staff referral [] Actively dying [] Patient sleeping [] Family support [] [] Out of room [] Palliative care [] [] Receiving care in room [] Pre-surgical visit [] Trauma [] Long length of stay [] ICU visit [] Other: Relational/Emotional Strength [] Patient feels connected with others/family/visitors/staff [] Distress [] Loneliness/isolation [] Abandonment Spirituality of Patient [] Person of Zeina [] Attends Restorationist of their Zeina [] Believes in Prayer [] Reads Bible or Jew materials [] There are Spiritual issues to be addressed Bolt Loader Interventions [] Prayer [] Active listening [] Non-anxious presence [] Spiritual/emotional support [] Crisis/trauma care [] Spiritual counseling [] Bereavement support [] Provided bereavement packet [] Provided Bible/devotional materials [] Provided toy/stuffed animal, coloring book to patient or family member [] Provided Communion [] Anointing/[place] [] Salvation [] Completed spiritual assessment [] Other: Impact on Illness or Injury [] Angry [] Fearful [] Anxious [] Often cries [] Exhaustion [] Unable to work [] Unable to attend sabianist [] Unable to walk/stand [] Unable to read [] Unable to drive [] Unable to eat/drink [] Unable to sleep [] Unable to be with family [] Patient intubated [] Other: Summary Time spent with patient
--- NOTE | 2021-12-09 14:18 | P.PN_ITS ---
Subjective Subjective: No more febrile episodes since 12/07 Leukocytosis stable She is off Levophed Hemoglobin stable 8.1 Secondary to low blood pressure and albumin I will give 1 bag of albumin today Abnormal transaminases noted from yesterday, she does not have a gallbladder, will request CMP for tomorrow Vitals/I&O/Wt Last Vital Signs Temp 99.3 F 12/09/21 07:30 Pulse 100 12/09/21 12:30 Resp 32 H 12/09/21 12:30 BP 116/61 12/09/21 12:00 Pulse Ox 96 12/08/21 20:01 12/08/21 12/09/21 12/09/21 22:59 06:59 14:59 Intake Total 351.684 / 1932.840 60.96 / 1993.800 650 / 650 Output Total 925 / 925 600 / 1525 Balance -573.316 / 1007.840 -539.04 / 468.800 650 / 650 Weight last 48 hrs Weight 52.163 kg Weight 51.71 kg Physical Exam Narrative: Patient is able to make eye contact She is repeating what ever I say this morning She was able to eat breakfast on her own Looks dehydrated Moving her extremities Chowdary catheter draining dilute urine Abdomen soft S1, S2 Saturating well on room air Urinary Catheter Management: Chowdary: Cath Placed During This Visit: yes Reason for Continuing Indwelling Catheter: Accurate Measurement of Urinary Output in Critically Ill Patients Urinary Catheter Date of Insertion: 12/07/21 Urinary Catheter Time of Insertion: 13:17 Data : 12/09/21 03:44 12/09/21 03:44 Micro: Microbiology 12/07/21 14:00 Urine Culture - Preliminary Urine,Clean Catch 12/07/21 12:51 Blood Culture - Preliminary Blood NEGATIVE TO DATE 12/07/21 12:25 Blood Culture - Preliminary Blood NEGATIVE TO DATE A&P Assessment and plan (1) Diffuse papular rash: Status: Acute (2) Progressive supranuclear palsy: Status: Chronic (3) Dementia: Status: Chronic (4) Severe sepsis: Status: Acute (5) CHERRIE (acute kidney injury): Status: Acute Plan Patient was sent from outpatient ID clinic, in summary:- 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, her MRSA bacteremia cleared as soon as prosthesis was removed, a spacer was placed, she was discharged to a residential with outpatient ID follow-up, she was recommended 6 weeks of IV antibiotics, she almost finished 4-1/2 weeks, she was sent to the hospital because of worsening confusion and hypotension from the ID clinic Severe sepsis related to UTI Septic shock: Resolved 12/09 Levophed has been turned off Albumin given today Normal saline started patient clinically is dehydrated, sinus tachycardia Blood cultures negative, No febrile events overnight For now continue daptomycin and cefepime CHERRIE related to sepsis and dehydration Her hyponatremia and creatinine improved with IV fluid hydration Making good amount of urine Baseline creatinine is less than 1 Urinary retention that is why she has indwelling catheter UTI, follow-up with the culture results Abnormal transaminases likely related to septic shock Patient does not have a gallbladder Will request CMP for tomorrow Progressive supranuclear palsy: As baseline she will not converse 8 with you, she would repeat what ever we say, no vertical gaze, she can track you in horizontal axis Please see Dr. Bolanos note for further details Concern for atrial thrombus and embolic stroke: I will resume her Eliquis Transesophageal echo did not show any embolic phenomenon on previous visit Vancomycin related morbilliform rash: Improved with use of Benadryl Social dynamics Patient was discharged to [facility] is stating that he would like to avoid placing her back to residential however with the placement of spacer her ambulation is limited I have requested PT evaluation today as well but I am not anticipating that patient will be able to bear weight on her right leg However is receptive and stating that if she is considered unsafe to return home 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
[2021-12-10] VITALS (8 sets, daily range): BP systolic 90–123; BP diastolic 48–74; PULSE 65–100; RESP 16–42; TEMP 36.5–38.3; O2SAT 95–98
[2021-12-10] MEDS: cefepime 2,000 MG in sodium chloride 0.9% (plus) 50 ML 100 MG IV ×2 (00:02→13:47)
[2021-12-10] MEDS: acetaminophen 325 mg Tablet 650 MG PO (00:43)
[2021-12-10 04:59] LABS: Basophils % 0.1 %; Eosinophils # 3.5 10^3/uL (0.0-0.8); Eosinophils % 25.9 %; Hematocrit 23.9 % (37.0-47.0); Hemoglobin 7.5 g/dL (11.5-15.3); Lymphocytes # 4.1 10^3/uL (0.8-4.8); Lymphocytes % 30.4 %; Mean Corpuscular HGB Conc 31.4 g/dL (30.0-36.0); Mean Corpuscular Hemoglobin 28.5 pg (28.0-34.0); Mean Corpuscular Volume 90.9 fl (81-99); Mean Platelet Volume 10.5 fL (7.4-10.4); Monocytes % 7.2 %; Neutrophils # 4.88 10^3/uL (1.8-7.7); Neutrophils % 35.7 %; Nucleated Red Blood Cells % 0 %; Platelet Count 306 10^3/cmm (130-400); Red Blood Count 2.63 10^6/uL (4.1-5.3); Red Cell Distribution Width 15.9 % (12.1-15.1); White Blood Count 13.6 10^3/uL (4.0-10.0)
[2021-12-10 05:25] LABS: Alanine Aminotransferase 199 U/L (0-33); Albumin Level 2.3 g/dL (3.5-5.2); Alkaline Phosphatase 256 IU/L (35-105); Aspartate Amino Transferase 121 U/L (0-32); Blood Urea Nitrogen 36 mg/dL (8-23); Carbon Dioxide 18 mmol/L (22-29); Chloride 114 mmol/L (98-107); Globulin 1.7 g/dL (1.3-4.6); Glucose 89 mg/dL (65-115); Osmolality Calculated 300 mOsm/kg (285-295); Sodium 141 mmol/L (136-145); Total Bilirubin 0.3 mg/dL (0.15-1.2)
--- NOTE | 2021-12-10 05:25 | PC.NURSE ---
labs drawn by phlebotomy
[2021-12-10 05:29] LABS: Slide Review Slide Review Perform
[2021-12-10] MEDS: aspirin 81 mg Chew Tablet PO (09:12)
[2021-12-10] MEDS: apixaban 5 mg Tablet PO ×2 (09:12→20:11)
[2021-12-10] MEDS: docusate sodium 100 mg Capsule PO ×2 (09:12→18:08)
[2021-12-10] MEDS: lactobacillus 1 Tablet 2 TAB PO ×2 (09:13→18:08)
--- NOTE | 2021-12-10 09:38 | PC.SOCIAL ---
Pg 2 IMM Explained to pt Pg 2 IMM. No questions voiced. Provided pt a copy. Initialed, dated, & timed a copy & placed in chart.
--- NOTE | 2021-12-10 11:35 | CT_ITS ---
WS: [id number] NONCONTRAST CT RIGHT HIP TECHNIQUE: Noncontrast CT RIGHT hip with coronal and sagittal reformatted images. CLINICAL INFORMATION: h/o joint infection, sepsis COMPARISON: CT October 28, 2021 DLP: 1058.[address] scans at [facility] use at least one of these dose optimization techniques: automated e xposure control; mA and/or kV adjustment per patient size (includes targeted exams where dose is matc hed to clinical indication); or iterative reconstruction. FINDINGS: Recent postoperative changes revision of the RIGHT total hip arthroplasty. Hardware appears in good p osition and well seated. No evidence of dislocation or fracture. Soft tissue edema in the RIGHT hip s urrounding soft tissues. No evidence of drainable abscess or fluid collection. No significant joint e ffusion. Methacrylate along the femoral prosthesis and acetabular component of the prosthesis. Hip ap pears internally rotated and high riding in the acetabulum. Chowdary catheter. Osteopenia. No other abnormalities. CT/CT hip RT wo con* [id number] IMPRESSION: 1. Postoperative revision RIGHT TESFAYE. RIGHT hip appears internally rotated like ly due to positioning. 2. Hardware appears well seated. No evidence of acute fracture dislocation. 3. Normal postoperative changes in the soft tissues. 4. No evidence of abscess or drainable fluid collection.
[2021-12-10] MEDS: sodium chloride 0.9% 1,000 ML 75 ML IV (11:51)
[2021-12-10] MEDS: HYDROcodone-acetaminophen 5-325 mg Tablet 1 TAB PO ×2 (11:52→20:11)
--- NOTE | 2021-12-10 12:20 | CT_ITS ---
WS: [id number] CT CHEST TECHNIQUE: Noncontrast CT of the chest with coronal and sagittal reformatted images. CLINICAL INFORMATION: sepsis, possible empyema COMPARISON: CTA chest 10/30/21 DLP: 360.[address] scans at [facility] use at least one of these dose optimization techniques: automated e xposure control; mA and/or kV adjustment per patient size (includes targeted exams where dose is matc hed to clinical indication); or iterative reconstruction. FINDINGS: Small to moderate RIGHT and small LEFT pleural effusions with compressive atelectasis in the lung bas es. RIGHT pleural effusion slightly increased compared to previous. Diffuse body wall anasarca. No mediastinal or hilar lymphadenopathy. Prominent lymph nodes in the axilla likely reactive. Normal caliber thoracic aorta. Aortic calcification. Cholecystectomy clips. Small esophageal hiatal hernia. Diffuse body wall anasarca. Chronic compression fracture of the L1 vertebral body with retropulsion o f the posterior superior cortex with moderate central canal stenosis is unchanged. A few chronic bila teral rib fractures. CT/CT chest wo con [id number] IMPRESSION: 1. Small to moderate RIGHT and small left pleural effusion with compressive at electasis in the lung bases. Pleural fluid has increased slightly compared to on the RIGHT. 2. Prominent lymph nodes in the axilla bilaterally likely reactive. 3. Diffuse body wall anasarca. 4. Chronic compression fracture L1 vertebral body with retropulsion posterior superior cortex with moderate central canal stenosis.
[2021-12-10 15:34] LABS: Hepatitis B Surface AB 3.5 (11.5-1000); Hepatitis B Surface Antigen Non-Reactive (Nonreactive); Hepatitis C Virus Antibody Non-Reactive (Nonreactive)
--- NOTE | 2021-12-10 16:04 | PM.PN ---
Subjective Subjective: Hospital course, labs appreciated. On examination patient seen with RN at bedside. Laying comfortably in bed. Confused. Seems to be at baseline. Seem hemodynamically stable and afebrile. No acute events overnight. Vitals/I&O/Wt Last Vital Signs Temp 98.0 F 12/10/21 15:19 Pulse 88 12/10/21 15:19 Resp 16 12/10/21 15:19 BP 90/48 12/10/21 15:19 Pulse Ox 97 12/10/21 15:19 12/10/21 12/10/21 12/10/21 06:59 14:59 22:59 Intake Total 50 / 2811.25 1840 / 1840 Output Total 500 / 1100 350 / 350 Balance -450 / 1711.25 1490 / 1490 Weight last 48 hrs Weight 53.479 kg Weight 52.163 kg Physical Exam Narrative: Patient is able to make eye contact She is repeating what ever I say this morning She was able to eat breakfast on her own Looks dehydrated Moving her extremities Chowdary catheter draining dilute urine Abdomen soft S1, S2 Saturating well on room air Urinary Catheter Management: Chowdary: Cath Placed During This Visit: yes Reason for Continuing Indwelling Catheter: Accurate Measurement of Urinary Output in Critically Ill Patients Urinary Catheter Date of Insertion: 12/07/21 Urinary Catheter Time of Insertion: 13:17 Data : 12/10/21 04:13 12/10/21 04:13 Micro: Microbiology 12/07/21 14:00 Urine Culture - Final Urine,Clean Catch A&P Assessment and plan (1) Severe sepsis: Status: Acute (2) Diffuse papular rash: Status: Acute (3) Progressive supranuclear palsy: Status: Chronic (4) Dementia: Status: Chronic (5) CHERRIE (acute kidney injury): Status: Acute Plan Patient was sent from outpatient ID clinic, in summary:- 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 UA concerning for possible UTI. Urine culture, blood cultures so far remain negative. Patient has been on vancomycin for hip infection and MRSA bacteremia. Patient still having occasional fevers. White count down to 13,000 from 17,000 on admission. Repeat blood culture in a.m. Check CT hip and CT chest without contrast to rule out hip infection and possible empyema. Patient does have history of pleural effusion in the past. For now continue with daptomycin and cefepime. Recent MRSA bacteremia: Last dose of antibiotic on 12/18. We will confirm with ID if patient would need to finish the course of antibiotics. If needed will get a PICC line. Otherwise can plan to switch over to linezolid. CHERRIE: Most likely secondary to sepsis and dehydration. Seem to have resolved. Creatinine stable at 1.1. Abnormal transaminases likely related to septic shock Patient does not have a gallbladder Will request CMP for tomorrow Progressive supranuclear palsy: As baseline she will not converse with you, she would repeat what ever we say, no vertical gaze, she can track you in horizontal axis Please see Dr. Bolanos note for further details Concern for atrial thrombus and embolic stroke: I will resume her Eliquis Transesophageal echo did not show any embolic phenomenon on previous visit Vancomycin related morbilliform rash: Improved with use of Benadryl Patient is DNR/DNI Regular diet: Patient eats on her own very involved with her care Attestations Medical Necessity Statement*: Requires further hospitalization for management of resolving severe sepsis with a history of recent MRSA septic arthritis and bacteremia Time Spent in Patient Care: Greater than 35 minutes Coding Level of Care Code Acute 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
[2021-12-10 16:33] LABS: Hepatitis A Antibody IgM Non-Reactive (Nonreactive); Hepatitis B Core AB, Total Non-Reactive (Nonreactive)
[2021-12-10 17:26] LABS: Glucose Point of Care 111 mg/dL (70-110)
[2021-12-10] MEDS: diphenhydrAMINE 50 mg/mL SDV 1mL 25 MG IVP (20:32)
[2021-12-11] VITALS (12 sets, daily range): BP systolic 88–113; BP diastolic 49–65; PULSE 0–104; RESP 16–26; TEMP 36.8–37.2; O2SAT 96–100
[2021-12-11] MEDS: cefepime 2,000 MG in sodium chloride 0.9% (plus) 50 ML 100 MG IV (00:17)
[2021-12-11 00:24] LABS: Adenovirus Not Detected (NOT DETECT); Chlamydia Pneumoniae Not Detected (NOT DETECT); Coronavirus 229E,HKU1,NL63,OC4 Not Detected (NOT DETECT); Human Metapneumovirus Detected (NOT DETECT); Human Rhinovirus/Enterovirus Not Detected (NOT DETECT); Influenza A Not Detected (NOT DETECT); Influenza A H1 Not Detected (NOT DETECT); Influenza A H1-2009 Not Detected (NOT DETECT); Influenza A H3 Not Detected (NOT DETECT); Influenza B Not Detected (NOT DETECT); Mycoplasma Pneumoniae Not Detected (NOT DETECT); Parainfluenza Virus Type 1 Not Detected (NOT DETECT); Parainfluenza Virus Type 2 Not Detected (NOT DETECT); Parainfluenza Virus Type 3 Not Detected (NOT DETECT); Parainfluenza Virus Type 4 Not Detected (NOT DETECT); Respiratory Syncytial Virus A Not Detected (NOT DETECT); Respiratory Syncytial Virus B Not Detected (NOT DETECT); SARS-COV-2 Not Detected (NOT DETECT)
[2021-12-11 00:49] LABS: Human Metapneumovirus Detected (NOT DETECT); Human Rhinovirus/Enterovirus Not Detected (NOT DETECT); Results from Genmark
--- NOTE | 2021-12-11 00:50 | PC.NURSE ---
Call placed to Dr. Mathews at 2032 with concerns of patient being fluid overloaded. Pt's RR in the 40s with coarse lung sounds. Discussed VS and this nurse asked if the NS at 75 mL/hr could be discontinued. TORB to discontinue fluids
[2021-12-11 05:32] LABS: Basophils % 0.3 %; Eosinophils # 2.2 10^3/uL (0.0-0.8); Eosinophils % 13.7 %; Lymphocytes # 4.1 10^3/uL (0.8-4.8); Lymphocytes % 26.3 %; Mean Corpuscular HGB Conc 31.3 g/dL (30.0-36.0); Mean Corpuscular Volume 92.5 fl (81-99); Mean Platelet Volume 10.7 fL (7.4-10.4); Monocytes # 2.8 10^3/uL (0.2-0.9); Monocytes % 17.7 %; Neutrophils # 6.44 10^3/uL (1.8-7.7); Nucleated Red Blood Cells % 0 %; Platelet Count 295 10^3/cmm (130-400); Red Blood Count 2.14 10^6/uL (4.1-5.3); Red Cell Distribution Width 16.2 % (12.1-15.1); White Blood Count 15.7 10^3/uL (4.0-10.0)
[2021-12-11 05:40] LABS: INR 1.62 (0.8-1.2)
[2021-12-11 05:53] LABS: Alanine Aminotransferase 209 U/L (0-33); Albumin Level 2.4 g/dL (3.5-5.2); Alkaline Phosphatase 248 IU/L (35-105); Aspartate Amino Transferase 116 U/L (0-32); Blood Urea Nitrogen 54 mg/dL (8-23); Carbon Dioxide 19 mmol/L (22-29); Chloride 114 mmol/L (98-107); Globulin 1.6 g/dL (1.3-4.6); Glucose 103 mg/dL (65-115); Osmolality Calculated 305 mOsm/kg (285-295); Sodium 140 mmol/L (136-145); Total Bilirubin 0.4 mg/dL (0.15-1.2)
[2021-12-11 06:18] LABS: Hematocrit 19.8 % (37.0-47.0); Hemoglobin 6.2 g/dL (11.5-15.3); Slide Review Slide Review Perform
[2021-12-11] MEDS: sodium chloride 0.9% (100 ml) 100 ML 75 ML (08:50)
[2021-12-11] MEDS: lactobacillus 1 Tablet 2 TAB PO (08:53)
[2021-12-11] MEDS: docusate sodium 100 mg Capsule PO (08:54)
[2021-12-11] MEDS: apixaban 5 mg Tablet PO (08:54)
[2021-12-11] MEDS: aspirin 81 mg Chew Tablet PO (08:54)
[2021-12-11 11:18] LABS: Iron 63 ug/dL (37-145); Percent Saturation 41.1 % (20-50); Total Iron Binding Capacity 153 mcg/dl; Unsaturated Iron Binding 90 ug/dL (112-347)
[2021-12-11 11:21] LABS: Reticulocyte % 1.5 % (0.5-2.0)
--- NOTE | 2021-12-11 12:44 | P.DS_ITS ---
Discharge Providers Date of Admission: 12/07/21 18:12 Date of Discharge: December 11, 2021 Attending Provider at Admission: Chely Duarte MD Attending Provider at Discharge: Klaus Judge MD Primary Care Provider: KAILYN Calzada Diagnoses at Discharge Discharge Diagnosis (1) Severe sepsis: Status: Acute (2) Diffuse papular rash: Status: Acute (3) Progressive supranuclear palsy: Status: Chronic (4) Dementia: Status: Chronic (5) CHERRIE (acute kidney injury): Status: Acute (6) Primary progressive nonfluent aphasia: Status: Chronic (7) Anemia: Status: Acute (8) Protein-energy malnutrition: Status: Acute Reason for Visit Reason for Visit: HYPOTENSIVE Brief History: History as per HPI: Jannet Ashford is a 71 year old female who presented to the emergency room from infectious disease clinic with hypotension.? Patient has a complicated recent history.? Mid September she had a fall at home and was found a couple of days later did have a hip fracture.? She underwent hemiarthroplasty on October [address] Kinney.? In October she was admitted to the hospital with infected right hip on October 28 and underwent debridement down to the bone including the joint on October 29.? She was treated empirically with antibiotics including initial vancomycin followed by transition to daptomycin and ceftaroline to facilitate clearing of bacteremia.? Ultimately had hardware removed on November 05 with antibiotic cement spacer placement.? Multiple cultures grew out MRSA.? After prolonged course of treatment in the hospital blood cultures did clear and patient was discharged on November 11.? [facility] at [facility] since then and had been receiving IV vancomycin with a goal trough of 15-20.? PICC line had been placed last admission however it was removed at some point as it was not functioning and antibiotics have been given via peripheral IV since.? Most recent troughs reported from the facility have been around 12.? Mrs. Ashford has followed up with Dr. Kinney and then today was seeing Dr. Mathews.? There patient was noted to have blood pressure in the 60s systolic along with tachycardia and acutely ill appearance.? She was sent to the emergency room for further evaluation and treatment.? Here blood pressures were also noted to be 60s systolic.? Patient received fluid bolus and initially seemed to respond but ultimately had recurrent drop in pressures requiring initiation of pressors.? Lactic acid was 3.8 on arrival.? But antigen was negative.? I was not able to speak with patient's .? He had recently left.? He had reported to nursing staff that rash that is apparent has been present at the [facility].? I do not see it well documented and previous notes so I am assuming it is new since then.? Patient herself is not able to provide specific history due to progressive aphasia.? Patient has not been eating well.? She has been nonweightbearing as instructed.? History is primarily obtained from review of records, ED and SNF notes, and ED staff. Hospital Course Hospital Course Patient will need to the ICU for further evaluation and management of severe sepsis. On admission patient was found to be dehydrated for which she was started on IV fluids. As her blood pressure did not improve even after appropriate fluid boluses she was started on IV pressors. She was started on broad-spectrum antibiotics. Blood cultures were drawn. Her cultures including blood and urine remained negative during hospitalization. COVID-19 PCR was negative. Respiratory viral panel came back positive for metapneumovirus. There was concern for UTI on admission which was ruled out by discharge. During hospitalization patient was found to have acute kidney injury which resolved with IV hydration and creatinine has remained stable around 1.1. Patient had PICC line which was removed 5 days prior to admission. Patient is to finish IV antibiotic course with vancomycin for MRSA septicemia from last admission on December 18. Patient's care were discussed in detail with her outpatient ID specialist. Plan was to continue oral linezolid for 4 more weeks. During hospitalization she was also found to have declining hemoglobin. She did not have any active source of bleeding. Did not have any melena. Reticulocyte count was done which was consistent with hypoproliferation most likely secondary to chronic malnutrition and suppression secondary to IV antibiotics. She received 1 unit of blood transfusion during hospitalization. Her dose of Eliquis was changed as per her creatinine clearance and age to 2.5 twice daily. Discharge plan were discussed in detail with multiple times. He stated that he would not want patient to go back to [facility] and would want to take her back home. Multiple attempts were made for patient's caregiver to understand the acute needs she has got he is adamant of taking her home. Home health was arranged. She is been discharged in hemodynamically stable condition on oral linezolid for next 4 weeks with home health. Physical Exam Narrative: Patient is in no acute distress, able to make eye contact She is repeating what ever I say this morning She was able to eat breakfast on her own Moving her extremities Chowdary catheter draining dilute urine Abdomen soft S1, S2 regular, no murmurs. Saturating well on room air Urinary Catheter Management: Chowdary: Cath Placed During This Visit: yes Reason for Continuing Indwelling Catheter: Accurate Measurement of Urinary Output in Critically Ill Patients Urinary Catheter Date of Insertion: 12/07/21 Urinary Catheter Time of Insertion: 13:17 Discharge Data Studies Completed and Pending Completed Studies During Hospitalization Category Date Time Status CT chest wo con [id number] Routine Cat Scan 12/10/21 12:[address] head wo con* [id number] Urgent Cat Scan 12/07/21 12:[address] hip RT wo con* [id number] Routine Cat Scan 12/10/21 11:35 Completed XR chest 1V portable [id number] Urgent Exams 12/07/21 12:12 Completed US abdomen limited [id number] Urgent Ultrasound 12/07/21 13:51 Completed Pending at discharge Category Date Time Status Blood Culture AM LABS Lab 12/11/21 05:03 Results Blood Culture Stat Lab 12/07/21 12:51 Results Radiology Impressions Chest X-Ray 12/07/21 12:12 IMPRESSION: 1. Mild interstitial thickening in both lungs. No new pulmonary infiltrates. 2. Chronic emphysematous changes. 3. Tortuous and slightly ectatic thoracic aorta unchanged. 4. Osteopenia. Head CT 12/07/21 12:55 IMPRESSION: 1. No evidence of intracranial hemorrhage or mass effect. 2. Mild small vessel changes. Mild parenchymal volume loss. 3. No acute intracranial findings. Abdomen Ultrasound 12/07/21 13:51 IMPRESSION: 1. Normal liver. No intrahepatic biliary dilatation. 2. Prior cholecystectomy. 3. Normal common bile duct measuring 6 mm. 4. No hydronephrosis in RIGHT kidney. 5. No ascites. Hip CT 12/10/21 11:35 IMPRESSION: 1. Postoperative revision RIGHT TESFAYE. RIGHT hip appears internally rotated likely due to positioning. 2. Hardware appears well seated. No evidence of acute fracture dislocation. 3. Normal postoperative changes in the soft tissues. 4. No evidence of abscess or drainable fluid collection. Chest CT 12/10/21 12:20 IMPRESSION: 1. Small to moderate RIGHT and small left pleural effusion with compressive atelectasis in the lung bases. Pleural fluid has increased slightly compared to 10/30/21 on the RIGHT. 2. Prominent lymph nodes in the axilla bilaterally likely reactive. 3. Diffuse body wall anasarca. 4. Chronic compression fracture L1 vertebral body with retropulsion posterior superior cortex with moderate central canal stenosis. Laboratory Results WBC 15.7 10^3/uL (4.0-10.0) H 12/11/21 05:03 RBC 2.14 10^6/uL (4.1-5.3) L 12/11/21 05:03 Hgb 6.2 g/dL (11.5-15.3) L* 12/11/21 05:03 Hct 19.8 % (37.0-47.0) L* 12/11/21 05:03 MCV 92.5 fl (81-99) 12/11/21 05:03 MCH 29.0 pg (28.0-34.0) 12/11/21 05:03 MCHC 31.3 g/dL (30.0-36.0) 12/11/21 05:03 RDW 16.2 % (12.1-15.1) H 12/11/21 05:03 Plt Count 295 10^3/cmm (130-400) 12/11/21 05:03 MPV 10.7 fL (7.4-10.4) H 12/11/21 05:03 Neut % (Auto) 41.0 % 12/11/21 05:03 Lymph % (Auto) 26.3 % 12/11/21 05:03 Lynn % (Auto) 17.7 % 12/11/21 05:03 Eos % (Auto) 13.7 % 12/11/21 05:03 Baso % (Auto) 0.3 % 12/11/21 05:03 Reticulocyte % (Auto) 1.5 % (0.5-2.0) 12/11/21 05:03 Neut # (Auto) 6.44 10^3/uL (1.8-7.7) 12/11/21 05:03 Lymph # (Auto) 4.1 10^3/uL (0.8-4.8) 12/11/21 05:03 Lynn # (Auto) 2.8 10^3/uL (0.2-0.9) H 12/11/21 05:03 Eos # (Auto) 2.2 10^3/uL (0.0-0.8) H 12/11/21 05:03 Baso # (Auto) 0.0 10^3/uL (0.0-0.1) 12/11/21 05:03 Nucleated RBC % (auto) 0 % 12/11/21 05:03 Total Counted 100 (0-100) 12/09/21 03:44 Atypical Lymphs % 13.0 % (0-5) H 12/09/21 03:44 Absolute Neutrophils 8.7 10^3/cmm (1.4-6.5) H 12/09/21 03:44 Segmented Neutrophils 53 % 12/09/21 03:44 Abs Segm Neuts (Man) 8.5 10/cmm (1.6-7.1) H 12/09/21 03:44 Band Neutrophils 1.0 % 12/09/21 03:44 Abs Band Neuts (Man) 0.2 10^3/cmm (0.0-1.2) 12/09/21 03:44 Absolute Lymphocytes 4.8 10^3/cmm (1.2-3.4) H 12/09/21 03:44 Lymphocytes (Manual) 17 % 12/09/21 03:44 Monocytes (Manual) 5.0 % 12/09/21 03:44 Absolute Monocytes 0.8 10^3/cmm (0.1-0.6) H 12/09/21 03:44 Eosinophils (Manual) 13 % 12/09/21 03:44 Absolute Eosinophils 2.0 10^3/cmm (0.0-0.7) H 12/09/21 03:44 Basophils (Manual) 0.0 % 12/09/21 03:44 Absolute Basophils 0.0 10^3/cmm (0.0-0.2) 12/09/21 03:44 Nucleated RBCs # 0.0 /100WBC 12/11/21 05:03 Pathologist Review Yes 12/09/21 03:44 Platelet Estimate Normal (Normal) 12/09/21 03:44 Haptoglobin 121.0 mg/L (30-200) 12/11/21 05:03 PT 19.70 SECONDS (12.1-14.9) H 12/11/21 05:03 INR 1.62 (0.8-1.2) H 12/11/21 05:03 Sodium 140 mmol/L (136-145) 12/11/21 05:03 Potassium 5.0 mmol/L (3.5-5.1) 12/11/21 05:03 Chloride 114 mmol/L (98-107) H 12/11/21 05:03 Carbon Dioxide 19 mmol/L (22-29) L 12/11/21 05:03 Anion Gap 12.0 (5-19) 12/11/21 05:03 BUN 54 mg/dL (8-23) H 12/11/21 05:03 Creatinine 1.1 mg/dL (0.5-0.9) H 12/11/21 05:03 GFR Calculation Not Reportable 12/11/21 05:03 Glucose 103 mg/dL (65-115) 12/11/21 05:03 POC Glucose 111 mg/dL (70-110) H 12/10/21 17:03 Calculated Osmolality 305 mOsm/kg (285-295) H 12/11/21 05:03 Lactic Acid 3.8 mmol/L (0.5-2.2) H 12/07/21 12:25 Lactic Acid (Sepsis) 1.8 mmol/L (0.5-2.2) 12/07/21 16:14 Lactate 1.3 mmol/L (0.5-2.2) 12/08/21 06:50 Calcium 8.0 mg/dL (8.5-10.5) L 12/11/21 05:03 Phosphorus 4.6 mg/dL (2.5-4.5) H 12/08/21 06:50 Magnesium 1.8 mg/dL (1.7-2.3) 12/08/21 06:50 Iron 63 ug/dL (37-145) 12/11/21 05:03 TIBC 153 mcg/dl 12/11/21 05:03 % Saturation 41.1 % (20-50) 12/11/21 05:03 Unsat Iron Binding 90 ug/dL (112-347) L 12/11/21 05:03 Total Bilirubin 0.4 mg/dL (0.15-1.2) 12/11/21 05:03 AST 116 U/L (0-32) H 12/11/21 05:03 ALT 209 U/L (0-33) H 12/11/21 05:03 Alkaline Phosphatase 248 IU/L (35-105) H 12/11/21 05:03 Creatine Kinase 58 U/L (26-192) 12/07/21 16:14 Troponin T Baseline 51 ng/L (0-10) H 12/07/21 12:25 Troponin T 120 Minute 51.08 ng/L (0-10) H 12/07/21 16:14 Delta Troponin T 0.08 ABS# (0-10) 12/07/21 16:14 Troponin T Hi Sens 6Hr 54.85 ng/L (0-10) H 12/07/21 18:37 Troponin T Hi Sens 6Hr Delta 3.85 ng/L (0-12) 12/07/21 18:37 C-Reactive Protein 34.3 mg/L (0.0-4.9) H 12/07/21 12:25 NT-Pro-B Natriuret Pep 358 pg/mL (0-125) H 12/07/21 12:25 Total Protein 4.0 g/dL (6.6-8.7) L 12/11/21 05:03 Albumin 2.4 g/dL (3.5-5.2) L 12/11/21 05:03 Globulin 1.6 g/dL (1.3-4.6) 12/11/21 05:03 Lipase 24 U/L (13-60) 12/07/21 12:25 TSH 3.31 uIU/mL (0.27-4.20) 12/07/21 12:25 Random Cortisol 21.87 ug/dL (2.47-19.5) H 12/07/21 12:25 Urine Color Yellow (Yellow) 12/07/21 14:00 Urine Appearance Cloudy (CLEAR) 12/07/21 14:00 Urine pH 5 (5-7) 12/07/21 14:00 Ur Specific [place] 1.015 (1.005-1.030) 12/07/21 14:00 Urine Protein 1+ (Negative) H 12/07/21 14:00 Urine Glucose (UA) Norm (Normal) 12/07/21 14:00 Urine Ketones Negative (Negative) 12/07/21 14:00 Urine Blood 2+ (Negative) H 12/07/21 14:00 Urine Nitrate Negative (Negative) 12/07/21 14:00 Urine Bilirubin Neg (Negative) 12/07/21 14:00 Urine Urobilinogen Norm mg/dL (Negative) 12/07/21 14:00 Ur Leukocyte Esterase 2+ (Negative) H 12/07/21 14:00 Urine RBC 40-50 /hpf (0-2) H 12/07/21 14:00 Urine WBC 55-80 /hpf (0-5) H 12/07/21 14:00 Ur Squamous Epith Cells 5-10 /hpf (0-5) H 12/07/21 14:00 Amorphous Sediment Not Reportable 12/07/21 14:00 Urine Bacteria 1+ /hpf (NONE) H 12/07/21 14:00 Urine Mucus Trace /hpf 12/07/21 14:00 Urine Yeast 2+ /hpf H 12/07/21 14:00 Coronavirus 229E (PCR) Not detected (NOT DETECT) 12/10/21 20:30 Hepatitis A IgM Ab Non-reactive (Nonreactive) 12/10/21 14:20 Hep Bs Antigen Non-reactive (Nonreactive) 12/10/21 14:20 Hep Bs Antibody 3.5 (11.5-1000) L 12/10/21 14:20 Hep B Core Total Ab Non-reactive (Nonreactive) 12/10/21 14:20 Hepatitis C Antibody Non-reactive (Nonreactive) 12/10/21 14:20 Human Metapneumovir PCR Detected (NOT DETECT) A 12/11/21 00:48 Entero/Rhino (PCR) Not detected (NOT DETECT) 12/11/21 00:48 SARS-CoV-2 (PCR) Not detected (NOT DETECT) 12/10/21 20:30 SARS-CoV-2 Ag (Rapid) Negative (Negative) 12/07/21 16:08 Blood Type A Positive 12/11/21 06:56 Rho(D) Type Positive 12/11/21 06:56 Antibody Screen Negative 12/11/21 06:56 Crossmatch See Detail 12/11/21 06:56 Vitals Last Vital Signs Temp 98.5 F 12/11/21 11:53 Pulse 99 12/11/21 11:53 Resp 18 12/11/21 11:53 BP 92/52 12/11/21 11:53 Pulse Ox 99 12/11/21 11:53 Discharge Plan Discharge Patient Disposition: Home Condition: Stable Prescriptions: New sennosides [Senna Lax] 8.6 mg Tablet 17.2 mg PO BEDTIME PRN (Reason: constipation) 14 Days Qty: 28 0RF linezolid 600 mg Tablet 600 mg PO Q12H 28 Days Qty: 56 0RF Lactobacillus acidoph-L.bulgar 1 million cell Tablet 2 tab PO BID 30 Days Qty: 120 0RF ferrous gluconate 324 mg (37.5 mg iron) Tablet 324 mg PO BIDWM 30 Days Qty: 60 0RF Continued rosuvastatin 20 mg tablet 20 mg PO DAILY@21 0RF PreserVision AREDS-2 [id number] mp-wcbo-fv-mg capsule 2 tab PO BID@08,17 0RF Rx Instructions: administer with meals hydrocodone-acetaminophen 5-325 mg tablet 1 tab PO TID PRN (Reason: pain) 30 Days Qty: 90 0RF Tylenol 325 mg Tablet 650 mg PO Q6H PRN (Reason: Pain) 0RF Robitussin 100 mg/5 mL Liquid 200 mg PO Q6H PRN (Reason: Cough) 0RF Milk of Magnesia 400 mg/5 mL Suspension 30 ml PO .IF NO BM IN 3 DAYS PRN (Reason: if no results in 8 hours see dulcolax order) 0RF Dulcolax (bisacodyl) 10 mg Suppository See Rx Instructions .ROUTE .COMPLEX 0RF Rx Instructions: 10 mg rectally prn if no bm 8 hours after mom if no results see mag citrate order Fleet Enema 19-7 gram/118 mL Enema See Rx Instructions .ROUTE .COMPLEX 0RF Rx Instructions: 1 enema rectally per protocol prn for no bm if no results after fleets notify magnesium citrate Solution See Rx Instructions .ROUTE .COMPLEX 0RF Rx Instructions: one bottle po prn if no results from dulcolax supp *if no results in 8 hours refer to fleet enema order Mylanta 200-200-20 mg/5 mL Suspension 30 ml PO Q4H PRN (Reason: Indigestion) 0RF Stool Softener-Laxative 8.6-50 mg tablet 1 tab PO DAILY@08 0RF docusate sodium 100 mg capsule 100 mg PO BID@08,17 0RF aspirin 81 mg tablet,chewable 81 mg PO DAILY@08 0RF galantamine 24 mg capsule,ext rel. pellets 24 hr 24 mg PO DAILY@07 0RF Rx Instructions: administer with breakfast 340B Changed Eliquis 5 mg Tablet 2.5 mg PO BID@0900,2100 Qty: 60 1RF Discontinued vancomycin-water inject (PEG) 750 mg/150 mL piggyback 750 mg IV Q24H 0RF Rx Instructions: @06:00 Discharge Orders: Discharge Order (Routine); Ordered 12/11/21 Ordered By: Klaus Judge Referrals: Catrina Villatoro FNP [Primary Care Provider] - 1 week Valeri Mathews MD [Hospitalist] - 12/21/21 Lorenzo Kinney DO [Physician] - 1 month Discharge Diet: Usual diet Discharge Activity: Resume usual activity Patient Instructions: Opioid Safety Activity Restrictions/Additional Instructions: Continue taking linezolid 600 mg twice daily for next 4 weeks. Follow-up with ID physician within next 2 weeks on Thursday 12/21. While she is on antibiotics she should get a CMP and CBC drawn weekly to be followed up with her primary care provider as an outpatient. Please follow-up with your primary care provider within next [address] Kinney from orthopedics within next 1 month. Discharge Attestations Time Spent in Discharge Care*: greater than 30 min Specific Discharge Activities: educating and/or supporting family/caregiver, discussing with pcp/other providers, discussing with case reviewer/social wor [facility]/dc planners, documenting/other paperwork and evaluating patient/reviewing data Status at Discharge: Cognitive status at discharge: moderately impaired cognition , Behavioral status at discharge: cooperative , Functional status at discharge: bed bound , Overall status at discharge: patient is progressing back to baseline Quality Metrics Clinical Quality Measures [ No reported AMI, CVA or VTE this stay] Coding Level of Care Code Acute Chg FW DC note Diagnoses Severe sepsis A41.9; R65.20 Diffuse papular rash R21 Progressive supranuclear palsy G23.1 Dementia F03.90 CHERRIE (acute kidney injury) N17.9 Primary progressive nonfluent aphasia G31.01; F02.80 Anemia D64.9 Protein-energy malnutrition E46
[2021-12-11] MEDS: linezolid 600 mg Tablet PO (13:19)
== END 2021-12-11 16:50 | disposition home health service (06) | DRG 559 ==
LOC: ER 15:22 → ER IP 17:54 → ICU 12-08 03:28 → ER IP 12-08 06:57 → ICU 12-08 06:57 → MEDSURG 12-09 20:40
PROVIDERS: Internal Medicine; Admitting Provider Hospitalist; Emergency Provider Emergency Medicine; PCP Nurse Practitioner Family; Visit Provider Student in an Organized Health Care Education/Training Program
DX: T84.51XA Infection and inflammatory reaction due to internal right hip prosthesis, initial encounter (principal); A41.02 Sepsis due to Methicillin resistant Staphylococcus aureus; N17.0 Acute kidney failure with tubular necrosis; E46 Unspecified protein-calorie malnutrition; Z68.1 Body mass index [BMI] 19.9 or less, adult; E87.2 Acidosis; E87.1 Hypo-osmolality and hyponatremia; N39.0 Urinary tract infection, site not specified; Y79.3 Surgical instruments, materials and orthopedic devices (including sutures) associated with adverse incidents; I69.920 Aphasia following unspecified cerebrovascular disease; I95.9 Hypotension, unspecified; D64.9 Anemia, unspecified; G89.29 Other chronic pain; G20 Parkinson's disease; F02.80 Dementia in other diseases classified elsewhere, unspecified severity, without behavioral disturbance, psychotic disturbance, mood disturbance, and anxiety; M51.17 Intervertebral disc disorders with radiculopathy, lumbosacral region; Z96.641 Presence of right artificial hip joint; Z87.891 Personal history of nicotine dependence; L27.0 Generalized skin eruption due to drugs and medicaments taken internally; T36.8X5A Adverse effect of other systemic antibiotics, initial encounter; Z79.82 Long term (current) use of aspirin; Z79.891 Long term (current) use of opiate analgesic; Z66 Do not resuscitate; I51.3 Intracardiac thrombosis, not elsewhere classified; E86.0 Dehydration
CPT/HCPCS: 36415; 36416; 36430; 51702; 70450; 71045; 71250; 73700; 76705; 80048; 80053; 80202; 80500; 81001; 82533; 82550; 82962; 83010; 83540; 83550; 83605; 83690; 83735; 83880; 84100; 84443; 84484; 85007; 85025; 85045; 85610; 86140; 86705; 86706; 86709; 86803; 86850; 86900; 86920; 87040; 87086; 87340; 87426; 87635; 87801; 93005; 96365; 96366; 96367; 96372; 96375; 97110; 97161; 97165; 97530; 99285; J0692; J0878; J1200; J1644; J2060; J2930; J7030; P9016; P9041

== ENCOUNTER 2021-12-17 12:43 | Outpatient (CLI) | payer MEDICARE, OTHER, SELFPAY ==
[2021-12-17 12:58] LABS: Basophils # 0.1 10^3/uL (0.0-0.1); Basophils % 0.7 %; Eosinophils # 0.2 10^3/uL (0.0-0.8); Eosinophils % 2.2 %; Hematocrit 21.8 % (37.0-47.0); Hemoglobin 7.5 g/dL (11.5-15.3); Lymphocytes # 1.4 10^3/uL (0.8-4.8); Lymphocytes % 18.5 %; Mean Corpuscular HGB Conc 34.4 g/dL (30.0-36.0); Mean Corpuscular Hemoglobin 34.1 pg (28.0-34.0); Mean Corpuscular Volume 99.1 fl (81-99); Mean Platelet Volume 10.2 fL (7.4-10.4); Monocytes # 1.1 10^3/uL (0.2-0.9); Monocytes % 14.6 %; Neutrophils # 4.61 10^3/uL (1.8-7.7); Neutrophils % 62.6 %; Nucleated Red Blood Cells % 0 %; Platelet Count 419 10^3/cmm (130-400); Red Cell Distribution Width 21.5 % (12.1-15.1); White Blood Count 7.4 10^3/uL (4.0-10.0)
[2021-12-17 13:14] LABS: Alanine Aminotransferase 83 U/L (0-33); Alkaline Phosphatase 235 IU/L (35-105); Anion Gap 13.8 (5-19); Aspartate Amino Transferase 33 U/L (0-32); Blood Urea Nitrogen 21 mg/dL (8-23); Calcium 8.2 mg/dL (8.5-10.5); Carbon Dioxide 22 mmol/L (22-29); Chloride 110 mmol/L (98-107); Glucose 80 mg/dL (65-115); Osmolality Calculated 296 mOsm/kg (285-295); Potassium 3.8 mmol/L (3.5-5.1); Sodium 142 mmol/L (136-145); Total Bilirubin 0.4 mg/dL (0.15-1.2)
== END 2021-12-17 12:44 | disposition home or self-care (01) ==
LOC: LAB 12:47
PROVIDERS: PCP Nurse Practitioner Family; Visit Provider Student in an Organized Health Care Education/Training Program
DX: T84.51XA Infection and inflammatory reaction due to internal right hip prosthesis, initial encounter (principal)
CPT/HCPCS: 80053; 85025

== ENCOUNTER 2021-12-22 16:20 | Outpatient (CLI) | payer MEDICARE, OTHER, SELFPAY ==
[2021-12-22 17:33] LABS: Basophils # 0.1 10^3/uL (0.0-0.1); Basophils % 1.5 %; Eosinophils # 0.5 10^3/uL (0.0-0.8); Eosinophils % 5.7 %; Hemoglobin 8.1 g/dL (11.5-15.3); Lymphocytes # 1.2 10^3/uL (0.8-4.8); Lymphocytes % 14.7 %; Mean Corpuscular HGB Conc 35.2 g/dL (30.0-36.0); Mean Corpuscular Hemoglobin 37.5 pg (28.0-34.0); Mean Corpuscular Volume 106.5 fl (81-99); Mean Platelet Volume 9.5 fL (7.4-10.4); Monocytes # 0.7 10^3/uL (0.2-0.9); Neutrophils # 5.47 10^3/uL (1.8-7.7); Neutrophils % 68.4 %; Nucleated Red Blood Cells % 0 %; Platelet Count 452 10^3/cmm (130-400); Red Blood Count 2.16 10^6/uL (4.1-5.3); Red Cell Distribution Width 23.9 % (12.1-15.1)
[2021-12-22 17:39] LABS: Alanine Aminotransferase 38 U/L (0-33); Alkaline Phosphatase 187 IU/L (35-105); Anion Gap 16.1 (5-19); Aspartate Amino Transferase 21 U/L (0-32); Blood Urea Nitrogen 21 mg/dL (8-23); Calcium 8.4 mg/dL (8.5-10.5); Carbon Dioxide 21 mmol/L (22-29); Chloride 108 mmol/L (98-107); Globulin 2.6 g/dL (1.3-4.6); Glucose 107 mg/dL (65-115); Osmolality Calculated 295 mOsm/kg (285-295); Potassium 4.1 mmol/L (3.5-5.1); Sodium 141 mmol/L (136-145); Total Bilirubin 0.2 mg/dL (0.15-1.2); Total Protein 5.6 g/dL (6.6-8.7)
== END 2021-12-22 16:21 | disposition home or self-care (01) ==
PROVIDERS: PCP Nurse Practitioner Family; Visit Provider Student in an Organized Health Care Education/Training Program
DX: T84.51XA Infection and inflammatory reaction due to internal right hip prosthesis, initial encounter (principal)
CPT/HCPCS: 80053; 85025

== ENCOUNTER 2021-12-29 17:40 | Outpatient (CLI) | payer MEDICARE, OTHER, SELFPAY ==
[2021-12-29 18:39] LABS: Basophils # 0.1 10^3/uL (0.0-0.1); Basophils % 0.9 %; Eosinophils # 0.2 10^3/uL (0.0-0.8); Hematocrit 25.2 % (37.0-47.0); Hemoglobin 8.5 g/dL (11.5-15.3); Lymphocytes # 1.2 10^3/uL (0.8-4.8); Lymphocytes % 11.1 %; Mean Corpuscular HGB Conc 33.7 g/dL (30.0-36.0); Mean Corpuscular Hemoglobin 35.4 pg (28.0-34.0); Mean Platelet Volume 9.8 fL (7.4-10.4); Monocytes % 9.6 %; Neutrophils # 8.07 10^3/uL (1.8-7.7); Neutrophils % 75.9 %; Nucleated Red Blood Cells % 0 %; Platelet Count 318 10^3/cmm (130-400); Red Cell Distribution Width 21.5 % (12.1-15.1); White Blood Count 10.6 10^3/uL (4.0-10.0)
[2021-12-29 18:44] LABS: Alanine Aminotransferase 25 U/L (0-33); Albumin Level 3.4 g/dL (3.5-5.2); Alkaline Phosphatase 181 IU/L (35-105); Anion Gap 19.8 (5-19); Aspartate Amino Transferase 22 U/L (0-32); Blood Urea Nitrogen 34 mg/dL (8-23); Carbon Dioxide 19 mmol/L (22-29); Chloride 104 mmol/L (98-107); Globulin 2.7 g/dL (1.3-4.6); Glucose 120 mg/dL (65-115); Osmolality Calculated 295 mOsm/kg (285-295); Potassium 4.8 mmol/L (3.5-5.1); Sodium 138 mmol/L (136-145); Total Bilirubin 0.2 mg/dL (0.15-1.2); Total Protein 6.1 g/dL (6.6-8.7)
== END 2021-12-29 17:41 | disposition home or self-care (01) ==
PROVIDERS: PCP Nurse Practitioner Family; Visit Provider Student in an Organized Health Care Education/Training Program
DX: T84.51XA Infection and inflammatory reaction due to internal right hip prosthesis, initial encounter (principal); Y79.2 Prosthetic and other implants, materials and accessory orthopedic devices associated with adverse incidents
CPT/HCPCS: 80053; 85025

== ENCOUNTER → 2022-01-04 13:47 | Outpatient (BNVA) | payer MEDICARE, OTHER, SELFPAY | PROVIDERS: PCP Nurse Practitioner Family; Visit Provider Orthopaedic Surgery | DX: Z47.1 Aftercare following joint replacement surgery (principal); Z96.641 Presence of right artificial hip joint; M16.12 Unilateral primary osteoarthritis, left hip | CPT/HCPCS: 73502 ==

== ENCOUNTER 2022-01-05 16:41 | Outpatient (CLI) | payer MEDICARE, OTHER, SELFPAY ==
[2022-01-05 17:06] LABS: Basophils # 0.1 10^3/uL (0.0-0.1); Basophils % 0.4 %; Eosinophils % 0.2 %; Hematocrit 24.2 % (37.0-47.0); Hemoglobin 7.8 g/dL (11.5-15.3); Lymphocytes # 1.4 10^3/uL (0.8-4.8); Lymphocytes % 9.9 %; Mean Corpuscular HGB Conc 32.2 g/dL (30.0-36.0); Mean Corpuscular Hemoglobin 31.8 pg (28.0-34.0); Mean Corpuscular Volume 98.8 fl (81-99); Mean Platelet Volume 9.8 fL (7.4-10.4); Monocytes # 1.1 10^3/uL (0.2-0.9); Neutrophils # 11.05 10^3/uL (1.8-7.7); Neutrophils % 80.8 %; Nucleated Red Blood Cells % 0.2 %; Platelet Count 313 10^3/cmm (130-400); Red Blood Count 2.45 10^6/uL (4.1-5.3); Red Cell Distribution Width 19.5 % (12.1-15.1); White Blood Count 13.7 10^3/uL (4.0-10.0)
[2022-01-05 17:22] LABS: Erythrocyte Sedimentation Rate < 1 mm/hr (0-15)
[2022-01-05 17:35] LABS: Alanine Aminotransferase 21 U/L (0-33); Albumin Level 3.5 g/dL (3.5-5.2); Alkaline Phosphatase 140 IU/L (35-105); Anion Gap 17.8 (5-19); Aspartate Amino Transferase 19 U/L (0-32); Blood Urea Nitrogen 55 mg/dL (8-23); Calcium 9.2 mg/dL (8.5-10.5); Carbon Dioxide 20 mmol/L (22-29); Chloride 103 mmol/L (98-107); Globulin 2.4 g/dL (1.3-4.6); Glucose 95 mg/dL (65-115); Osmolality Calculated 297 mOsm/kg (285-295); Potassium 4.8 mmol/L (3.5-5.1); Sodium 136 mmol/L (136-145); Total Bilirubin 0.2 mg/dL (0.15-1.2); Total Protein 5.9 g/dL (6.6-8.7)
== END 2022-01-05 16:42 | disposition home or self-care (01) ==
PROVIDERS: PCP Nurse Practitioner Family; Referring Provider Orthopaedic Surgery; Visit Provider Student in an Organized Health Care Education/Training Program
DX: T84.51XA Infection and inflammatory reaction due to internal right hip prosthesis, initial encounter (principal); Y83.8 Other surgical procedures as the cause of abnormal reaction of the patient, or of later complication, without mention of misadventure at the time of the procedure
CPT/HCPCS: 80053; 85025; 85651; 86140

== ENCOUNTER 2022-01-12 | Outpatient (CLI) | payer MEDICARE, OTHER, SELFPAY ==
[2022-01-12 19:18] LABS: Basophils % 0.6 %; Eosinophils # 0.4 10^3/uL (0.0-0.8); Eosinophils % 5.2 %; Hemoglobin 7.1 g/dL (11.5-15.3); Lymphocytes # 1.1 10^3/uL (0.8-4.8); Lymphocytes % 15.4 %; Mean Corpuscular HGB Conc 32.3 g/dL (30.0-36.0); Mean Corpuscular Hemoglobin 30.5 pg (28.0-34.0); Mean Corpuscular Volume 94.4 fl (81-99); Mean Platelet Volume 9.7 fL (7.4-10.4); Monocytes # 0.5 10^3/uL (0.2-0.9); Monocytes % 7.6 %; Neutrophils # 4.94 10^3/uL (1.8-7.7); Neutrophils % 70.8 %; Nucleated Red Blood Cells % 0.3 %; Platelet Count 305 10^3/cmm (130-400); Red Blood Count 2.33 10^6/uL (4.1-5.3); Red Cell Distribution Width 19.1 % (12.1-15.1)
[2022-01-12 19:37] LABS: Alanine Aminotransferase 17 U/L (0-33); Albumin Level 3.2 g/dL (3.5-5.2); Alkaline Phosphatase 104 IU/L (35-105); Anion Gap 18.3 (5-19); Aspartate Amino Transferase 14 U/L (0-32); Blood Urea Nitrogen 42 mg/dL (8-23); Calcium 8.4 mg/dL (8.5-10.5); Carbon Dioxide 21 mmol/L (22-29); Chloride 105 mmol/L (98-107); Glucose 74 mg/dL (65-115); Osmolality Calculated 299 mOsm/kg (285-295); Potassium 4.3 mmol/L (3.5-5.1); Sodium 140 mmol/L (136-145); Total Bilirubin 0.2 mg/dL (0.15-1.2); Total Protein 5.2 g/dL (6.6-8.7)
== END 2022-01-12 23:59 | disposition home or self-care (01) ==
LOC: LAB 05-24 12:04
PROVIDERS: PCP Nurse Practitioner Family; Visit Provider Student in an Organized Health Care Education/Training Program
DX: T84.51XA Infection and inflammatory reaction due to internal right hip prosthesis, initial encounter (principal)
CPT/HCPCS: 80053; 85025

== ENCOUNTER 2022-01-15 10:50 | Observation (INO) | payer MEDICARE, OTHER, SELFPAY ==
[2022-01-15 10:55] VITALS: PULSE 65; RESP 20; O2SAT 100; BMI 19.0
--- NOTE | 2022-01-15 11:17 | CTR_ITS ---
PROCEDURE INFORMATION: Exam: CT Head Without Contrast Exam date and time: 01/15/2022 11:56 AM Age: 71 years old Clinical indication: Altered mental status/memory loss. Fall. TECHNIQUE: Imaging protocol: Computed tomography of the head without contrast. Radiation optimization: All CT scans at this facility use at least one of these dose optimization techniques: automated exposure control; mA and/or kV adjustment per patient size (includes targeted exams where dose is matched to clinical indication); or iterative reconstruction. COMPARISON: CT head wo con* [id number] 12/07/2021 3:42 PM RADIATION DOSE METRICS: Total DLP (mGy-cm): 912.97 FINDINGS: Brain: No acute intracranial hemorrhage. 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 There is no evidence of acute large vessel infarct. There is mild patchy subcortical and periventricular hypodensity, most commonly associated with small vessel ischemic disease of indeterminate age. The posterior fossa is grossly unremarkable; however, it is partially obscurred by beam hardening artifact. Cerebral ventricles: The ventricles are prominent, compatible with mild parenchymal volume loss. Paranasal sinuses: Retention cysts or polyps in the pain is a sinuses. Mastoid air cells: No mastoid effusion. Orbital cavities: The visualized orbits are unremarkable. Bones/joints: No acute fracture is seen. Soft tissues: No significant scalp soft tissue swelling. CT/CT head wo con* [id number] IMPRESSION: 1. Mild senescent changes as above. 2. 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 3. No acute intracranial abnormality is identified.
--- NOTE | 2022-01-15 11:17 | XRR_ITS ---
PROCEDURE INFORMATION: Exam: XR Chest Exam date and time: 01/15/2022 11:47 AM Age: 71 years old Clinical indication: Dyspnea and shortness of breath. Cough. TECHNIQUE: Imaging protocol: XR of the chest. Views: 1 view. COMPARISON: CT chest [facility] [id number] 12/10/2021 12:46 PM FINDINGS: Lungs: No pulmonary consolidation. There is a nodular density in the mid right chest measuring 1.2 cm. Pleural spaces: No pleural effusion. No pneumothorax. Heart/Mediastinum: The cardiac silhouette is unremarkable. No gross evidence of pneumomediastinum. Bones/joints: No gross fracture. XR/XR chest 1V portable [id number] IMPRESSION: Nodular density in the mid right chest measuring 1.[address] chest to further assess.
--- NOTE | 2022-01-15 11:17 | ED_ITS ---
HPI - General Adult General: Chief complaint: Shortness of Breath/Dyspnea Stated complaint: trouble breathing and dementia Time Seen by Provider: 01/15/22 11:05 Source: patient Mode of arrival: ambulatory Limitations: altered mental status History of Present Illness: 71-year-old female presents to the emergency room acutely ill. She is nonresponsive. She has a long and complicated medical history reviewed in chart. On presentation here she is hypotensive nonresponsive hypothermic with a temp of 87 5 blood pressure 60 systolic. She is confused disoriented and no interaction with commands. She appears profoundly anemic and very unstable. Onset (ago): hour(s) Severity: severe Pain Consistency: constant Relieving factors: none Exacerbating factors: none Associated symptoms: Reports confusion, cough, decreased appetite, dyspnea, fevers/chills, malaise, nausea, short of breath, vomiting and weakness; Deny chest pain, diaphoresis, headache(s), rash, palpitations, seizures or syncope Treatments prior to arrival: none Review of Systems General: Reports: Other (Limited mostly from patient's due to her condition) Const: Reports: malaise; Denies: diaphoresis Card: Denies: chest pain, palpitations or syncope Resp: Reports: dyspnea GI: Reports: nausea and vomiting Skin/Breast: Denies: rash Neuro: Reports: confusion; Denies: headache(s) [facility] ED PFSH: Medical History Anemia Chronic right hip pain CVA (cerebral vascular accident) 10/2021 - MRI revealed acute stroke in the right parieto-occipital junction and a second lesion in the left frontal temporal junction around the sylvian fissure Dementia non verbal Facet syndrome, lumbar Female cystocele History of transesophageal echocardiography (AMEE) 10/2021 - no vegitation Intervertebral disc disorder with radiculopathy of lumbosacral region Long-term use of high-risk medication Low back pain MRSA (methicillin resistant Staphylococcus aureus) septicemia (~10/2021) Parkinsonian features Primary progressive nonfluent aphasia Progressive supranuclear palsy Prosthetic joint infection Prosthetic joint infection Protein-energy malnutrition Smoker Spinal stenosis of lumbar region with radiculopathy Spondylolisthesis, lumbar region Subcapital fracture of right hip TIA (transient ischemic attack) Surgical History H/O submandibular gland removal H/O vaginal surgery 09/30/2020- anterior colporrhaphy augmented with allograft and single incision mid urethral sling, performed by Dr. Stoll at [facility] History of cardiac radiofrequency ablation 2011 S/P cholecystectomy 2010 S/P hardware removal (11/05/21) right hip with antibiotic cement spacer placement S/P hysterectomy 2004 Status post hip hemiarthroplasty (10/09/21) right hip with subsequent MRSA infection Family History Sister Dementia Father Myocardial infarct Heart disease Mother Cancer Brain Tumor Brother Hypertension Cancer colon cancer Denies family history of Ovarian cancer Diabetes Clotting disorder Hyperlipidemia Breast cancer Anesthesia complication Bleeding disorder Uterine cancer Thyroid condition Stroke Social History Smoking and tobacco status: former smoker Alcohol intake: never Marital status: Physical Exam HENMT: COMMON NORMALS: normocephalic and atraumatic HEAD & SCALP: normocephalic and atraumatic Eye: COMMON NORMALS: conjunctivae normal and no scleral icterus CONJUNCTIV A: Yes conjunctivae normal Neck/C-Spine: COMMON NORMALS: no lymphadenopathy, supple and no JVD Lymph: LYMPHATIC: no lymphadenopathy noted and no lymphedema noted Resp: EFFORT & INSPECTION: Yes tachypneic AUSCULTATION: rhonchi and diminished lung sounds Cardio: COMMON NORMALS: no JVD, regular rhythm and No murmurs present (Cardio) RATE: bradycardic RHYTHM: regular rhythm GI: COMMON NORMALS: Soft to palpation and No hepatosplenomegaly present AUSCULTATION: Yes normoactive bowel sounds PALPATION: Yes Soft to palpation, No Tenderness to palpation present (GI), No Guarding due to palpation present (GI) and Yes No hepatosplenomegaly present : COMMON NORMALS: Yes no CVA tenderness BLADDER/KIDNEY EXAM: Yes no CVA tenderness Back/Pelvis: COMMON NORMALS: no CVA tenderness Extremity: COMMON NORMALS: no clubbing, cyanosis or edema, no calf tenderness and no pedal edema Procedures Central Line Placement Right IJ: Time Out Performed: Yes Patient Placed on Monitor/Pulse Ox: Yes MD Prep: mask, gown and gloves Central Line Prep: Chlorhexidine scrub Local Anesthetic: lidocaine 1% Amount of anesthesia used (mL): 4 Ultrasound Used for Placement: Yes Central Line Lumen Inserted: triple Post Procedure: sutured in place, good blood return, all ports aspirated, flushed, capped and sterile dressing applied Post Procedure X-Ray: tip of catheter in good position Patient Tolerated Procedure: well Complications: none Course Vital Signs: Vital signs: Vital Signs Temperature 87.5 F L 01/15/22 11:30 Pulse Rate 84 01/15/22 16:19 Respiratory Rate 18 01/15/22 13:40 Blood Pressure 103/60 01/15/22 13:40 Pulse Oximetry 100 01/15/22 13:40 MDM - General Adult Medical Decision Making Patient septic with a very poor prognosis. Discussed with he wishes to do what we could at the moment he will consider changing patient to a comfort Loli level if she does not begin to improve she was initially given fluid boluses started on Levophed. Have discussed with Dr. Menon orders written Medical Records I reviewed the patient's medical records. Lab Data I reviewed the patient's lab results. : 01/15/22 11:40 01/15/22 11:[address] 01/15/22 11:17 IMPRESSION: 1. Mild senescent changes as above. 2. 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 3. No acute intracranial abnormality is identified. Abdomen/Pelvis CT 01/15/22 12:52 IMPRESSION: 1. Probable mass involving the distal gastric antrum. There is distention of the stomach and hiatal hernia raising concern for gastric outlet obstruction. Recommend upper endoscopy to further assess. 2. Marked wall thickening of the esophagus in the mediastinum which may reflect esophagitis or esophageal mass. This will likely be better assessed on upper endoscopy. 3. Multiple mildly prominent loops of gas and fluid-filled small bowel in the abdomen and pelvis. This could reflect ileus or partial obstruction. 4. Umbilical hernia containing a partial loop of colon. This appears nonobstructive and uncomplicated. 5. The bladder wall is mildly prominent. Correlate with urinalysis. 6. Small right and trace left pleural effusions. 7. The blood pool is low in attenuation relative to the cardiac muscle suggesting anemia. 8. Moderate hiatal hernia. 9. Mild free fluid. ADDENDUM: 01/15/22 1450 Findings discussed with ALPHONSO TANNER at 01/15/2022 2:48 PM CDT. Chest X-Ray 01/15/22 13:52 IMPRESSION: Right internal jugular central venous access device with tip at the SVC/right atrial junction. Laboratory Results WBC 19.6 10^3/uL (4.0-10.0) H 01/15/22 11:40 RBC 1.89 10^6/uL (4.1-5.3) L 01/15/22 11:40 Hgb 5.6 g/dL (11.5-15.3) L* 01/15/22 11:40 Hct 18.9 % (37.0-47.0) L* 01/15/22 11:40 MCV 100.0 fl (81-99) H 01/15/22 11:40 MCH 29.6 pg (28.0-34.0) 01/15/22 11:40 MCHC 29.6 g/dL (30.0-36.0) L 01/15/22 11:40 RDW 18.6 % (12.1-15.1) H 01/15/22 11:40 Plt Count 195 10^3/cmm (130-400) 01/15/22 11:40 MPV 11.1 fL (7.4-10.4) H 01/15/22 11:40 Neut % (Auto) 87.0 % 01/15/22 11:40 Lymph % (Auto) 4.1 % 01/15/22 11:40 Shackelford % (Auto) 7.9 % 01/15/22 11:40 Eos % (Auto) 0.1 % 01/15/22 11:40 Baso % (Auto) 0.4 % 01/15/22 11:40 Neut # (Auto) 17.09 10^3/uL (1.8-7.7) H 01/15/22 11:40 Lymph # (Auto) 0.8 10^3/uL (0.8-4.8) 01/15/22 11:40 Shackelford # (Auto) 1.5 10^3/uL (0.2-0.9) H 01/15/22 11:40 Eos # (Auto) 0.0 10^3/uL (0.0-0.8) 01/15/22 11:40 Baso # (Auto) 0.1 10^3/uL (0.0-0.1) 01/15/22 11:40 Nucleated RBC % (auto) 1.1 % 01/15/22 11:40 Nucleated RBCs # 0.2 /100WBC 01/15/22 11:40 Specimen Type Arterial 01/15/22 11:26 Sample Site Radial, left 01/15/22 11:26 ABG pH 7.10 (7.35-7.45) L* 01/15/22 11:26 ABG pCO2 18.0 mmHg (35-45) L* 01/15/22 11: ABG pO2 185.0 mmHg (80.0-100.0) H 01/15/22 11: ABG HCO3 5.6 mmol/L (22-26) L 01/15/22 11: ABG O2 Saturation 99.3 01/15/22 11:26 ABG Base Excess -22.0 mmol/L (-2.0-2.0) L 01/15/22 11:26 Florian Test Pos 01/15/22 11:26 A-a O2 Gradient 5.8 mmHg (5-10) 01/15/22 11: Hematocrit 20.3 % (37-47) L 01/15/22 11:26 Hgb O2 Saturation 97.8 % (95-100) 01/15/22 11:26 Carboxyhemoglobin 0.4 %THgb (0.4-20.1) 01/15/22 11:26 Methemoglobin 1.0 % (0.4-1.5) 01/15/22 11:26 Total Hemoglobin 6.6 g/dL (12-16) L 01/15/22 11:26 Sodium 137.0 mmol/L (131-143) 01/15/22 11:26 Potassium 4.4 mmol/L (3.5-5.0) 01/15/22 11:26 Glucose 88.0 mg/dL (70-115) 01/15/22 11:26 Ionized Calcium 1.2 mmol/L (1.1-1.4) 01/15/22 11:26 O2 Delivery Device Nc 01/15/22 11:26 O2 Liters/Min 4.0 % 01/15/22 11:26 FiO2 36.0 % 01/15/22 11:26 Computer Designer ID Cak 01/15/22 11:26 Sodium 136 mmol/L (136-145) 01/15/22 11:40 Potassium 4.8 mmol/L (3.5-5.1) 01/15/22 11:40 Chloride 99 mmol/L (98-107) 01/15/22 11:40 Carbon Dioxide 5 mmol/L (22-29) L* 01/15/22 11:40 Anion Gap 36.8 (5-19) H 01/15/22 11:40 BUN 78 mg/dL (8-23) H 01/15/22 11:40 Creatinine 2.0 mg/dL (0.5-0.9) H 01/15/22 11:40 GFR Calculation Not Reportable 01/15/22 11:40 Glucose 94 mg/dL (65-115) 01/15/22 11:40 Calculated Osmolality 305 mOsm/kg (285-295) H 01/15/22 11:40 Lactic Acid 16.6 mmol/L (0.5-2.2) H* 01/15/22 11:40 Calcium 9.1 mg/dL (8.5-10.5) 01/15/22 11:40 Magnesium 2.5 mg/dL (1.7-2.3) H 01/15/22 11:40 Total Bilirubin 0.2 mg/dL (0.15-1.2) 01/15/22 11:40 AST 35 U/L (0-32) H 01/15/22 11:40 ALT 34 U/L (0-33) H 01/15/22 11:40 Alkaline Phosphatase 99 IU/L (35-105) 01/15/22 11:40 Troponin T Baseline 45 ng/L (0-10) H 01/15/22 11:40 Total Protein 4.4 g/dL (6.6-8.7) L 01/15/22 11:40 Albumin 2.8 g/dL (3.5-5.2) L 01/15/22 11:40 Globulin 1.6 g/dL (1.3-4.6) 01/15/22 11:40 Lipase 19 U/L (13-60) 01/15/22 11:40 Serum Ketones Negative (Negative) 01/15/22 11:40 Critical Care Time Critical Care Time: Critical Care Time: Yes Total Critical Care Time: 40 Attestation: The high probability of a clinically significant, sudden or life threatening deterioration of the patient's cardiovascular system(s) required my full and direct attention, intervention and personal management. Complicated by pote ntial sepsis and severe anemia. The critical care time is as shown. This time is in addition to time spent performing any reported procedures but includes the following: [x] Data and vital sign review and interpretation [x] Patient assessment, examination and intervention [x] Documentation [x] Medication orders and management Discharge Plan Discharge Patient Disposition: Admitted As Inpatient Admit Provider: Solomon Menon Condition: Stable Coding Level of Care Code ED Hand Deicer Element Winder for Hannah Knox
--- NOTE | 2022-01-15 11:18 | ECG_ITS ---
[facility] Test Date: 2022-01-15 Pat Name: Jannet Ashford Department: Room: Gender: Female English Professor: : 1950 Requested By: Alphonso Murphy Order Number: [id number] Evangelist MD: Vasquez Pandey M.D. Measurements Intervals [place] Rate: 67 P: [place]: QRS: 80 QRSD: 97 T: 80 QT: 469 QTc: 498 Interpretive Statements SUPRAVENTRICULAR RHYTHM PROLONGED QT INTERVAL Compared to ECG 12/07/2021 18:43:25 Supraventricular rhythm now present Prolonged QT interval now present Sinus tachycardia no longer present T-wave abnormality no longer present Electronically Signed On 01-17-2022 9:03:05 CDT by Vasquez Pandey M.D. [id number]
[2022-01-15 11:30] VITALS: BP 112/61; PULSE 67; RESP 28; TEMP 30.8; O2SAT 100
[2022-01-15] MEDS: sodium chloride 0.9% 1,000 ML 999 ML IV ×2 (11:30→12:00)
[2022-01-15 11:37] LABS: Alveolar-Arterial Oxygen Gradi 5.8 mmHg (5-10); Arterial Blood Gas Hematocrit 20.3 % (37-47); Blood Gas Allen Test Pos; Blood Gas Operator Identificat CAK; Blood Gas Sample Site Radial, left; Blood Gas Sample Type Arterial; Carboxyhemoglobin 0.4 %THgb (0.4-20.1); HCO3 ABG 5.6 mmol/L (22-26); HGB O2 Sat 97.8 % (95-100); Ionized Calcium Level - ABG 1.2 mmol/L (1.1-1.4); Oxygen Device NC; Oxygen Saturation ABG 99.3; Potassium Level - ABG 4.4 mmol/L (3.5-5.0); Total Hemoglobin 6.6 g/dL (12-16)
[2022-01-15 11:47] LABS: Basophils # 0.1 10^3/uL (0.0-0.1); Basophils % 0.4 %; Eosinophils % 0.1 %; Lymphocytes # 0.8 10^3/uL (0.8-4.8); Lymphocytes % 4.1 %; Mean Corpuscular HGB Conc 29.6 g/dL (30.0-36.0); Mean Corpuscular Hemoglobin 29.6 pg (28.0-34.0); Mean Platelet Volume 11.1 fL (7.4-10.4); Monocytes # 1.5 10^3/uL (0.2-0.9); Monocytes % 7.9 %; Neutrophils # 17.09 10^3/uL (1.8-7.7); Nucleated Red Blood Cells # 0.2 /100WBC; Nucleated Red Blood Cells % 1.1 %; Platelet Count 195 10^3/cmm (130-400); Red Blood Count 1.89 10^6/uL (4.1-5.3); Red Cell Distribution Width 18.6 % (12.1-15.1); White Blood Count 19.6 10^3/uL (4.0-10.0)
--- NOTE | 2022-01-15 11:52 | PC.NURSE ---
Patient comes from home via POV with . Patient is unresponsive and grunting upon initial assessment. Patient blood pressure and pulse oximetry unable to be read, multiple attempts made. Temperature 87.5 rectally. Patient placed under bear warming blanket. 18 g IV placed in left ac. Right sided attempted. Patient fell yesterday per her Harsha. Harsha states when he woke up at 0800 this morning patient was grunting and appeared to be in pain. Harsha states that patient was her baseline last night. Patient has history of dementia but he states this is very different than her normal. patient at Ct at this time. patient responds to painful stimuli. Patient lays to the left side. Patient does not follow commands. RN at bedside, at bedside. Provider at beside at updated Harsha. Harsha calling his family at this time. Harsha states that they do not wish to have CPR performed if the need arises. He states at that point he wants comfort cares only.
[2022-01-15 12:03] LABS: Hematocrit 18.9 % (37.0-47.0); Hemoglobin 5.6 g/dL (11.5-15.3)
[2022-01-15 12:16] LABS: Ketone (Acetest) Serum Negative (Negative)
[2022-01-15 12:21] LABS: Troponin(5th) Baseline 45 ng/L (0-10)
[2022-01-15 12:28] LABS: Alanine Aminotransferase 34 U/L (0-33); Albumin Level 2.8 g/dL (3.5-5.2); Alkaline Phosphatase 99 IU/L (35-105); Anion Gap 36.8 (5-19); Aspartate Amino Transferase 35 U/L (0-32); Blood Urea Nitrogen 78 mg/dL (8-23); Calcium 9.1 mg/dL (8.5-10.5); Chloride 99 mmol/L (98-107); Globulin 1.6 g/dL (1.3-4.6); Glucose 94 mg/dL (65-115); Lipase 19 U/L (13-60); Magnesium 2.5 mg/dL (1.7-2.3); Osmolality Calculated 305 mOsm/kg (285-295); Potassium 4.8 mmol/L (3.5-5.1); Sodium 136 mmol/L (136-145); Total Bilirubin 0.2 mg/dL (0.15-1.2); Total Protein 4.4 g/dL (6.6-8.7)
[2022-01-15 12:51] LABS: Carbon Dioxide 5 mmol/L (22-29); Lactic Sepsis W/Reflex 16.6 mmol/L (0.5-2.2)
--- NOTE | 2022-01-15 12:52 | CTR_ITS ---
PROCEDURE INFORMATION: Exam: CT Abdomen And Pelvis Without Contrast Exam date and time: 01/15/2022 2:20 PM Age: 71 years old Clinical indication: Elevated white blood cell count. Prior cholecystectomy, right hip replacement and hysterectomy. Unresponsive. Grunting. Unresponsive. Low hemoglobin and hematocrit. Abdominal pain. TECHNIQUE: Imaging protocol: Computed tomography of the abdomen and pelvis without contrast. Radiation optimization: All CT scans at this facility use at least one of these dose optimization techniques: automated exposure control; mA and/or kV adjustment per patient size (includes targeted exams where dose is matched to clinical indication); or iterative reconstruction. COMPARISON: CT angio chest w abd pel w con 10/30/2021 1:30 PM RADIATION DOSE METRICS: Total DLP (mGy-cm): 982.44 FINDINGS: Pleural spaces: Small right and trace left pleural effusions. Minimal atelectasis at the lung bases. No pericardial effusion. The blood pool is low in attenuation relative to the cardiac muscle suggesting anemia. Moderate hiatal hernia. Mediastinal space: There is marked wall thickening of the esophagus in the mediastinum which may reflect esophagitis or esophageal mass. Liver: The liver is unremarkable. Gallbladder and bile ducts: The gallbladder has been removed. Pancreas: The pancreas is unremarkable. Spleen: The spleen is unremarkable. Adrenal glands: The adrenal glands are unremarkable. Kidneys and ureters: The kidneys are unremarkable. Stomach and bowel: There is a probable mass involving the distal gastric antrum measuring 4.9 x 3.2 by 4.0 cm. There is distention of the stomach and hiatal hernia raising concern for gastric outlet obstruction. There are multiple mildly prominent loops of gas and fluid-filled small bowel in the abdomen and pelvis. This could reflect ileus or partial obstruction. The colon is unremarkable. Appendix: The appendix is not definitively seen. Intraperitoneal space: No free intraperitoneal air. Mild free fluid. Vasculature: No abdominal aortic aneurysm. Lymph nodes: No retroperitoneal lymphadenopathy. Urinary bladder: The bladder wall is mildly prominent. Correlate with urinalysis. Reproductive: There has been prior hysterectomy. Bones/joints: A bipolar right hip hemiarthroplasty appears laterally and superiorly subluxed relative to the acetabulum. There are foci of heterotopic bone adjacent to the right hip. Moderate compression fracture of L1 that appears chronic. There is retropulsion with moderate central spinal canal narrowing. There is a grade 1 anterolisthesis of L4 related to facet joint degeneration. There is a disc bulge or disc protrusion. There is severe associated central spinal canal narrowing. Old rib fractures are seen bilaterally. No acute fracture is seen. Soft tissues: There is an umbilical hernia containing a partial loop of colon. This appears nonobstructive and uncomplicated. CT/CT abdomen pelvis wo con [id number] IMPRESSION: 1. Probable mass involving the distal gastric antrum. There is distention of the stomach and hiatal hernia raising concern for gastric outlet obstruction. Recommend upper endoscopy to further assess. 2. Marked wall thickening of the esophagus in the mediastinum which may reflect esophagitis or esophageal mass. This will likely be better assessed on upper endoscopy. 3. Multiple mildly prominent loops of gas and fluid-filled small bowel in the abdomen and pelvis. This could reflect ileus or partial obstruction. 4. Umbilical hernia containing a partial loop of colon. This appears nonobstructive and uncomplicated. 5. The bladder wall is mildly prominent. Correlate with urinalysis. 6. Small right and trace left pleural effusions. 7. The blood pool is low in attenuation relative to the cardiac muscle suggesting anemia. 8. Moderate hiatal hernia. 9. Mild free fluid.
[2022-01-15 12:54] LABS: Reflex Lactate Order REFLEX LACTIC ORDERD
[2022-01-15] MEDS: pantoprazole 40 mg SDV 80 MG IVP (13:11)
[2022-01-15] MEDS: LORazepam 2 mg/mL INJ 1 mL 1 MG IVP (13:35)
[2022-01-15 13:40] VITALS: BP 103/60; PULSE 74; RESP 18; O2SAT 100
--- NOTE | 2022-01-15 13:45 | PC.NURSE ---
Patient has bilateral 18 gauge IV, patient central line being placed at this time. Provider at bedside.
--- NOTE | 2022-01-15 13:47 | PC.NURSE ---
Patient has been attached to cardiac monitoring since arrival, due to patient care, note delayed. Patient in afib, which she has a history of. Patient more awake and moving more than she was on arrival. at bedside and agreed to central line.
--- NOTE | 2022-01-15 13:52 | XRR_ITS ---
PROCEDURE INFORMATION: Exam: XR Chest Exam date and time: 01/15/2022 2:00 PM Age: 71 years old Clinical indication: Vascular access device placement or adjustment. Central line, non-tunnelled. Line placement. TECHNIQUE: Imaging protocol: XR of the chest. Views: 1 view. COMPARISON: CR (CHEST, ) 01/15/2022 11:47 AM FINDINGS: Tubes, catheters and devices: Right internal jugular central venous access device with tip at the SVC/right atrial junction. Lungs: No pulmonary consolidation. Pleural spaces: No pleural effusion. No pneumothorax. Heart/Mediastinum: The cardiac silhouette is unchanged. No gross evidence of pneumomediastinum. Bones/joints: No gross fracture. XR/XR chest 1V portable [id number] IMPRESSION: Right internal jugular central venous access device with tip at the SVC/right atrial junction.
[2022-01-15 14:32] LABS: Troponin 5 2HR 38.82 ng/L (0-10)
[2022-01-15 14:43] LABS: Troponin 5 2HR Delta -6.18 ABS# (0-10)
--- NOTE | 2022-01-15 15:40 | P.HP_ITS ---
Providers/Chief Complaint Primary Care Provider: KAILYN Calzada Chief Complaint: trouble breathing and dementia History of Present Illness 71-year-old lady with history of dementia, nonverbal at baseline, with tending to all her needs, although would eat on her own, would otherwise try to figure out her needs by going through a brief review of systems, had a decline in alertness, expansiveness, becoming more confused, weak, prompting him to bring her for evaluation. He reports she had not eaten in the last couple of days. She has an extensive recent history with multiple hospitalizations, including fall and hip fracture in September, with right hemiarthroplasty, after which she briefly did well, but subsequently with infection, requiring removal of hardware, placement of antibiotic spacer on 11/05, with MRSA bacteremia, treated subsequently with IV antibiotics with extended course with vancomycin, however, had developed a rash noted during more recent admission 12/07-12/11. Previously also on and off on anticoagulation due to both CVA in setting of atrial fibrillation, as well as AMEE during hospitalization in October showed large mobile echogenic structure seems attached to tricuspid valve annulus noted in right atrium, possibly representing endocarditis versus atrial mass/thrombus. However, this was thought to also be present on prior TTE in September and for AMEE showed no vegetation, but prominent thickened eustachian valve noted in right atrium. During her admission she was treated with cefepime and daptomycin, subsequently given prescription for linezolid. During that admission also tested positive for human metapneumovirus. Noted anemia for which received 1 unit transfusion, Eliquis dose was decreased to 2.5 mg twice daily. Was seen for follow-up with infectious disease at the beginning of December, with recommendation for continuation of linezolid, with plans for definitive surgery on January 28 for removal of antibiotic spacer and new hardware placement. During the current presentation to ER he is found hypotensive, with blood pressure 60 systolic to palpation. Hypothermic, temperature 87.5. Confused and not following commands or interacting. With noted acute anemia, hemoglobin 5.6. With leukocytosis, WBC 19.6. With acute kidney injury, creatinine 2. Metabolic acidosis, seven-point 11/09/25/5 0.6 on ABG, bicarb 5, anion gap 36.8. Lactic acidosis, 16.6. AST 35, ALT 34. Baseline troponin 45, 12.38.8. Lipase unremarkable. Albumin 2.8. Serum ketones negative. 2 units RBC are requested for her. She received PPI push. She received 2 L IV fluid boluses, started on Levophed. Blood cultures collected. Empiric Levaquin. Urinalysis is requested. Is being warmed. As per discussion with her , he states that he is realistic with regards to her recent health issues, he relays her CODE STATUS to be limited, he has been agreeable with limited trial of medical therapy, and central line was placed for additional support with admission to ICU, however, in case of cardiopulmonary arrest relates her CODE STATUS to be DNR and without further aggressive measures in case of lack of progress. Shortly after initial discussion I went back to discuss results of abdominal CT with her , with finding of probable mass involving distal gastric antrum, with distention of the stomach and hiatal hernia raising concern for gastric outlet obstruction. Marked thickening of esophagus in the mediastinum which may reflect esophagitis or esophageal mass. Multiple mildly prominent loops of gas and fluid-filled small bowel in the abdomen, possibly ileus or partial obstruction. Umbilical hernia containing partial loop of colon. Appearing nonobstructive. Bladder wall mildly prominent. Small right and trace left pleural effusions. Noted blood pool is low in attenuation relative to cardiac muscle suggesting anemia. Moderate hiatal hernia. Mild free fluid. While discussing the results blood pressure feels noted 62/38 while now on 20 mcg/min of Levophed. On recycling measurement blood pressure cannot be obtained. Discussing the CT discussed also concern for global hypoperfusion, ischemia, and now need for addition of second pressor. Shock with multiorgan injury. Discussed consideration of placement of NG tube with possible gastric outlet obstruction with possible gastric mass Given severity of condition offered consideration of transition to comfort measures alone. Upon careful consideration this is the route that he would prefer to pursue rather than add additional pressors and pursue additional interventions. Review of Systems General: Reports: ROS unobtainable due to endotracheal tube and Other (As per HPI) Medications/Allergies Home Medications Medication Instructions Recorded Confirmed Last Taken Type acetaminophen 325 mg tablet 650 mg PO Q6H PRN 12/07/21 01/15/22 01/15/22 History (Tylenol) apixaban 2.5 mg tablet 2.5 mg PO BID 30 Days #60 tab 01/06/22 01/15/22 01/15/22 Rx ferrous gluconate 324 mg (37.5 mg 324 mg PO BIDWM 30 Days #60 tab 01/06/22 01/15/22 01/15/22 Rx iron) tablet Lactobacillus acidoph-L.bulgaricus 1 tab PO BID 01/15/22 01/15/22 01/15/22 History 1 million cell tablet Allergies Allergy/AdvReac Type Severity Reaction Status Date / Time Penicillins Allergy Severe ALGY-Anaphy Verified 01/06/22 08:43 laxis vancomycin Allergy Mild ALGY-Rash Verified 01/06/22 08:43 gabapentin AdvReac SPEECH Verified 01/06/22 08:43 DIFFICULTY Sulfa (Sulfonamide AdvReac WAS TOLD Verified 01/06/22 08:43 Antibiotics) BY HER MOTHER THAT SHE IS ALLERGIC PFSH Acute PFSH: Medical History Anemia Chronic right hip pain CVA (cerebral vascular accident) 10/2021 - MRI revealed acute stroke in the right parieto-occipital junction and a second lesion in the left frontal temporal junction around the sylvian fissure Dementia non verbal Facet syndrome, lumbar Female cystocele History of transesophageal echocardiography (AMEE) 10/2021 - no vegitation Intervertebral disc disorder with radiculopathy of lumbosacral region Long-term use of high-risk medication Low back pain MRSA (methicillin resistant Staphylococcus aureus) septicemia (~10/2021) Parkinsonian features Primary progressive nonfluent aphasia Progressive supranuclear palsy Prosthetic joint infection Prosthetic joint infection Protein-energy malnutrition Smoker Spinal stenosis of lumbar region with radiculopathy Spondylolisthesis, lumbar region Subcapital fracture of right hip TIA (transient ischemic attack) Surgical History H/O submandibular gland removal H/O vaginal surgery 09/30/2020- anterior colporrhaphy augmented with allograft and single incision mid urethral sling, performed by Dr. Stoll at [facility] History of cardiac radiofrequency ablation 2011 S/P cholecystectomy 2010 S/P hardware removal (11/05/21) right hip with antibiotic cement spacer placement S/P hysterectomy 2004 Status post hip hemiarthroplasty (10/09/21) right hip with subsequent MRSA infection Family History Sister Dementia Father Myocardial infarct Heart disease Mother Cancer Brain Tumor Brother Hypertension Cancer colon cancer Denies family history of Ovarian cancer Diabetes Clotting disorder Hyperlipidemia Breast cancer Anesthesia complication Bleeding disorder Uterine cancer Thyroid condition Stroke Social History Smoking and tobacco status: former smoker Alcohol intake: never Marital status: Vitals/I&O/Wt Last Vital Signs Temp 87.5 F L 01/15/22 11:30 Pulse 74 01/15/22 13:40 Resp 18 01/15/22 13:40 BP 103/60 01/15/22 13:40 Pulse Ox 100 01/15/22 13:40 01/15/22 01/15/22 01/15/22 06:59 14:59 22:59 Intake Total 1035.56 / 1035.56 Balance 1035.56 / 1035.56 Weight last 48 hrs Weight 50.349 kg Physical Exam Const: COMMON NORMALS: negative for patient oriented x3 GENERAL APPEARANCE: not cooperative and not comfortable ORIENTATION/CONSCIOUSNESS: Yes confused HENMT: COMMON NORMALS: oropharynx normal Neck/C-Spine: COMMON NORMALS: no JVD Resp: COMMON NORMALS: normal respiratory effort and clear to auscultation bilaterally AUSCULTATION: clear to auscultation bilaterally Cardio: COMMON NORMALS: no JVD, regular rhythm, S1 normal heart sound present, S2 normal heart sound present and No murmurs present (Cardio) RATE: tachycardic RHYTHM: regular rhythm HEART SOUNDS: S1 normal heart sound present and S2 normal heart sound present GI: AUSCULTATION: Yes Hypoactive bowel sounds present PALPATION: Yes Tenderness to palpation present (GI) Extremity: COMMON NORMALS: no joint enlargement and no pedal edema OTHER: Bruising R side upper chest, R shoulder Healed incision R hip wo erythema or open wound. Neuro: COMMON NORMALS: moves all extremities; negative for patient oriented x3 Skin: COMMON NORMALS: no rashes or lesions noted GENERAL SKIN EXAM: no rashes or lesions noted Data : 01/15/22 11:40 01/15/22 11:40 Micro: Microbiology 01/15/22 13:50 Blood Culture - Preliminary Blood SPECIMEN COLLECTED 01/15/22 13:55 Blood Culture - Preliminary Blood SPECIMEN COLLECTED A&P Assessment and plan (1) Comfort measures only status: As per above discussion, additional invasive interventions are not to be undertaken. She is transition to comfort measures alone. Comfort medications requested for her. Pressor is discontinued. Number is requested for comfort measures on outpatient in the bed basis as it is not anticipated that she would survive the trip home. Status: Acute (2) Shock circulatory: Status: Acute (3) Multiple organ failure: Status: Acute (4) Anemia: Status: Acute Qualifiers: Anemia type: iron deficiency Iron deficiency anemia type: inadequate dietary iron intake Qualified Code(s): D50.8 - Other iron deficiency anemias (5) Mass of stomach: Status: Acute (6) Gastric outlet obstruction: Status: Acute (7) CHERRIE (acute kidney injury): Status: Acute (8) Acute encephalopathy: Status: Acute (9) Hypothermia: Status: Acute (10) Troponin level elevated: Status: Acute (11) Metabolic acidosis: Status: Acute (12) Lactic acidosis: Status: Acute Attestations Medical Necessity Statement*: Outpatient in bed for comfort measures. Initially admission was considered, however, upon receipt of additional imaging results and progression of her condition in the ER upon further discussion with her comfort measures alone are initiated on entering the hospital given she would not be anticipated to survive the trip home. 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
--- NOTE | 2022-01-15 15:49 | PC.NURSE ---
Delayed note due to patient care. Patient is being made comfort care per provider. is at bedside, he appears sad but denies any needs at this time. Patient in bed, warmer still on patient. Case work is going to see patient.
--- NOTE | 2022-01-15 15:51 | PC.NURSE ---
Provider went into room and [facility] [place]. RN instructed to not give blood.
[2022-01-15] MEDS: levofloxacin-dextrose 5 % 500 MG/100 ML PREMIX 100 MG IV (15:53)
--- NOTE | 2022-01-15 16:01 | PC.NURSE ---
Patient moved to 6 liters of oxygen, oxygen level down to 89%.
--- NOTE | 2022-01-15 16:02 | PC.NURSE ---
1400 report given to Yovani Sanchez.
[2022-01-15 16:19] VITALS: PULSE 84
--- NOTE | 2022-01-15 16:21 | PC.NURSE ---
Spoke with DR. Peter he stated it was okay to stop the IV drips at this time. Patient wheeled to room 8 in the ICU for comfort care.Provider also stated that he would be putting in comfort orders right now. This RN spoke with him at 1606. Patient moved to ICU at 1615. Unable to obtain blood pressure on patient before transfer and multiple attempts made before transfer to get blood pressure was unsuccessful. Provider aware. vitals: 1318 72 p 61/? bp provider aware of all the blood pressures we were able to get to orange picker. 100% after we got this reading we did not have a good wave form on pulse ox. not accurate what it was picking up. monitor reading turned in to scan into chart. 1215 112/61 1221 62/46 1235 123/60 1241 86/66 1318 72/57 1320 82/56 1332 85/46 1335 103/60 1459 90/60
[2022-01-15 16:23] VITALS: BMI 19.0
--- NOTE | 2022-01-15 16:53 | PC.NURSE ---
6592 patient to ICU 8, moved from stretcher to bed total assistance by multiple nurse. Patient not following commands, SPO2 85%, BP not measurable, HR 80s NSR. Patient showing signs of actively dying. at bedside.
--- NOTE | 2022-01-15 18:08 | PC.NURSE ---
Family denies needs at this time, no comfort medications wanted at this time. Patient's vitals are trending down, spo2 78%, HR 60s. Patient still not responsive.
--- NOTE | 2022-01-15 18:52 | PC.NURSE ---
1831 Patient at 183, verified by asystole in all leads, no RR, no pulse. Verified by second nurse MARSHALL, RN. Family at bedside. Dr. Menon notified. [facility] and saving sight notified and declined patient. Family request [facility] in [place], [place].
--- NOTE | 2022-01-17 23:50 | PM.DDS ---
Discharge Providers DDS Date of Admission: 01/15/22 13:04 Date Summary Completed: 01/17/22 Attending Provider at Admission: Solomon Menon Time of : 18:32 Attending Provider at Discharge: Solomon Menon Primary Care Provider: KAILYN Calzada Diagnoses Hospital Diagnoses (1) Comfort measures only status: (2) Shock circulatory: (3) Multiple organ failure: (4) Anemia: Qualifiers: Anemia type: iron deficiency Iron deficiency anemia type: inadequate dietary iron intake Qualified Code(s): D50.8 - Other iron deficiency anemias (5) Mass of stomach: (6) Gastric outlet obstruction: (7) CHERRIE (acute kidney injury): (8) Acute encephalopathy: (9) Hypothermia: (10) Troponin level elevated: (11) Metabolic acidosis: (12) Lactic acidosis: Reason for Visit Reason for Visit trouble breathing and dementia Summary Date and Time of Date of : 01/15/22 Time of : 18:32 Summary Summary: 71-year-old lady with history of dementia, nonverbal at baseline, with tending to all her needs, although would eat on her own, would otherwise try to figure out her needs by going through a brief review of systems, had a decline in alertness, expansiveness, becoming more confused, weak, prompting him to bring her for evaluation.? He reports she had not eaten in the last couple of days. She has an extensive recent history with multiple hospitalizations, including fall and hip fracture in September, with right hemiarthroplasty, after which she briefly did well, but subsequently with infection, requiring removal of hardware, placement of antibiotic spacer on 11/05, with MRSA bacteremia, treated subsequently with IV antibiotics with extended course with vancomycin, however, had developed a rash noted during more recent admission 12/07-12/11.? Previously also on and off on anticoagulation due to both CVA in setting of atrial fibrillation, as well as AMEE during hospitalization in October showed large mobile echogenic structure seems attached to tricuspid valve annulus noted in right atrium, possibly representing endocarditis versus atrial mass/thrombus.? However, this was thought to also be present on prior TTE in September and for AMEE showed no vegetation, but prominent thickened eustachian valve noted in right atrium. During her admission she was treated with cefepime and daptomycin, subsequently given prescription for linezolid.? During that admission also tested positive for human metapneumovirus.? Noted anemia for which received 1 unit transfusion, Eliquis dose was decreased to 2.5 mg twice daily.? Was seen for follow-up with infectious disease at the beginning of December, with recommendation for continuation of linezolid, with plans for definitive surgery on January 28 for removal of antibiotic spacer and new hardware placement. During the current presentation to ER he is found hypotensive, with blood pressure 60 systolic to palpation.? Hypothermic, temperature 87.5.? Confused and not following commands or interacting.? With noted acute anemia, hemoglobin 5.6.? With leukocytosis, WBC 19.6.? With acute kidney injury, creatinine 2.? Metabolic acidosis, seven-point 11/09// 0.6 on ABG, bicarb 5, anion gap 36.8.? Lactic acidosis, 16.6.? AST 35, ALT 34.? Baseline troponin 45, 12.38.8.? Lipase unremarkable.? Albumin 2.8.? Serum ketones negative. 2 units RBC are requested for her.? She received PPI push.? She received 2 L IV fluid boluses, started on Levophed. Blood cultures collected.? Empiric Levaquin.? Urinalysis is requested.? Is being warmed. As per discussion with her , he states that he is realistic with regards to her recent health issues, he relays her CODE STATUS to be limited, he has been agreeable with limited trial of medical therapy, and central line was placed for additional support with admission to ICU, however, in case of cardiopulmonary arrest relates her CODE STATUS to be DNR and without further aggressive measures in case of lack of progress. Shortly after initial discussion I went back to discuss results of abdominal CT with her , with finding of probable mass involving distal gastric antrum, with distention of the stomach and hiatal hernia raising concern for gastric outlet obstruction.? Marked thickening of esophagus in the mediastinum which may reflect esophagitis or esophageal mass.? Multiple mildly prominent loops of gas and fluid-filled small bowel in the abdomen, possibly ileus or partial obstruction.? Umbilical hernia containing partial loop of colon.? Appearing nonobstructive.? Bladder wall mildly prominent.? Small right and trace left pleural effusions.? Noted blood pool is low in attenuation relative to cardiac muscle suggesting anemia.? Moderate hiatal hernia.? Mild free fluid.? While discussing the results blood pressure feels noted 62/38 while now on 20 mcg/min of Levophed.? On recycling measurement blood pressure cannot be obtained.? Discussing the CT discussed also concern for global hypoperfusion, ischemia, and now need for addition of second pressor.? Shock with multiorgan injury.? Discussed consideration of placement of NG tube with possible gastric outlet obstruction with possible gastric mass? Given severity of condition offered consideration of transition to comfort measures alone.? Upon careful consideration this is the route that he would prefer to pursue rather than add additional pressors and pursue additional interventions. She was transitioned to comfort care with discontinuation of life support measures. She comfortably at 1832. Additional Data Advance directives?: Yes Discharge Plan Discharge Patient Disposition: Condition: Stable Prescriptions: No Action Eliquis 2.5 mg tablet 2.5 mg PO BID 30 Days Qty: 60 5RF Rx Instructions: 340B ferrous gluconate 324 mg (37.5 mg iron) tablet 324 mg PO BIDWM 30 Days Qty: 60 5RF acetaminophen [Tylenol] 325 mg Tablet 650 mg PO Q6H PRN (Reason: Pain) 0RF Lactobacillus acidoph-L.bulgar 1 million cell tablet 1 tab PO BID 0RF Referrals: Catrina Villatoro FNP [Primary Care Provider] - Probable Cause of Probable cause of : Cardiac arrest DS Attestations Time Spent in /Discharge Care*: greater than 30 min Quality - AMI: AMI present?: No Quality - Stroke: CVA present?: No Quality - VTE: VTE present?: No Coding Level of Care Code 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
== END 2022-01-15 18:32 | disposition expired ==
LOC: ER 11:17 → ICU 14:00
PROVIDERS: Admitting Provider Internal Medicine; Emergency Provider Family Medicine; PCP Nurse Practitioner Family; Visit Provider Internal Medicine
DX: Z51.5 Encounter for palliative care (principal); R57.9 Shock, unspecified; D50.8 Other iron deficiency anemias; K31.89 Other diseases of stomach and duodenum; K31.1 Adult hypertrophic pyloric stenosis; N17.9 Acute kidney failure, unspecified; G93.40 Encephalopathy, unspecified; T68.XXXA Hypothermia, initial encounter; R77.8 Other specified abnormalities of plasma proteins; E87.2 Acidosis; F03.90 Unspecified dementia, unspecified severity, without behavioral disturbance, psychotic disturbance, mood disturbance, and anxiety; Z91.81 History of falling; Z96.641 Presence of right artificial hip joint; Z79.01 Long term (current) use of anticoagulants; D64.9 Anemia, unspecified; Z79.899 Other long term (current) drug therapy; F17.210 Nicotine dependence, cigarettes, uncomplicated; Z87.891 Personal history of nicotine dependence
CPT/HCPCS: 36556; 36600; 70450; 71045; 74176; 80051; 80053; 82009; 82330; 82805; 83605; 83690; 83735; 84484; 85025; 86850; 86900; 86920; 87040; 93005; 96365; 96366; 96367; 96375; 99291; C9113; G0378; J1956; J2060; J7030